=== PATIENT | male | born 1960 | race Caucasian/White ===

== ENCOUNTER 2016-08-10 13:31 | Inpatient (IN) | payer MEDICARE, OTHER ==
[2016-08-10] MEDS ORDERED: ASPIRIN 81 MG CHEW PO STA (14:25)
[2016-08-10] MEDS ORDERED: NITROGLYCERIN OINT 1 INCH/GM PACKET TOPICAL STA (14:25)
[2016-08-10] MEDS ORDERED: NITROGLYCERIN SL TABS 0.4 MG TAB SUBLINGUAL STA ×3 (14:25)
[2016-08-10] MEDS ORDERED: MORPHINE SULFATE 4 MG/ML SYRINGE IV STA (14:25)
[2016-08-10] MEDS ORDERED: SODIUM CHLORIDE 0.9% 1,000 ML IV STA (14:25)
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
[2016-08-10 14:53] LABS: Basophils % (A) 0 %; CH 31.1; CHCM 33.8; Eosinophils # (A) 0.2 k/uL (0-0.7); Eosinophils % (A) 2 %; HCT 47.4 % (39.0-53.0); HDW 2.29; HGB 15.7 gm/dL (13.0-17.5); Luc # (Auto) 0.11; Luc % (Auto) 1; Lymphocytes # (A) 3.3 k/uL (1.0-4.8); Lymphocytes % (A) 30 %; MCH 30.6 pg (25.0-35.0); MCHC 33.2 g/dL (31.0-37.0); MCV 92.2 fL (80.0-100.0); Monocytes # (A) 0.4 k/uL (0-1.0); Monocytes % (A) 4 %; Neutrophils # (A) 6.8 k/uL (1.3-7.7); Neutrophils % (A) 63 %; RBC 5.14 m/uL (4.30-5.90); WBC 10.8 k/uL (3.8-10.6); WBC (Perox) 11.02
[2016-08-10 15:04] LABS: INR 1.1 (<1.1)
[2016-08-10 15:07] LABS: ALT 46 U/L (21-72); AST 30 U/L (17-59); Alkaline Phosphatase 58 U/L (38-126); Anion Gap 11 mmol/L; Blood Urea Nitrogen 16 mg/dL (9-20); Calcium 9.5 mg/dL (8.4-10.2); Carbon Dioxide 25 mmol/L (22-30); Chloride 104 mmol/L (98-107); Glucose 150 mg/dL (74-99); Non-African American GFR(MDRD) >60 (>60 ml/min/1.73 sqM); Potassium 4.5 mmol/L (3.5-5.1); Sodium 140 mmol/L (137-145); Total Bilirubin 1.2 mg/dL (0.2-1.3); Total Protein 7.4 g/dL (6.3-8.2)
[2016-08-10 15:14] LABS: Creatine Kinase 91 U/L (55-170)
--- NOTE | 2016-08-10 15:15 | CT ---
EXAMINATION TYPE: CT brain wo con DATE OF EXAM: 08/10/2016 3:09 PM COMPARISON: 09/01/2012 HISTORY: 56-year-old male facial numbness TECHNIQUE: Examination was done in axial plane without intravenous contrast. Coronal and sagittal reconstructio ns performed. CT DLP: 1090.4 mGycm Automated exposure control for dose reduction was used. FINDINGS: There is no evidence of acute intracranial hemorrhage, acute ischemic changes, mass, mass-effect, or extra-axial fluid collection. There is no effacement of cerebral sulci or basal subarachnoid cister ns. There is no hydrocephalus. There is no midline shift. Yancey-white matter distinction is preserv ed. Incidental partially empty sella. Leftward nasal septal deviation. The globes are intact. Mastoid air cells well pneumatized. IMPRESSION: No acute intracranial abnormality seen.
--- NOTE | 2016-08-10 15:20 | XR ---
EXAMINATION TYPE: XR chest 2V DATE OF EXAM: 08/10/2016 3:12 PM COMPARISON: 09/10/2015 HISTORY: 56-year-old male with chest pain TECHNIQUE: Frontal and lateral views FINDINGS: The cardiomediastinal silhouette, aorta, and pulmonary vasculature are within normal limits. Some str christina perihilar atelectasis is present. Otherwise, lungs and pleural spaces are clear. Left anterior chest wall AICD generator with right ventricular lead. IMPRESSION: No acute cardiopulmonary process.
[2016-08-10 15:29] LABS: Creatine Kinase MB 1.4 ng/mL (0.0-2.4); Troponin I <0.012 ng/mL (0.000-0.034)
[2016-08-10] MEDS ORDERED: MORPHINE SULFATE 2 MG/ML SYRINGE IVP PRN (16:15)
[2016-08-10] MEDS ORDERED: HEPARIN SODIUM,PORCINE 5,000 UNIT/ML 1 ML VIAL IV ONE (16:15)
[2016-08-10] MEDS ORDERED: MORPHINE SULFATE 4 MG/ML SYRINGE IV PRN (16:15)
[2016-08-10] MEDS ORDERED: HEPARIN SODIUM,PORCINE/D5W PMX 25,000 UNIT in DEXTROSE/WATER 1 500ML.BAG IV SCH (16:15)
[2016-08-10] MEDS ORDERED: HEPARIN SODIUM,PORCINE 5,000 UNIT/ML 1 ML VIAL IV PRN (16:15)
[2016-08-10] MEDS ORDERED: ACETAMINOPHEN TAB 500 MG TAB PO PRN (16:21)
[2016-08-10] MEDS: ALPRAZolam 0.5 MG TAB PO PRN (19:46)
[2016-08-10] MEDS: NICOTINE 21MG/24HR PATCH TRANSDERM SCH (19:46)
[2016-08-10] MEDS ORDERED: ATORVASTATIN 40 MG TAB PO SCH (21:00)
[2016-08-10] MEDS: CARVEDILOL 12.5 MG TAB PO SCH (21:46)
[2016-08-10] MEDS: LISINOPRIL 10 MG TAB PO SCH (21:46)
[2016-08-10] MEDS: NITROGLYCERIN OINT 1 INCH/GM PACKET TOPICAL SCH (21:47)
[2016-08-10 22:55] LABS: Creatine Kinase MB 1.5 ng/mL (0.0-2.4); Troponin I 0.012 ng/mL (0.000-0.034)
[2016-08-11 03:38] LABS: Creatine Kinase MB 1.4 ng/mL (0.0-2.4); Troponin I 0.016 ng/mL (0.000-0.034)
[2016-08-11] MEDS: NITROGLYCERIN OINT 1 INCH/GM PACKET TOPICAL SCH ×2 (06:10→11:36)
[2016-08-11] MEDS: CARVEDILOL 12.5 MG TAB PO SCH ×2 (06:13→17:10)
[2016-08-11 06:43] LABS: Mean Platelet Volume 8.9
[2016-08-11 07:20] LABS: Cholesterol 101 mg/dL (<200); HDL Cholesterol 48 mg/dL (40-60); Triglycerides 51 mg/dL (<150)
[2016-08-11] MEDS: NICOTINE 21MG/24HR PATCH TRANSDERM SCH (08:16)
[2016-08-11] MEDS: LISINOPRIL 10 MG TAB PO SCH (08:17)
[2016-08-11] MEDS ORDERED: EZETIMIBE 10 MG TAB PO SCH (09:00)
[2016-08-11] MEDS ORDERED: ASPIRIN 325 MG TAB PO SCH (09:00)
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
[2016-08-11] MEDS ORDERED: ASPIRIN 325 MG TAB PO STA (10:04)
[2016-08-11] MEDS ORDERED: ATORVASTATIN 80 MG TAB PO STA (10:04)
[2016-08-11] MEDS ORDERED: ALPRAZolam 0.5 MG TAB PO PRN (10:04)
[2016-08-11] MEDS ORDERED: ALPRAZolam 0.25 MG TAB PO PRN (10:04)
[2016-08-11] MEDS ORDERED: NITROGLYCERIN SL TABS 0.4 MG TAB SUBLINGUAL PRN (10:04)
[2016-08-11] MEDS ORDERED: SODIUM CHLORIDE 0.9% 1,000 ML in EMPTY BAG 1 BAG IV ONE (10:04)
[2016-08-11] MEDS: ALPRAZolam 0.5 MG TAB PO PRN (10:15)
[2016-08-11 10:43] VITALS: TEMP 98.5
[2016-08-11 10:52] LABS: Glucose,Whole Blood 89 mg/dL (75-99)
--- NOTE | 2016-08-11 10:54 | ECHOF ---
Referral Reason:cp MEASUREMENTS -------- HEIGHT: 170.2 cm WEIGHT: 88.0 kg BP: 151/87 RVIDd: 2.6 cm (< 3.3) IVSd: 1.1 cm (0.6 - 1.1) LVIDd: 7.0 cm (3.9 - 5.3) LVPWd: 1.0 cm (0.6 - 1.1) IVSs: 1.2 cm LVIDs: 6.3 cm LVPWs: 1.3 cm LA Diam: 4.0 cm (2.7 - 3.8) LAESV Index (A-L): 23.66 ml/m Ao Diam: 3.4 cm (2.0 - 3.7) AV Cusp: 2.2 cm (1.5 - 2.6) LA Diam: 3.8 cm (2.7 - 3.8) MV EXCURSION: 14.751 mm (> 18.000) MV EF SLOPE: 80 mm/s (70 - 150) EPSS: 2.5 cm MV E Paramjit: 0.81 m/s MV DecT: 174 ms MV A Paramjit: 0.33 m/s MV E/A Ratio: 2.44 RAP: 5.00 mmHg RVSP: 44.53 mmHg FINDINGS -------- Paced rhythm. Pacerwire seen in RV and RA. This was a technically adequate study. The left ventricle is severely dilated. Left ventricular wall thickness is normal. Overall left ventricular systolic function is severely impaired with, an EF < 20%. The right ventricle is normal in size. Normal LA size by volume 22+/-6 ml/m2. The right atrium is normal in size. Aortic valve is trileaflet and is mildly thickened. Mild mitral annular calcification present. There is trace mitral regurgitation. Mild tricuspid regurgitation present. There is mild pulmonary hypertension. The right ventricular systolic pressure, as measured by Doppler, is 44.53mmHg. Trace/mild (physiologic) pulmonic regurgitation. The aortic root size is normal. Normal inferior vena cava with normal inspiratory collapse consistent with estimated right atrial pressure of 5 mmHg. There is no pericardial effusion. CONCLUSIONS -------- 1. Paced rhythm. 2. Aortic valve is trileaflet and is mildly thickened. 3. Mild mitral annular calcification present. 4. There is trace mitral regurgitation. 5. Mild tricuspid regurgitation present. 6. There is mild pulmonary hypertension. 7. The right ventricular systolic pressure, as measured by Doppler, is 44.53mmHg. 8. Trace/mild (physiologic) pulmonic regurgitation. 9. The aortic root size is normal. 10. There is no pericardial effusion. 11. Pacerwire seen in RV and RA. 12. This was a technically adequate study. 13. The left ventricle is severely dilated. 14. Left ventricular wall thickness is normal. 15. Overall left ventricular systolic function is severely impaired with, an EF < 20%. 16. The right ventricle is normal in size. 17. Normal LA size by volume 22+/-6 ml/m2. 18. The right atrium is normal in size. COFFEE WEIGHER: Taye Morales RDCS
[2016-08-11] MEDS ORDERED: IV FLUID CONTINUATION 1,000 ML IV ONE (12:22)
[2016-08-11] MEDS ORDERED: diphenhydrAMINE 50 MG/ML 1 ML VIAL ONE (12:42)
[2016-08-11] MEDS ORDERED: LIDOCAINE 2% INJ 20 MG/ML (20 ML MDV) ONE (12:42)
[2016-08-11] MEDS ORDERED: fentaNYL (PF) 50 MCG/ML 2 ML AMP ONE (12:43)
[2016-08-11] MEDS ORDERED: HEPARIN SODIUM 1,000 UNIT/ML VIAL ONE (12:43)
[2016-08-11] MEDS ORDERED: SODIUM CHLORIDE 0.9% (PF) 10 ML VIAL ONE (12:44)
[2016-08-11] MEDS ORDERED: VERAPAMIL 2.5 MG/ML 2 ML AMP ONE (12:44)
[2016-08-11] MEDS ORDERED: fentaNYL (PF) 50 MCG/ML 2 ML AMP IV ONE (12:45)
[2016-08-11] MEDS ORDERED: LIDOCAINE 2% INJ 20 MG/ML SQ ONE (12:46)
[2016-08-11] MEDS ORDERED: diphenhydrAMINE 50 MG/ML 1 ML VIAL IVP ONE (12:46)
[2016-08-11] MEDS ORDERED: VERAPAMIL SYRINGE (5 MG/10 ML) INTRAARTER ONE (12:47)
[2016-08-11] MEDS ORDERED: HEPARIN SODIUM 1,000 UNIT/ML VIAL IV ONE (12:54)
[2016-08-11] MEDS ORDERED: IOHEXOL 350 MG/ML 100 ML BOTTLE INJ ONE (12:59)
[2016-08-11] MEDS ORDERED: RX INFO: IV CONTRAST WAS GIVEN 1 EACH MISC MISCELLANE PRN (13:12)
[2016-08-11] MEDS ORDERED: SODIUM CHLORIDE 0.9% 1,000 ML IV SCH (13:15)
[2016-08-11 15:29] VITALS: RESP 18
[2016-08-11 17:26] VITALS: BP 140/86; PULSE 66
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
--- NOTE | 2016-08-11 21:05 | CC ---
DATE OF SERVICE: Mr. Carter is a 56-year-old male with known history of coronary artery disease, severe ischemic cardiomyopathy, history of chronic tobacco use, who presented to the hospital with symptoms of chest discomfort. He had no acute EKG changes nor enzymatic changes. He was evaluated by Dr. Simons. Because of his history, recommendation was made regarding cardiac catheterization. The procedure as well as its risks and complications were discussed with the patient, who was in full understanding and agreement. 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 He was draped and prepped in conventional fashion. Using Xylocaine anesthesia and Seldinger technique, a 6 Lao sheath was introduced in the right radial artery. Selective right and left coronary angiography was performed using 5 Lao 3-1/2 Bend, right Misbah catheter and a 6 Lao 3-1/2 Bend left Misbah catheter. Multiple views of the coronary arteries were obtained, including hemiaxial views. Following that, a 6 Lao tight pigtail catheter was introduced in the left ventricle and a 30-degree SMITH view of the left ventricle was obtained. Following that, catheter and sheaths were removed. Hemostasis was obtained with deployment of a TR band. There were no immediate complications. Patient was returned to his room in stable condition. Of note, the patient received 4500 units of intravenous heparin as well as intra-arterial Verapamil. FINDINGS LEFT MAIN: This is a large-sized vessel bifurcating into left circumflex and left anterior descending artery. Left main coronary artery has a 10% to 20% plaque distally. LEFT ANTERIOR DESCENDING ARTERY: This is a large-sized vessel reaching toward the apex with a wrap around the apex segment giving rise to a diagonal branch proximally of small to moderate caliber. The diagonal branch has 70% plaque. The stented segment in the mid LAD is patent. The rest of the vessel has diffuse intimal disease of 30% to 40% without any critical stenosis. LEFT CIRCUMFLEX: This is a dominant vessel, large in caliber, bifurcating distally into PDA and posterolateral segment and branches giving rise to a large first obtuse marginal branch. The obtuse marginal branch has 40% plaque proximally. The rest of the vessel has diffuse intimal disease of mild degree without any evidence of high-grade stenosis. RIGHT CORONARY ARTERY: This is a non-dominant vessel giving rise to acute marginal branch. The right coronary artery in its mid segment has a 99% stenosis in a diffuse pattern. LEFT VENTRICULOGRAM: Left ventriculogram was performed in 30-degree SMITH view and revealed a dilated left ventricle with severe anteroapical akinesis. The rest of the zamarripa were hypokinetic. The ejection fraction is estimated at 20%. There was no significant mitral regurgitation. HEMODYNAMICS: There was no gradient across the aortic valve. The left ventricular end-diastolic pressure was 34 mmHg. CONCLUSION: 1. Mild to moderate triple-vessel coronary artery disease with severe stenosis involving the non-dominant right coronary artery which is a chronic lesion. 2. Severely impaired left ventricular systolic function. RECOMMENDATIONS: In view of findings and anatomy, I recommend continued medical therapy with the aggressive coronary risk factor modifications that have been initiated. Those findings and recommendations were discussed with the patient and his family, and they are in full understanding and agreement.
--- NOTE | 2016-08-11 21:09 | LTR ---
August 11, 2016 RE: RaulMarc Dear Dr. Mendez, I had the pleasure of performing cardiac catheterization on Mr. Carter at [facility] on August 11, and a full copy of the procedure note will be forwarded to you. In brief, he was found to have mild to moderate obstructive disease involving the LAD and the left circumflex with severe chronic disease in the non-dominant right coronary artery and a severely impaired left ventricular systolic function. By comparison to the images obtained in the past, there is no progression of disease. Based on those findings, I have recommended continued medical therapy with the aggressive coronary risk modifications you have initiated. Thank you again for allowing me to participate in his care. Please feel to call with any questions. Sincerely, JOSE ESCUDERO MD
[2016-08-12] MEDS ORDERED: ATORVASTATIN 40 MG TAB PO SCH (21:00)
== END 2016-08-11 18:35 | disposition home or self-care (01) | DRG 287 ==
LOC: EC 13:31 → 6SEL 16:15
PROVIDERS: ADMIT Hospitalist; ATTEND Hospitalist
PROC: B2111ZZ Fluoroscopy of Multiple Coronary Arteries using Low Osmolar Contrast (ICD-10-PCS; 2016-08-11)
PROC: B2151ZZ Fluoroscopy of Left Heart using Low Osmolar Contrast (ICD-10-PCS; 2016-08-11)
PROC: 4A023N7 Measurement of Cardiac Sampling and Pressure, Left Heart, Percutaneous Approach (ICD-10-PCS; principal; 2016-08-11 12:32)
DX: R07.9 Chest pain, unspecified (principal); J44.1 Chronic obstructive pulmonary disease with (acute) exacerbation; I50.9 Heart failure, unspecified; I25.2 Old myocardial infarction; E78.5 Hyperlipidemia, unspecified; I10 Essential (primary) hypertension; F41.0 Panic disorder [episodic paroxysmal anxiety]; F17.200 Nicotine dependence, unspecified, uncomplicated; I25.5 Ischemic cardiomyopathy; M19.90 Unspecified osteoarthritis, unspecified site; I25.10 Atherosclerotic heart disease of native coronary artery without angina pectoris; E66.9 Obesity, unspecified; Z68.30 Body mass index [BMI] 30.0-30.9, adult; K57.90 Diverticulosis of intestine, part unspecified, without perforation or abscess without bleeding; G89.29 Other chronic pain; M54.9 Dorsalgia, unspecified; F41.9 Anxiety disorder, unspecified; Z95.5 Presence of coronary angioplasty implant and graft; Z95.810 Presence of automatic (implantable) cardiac defibrillator; Z79.82 Long term (current) use of aspirin; Z79.899 Other long term (current) drug therapy; Z88.2 Allergy status to sulfonamides; Z88.5 Allergy status to narcotic agent; Z88.1 Allergy status to other antibiotic agents; Z82.49 Family history of ischemic heart disease and other diseases of the circulatory system
CPT/HCPCS: 36415; 70450; 71020; 80053; 80061; 82550; 82553; 83735; 84484; 85025; 85049; 85610; 85730; 93005; 93306; 93458; 96374; 96375; 99285

== ENCOUNTER → 2016-08-21 | Outpatient (CLI) | payer MEDICARE, OTHER ==
[2016-08-21 11:49] LABS: Anion Gap 11 mmol/L; Blood Urea Nitrogen 15 mg/dL (9-20); Carbon Dioxide 27 mmol/L (22-30); Chloride 102 mmol/L (98-107); Non-African American GFR(MDRD) >60 (>60 ml/min/1.73 sqM); Potassium 4.8 mmol/L (3.5-5.1); Sodium 140 mmol/L (137-145)
== END | disposition home or self-care (01) ==
LOC: LABWHC1 10:15
PROVIDERS: ATTEND Internal Medicine Interventional Cardiology
DX: I10 Essential (primary) hypertension (principal)
CPT/HCPCS: 36415; 80051; 82565; 84520

== ENCOUNTER → 2017-05-02 | Outpatient (CLI) | payer MEDICARE, OTHER ==
[2017-05-02 09:14] LABS: ALT 62 U/L (21-72); AST 35 U/L (17-59); Alkaline Phosphatase 57 U/L (38-126); Anion Gap 9 mmol/L; Blood Urea Nitrogen 17 mg/dL (9-20); Calcium 9.3 mg/dL (8.4-10.2); Carbon Dioxide 27 mmol/L (22-30); Chloride 104 mmol/L (98-107); Cholesterol 109 mg/dL (<200); Glucose 114 mg/dL (74-99); HDL Cholesterol 53 mg/dL (40-60); Non-African American GFR(MDRD) >60 (>60 ml/min/1.73 sqM); Potassium 4.4 mmol/L (3.5-5.1); Sodium 140 mmol/L (137-145); Total Protein 7.3 g/dL (6.3-8.2)
== END | disposition home or self-care (01) ==
LOC: LABWHC1 08:24
PROVIDERS: ATTEND Internal Medicine Interventional Cardiology
DX: E78.2 Mixed hyperlipidemia (principal)
CPT/HCPCS: 36415; 80053; 80061

== ENCOUNTER 2017-11-14 14:41 | Inpatient (IN) | payer MEDICARE, OTHER ==
[2017-11-14] MEDS ORDERED: IPRATROPIUM-ALBUTEROL 3 ML NEB INHALATION STA (15:01)
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
[2017-11-14 15:29] LABS: Basophils % (A) 0 %; Eosinophils % (A) 0 %; HCT 46.9 % (39.0-53.0); HGB 15.8 gm/dL (13.0-17.5); Lymphocytes # (A) 1.5 k/uL (1.0-4.8); Lymphocytes % (A) 29 %; MCH 29.7 pg (25.0-35.0); MCHC 33.7 g/dL (31.0-37.0); MCV 88.1 fL (80.0-100.0); Mean Platelet Volume 9.7; Monocytes # (A) 0.3 k/uL (0-1.0); Monocytes % (A) 6 %; Neutrophils # (A) 3.2 k/uL (1.3-7.7); Neutrophils % (A) 62 %; Platelet Count 156 k/uL (150-450); RBC 5.32 m/uL (4.30-5.90); RDW 13.4 % (11.5-15.5); WBC 5.1 k/uL (3.8-10.6)
[2017-11-14 15:42] LABS: Albumin 4.2 g/dL (3.5-5.0); Magnesium 1.7 mg/dL (1.6-2.3); Potassium 4.2 mmol/L (3.5-5.1); Total Bilirubin 0.7 mg/dL (0.2-1.3); Total Protein 7.3 g/dL (6.3-8.2)
--- NOTE | 2017-11-14 15:46 | XR ---
EXAMINATION TYPE: XR chest 2V DATE OF EXAM: 11/14/2017 COMPARISON: Chest x-ray August 10, 2016 HISTORY: Shortness of breath and weakness. TECHNIQUE: Frontal and lateral views of the chest are obtained. FINDINGS: There is chronic parenchymal change without suspicious focal air space opacity, pleural ef fusion, or pneumothorax seen. The cardiac silhouette size is stable and upper limits of normal with single lead pacemaker/AICD redemonstrated. The osseous structures are intact. IMPRESSION: No acute cardiopulmonary process. No significant change from prior.
[2017-11-14 15:51] LABS: Partial Thromboplastin Time 28.2 sec (22.0-30.0); Prothrombin Time 10.1 sec (9.0-12.0)
[2017-11-14 16:03] LABS: D-Dimer 0.61 mg/L FEU (<0.60)
[2017-11-14] MEDS ORDERED: RX INFO: IV CONTRAST WAS GIVEN 1 EACH MISC MISCELLANE PRN (16:03)
[2017-11-14 16:04] LABS: Creatine Kinase MB 0.9 ng/mL (0.0-2.4)
[2017-11-14 16:08] LABS: Troponin I 0.067 ng/mL (0.000-0.034)
--- NOTE | 2017-11-14 16:43 | CT ---
EXAMINATION TYPE: CT chest angio for PE DATE OF EXAM: 11/14/2017 COMPARISON: Chest x-ray earlier today HISTORY: Weakness and SOB CT DLP: 378.2 mGycm. Automated Exposure Control for Dose Reduction was Utilized. CONTRAST: CTA scan of the thorax is performed with IV Contrast, patient injected with 65 mL of Isovue 370, pulm onary embolism protocol. MIP Images are created on CT scanner and reviewed. FINDINGS: LUNGS: Mild to moderate underlying emphysematous change is felt present. There is respiratory motion artifact seen making evaluation suboptimal particularly for subcentimeter nodularity. No suspicious m ass is clearly present. Some ill-defined groundglass opacity inferior lateral left upper lobe is iden tified near axial image 65. Additional smaller areas of involvement in the lingula are felt present. Tiny bilateral pleural effusions are seen. No pneumothorax is noted bilaterally. MEDIASTINUM: There is satisfactory enhancement of the pulmonary artery and its branches, there is no CT evidence for pulmonary embolism. There are prominent but subcentimeter lymph nodes throughout th e mediastinum is prominent in the AP window. No cardiomegaly or pericardial effusion is seen. There is moderate to severe left ventricular dilatation noted. There is single lead pacemaker/AICD. There is moderate to severe 3 vessel coronary artery calcification which is noted marker for coronary arter y disease. OTHER: Small hiatal hernia is present. There is mild multilevel spurring in the thoracic spine. IMPRESSION: 1. No CT evidence for acute pulmonary embolism. 2. Suboptimal study, mild to moderate underlying emphysematous change is present. There is moderate t o severe left ventricular dilatation noted. Possible acute infiltrate inferior aspect left upper lobe with additional areas of involvement in the left lung. Correlate clinically.
--- NOTE | 2017-11-14 16:52 | ED ---
Medical Decision Making - Lab Data Result diagrams: 11/14/17 15:10 11/14/17 15:10 Lab Results 11/14/17 11/14/17 11/14/17 Range/Units 15:10 15:10 15:10 WBC 5.1 (3.8-10.6) k/uL RBC 5.32 (4.30-5.90) m/uL Hgb 15.8 (13.0-17.5) gm/dL Hct 46.9 (39.0-53.0) % MCV 88.1 (80.0-100.0) fL MCH 29.7 (25.0-35.0) pg MCHC 33.7 (31.0-37.0) g/dL RDW 13.4 (11.5-15.5) % Plt Count 156 (150-450) k/uL Neutrophils % 62 % Lymphocytes % 29 % Monocytes % 6 % Eosinophils % 0 % Basophils % 0 % Neutrophils # 3.2 (1.3-7.7) k/uL Lymphocytes # 1.5 (1.0-4.8) k/uL Monocytes # 0.3 (0-1.0) k/uL Eosinophils # 0.0 (0-0.7) k/uL Basophils # 0.0 (0-0.2) k/uL PT (9.0-12.0) sec INR (<1.2) APTT (22.0-30.0) sec D-Dimer (<0.60) mg/L FEU Sodium 138 (137-145) mmol/L Potassium 4.2 (3.5-5.1) mmol/L Chloride 99 (98-107) mmol/L Carbon Dioxide 25 (22-30) mmol/L Anion Gap 14 mmol/L BUN 16 (9-20) mg/dL Creatinine 1.62 H (0.66-1.25) mg/dL Est GFR (CKD-EPI)AfAm 53 (>60 ml/min/1.73 sqM) Est GFR (CKD-EPI)NonAf 46 (>60 ml/min/1.73 sqM) Glucose 101 H (74-99) mg/dL Calcium 9.0 (8.4-10.2) mg/dL Magnesium 1.7 (1.6-2.3) mg/dL Total Bilirubin 0.7 (0.2-1.3) mg/dL AST 71 H (17-59) U/L ALT 70 (21-72) U/L Alkaline Phosphatase 71 (38-126) U/L Total Creatine Kinase 121 (55-170) U/L CK-MB (CK-2) 0.9 (0.0-2.4) ng/mL CK-MB (CK-2) Rel Index 0.7 Troponin I 0.067 H* (0.000-0.034) ng/mL NT-Pro-B Natriuret Pep pg/mL Total Protein 7.3 (6.3-8.2) g/dL Albumin 4.2 (3.5-5.0) g/dL 11/14/17 11/14/17 Range/Units 15:10 15:10 WBC (3.8-10.6) k/uL RBC (4.30-5.90) m/uL Hgb (13.0-17.5) gm/dL Hct (39.0-53.0) % MCV (80.0-100.0) fL MCH (25.0-35.0) pg MCHC (31.0-37.0) g/dL RDW (11.5-15.5) % Plt Count (150-450) k/uL Neutrophils % % Lymphocytes % % Monocytes % % Eosinophils % % Basophils % % Neutrophils # (1.3-7.7) k/uL Lymphocytes # (1.0-4.8) k/uL Monocytes # (0-1.0) k/uL Eosinophils # (0-0.7) k/uL Basophils # (0-0.2) k/uL PT 10.1 (9.0-12.0) sec INR 1.0 (<1.2) APTT 28.2 (22.0-30.0) sec D-Dimer 0.61 H (<0.60) mg/L FEU Sodium (137-145) mmol/L Potassium (3.5-5.1) mmol/L Chloride (98-107) mmol/L Carbon Dioxide (22-30) mmol/L Anion Gap mmol/L BUN (9-20) mg/dL Creatinine (0.66-1.25) mg/dL Est GFR (CKD-EPI)AfAm (>60 ml/min/1.73 sqM) Est GFR (CKD-EPI)NonAf (>60 ml/min/1.73 sqM) Glucose (74-99) mg/dL Calcium (8.4-10.2) mg/dL Magnesium (1.6-2.3) mg/dL Total Bilirubin (0.2-1.3) mg/dL AST (17-59) U/L ALT (21-72) U/L Alkaline Phosphatase (38-126) U/L Total Creatine Kinase (55-170) U/L CK-MB (CK-2) (0.0-2.4) ng/mL CK-MB (CK-2) Rel Index Troponin I (0.000-0.034) ng/mL NT-Pro-B Natriuret Pep 1270 pg/mL Total Protein (6.3-8.2) g/dL Albumin (3.5-5.0) g/dL Disposition Clinical Impression: Acute exacerbation of chronic obstructive airways disease, Diarrhea Disposition: ADMITTED IP TO THIS HOSP Referrals: Saima Mendez MD [Primary Care Provider] - 1-2 days
[2017-11-14] MEDS: IPRATROPIUM-ALBUTEROL 3 ML NEB INHALATION PRN (18:44)
[2017-11-14] MEDS: LEVOFLOXACIN 750MG-D5W PMX 750 MG in DEXTROSE/WATER 1 150ML.BAG IVPB SCH (21:49)
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
[2017-11-14] MEDS ORDERED: SODIUM CHLORIDE 0.9% 1,000 ML IV SCH (23:15)
[2017-11-15] MEDS: ATORVASTATIN 40 MG TAB PO SCH ×2 (01:05→20:16)
[2017-11-15] MEDS: CARVEDILOL 12.5 MG TAB PO SCH ×3 (01:06→17:02)
[2017-11-15] MEDS ORDERED: HEPARIN SODIUM,PORCINE 5,000 UNIT/ML 1 ML VIAL IV ONE (06:25)
[2017-11-15] MEDS ORDERED: HEPARIN SODIUM,PORCINE 5,000 UNIT/ML 1 ML VIAL IV PRN (06:25)
[2017-11-15] MEDS ORDERED: HEPARIN SOD,PORK IN 0.45% NACL 25,000 UNIT in 0.45% NACL 1 500ML.BAG IV SCH (06:30)
[2017-11-15] MEDS: IPRATROPIUM-ALBUTEROL 3 ML NEB INHALATION PRN (07:22)
[2017-11-15 07:25] LABS: Basophils % (A) 0 %; Eosinophils % (A) 0 %; HCT 42.1 % (39.0-53.0); HGB 14.4 gm/dL (13.0-17.5); Lymphocytes # (A) 1.4 k/uL (1.0-4.8); Lymphocytes % (A) 41 %; MCH 30.3 pg (25.0-35.0); MCHC 34.3 g/dL (31.0-37.0); MCV 88.2 fL (80.0-100.0); Mean Platelet Volume 9.6; Monocytes # (A) 0.2 k/uL (0-1.0); Monocytes % (A) 5 %; Neutrophils # (A) 1.8 k/uL (1.3-7.7); Neutrophils % (A) 51 %; Platelet Count 121 k/uL (150-450); RBC 4.77 m/uL (4.30-5.90); RDW 13.6 % (11.5-15.5); WBC 3.5 k/uL (3.8-10.6)
[2017-11-15 07:44] LABS: ALT 61 U/L (21-72); AST 58 U/L (17-59); Albumin 3.4 g/dL (3.5-5.0); Alkaline Phosphatase 61 U/L (38-126); Anion Gap 11 mmol/L; Blood Urea Nitrogen 17 mg/dL (9-20); Calcium 8.4 mg/dL (8.4-10.2); Carbon Dioxide 25 mmol/L (22-30); Chloride 102 mmol/L (98-107); Glucose 85 mg/dL (74-99); Sodium 138 mmol/L (137-145); Total Bilirubin 0.6 mg/dL (0.2-1.3); Total Protein 6.2 g/dL (6.3-8.2)
[2017-11-15] MEDS: ASPIRIN 81 MG PO SCH (07:59)
[2017-11-15] MEDS: EZETIMIBE 10 MG TAB PO SCH (07:59)
[2017-11-15] MEDS: methylPREDNISolone SOD SUCCI 125 MG/2 ML VIAL IV SCH (10:11)
[2017-11-15] MEDS: IPRATROPIUM-ALBUTEROL 3 ML NEB INHALATION SCH ×2 (11:58→19:25)
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
[2017-11-15] MEDS: LISINOPRIL 10 MG TAB PO SCH ×2 (12:39→20:16)
[2017-11-15] MEDS: BUDESONIDE 1 MG/2 ML NEBU INHALATION SCH (19:25)
[2017-11-15] MEDS: FORMOTEROL FUMARATE 20 MCG/2 ML NEBU INHALATION SCH (19:37)
[2017-11-15] MEDS: LEVOFLOXACIN 750MG-D5W PMX 750 MG in DEXTROSE/WATER 1 150ML.BAG IVPB SCH (20:16)
[2017-11-16] MEDS ORDERED: WATER IV SCH (05:30)
[2017-11-16] MEDS ORDERED: HEPARIN SODIUM,PORCINE/D5W PMX 25,000 UNIT in DEXTROSE/WATER 1 500ML.BAG IV SCH (05:30)
[2017-11-16] MEDS ORDERED: HEPARIN SOD PORK IV SCH (05:30)
[2017-11-16] MEDS ORDERED: DEXTROSE IV SCH (05:30)
[2017-11-16] MEDS ORDERED: NACL IV SCH (05:30)
[2017-11-16] MEDS: CARVEDILOL 12.5 MG TAB PO SCH ×2 (06:20→17:42)
[2017-11-16 07:24] LABS: Basophils % (A) 0 %; Eosinophils % (A) 1 %; HGB 13.7 gm/dL (13.0-17.5); Lymphocytes # (A) 2.4 k/uL (1.0-4.8); Lymphocytes % (A) 46 %; MCHC 32.7 g/dL (31.0-37.0); MCV 88.6 fL (80.0-100.0); Mean Platelet Volume 9.7; Monocytes # (A) 0.2 k/uL (0-1.0); Monocytes % (A) 5 %; Neutrophils # (A) 2.4 k/uL (1.3-7.7); Neutrophils % (A) 46 %; Platelet Count 120 k/uL (150-450); RBC 4.74 m/uL (4.30-5.90); RDW 13.5 % (11.5-15.5); WBC 5.2 k/uL (3.8-10.6)
[2017-11-16 07:48] LABS: Anion Gap 10 mmol/L; Blood Urea Nitrogen 12 mg/dL (9-20); Calcium 8.4 mg/dL (8.4-10.2); Carbon Dioxide 26 mmol/L (22-30); Chloride 104 mmol/L (98-107); Potassium 4.4 mmol/L (3.5-5.1); Sodium 140 mmol/L (137-145)
[2017-11-16 07:50] LABS: Glucose 91 mg/dL (74-99)
[2017-11-16] MEDS: FORMOTEROL FUMARATE 20 MCG/2 ML NEBU INHALATION SCH ×2 (08:12→19:37)
[2017-11-16] MEDS: IPRATROPIUM-ALBUTEROL 3 ML NEB INHALATION SCH ×3 (08:12→19:37)
[2017-11-16] MEDS: BUDESONIDE 1 MG/2 ML NEBU INHALATION SCH ×2 (08:13→19:37)
[2017-11-16] MEDS: ASPIRIN 81 MG PO SCH (08:43)
[2017-11-16] MEDS: LISINOPRIL 10 MG TAB PO SCH ×2 (08:43→21:34)
[2017-11-16] MEDS: EZETIMIBE 10 MG TAB PO SCH (08:43)
--- NOTE | 2017-11-16 10:45 | P.PN ---
Subjective Progress Note Date: 11/16/17 Principal diagnosis: Acute COPD exacerbation Marc is a 57-year-old white male patient of Dr. Mendez, who presented to the emergency department on 11/14/2017 at 1441 with complaints of a month-long respiratory illness, with worsening shortness of breath, cough, chest congestion , wheezing. Denied any fever and chills, complaining of a headache from persistent coughing, chest tightness exacerbated by coughing. He is producing whitish colored sputum. Patient has a [id number] smoking history, 1 pack a day for 40 years, quit a month ago he started having trouble breathing. He was seen by Dr. Mendez outpatient, and was treated with a course of Levaquin, completed it and failed to improve. He was given Medrol Dosepak, however the patient had a severe reaction to oral steroids 2 years ago, he developed severe sweating, lightheadedness, weakness, felt like he was "dying". Hence the patient never started his Medrol Dosepak. He was prescribed Symbicort inhaler, which had does not use consistently due to concerns of possibly developing oral thrush. Patient has a Ventolin inhaler which he uses once or twice daily. Does not wear oxygen at his baseline. He thinks he has seen Dr. Pacheco in the remote past. Has a history of COPD, coronary artery disease with previous stenting, 2 myocardial infarctions, AICD/pacemaker, hypertension, hyperlipidemia , osteoarthritis, chronic back pain, anxiety. EKG showed normal sinus rhythm with no evidence of acute ischemia. Chest x-ray showed no acute cardiopulmonary process, patient's had slightly elevated d-dimer at 0.61, and the CTA chest was completed which showed no evidence for acute pulmonary embolism, but evidence of [id number] underlying emphysematous changes, moderate to severe left ventricular dilation. The film was reviewed by Dr. Pacheco and there was no evidence of pneumonia. Patient was noted to have slightly elevated troponins, which topped at 0.067, CKs and CK-MBs were negative. Patient was started on heparin drip. ProBNP was within normal limits at 1270. Patient's initial creatinine was 1.62, he has received some IV hydration, and overnight his creatinine has improved and currently is 0.94. The rest of his electrolytes are within normal limits. Initial white blood cell count was 5.1, today is 3.5. We were asked to see the patient in consultation in regards to his COPD exacerbation. On 11/16/2017 patient seen in follow-up on selective care unit. He states he is improving, his breathing is a bit better, still has some chest tightness which is exacerbated by his coughing, his cough was productive of white sputum. And seems to be worse at nighttime. Is currently on room air, with O2 sat 95%, afebrile, vital signs are stable. Lung sounds are positive for some scattered rhonchi over right lower lobe, no wheezing noted on today's exam, overall improved from yesterday's exam. Remains on heparin drip. Objective - Vital Signs Vital signs: Vital Signs Temp 97.0 F L 11/16/17 08:00 Pulse 77 11/16/17 08:39 Resp 16 11/16/17 08:00 BP 124/76 11/16/17 08:00 Pulse Ox 95 11/16/17 08:13 Intake & Output 11/15/17 11/16/17 11/16/17 18:59 06:59 18:59 Intake Total 400 560 360 Output Total 325 500 200 Balance 75 60 160 Weight 82.7 kg Intake: Intake, IV Titration 400 560 Amount Heparin Sod,Pork in 0.45% 160 NaCl 25,000 unit In 0.45 % NaCl 1 500ml.bag @ 12 UNITS/KG/HR 20.28 mls/hr IV .Q24H TOO Rx#: [id number] Sodium Chloride 0.9% 1, 400 400 000 ml @ 50 mls/hr IV . Q20H TOO Rx#:[id number] Oral 360 Output: Urine 325 500 200 Other: Voiding Method Urinal # Voids 1 - Exam Constitutional General appearance: average body habitus, no acute distress - EENT Eyes: EOMI, dentition normal ENT: NA/AT Ears: bilateral: normal - Neck Neck: no lymphadenopathy, normal ROM Carotids: bilateral: upstroke normal Thyroid: bilateral: normal size - Respiratory Respiratory: bilateral: rhonchi - Cardiovascular Rhythm: regular Heart sounds: normal: S1, S2 - Gastrointestinal General gastrointestinal: no organomegaly, soft, no tenderness - Integumentary Integumentary: normal turgor - Neurologic Neurologic: CNII-XII intact - Musculoskeletal Musculoskeletal: gait normal, strength equal bilaterally - Psychiatric Psychiatric: A&O x's 3, appropriate affect, intact judgment & insight - Labs CBC & Chem 7: 11/16/17 06:35 11/16/17 06:35 Labs: Abnormal Lab Results - Last 24 Hours (Table) 11/15/17 11/16/17 11/16/17 Range/Units 13:22 06:35 06:35 Plt Count 120 L (150-450) k/uL APTT 71.8 H 85.3 H (22.0-30.0) sec Assessment and Plan Plan: Assessment: #1. Acute COPD exacerbation #2. Mild troponin elevation #3. Mildly elevated d-dimer, nonspecific, and CTA chest was negative for any evidence of pulmonary embolism #4. History of coronary artery disease, with previous stenting #5. History of myocardial infarction #6. Ischemic cardiomyopathy with prior AICD placement #7. Hypertension, hyperlipidemia #8. Nicotine dependence, in remission, quit 1 month ago, history of 40-pack- year smoking history #9. Anxiety #10. Osteoarthritis, chronic back pain #11. History of bowel resection related to diverticulitis Plan: Patient is improving, less dyspneic, less wheezy, less chest tightness. Vital signs are stable, patient still has the persistent cough, and states at times is difficult for him to expectorate the phlegm. We will add Mucinex. Continue with nebulized bronchodilators, continue Pulmicort and Perforomist, continue empiric antibiotics in the form of Levaquin, anticipate further improvement. I performed a history & physical examination of the patient and discussed their management with my nurse practitioner, Marcela Pineda. I reviewed the nurse practitioner's note and agree with the documented findings and plan of care. Lung sounds are positive for scattered rhonchi throughout the lung martinez. The findings and the impression was discussed with the patient. I attest to the documentation by the nurse practitioner. Time with Patient: Less than 30
--- NOTE | 2017-11-16 10:51 | P.PN ---
Subjective Progress Note Date: 11/15/17 Principal diagnosis: COPD Exacerbation Mr. Christian is a 57-year-old male with a past medical history of coronary artery disease, COPD, hyperlipidemia, hypertension, osteoarthritis coming in with a chief complaint of difficulty in breathing that has been going on for the past 1 month. Patient has been having cough on and off that is productive in nature and he was evaluated for it and was put on antibiotics. Patient states that he did not respond to antibiotics and so stopped taking them couple of weeks back. Patient reports that the sputum is thick yellowish in nature and that it is difficult for him to cough as it is very thick. Patient states that he had diarrhea for couple of days but now denies having any abdominal pain or diarrhea. On 11/15/17 - Patient denies having any chest pain our palpitations. He complains of generalized weakness but no focal weakness. He denies having any loss of consciousness. Still having shortness of breath. Patient says that he did have ALLERGIC reaction to Medrol Dosepak with dizziness and near syncope. Does not want to take prednisone at this time. Renal function improved. We will discontinue IV fluids and continue the current management during inhaled steroids. Pulmonary is following. Patient does have slightly elevated troponin level REVIEW OF SYSTEMS: PSYCH: no anxiety or depression NEURO:No c/o weakness of the extremties, No facial droop, No speech abnormalities. : No dysuria or hematuria CARDIAC: denies paroxysmal nocturnal dyspnea MUSCULOSKELETAL : No Aches or pains in the joints or muscles. GI: No abdominal pain, Nausea or vomiting. No constipation or diarrhea. Objective - Vital Signs Vital signs: Vital Signs Temp 97.9 F 11/15/17 22:31 Pulse 73 11/15/17 22:31 Resp 18 11/15/17 22:31 BP 141/85 11/15/17 22:31 Pulse Ox 94 L 11/15/17 22:31 Intake & Output 11/15/17 11/15/17 11/16/17 06:59 18:59 06:59 Intake Total 400 Output Total 325 Balance 75 Weight 84.5 kg 82.7 kg Intake: Intake, IV Titration 400 Amount Sodium Chloride 0.9% 1, 400 000 ml @ 50 mls/hr IV . Q20H TOO Rx#:[id number] Output: Urine 325 Other: Voiding Method Urinal # Voids 0 # Bowel Movements 0 - Exam GEN. APPEARANCE: alert, in no apparent distress HEAD EXAM: atraumatic, normocephalic, normal inspection EYE EXAM: normal appearance, PERRL, EOMI. Absent: scleral icterus, conjunctival injection, periorbital swelling ENT EXAM: normal exam, mucous membranes moist NECK EXAM: normal inspection. Absent: tenderness, meningismus, full ROM, lymphadenopathy RESPIRATORY EXAM: Bilateral wheezing in all lung martinez and diminished breath sounds overall. CARDIOVASCULAR EXAM: regular rate, normal rhythm, normal heart sounds. Absent : systolic murmur, diastolic murmur, rubs, gallop, clicks GI/ABDOMINAL EXAM: soft, normal bowel sounds. Absent: distended, tenderness, guarding, rebound, rigid EXTREMITIES EXAM: normal inspection, full ROM, normal capillary refill. Absent : tenderness, pedal edema, joint swelling, calf tenderness NEUROLOGICAL EXAM: alert, oriented X3, CN II-XII intact, motor sensory deficit PSYCHIATRIC EXAM: normal affect, normal mood SKIN EXAM: warm, dry, intact, normal color. Absent: rash - Labs CBC & Chem 7: 11/16/17 06:35 11/16/17 06:35 Labs: Abnormal Lab Results - Last 24 Hours (Table) 11/14/17 11/15/17 11/15/17 Range/Units 23:38 06:57 06:57 WBC 3.5 L (3.8-10.6) k/uL Plt Count 121 L (150-450) k/uL APTT (22.0-30.0) sec Troponin I 0.046 H* (0.000-0.034) ng/mL Total Protein 6.2 L (6.3-8.2) g/dL Albumin 3.4 L (3.5-5.0) g/dL 11/15/17 11/15/17 Range/Units 06:57 13:22 WBC (3.8-10.6) k/uL Plt Count (150-450) k/uL APTT 71.8 H (22.0-30.0) sec Troponin I 0.052 H* (0.000-0.034) ng/mL Total Protein (6.3-8.2) g/dL Albumin (3.5-5.0) g/dL Assessment and Plan Assessment: Assessment Acute exacerbation of COPD Left upper lobe infiltrate -inferior lateral side. Possible pneumonia Acute kidney injury. Prerenal improved Elevated troponins History of CVA/TIA Ischemic cardiomyopathy with prior AICD implantation Chronic CHF with systolic dysfunction ejection fraction 20%. With elevated BNP level History of Coronary artery disease status post stenting Hypertension Hyperlipidemia Cognitive impairment Osteoarthritis Nicotine dependence PLAN: Discontinue IV fluids. Pt responded to IV fluids which improved renal function. C/w Breathing treatments and Levofloxacin. Echo tomorrow. Cardiology and Pulmonary services following. Overall prognosis is poor. Further recommendations to follow depending on progress with the patient. Time with Patient: Greater than 30
[2017-11-16] MEDS: guaiFENesin 600 MG TABLET.ER PO SCH ×2 (11:13→21:34)
--- NOTE | 2017-11-16 11:47 | ECHOF ---
Referral Reason:sob MEASUREMENTS -------- HEIGHT: 170.2 cm WEIGHT: 84.4 kg BP: 124/70 RVIDd: 2.6 cm (< 3.3) IVSd: 0.9 cm (0.6 - 1.1) LVIDd: 7.2 cm (3.9 - 5.3) LVPWd: 1.0 cm (0.6 - 1.1) IVSs: 1.1 cm LVIDs: 6.8 cm LVPWs: 1.1 cm LAESV Index (A-L): 31.27 ml/m Ao Diam: 2.9 cm (2.0 - 3.7) AV Cusp: 1.9 cm (1.5 - 2.6) LA Diam: 3.3 cm (2.7 - 3.8) EPSS: 2.7 cm MV E Paramjit: 0.51 m/s MV DecT: 437 ms MV A Paramjit: 0.76 m/s MV E/A Ratio: 0.67 RAP: 5.00 mmHg RVSP: 9.51 mmHg %FS: 10.23 % EDV(Teich): 308.26 ml EF(Teich): 21.55 % ESV(Teich): 241.83 ml IVSd: 0.81 cm (0.6 - 1.1) IVSs: 1.01 cm LVIDd: 7.61 cm (3.9 - 5.3) LVIDs: 6.83 cm LVPWd: 0.84 cm (0.6 - 1.1) LVPWs: 1.04 cm MV EF SLOPE: 99.26 mm/s (70 - 150) MV EXCURSION: 1.38 cm (> 18.000) SV(Teich): 66.43 ml FINDINGS -------- Sinus rhythm. This was a technically difficult study with suboptimal views. The left ventricle is severely dilated. Left ventricular wall thickness is normal. There is sever e global hypokinesis of LV . Overall left ventricular systolic function is severely impaired with, an EF < 20%. The right ventricle is normal in size and function. LA is midly dilated 29-33ml/m2. The right atrium was not well visualized. Electronic pacemaker lead seen in the right ventricular c avity. 3ml of Lumason was utilized for enhancement of images. There is mild aortic valve sclerosis. There is no evidence of aortic regurgitation. There is no e vidence of aortic stenosis. The mitral valve leaflets are mildly thickened. There is trace to mild mitral regurgitation. Trace tricuspid regurgitation present. Right ventricular systolic pressure is normal at < 35 mmHg. There is no evidence of pulmonary hypertension. The pulmonic valve was not well visualized. The aortic root size is normal. Normal inferior vena cava with normal inspiratory collapse consistent with estimated right atrial pre ssure of 5 mmHg. There is no pericardial effusion. CONCLUSIONS -------- 1. Sinus rhythm. 2. This was a technically difficult study with suboptimal views. 3. The left ventricle is severely dilated. 4. Left ventricular wall thickness is normal. 5. There is severe global hypokinesis of LV . 6. Overall left ventricular systolic function is severely impaired with, an EF < 20%. 7. LA is midly dilated 29-33ml/m2. 8. The right atrium was not well visualized. 9. Electronic pacemaker lead seen in the right ventricular cavity. 10. 3ml of Lumason was utilized for enhancement of images. 11. There is mild aortic valve sclerosis. 12. The mitral valve leaflets are mildly thickened. 13. There is trace to mild mitral regurgitation. 14. Trace tricuspid regurgitation present. 15. Right ventricular systolic pressure is normal at < 35 mmHg. 16. There is no evidence of pulmonary hypertension. 17. The pulmonic valve was not well visualized. 18. The aortic root size is normal. 19. There is no pericardial effusion. [employer] ENGINEER: Kurtis Perez RDCS
--- NOTE | 2017-11-16 14:37 | P.PN ---
Subjective Progress Note Date: 11/16/17 This is a 57-year-old gentleman who follows regularly with Dr. Barrientos in the office. He has a known history of hypertension, hyperlipidemia, nicotine dependence, COPD, family history of premature coronary artery disease, coronary artery disease himself with prior stent placements. He also has known cardiomyopathy, ischemic with prior AICD implantation. Most recent cardiac catheterization was performed in the Jul 2016 revealed mild to moderate triple- vessel coronary artery disease with severe stenosis involving a nondominant RCA which is a chronic lesion. Severely impaired left ventricular systolic function. Presents to the hospital on this occasion with symptoms of persistent worsening of shortness of breath. He states that the symptoms been going on for over a month, he was treated with inhalers and antibiotics as an outpatient with no improvement in symptoms. According to the patient, he also states that he's been coughing up a significant amount of yellow sputum. Over the past number of days patient has also been having diarrhea every time he eats something. He denies any overt chest discomfort, just states that his chest hurts from coughing so much. EKG performed on arrival here shows a normal sinus rhythm with nonspecific ST-T wave changes. Chest x-ray does not reveal any acute cardiopulmonary process. CT of the chest does not reveal any evidence for acute pulmonary embolism. Suboptimal study, mild to moderate underlying emphysema is present. Possible acute infiltrate of the left upper lobe noted. Blood pressure 124/70 with a heart rate in the 60s, temperature 90.7, 93% on room air. White blood cell count 5.1 yesterday 3.5 this morning, hemoglobin 14, platelet count 121 this morning. D-dimer 0.6. The 138, potassium 4.0, BUN 17, creatinine 0.9, creatinine was 1.6. Magnesium 1.7 troponins 0.067, 0.046, 0.052, BNP 1270. At the time of my examination this morning, patient states he still feels short of breath, however better than when he presented here. 11/16/2017 Patient seen and examined this morning. Feeling significantly better with his breathing. Echo cardiac gram with Doppler study was performed which revealed a severely impaired left ventricular systolic function with an ejection fraction of less than 20%. Blood pressure 110/60 with a heart rate in the 70s, temperature 97.1, he is 96% on room air. Blood cell count 5.2, hemoglobin 13.7 , platelet count 120. Sodium 140, potassium 4.4, BUN 12, creatinine 0.8. Objective - Vital Signs Vital signs: Vital Signs Temp 97.1 F L 11/16/17 11:35 Pulse 76 11/16/17 11:35 Resp 16 11/16/17 11:35 BP 111/57 11/16/17 11:35 Pulse Ox 96 11/16/17 11:35 Intake & Output 11/15/17 11/16/17 11/16/17 18:59 06:59 18:59 Intake Total 400 560 600 Output Total 325 500 200 Balance 75 60 400 Weight 82.7 kg Intake: Intake, IV Titration 400 560 Amount Heparin Sod,Pork in 0.45% 160 NaCl 25,000 unit In 0.45 % NaCl 1 500ml.bag @ 12 UNITS/KG/HR 20.28 mls/hr IV .Q24H TOO Rx#: [id number] Sodium Chloride 0.9% 1, 400 400 000 ml @ 50 mls/hr IV . Q20H TOO Rx#:[id number] Oral 600 Output: Urine 325 500 200 Other: Voiding Method Urinal # Voids 1 - Exam PHYSICAL EXAMINATION: HEENT: Head is atraumatic, normocephalic. Pupils equal, round. Neck is supple. There is no elevated jugular venous pressure. HEART EXAMINATION: Heart S1 and S2 systolic ejection murmur is heard. CHEST EXAMINATION: Lungs reveal scattered coarse rhonchi and wheezing throughout today. ABDOMEN: Soft, nontender. Bowel sounds are heard. No organomegaly noted. EXTREMITIES: 2+ peripheral pulses with no evidence of peripheral edema and no calf tenderness noted. NEUROLOGIC patient is awake, alert and oriented -3. . - Labs CBC & Chem 7: 11/16/17 06:35 11/16/17 06:35 Labs: Abnormal Lab Results - Last 24 Hours (Table) 11/16/17 11/16/17 Range/Units 06:35 06:35 Plt Count 120 L (150-450) k/uL APTT 85.3 H (22.0-30.0) sec Assessment and Plan Plan: Assessment and plan #1 symptoms of progressively worsening shortness of breath with associated cough , productive sputum yellow in color. Over one month's duration. CAT scan of the chest shows possible new left upper lobe infiltrate. Possible pneumonia, COPD exacerbation. Patient on antibiotics. BNP level 1270. #2 abnormal troponins, 0.067, 0.046, 0.052. Patient denies having any chest discomfort. EKG shows a normal sinus rhythm with nonspecific ST changes in the anterolateral leads. Most recent cardiac catheterization was performed in July 2016 which revealed mild to moderate triple-vessel coronary artery disease with severe stenosis involving the nondominant RCA which is a chronic lesion. Diagonal branch at that time was noted to have a 70% plaque and 30-40% diffuse disease in the LAD. #3 known history of coronary artery disease with prior stent placements #4 hypertension #5 hyperlipidemia #6 COPD #7 nicotine dependence #8 ischemic cardiomyopathy with prior AICD implantation #9 diarrhea with evidence of dehydration on admission. Plan Cardiology's perspective, we'll continue the patient on his current medications. We will follow him with you now on an as-needed basis only, an outpatient scheduled appointment will be made post discharge. DNP note has been reviewed, I agree with a documented findings and plan of care. Patient was seen and examined.
[2017-11-16] MEDS ORDERED: LEVOFLOXACIN 750 MG TAB PO SCH (21:00)
[2017-11-16] MEDS: ATORVASTATIN 40 MG TAB PO SCH (21:34)
[2017-11-17] MEDS: IPRATROPIUM-ALBUTEROL 3 ML NEB INHALATION SCH ×2 (07:55→13:18)
[2017-11-17] MEDS: FORMOTEROL FUMARATE 20 MCG/2 ML NEBU INHALATION SCH (07:55)
[2017-11-17] MEDS: BUDESONIDE 1 MG/2 ML NEBU INHALATION SCH (07:56)
[2017-11-17] MEDS: EZETIMIBE 10 MG TAB PO SCH (08:48)
[2017-11-17] MEDS: ASPIRIN 81 MG PO SCH (08:48)
[2017-11-17] MEDS: guaiFENesin 600 MG TABLET.ER PO SCH (08:48)
[2017-11-17] MEDS: LISINOPRIL 10 MG TAB PO SCH (08:48)
[2017-11-17] MEDS: CARVEDILOL 12.5 MG TAB PO SCH (08:48)
[2017-11-17 09:10] VITALS: BP 151/95; RESP 16; TEMP 97.9
--- NOTE | 2017-11-17 11:14 | P.PN ---
Subjective Progress Note Date: 11/17/17 Principal diagnosis: Acute COPD exacerbation Marc is a 57-year-old white male patient of Dr. Mendez, who presented to the emergency department on 11/14/2017 at 1441 with complaints of a month-long respiratory illness, with worsening shortness of breath, cough, chest congestion , wheezing. Denied any fever and chills, complaining of a headache from persistent coughing, chest tightness exacerbated by coughing. He is producing whitish colored sputum. Patient has a [id number] smoking history, 1 pack a day for 40 years, quit a month ago he started having trouble breathing. He was seen by Dr. Mendez outpatient, and was treated with a course of Levaquin, completed it and failed to improve. He was given Medrol Dosepak, however the patient had a severe reaction to oral steroids 2 years ago, he developed severe sweating, lightheadedness, weakness, felt like he was "dying". Hence the patient never started his Medrol Dosepak. He was prescribed Symbicort inhaler, which had does not use consistently due to concerns of possibly developing oral thrush. Patient has a Ventolin inhaler which he uses once or twice daily. Does not wear oxygen at his baseline. He thinks he has seen Dr. Pacheco in the remote past. Has a history of COPD, coronary artery disease with previous stenting, 2 myocardial infarctions, AICD/pacemaker, hypertension, hyperlipidemia , osteoarthritis, chronic back pain, anxiety. EKG showed normal sinus rhythm with no evidence of acute ischemia. Chest x-ray showed no acute cardiopulmonary process, patient's had slightly elevated d-dimer at 0.61, and the CTA chest was completed which showed no evidence for acute pulmonary embolism, but evidence of [id number] underlying emphysematous changes, moderate to severe left ventricular dilation. The film was reviewed by Dr. Pacheco and there was no evidence of pneumonia. Patient was noted to have slightly elevated troponins, which topped at 0.067, CKs and CK-MBs were negative. Patient was started on heparin drip. ProBNP was within normal limits at 1270. Patient's initial creatinine was 1.62, he has received some IV hydration, and overnight his creatinine has improved and currently is 0.94. The rest of his electrolytes are within normal limits. Initial white blood cell count was 5.1, today is 3.5. We were asked to see the patient in consultation in regards to his COPD exacerbation. On 11/16/2017 patient seen in follow-up on selective care unit. He states he is improving, his breathing is a bit better, still has some chest tightness which is exacerbated by his coughing, his cough was productive of white sputum. And seems to be worse at nighttime. Is currently on room air, with O2 sat 95%, afebrile, vital signs are stable. Lung sounds are positive for some scattered rhonchi over right lower lobe, no wheezing noted on today's exam, overall improved from yesterday's exam. Remains on heparin drip. On 11/17/2017 patient is seen in follow-up. Reports breathing easier, lung sounds are less congested, does no wheezing noted on today's exam. Patient has responded well to nebulized bronchodilators, Pulmicort, Perforomist. Patient will need a nebulizer machine for home use, as well as Symbicort. He will need an outpatient appointment in the pulmonary office for her baseline PFT and optimization of his pulmonary status. Vital signs are stable, afebrile, on room air, much improved overall. Objective - Vital Signs Vital signs: Vital Signs Temp 97.9 F 11/17/17 07:52 Pulse 73 11/17/17 08:17 Resp 16 11/17/17 07:52 BP 151/95 11/17/17 07:52 Pulse Ox 97 11/17/17 07:52 Intake & Output 11/16/17 11/17/17 11/17/17 18:59 06:59 18:59 Intake Total 1320 Output Total 200 Balance 1120 Weight 82.4 kg Intake: Oral 1320 Output: Urine 200 Other: Voiding Method Urinal # Voids 1 - Exam Constitutional General appearance: average body habitus, no acute distress - EENT Eyes: EOMI, dentition normal ENT: NA/AT Ears: bilateral: normal - Neck Neck: no lymphadenopathy, normal ROM Carotids: bilateral: upstroke normal Thyroid: bilateral: normal size - Respiratory Respiratory: bilateral: rhonchi, no wheezing today's exam - Cardiovascular Rhythm: regular Heart sounds: normal: S1, S2 - Gastrointestinal General gastrointestinal: no organomegaly, soft, no tenderness - Integumentary Integumentary: normal turgor - Neurologic Neurologic: CNII-XII intact - Musculoskeletal Musculoskeletal: gait normal, strength equal bilaterally - Psychiatric Psychiatric: A&O x's 3, appropriate affect, intact judgment & insight - Labs CBC & Chem 7: 11/16/17 06:35 11/16/17 06:35 Assessment and Plan Plan: Assessment: #1. Acute COPD exacerbation #2. Mild troponin elevation #3. Mildly elevated d-dimer, nonspecific, and CTA chest was negative for any evidence of pulmonary embolism #4. History of coronary artery disease, with previous stenting #5. History of myocardial infarction #6. Ischemic cardiomyopathy with prior AICD placement #7. Hypertension, hyperlipidemia #8. Nicotine dependence, in remission, quit 1 month ago, history of 40-pack- year smoking history #9. Anxiety #10. Osteoarthritis, chronic back pain #11. History of bowel resection related to diverticulitis Plan: Patient continues to improve, responded well to nebulized bronchodilators, Pulmicort and Perforomist and empiric antibiotics. Less coughing, less congestion and wheezing. Stable for discharge home from pulmonary standpoint. We will arrange nebulizer machine for home use, and the patient will be discharged home on Symbicort 160/4.5 puffs twice a day. Patient can initial outpatient course of Levaquin. Follow-up with Dr. Hagan/ Dr. Pacheco in the office in 7-10 days. I performed a history & physical examination of the patient and discussed their management with my nurse practitioner, Marcela Pineda. I reviewed the nurse practitioner's note and agree with the documented findings and plan of care. Lung sounds are positive for scattered rhonchi throughout the lung martinez. The findings and the impression was discussed with the patient. I attest to the documentation by the nurse practitioner. Time with Patient: Less than 30
--- NOTE | 2017-11-17 12:19 | P.PN ---
Subjective Progress Note Date: 11/16/17 Principal diagnosis: Acute COPD Exacerbation Mr. Christian is a 57-year-old male with a past medical history of coronary artery disease, COPD, hyperlipidemia, hypertension, osteoarthritis coming in with a chief complaint of difficulty in breathing that has been going on for the past 1 month. Patient has been having cough on and off that is productive in nature and he was evaluated for it and was put on antibiotics. Patient states that he did not respond to antibiotics and so stopped taking them couple of weeks back. Patient reports that the sputum is thick yellowish in nature and that it is difficult for him to cough as it is very thick. Patient states that he had diarrhea for couple of days but now denies having any abdominal pain or diarrhea. On 11/15/17 - Patient denies having any chest pain our palpitations. He complains of generalized weakness but no focal weakness. He denies having any loss of consciousness. Still having shortness of breath. Patient says that he did have ALLERGIC reaction to Medrol Dosepak with dizziness and near syncope. Does not want to take prednisone at this time. Renal function improved. We will discontinue IV fluids and continue the current management during inhaled steroids. Pulmonary is following. Patient does have slightly elevated troponin level On 11/16/17 - Patient is lying in the bed comfortably. He does not have any active complaints. He states that his difficulty breathing is improved much.No active issues reported overnight. REVIEW OF SYSTEMS: PSYCH: no anxiety or depression NEURO:No c/o weakness of the extremties, No facial droop, No speech abnormalities. : No dysuria or hematuria CARDIAC: denies paroxysmal nocturnal dyspnea MUSCULOSKELETAL : No Aches or pains in the joints or muscles. GI: No abdominal pain, Nausea or vomiting. No constipation or diarrhea. Objective - Vital Signs Vital signs: Vital Signs Temp 98.0 F 11/16/17 20:00 Pulse 66 11/16/17 20:00 Resp 18 11/16/17 20:00 BP 147/88 11/16/17 20:00 Pulse Ox 99 11/16/17 20:00 Intake & Output 11/16/17 11/16/17 11/17/17 06:59 18:59 06:59 Intake Total 560 1320 Output Total 500 200 Balance 60 1120 Weight 82.7 kg Intake: Intake, IV Titration 560 Amount Heparin Sod,Pork in 0.45% 160 NaCl 25,000 unit In 0.45 % NaCl 1 500ml.bag @ 12 UNITS/KG/HR 20.28 mls/hr IV .Q24H TOO Rx#: [id number] Sodium Chloride 0.9% 1, 400 000 ml @ 50 mls/hr IV . Q20H TOO Rx#:[id number] Oral 1320 Output: Urine 500 200 Other: Voiding Method Urinal # Voids 1 1 - Exam GEN. APPEARANCE: alert, in no apparent distress HEAD EXAM: atraumatic, normocephalic, normal inspection EYE EXAM: normal appearance, PERRL, EOMI. Absent: scleral icterus, conjunctival injection, periorbital swelling ENT EXAM: normal exam, mucous membranes moist NECK EXAM: normal inspection. Absent: tenderness, meningismus, full ROM, lymphadenopathy RESPIRATORY EXAM: Bilateral wheezing improved compared to yesterday and minimal expiratory wheeze. CARDIOVASCULAR EXAM: regular rate, normal rhythm, normal heart sounds. Absent : systolic murmur, diastolic murmur, rubs, gallop, clicks GI/ABDOMINAL EXAM: soft, normal bowel sounds. Absent: distended, tenderness, guarding, rebound, rigid EXTREMITIES EXAM: normal inspection, full ROM, normal capillary refill. Absent : tenderness, pedal edema, joint swelling, calf tenderness NEUROLOGICAL EXAM: alert, oriented X3, CN II-XII intact, motor sensory deficit PSYCHIATRIC EXAM: normal affect, normal mood SKIN EXAM: warm, dry, intact, normal color. Absent: rash - Labs CBC & Chem 7: 11/16/17 06:35 11/16/17 06:35 Labs: Abnormal Lab Results - Last 24 Hours (Table) 11/16/17 11/16/17 Range/Units 06:35 06:35 Plt Count 120 L (150-450) k/uL APTT 85.3 H (22.0-30.0) sec Assessment and Plan Assessment: Assessment Acute exacerbation of COPD Left upper lobe infiltrate -inferior lateral side. Possible pneumonia Acute kidney injury. Prerenal - improved Elevated troponins - demand ischemia History of CVA/TIA Ischemic cardiomyopathy with prior AICD implantation Chronic CHF with systolic dysfunction ejection fraction 20%. With elevated BNP level History of Coronary artery disease status post stenting Hypertension Hyperlipidemia Cognitive impairment Osteoarthritis Nicotine dependence PLAN: Discontinued IV fluids. Pt responded to IV fluids which improved renal function. C/w Breathing treatments and Levofloxacin. Echo done today showing EF < 20 %. Overall prognosis is poor. Further recommendations to follow depending on progress with the patient. Time with Patient: Greater than 30
[2017-11-17 13:34] VITALS: PULSE 76
--- NOTE | 2017-11-17 23:04 | P.DS ---
Providers Date of admission: 11/16/17 11:02 Expected date of discharge: 11/17/17 Attending physician: Sruthi Grimaldo Consults: 11/14/17 19:53 Consult Physician Routine Consulting Provider: Elvis Elias Consult Reason/Comments: SOB Do you want consulting provider notified?: Yes 11/15/17 06:24 Consult Physician Routine Consulting Provider: Alexandre Brantley Consult Reason/Comments: elevated trops Do you want consulting provider notified?: Yes Primary care physician: Andrea Massey [facility] Hospital Course: Mr. Christian is a 57-year-old male with a past medical history of coronary artery disease, COPD, hyperlipidemia, hypertension, osteoarthritis coming in with a chief complaint of difficulty in breathing that has been going on for the past 1 month. Patient has been having cough on and off that is productive in nature and he was evaluated for it and was put on antibiotics. Patient states that he did not respond to antibiotics and so stopped taking them couple of weeks back. Patient reports that the sputum is thick yellowish in nature and that it is difficult for him to cough as it is very thick. Patient had diarrhea for couple of days but now denies having any abdominal pain or diarrhea. Has a history of COPD, coronary artery disease with previous stenting, 2 myocardial infarctions, AICD/pacemaker, hypertension, hyperlipidemia, osteoarthritis, chronic back pain, anxiety. EKG showed normal sinus rhythm with no evidence of acute ischemia. Chest x-ray showed no acute cardiopulmonary process, patient's had slightly elevated d-dimer at 0.61, and the CTA chest was completed which showed no evidence for acute pulmonary embolism, but evidence of [id number] underlying emphysematous changes, moderate to severe left ventricular dilation. CXR showed no evidence of pneumonia. Patient was noted to have slightly elevated troponins, which topped at 0.067, CKs and CK-MBs were negative. Patient was started on heparin drip that was later d/c . ProBNP was within normal limits at 1270. Patient's initial creatinine was 1.62, he has received some IV hydration, and overnight his creatinine has improved . The rest of his electrolytes are within normal limits. On 11/15/17 - Patient denies having any chest pain our palpitations. He complains of generalized weakness but no focal weakness. He denies having any loss of consciousness. Still having shortness of breath. Patient says that he did have ALLERGIC reaction to Medrol Dosepak with dizziness and near syncope. Does not want to take prednisone at this time. Renal function improved. We will discontinue IV fluids and continue the current management during inhaled steroids. Pulmonary is following. Patient does have slightly elevated troponin level On 11/16/17 - Patient is lying in the bed comfortably. He does not have any active complaints. He states that his difficulty breathing is improved much.No active issues reported overnight. On 11/17/17 - His breathing is back to his base line. He is cleared by Pulmonary services to be discharged home. Pt's vitals, physical exam and labs at base line . DISCHARGE DIAGNOSIS Acute exacerbation of COPD Left upper lobe infiltrate -inferior lateral side. Possible pneumonia Acute kidney injury. Prerenal - improved Elevated troponins - demand ischemia History of CVA/TIA Ischemic cardiomyopathy with prior AICD implantation Chronic CHF with systolic dysfunction ejection fraction 20%. With elevated BNP level History of Coronary artery disease status post stenting Hypertension Hyperlipidemia Cognitive impairment Osteoarthritis Nicotine dependence Patient was given a nebulizer. Patient will be sent home with Symbicort and DuoNeb's. Continue with antibiotics for another 4 days. Recommended to follow with pulmonary clinic in a week and cardiology and primary care physician in 1- 3 days otherwise patient is stable to be discharged home. More than 30 min spent towards the discharge of the pt. Patient Condition at Discharge: Fair Plan - Discharge Summary Discharge Rx Participant: Yes New Discharge Prescriptions: New Levofloxacin [Levaquin] 750 mg PO HS #4 tab Budesonide-Formot 160-4.5 Mcg [Symbicort 160-4.5 Mcg Inhaler] 2 puff INHALATION BID #1 inhaler Ipratropium-Albuterol Nebulize [Duoneb 0.5 mg-3 mg/3 ml Soln] 3 ml INHALATION QID #120 neb Continue Carvedilol [Coreg] 12.5 mg PO BID Ezetimibe [Zetia] 10 mg PO DAILY Rosuvastatin [Crestor] 20 mg PO HS Quinapril HCl [Accupril] 10 mg PO BID Aspirin EC [Ecotrin Low Dose] 81 mg PO DAILY Acetaminophen Tab [Tylenol] 1,000 mg PO Q6HR PRN PRN Reason: Pain Albuterol Sulfate [Proventil Hfa] 2 puff INHALATION RT-Q6H PRN PRN Reason: Dyspnea Discontinued Fluticasone/Umeclidin/Vilanter [Trelegy Ellipta 100-62.5-25] 2 puff INHALATION RT-BID Discharge Medication List Aspirin EC [Ecotrin Low Dose] 81 mg PO DAILY 09/10/15 [History] Carvedilol [Coreg] 12.5 mg PO BID 09/10/15 [History] Ezetimibe [Zetia] 10 mg PO DAILY 09/10/15 [History] Quinapril HCl [Accupril] 10 mg PO BID 09/10/15 [History] Rosuvastatin [Crestor] 20 mg PO HS 09/10/15 [History] Acetaminophen Tab [Tylenol] 1,000 mg PO Q6HR PRN 08/10/16 [History] Albuterol Sulfate [Proventil Hfa] 2 puff INHALATION RT-Q6H PRN 11/14/17 [History ] Budesonide-Formot 160-4.5 Mcg [Symbicort 160-4.5 Mcg Inhaler] 2 puff INHALATION BID #1 inhaler 11/17/17 [Rx] Ipratropium-Albuterol Nebulize [Duoneb 0.5 mg-3 mg/3 ml Soln] 3 ml INHALATION QID #120 neb 11/17/17 [Rx] Levofloxacin [Levaquin] 750 mg PO HS #4 tab 11/17/17 [Rx] Follow up Appointment(s)/Referral(s): Saima Mendez MD [Primary Care Provider] - 11/28/17 1:50 pm Timothy Pacheco DO [Doctor of Osteopathic Medicine] - 11/30/17 9:30 am Patient Instructions/Handouts: Levofloxacin (By mouth), Ipratropium/Albuterol ( By breathing), Budesonide/Formoterol (By breathing), COPD (Chronic Obstructive Pulmonary Disease) (DC) Discharge Disposition: HOME SELF-CARE
== END 2017-11-17 14:22 | disposition home or self-care (01) | DRG 190 ==
LOC: EC 14:41 → 6SEL 16:38 → OBSVTOIN 11-16 11:02 → 5MS5E 11-16 17:51
PROVIDERS: ADMIT Internal Medicine; ATTEND Internal Medicine
DX: J44.1 Chronic obstructive pulmonary disease with (acute) exacerbation (principal); J18.9 Pneumonia, unspecified organism; N17.9 Acute kidney failure, unspecified; I50.22 Chronic systolic (congestive) heart failure; K57.92 Diverticulitis of intestine, part unspecified, without perforation or abscess without bleeding; I24.8 Other forms of acute ischemic heart disease; I25.10 Atherosclerotic heart disease of native coronary artery without angina pectoris; E78.5 Hyperlipidemia, unspecified; R41.89 Other symptoms and signs involving cognitive functions and awareness; M19.90 Unspecified osteoarthritis, unspecified site; G89.29 Other chronic pain; R79.1 Abnormal coagulation profile; K59.00 Constipation, unspecified; I25.5 Ischemic cardiomyopathy; F41.0 Panic disorder [episodic paroxysmal anxiety]; R19.7 Diarrhea, unspecified; M54.9 Dorsalgia, unspecified; J44.0 Chronic obstructive pulmonary disease with (acute) lower respiratory infection; F17.201 Nicotine dependence, unspecified, in remission; E86.0 Dehydration; I11.0 Hypertensive heart disease with heart failure; Z88.6 Allergy status to analgesic agent; Z88.1 Allergy status to other antibiotic agents; Z88.2 Allergy status to sulfonamides; Z88.8 Allergy status to other drugs, medicaments and biological substances; Z95.5 Presence of coronary angioplasty implant and graft; Z79.899 Other long term (current) drug therapy; Z79.82 Long term (current) use of aspirin; Z82.49 Family history of ischemic heart disease and other diseases of the circulatory system; Z86.73 Personal history of transient ischemic attack (TIA), and cerebral infarction without residual deficits; Z82.61 Family history of arthritis; Z82.3 Family history of stroke; Z95.810 Presence of automatic (implantable) cardiac defibrillator; Z90.49 Acquired absence of other specified parts of digestive tract; I25.2 Old myocardial infarction
CPT/HCPCS: 36415; 71046; 71275; 80048; 80053; 82550; 82553; 83735; 83880; 84484; 85025; 85379; 85610; 85730; 93005; 93306; 94640; 94760; 96365; 96366; 96367; 96376; 99285

== ENCOUNTER 2018-01-23 15:23 | Inpatient (IN) | payer MEDICARE, OTHER ==
[2018-01-23 17:21] LABS: Basophils % (A) 0 %; Eosinophils # (A) 0.1 k/uL (0-0.7); Eosinophils % (A) 1 %; HCT 43.8 % (39.0-53.0); HGB 14.4 gm/dL (13.0-17.5); Lymphocytes # (A) 2.4 k/uL (1.0-4.8); Lymphocytes % (A) 25 %; MCH 31.1 pg (25.0-35.0); MCHC 32.9 g/dL (31.0-37.0); MCV 94.6 fL (80.0-100.0); Mean Platelet Volume 8.7; Monocytes # (A) 0.5 k/uL (0-1.0); Monocytes % (A) 5 %; Neutrophils # (A) 6.5 k/uL (1.3-7.7); Neutrophils % (A) 67 %; Platelet Count 215 k/uL (150-450); RBC 4.63 m/uL (4.30-5.90); RDW 15.3 % (11.5-15.5); WBC 9.6 k/uL (3.8-10.6)
[2018-01-23 17:22] LABS: INR 1.2 (<1.2); Partial Thromboplastin Time 24.9 sec (22.0-30.0); Prothrombin Time 11.4 sec (9.0-12.0)
--- NOTE | 2018-01-23 17:23 | XR ---
EXAMINATION TYPE: XR chest 2V DATE OF EXAM: 01/23/2018 COMPARISON: 11/14/2017 HISTORY: Difficulty breathing TECHNIQUE: Frontal and lateral views of the chest are obtained. FINDINGS: There is blunting of costophrenic angles. There is left axillary pacemaker with the lead tip in the right ventricle. Heart is borderline enlarged. Bony thorax is intact. Lungs are clear of c onsolidation. IMPRESSION: New small bilateral pleural effusions compared to old exam. Heart appears increased comp ared to old exam. Mild heart failure is suspected.
[2018-01-23 17:28] LABS: ALT 54 U/L (21-72); AST 35 U/L (17-59); Albumin 3.9 g/dL (3.5-5.0); Alkaline Phosphatase 58 U/L (38-126); Anion Gap 11 mmol/L; Blood Urea Nitrogen 17 mg/dL (9-20); Calcium 9.1 mg/dL (8.4-10.2); Carbon Dioxide 23 mmol/L (22-30); Chloride 109 mmol/L (98-107); Glucose 95 mg/dL (74-99); Potassium 4.7 mmol/L (3.5-5.1); Sodium 143 mmol/L (137-145); Total Bilirubin 2.5 mg/dL (0.2-1.3); Total Protein 6.8 g/dL (6.3-8.2)
[2018-01-23] MEDS ORDERED: FUROSEMIDE 10 MG/ML 4 ML VIAL IV STA (17:48)
[2018-01-23] MEDS ORDERED: IPRATROPIUM-ALBUTEROL 3 ML NEB INHALATION STA (17:48)
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
[2018-01-23 18:31] LABS: Creatine Kinase MB 1.3 ng/mL (0.0-2.4); Troponin I 0.025 ng/mL (0.000-0.034)
[2018-01-23] MEDS ORDERED: NALOXONE 0.4 MG/ML 1 ML VIAL IV PRN (19:27)
[2018-01-23] MEDS ORDERED: ALBUTEROL NEBULIZED 2.5 MG/3 ML INHALATION PRN (19:27)
[2018-01-23] MEDS: ATORVASTATIN 40 MG TAB PO SCH ×2 (21:13→21:14)
[2018-01-23] MEDS: CARVEDILOL 12.5 MG TAB PO SCH (21:13)
[2018-01-23] MEDS: LISINOPRIL 10 MG TAB PO SCH (21:13)
[2018-01-23] MEDS: ALBUTEROL NEBULIZED 2.5 MG/3 ML INHALATION PRN (21:25)
[2018-01-24 05:54] LABS: Basophils % (A) 0 %; Eosinophils # (A) 0.2 k/uL (0-0.7); Eosinophils % (A) 1 %; HCT 42.3 % (39.0-53.0); HGB 13.7 gm/dL (13.0-17.5); Lymphocytes # (A) 2.6 k/uL (1.0-4.8); Lymphocytes % (A) 23 %; MCH 30.9 pg (25.0-35.0); MCHC 32.3 g/dL (31.0-37.0); MCV 95.5 fL (80.0-100.0); Mean Platelet Volume 9.3; Monocytes # (A) 0.7 k/uL (0-1.0); Monocytes % (A) 6 %; Neutrophils # (A) 7.7 k/uL (1.3-7.7); Neutrophils % (A) 68 %; Platelet Count 183 k/uL (150-450); RBC 4.43 m/uL (4.30-5.90); RDW 15.2 % (11.5-15.5); WBC 11.3 k/uL (3.8-10.6)
[2018-01-24 06:15] LABS: Anion Gap 11 mmol/L; Blood Urea Nitrogen 17 mg/dL (9-20); Calcium 9.3 mg/dL (8.4-10.2); Carbon Dioxide 27 mmol/L (22-30); Chloride 103 mmol/L (98-107); Glucose 97 mg/dL (74-99); Potassium 3.9 mmol/L (3.5-5.1); Sodium 141 mmol/L (137-145)
[2018-01-24] MEDS: CARVEDILOL 12.5 MG TAB PO SCH ×2 (06:57→18:37)
[2018-01-24] MEDS: FUROSEMIDE 10 MG/ML 4 ML VIAL IV SCH ×2 (08:05→20:39)
[2018-01-24] MEDS: EZETIMIBE 10 MG TAB PO SCH (08:05)
[2018-01-24] MEDS: LISINOPRIL 10 MG TAB PO SCH ×2 (08:05→20:39)
[2018-01-24] MEDS: ASPIRIN 81 MG PO SCH (08:05)
[2018-01-24] MEDS: ALBUTEROL NEBULIZED 2.5 MG/3 ML INHALATION PRN ×3 (08:28→16:08)
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
[2018-01-24 14:42] VITALS: BMI 27.4
[2018-01-24] MEDS ORDERED: DOCUSATE 100 MG CAP PO PRN (20:24)
[2018-01-24] MEDS: SENNOSIDES-DOCUSATE SODIUM 1 EACH TAB PO SCH (20:38)
[2018-01-24] MEDS: ATORVASTATIN 40 MG TAB PO SCH ×2 (20:39→20:40)
[2018-01-24] MEDS: SYMBICORT 160-4.5 MCG INHALER INHALATION SCH (20:45)
[2018-01-25] MEDS: CARVEDILOL 12.5 MG TAB PO SCH ×2 (06:35→17:27)
[2018-01-25 06:49] LABS: HCT 43.2 % (39.0-53.0); HGB 14.3 gm/dL (13.0-17.5); MCH 31.6 pg (25.0-35.0); MCHC 33.1 g/dL (31.0-37.0); MCV 95.7 fL (80.0-100.0); Mean Platelet Volume 9.1; Platelet Count 199 k/uL (150-450); RBC 4.51 m/uL (4.30-5.90); WBC 11.9 k/uL (3.8-10.6)
[2018-01-25 07:39] LABS: Anion Gap 12 mmol/L; Blood Urea Nitrogen 21 mg/dL (9-20); Calcium 9.3 mg/dL (8.4-10.2); Carbon Dioxide 28 mmol/L (22-30); Chloride 101 mmol/L (98-107); Glucose 116 mg/dL (74-99); Sodium 141 mmol/L (137-145)
[2018-01-25] MEDS: ASPIRIN 81 MG PO SCH (08:06)
[2018-01-25] MEDS: FUROSEMIDE 10 MG/ML 4 ML VIAL IV SCH ×2 (08:06→20:04)
[2018-01-25] MEDS: LISINOPRIL 10 MG TAB PO SCH ×2 (08:06→20:04)
[2018-01-25] MEDS: SPIRONOLACTONE 25 MG TAB PO SCH (08:06)
[2018-01-25] MEDS: EZETIMIBE 10 MG TAB PO SCH (08:06)
--- NOTE | 2018-01-25 09:22 | P.PN ---
Subjective Progress Note Date: 01/25/18 Principal diagnosis: CHF This is a pleasant 58-year-old gentleman with a past medical history significant for CAD with a known intermediate triple-vessel coronary artery disease based on heart catheterization was performed in January 2017, known ischemic cardiomyopathy with an ejection fraction of less than 35%, status post AICD, as well as hypertension and dyslipidemia was admitted to the hospital with progressive dyspnea and progressive orthopnea and was diagnosed was congestive heart failure exacerbation secondary to systolic dysfunction. The patient was started on Lasix IV at 40 mg twice a day. I'll follow-up with him today, he stated that the shortness of breath is better. He still have some orthopnea. No chest pain or chest discomfort. He has been making significant amount of urine and he lost 4 kg since he was admitted to the hospital. I still can hear crackles in the left lung base. No bilateral lower extremities edema. And no abdominal distention. Objective - Vital Signs Vital signs: Vital Signs Temp 97.7 F 01/25/18 07:49 Pulse 61 01/25/18 07:49 Resp 18 01/25/18 07:49 BP 127/79 01/25/18 07:49 Pulse Ox 95 01/25/18 07:49 Intake & Output 01/24/18 01/25/18 01/25/18 18:59 06:59 18:59 Intake Total 480 240 240 Balance 480 240 240 Weight 84.4 kg 81.1 kg Intake: Oral 480 240 240 Other: Voiding Method Toilet # Voids 1 6 - Constitutional General appearance: Present: no acute distress - Respiratory Respiratory: right: rales, left: CTA - Cardiovascular Rhythm: regular Heart sounds: normal: S1, S2 - Labs CBC & Chem 7: 01/25/18 06:22 01/25/18 06:22 Labs: Abnormal Lab Results - Last 24 Hours (Table) 01/25/18 01/25/18 Range/Units 06:22 06:22 WBC 11.9 H (3.8-10.6) k/uL BUN 21 H (9-20) mg/dL Glucose 116 H (74-99) mg/dL Microbiology - Last 24 Hours (Table) 01/23/18 17:02 Blood Culture - Preliminary Blood No Growth after 24 hours Assessment and Plan Assessment: Assessment #1 intermediate triple-vessel coronary artery disease #2 ischemic cardiomyopathy and status post AICD #3 congestive heart failure exacerbation secondary to systolic dysfunction #4 multiple comorbid conditions including hypertension and dyslipidemia Plan #1 I would continue the IV Lasix for additional 24 hours. The patient still have crackles in the lungs #2 he has been diuresing very well and he lost 4 kg since he was admitted #3 follow-up with the patient. #4 continue monitor the kidney function and electrolytes
[2018-01-25] MEDS: ALBUTEROL NEBULIZED 2.5 MG/3 ML INHALATION PRN ×3 (10:37→19:32)
[2018-01-25] MEDS: SYMBICORT 160-4.5 MCG INHALER INHALATION SCH ×2 (10:37→19:32)
--- NOTE | 2018-01-25 13:48 | P.PN ---
Subjective Progress Note Date: 01/25/18 Principal diagnosis: Acute exacerbation of chronic systolic congestive heart failure. This is a very pleasant 58-year-old gentleman who follows with Dr. Piedra as his primary care physician. He has a history of significant coronary artery disease with previous stent placements, ischemic cardiomyopathy with ejection fraction less than 20%, status post AICD placement, hyperlipidemia, hypertension , osteoarthritis, previous CVA/TIA. He also has a history of chronic obstructive pulmonary disease and follows with Dr. Pacheco in our office for the same. He is maintained on Symbicort and Ventolin. He presented here to the emergency room yesterday with complaints of chest tightness, shortness of breath , pain into his right shoulder also had pain in his back that radiated to his anterior chest wall. Troponins were negative. ProBNP 8560. Chest x-ray revealed evidence of mild fluid volume overload. No leukocytosis. Nonproductive cough. No chills or night sweats. He has been afebrile. Maintaining good O2 saturations in the 90s on room air. He is seen today in the selective care unit and consultation. He is awake and alert in no acute distress. He states his shortness of breath and chest discomfort has mainly resolved. He is diuresing well. He is down 1 kg from yesterday. He has trace peripheral edema. He has received IV Lasix 40 mg IV every 12 hours. The patient is seen again today 01/25/2018 in follow-up on the selective care unit. He is currently resting quite comfortably in bed. He is awake and alert in no acute distress. He is breathing easier today as compared to yesterday. He continues to diurese well. Down another 3 kg. He continues on Lasix 40 mg IV push every 12 hours. Creatinine 0.97. Objective - Vital Signs Vital signs: Vital Signs Temp 97.7 F 01/25/18 07:49 Pulse 74 01/25/18 10:49 Resp 18 01/25/18 07:49 BP 127/79 01/25/18 07:49 Pulse Ox 95 01/25/18 07:49 Intake & Output 01/24/18 01/25/18 01/25/18 18:59 06:59 18:59 Intake Total 480 240 480 Balance 480 240 480 Weight 84.4 kg 81.1 kg Intake: Oral 480 240 480 Other: Voiding Method Toilet # Voids 1 6 0 - Exam - Constitutional General appearance: average body habitus - EENT Eyes: EOMI, PERRLA ENT: hearing grossly normal Ears: bilateral: normal - Neck Neck: normal ROM Carotids: bilateral: upstroke normal Thyroid: bilateral: normal size - Respiratory Respiratory: bilateral: diminished, rales - Cardiovascular Rhythm: regular Abnormal Heart Sounds: systolic murmur - Gastrointestinal General gastrointestinal: normal bowel sounds - Integumentary Integumentary: normal turgor - Neurologic Neurologic: CNII-XII intact - Musculoskeletal Musculoskeletal: gait normal - Psychiatric Psychiatric: A&O x's 3, appropriate affect, intact judgment & insight - Labs CBC & Chem 7: 01/25/18 06:22 01/25/18 06:22 Labs: Abnormal Lab Results - Last 24 Hours (Table) 01/25/18 01/25/18 Range/Units 06:22 06:22 WBC 11.9 H (3.8-10.6) k/uL BUN 21 H (9-20) mg/dL Glucose 116 H (74-99) mg/dL Microbiology - Last 24 Hours (Table) 01/23/18 17:02 Blood Culture - Preliminary Blood No Growth after 24 hours Assessment and Plan Assessment: Impression: #1 Acute exacerbation of chronic systolic congestive heart failure. #2 Severe ischemic cardiomyopathy with ejection fraction less than 20%. Status post AICD placement. #3 Coronary artery disease with previous stent placements. #4 Hypertension. #5 Hyperlipidemia. #6 Chronic obstructive pulmonary disease, currently inactive and stable. #7 Significant chronic tobacco dependence of 40 years however quit in October 2017. #8 History of anxiety. #9 Osteoarthritis with chronic back pain. #10 History of bowel resection secondary to diverticulitis. Plan: The patient was seen and evaluated by Dr. Elias. Patient is improved today as compared to yesterday. No worsening shortness of breath, cough or congestion. Probable discharge in the a.m. I, the cosigning physician, performed a history & physical examination of the patient. Lungs sounds with crackles in the bilateral posterior bases. Diminished. Maintaining good O2 saturations in the 90s on room air. I discussed the assessment and plan of care with my nurse practitioner, Nikky Hagan. I attest to the above note as dictated by her.
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
[2018-01-25] MEDS: SENNOSIDES-DOCUSATE SODIUM 1 EACH TAB PO SCH (20:04)
[2018-01-25] MEDS: ATORVASTATIN 40 MG TAB PO SCH ×2 (20:04→20:08)
[2018-01-26] MEDS: CARVEDILOL 12.5 MG TAB PO SCH (06:30)
[2018-01-26] MEDS: ASPIRIN 81 MG PO SCH (08:01)
[2018-01-26] MEDS: FUROSEMIDE 10 MG/ML 4 ML VIAL IV SCH (08:01)
[2018-01-26] MEDS: EZETIMIBE 10 MG TAB PO SCH (08:01)
[2018-01-26] MEDS: SYMBICORT 160-4.5 MCG INHALER INHALATION SCH (08:28)
[2018-01-26] MEDS: ALBUTEROL NEBULIZED 2.5 MG/3 ML INHALATION PRN ×2 (08:28→11:44)
[2018-01-26 08:29] VITALS: RESP 18; TEMP 97
--- NOTE | 2018-01-26 09:33 | P.PN ---
Subjective Progress Note Date: 01/26/18 Principal diagnosis: CHF This is a pleasant 58-year-old gentleman with a past medical history significant for CAD with a known intermediate triple-vessel coronary artery disease based on heart catheterization was performed in January 2017, known ischemic cardiomyopathy with an ejection fraction of less than 35%, status post AICD, as well as hypertension and dyslipidemia was admitted to the hospital with progressive dyspnea and progressive orthopnea and was diagnosed was congestive heart failure exacerbation secondary to systolic dysfunction. On follow-up with the patient today, he is feeling better in terms of shortness of breath. Denies having any chest pain or chest discomfort. From a cardiac vascular standpoint overview, the patient can be discharged home. Objective - Vital Signs Vital signs: Vital Signs Temp 97.0 F L 01/26/18 08:00 Pulse 68 01/26/18 08:43 Resp 18 01/26/18 08:00 BP 100/66 01/26/18 08:00 Pulse Ox 95 01/26/18 08:29 Intake & Output 01/25/18 01/26/18 01/26/18 18:59 06:59 18:59 Intake Total 720 480 Balance 720 480 Weight 81.2 kg Intake: Oral 720 480 Other: Voiding Method Toilet # Voids 2 2 # Bowel Movements 0 - Constitutional General appearance: Present: no acute distress - Respiratory Respiratory: bilateral: CTA - Cardiovascular Rhythm: regular Heart sounds: normal: S1, S2 - Labs CBC & Chem 7: 01/25/18 06:22 01/25/18 06:22 Labs: Microbiology - Last 24 Hours (Table) 01/23/18 17:02 Blood Culture - Preliminary Blood No Growth after 48 hours Assessment and Plan Assessment: Assessment #1 intermediate triple-vessel coronary artery disease #2 ischemic cardiomyopathy and status post AICD #3 congestive heart failure exacerbation secondary to systolic dysfunction #4 multiple comorbid conditions including hypertension and dyslipidemia Plan #1 DC the IV Lasix and start the patient on Lasix by mouth #2 the patient can be discharged home.
[2018-01-26] MEDS: SPIRONOLACTONE 25 MG TAB PO SCH (10:36)
[2018-01-26] MEDS: LISINOPRIL 10 MG TAB PO SCH (10:36)
[2018-01-26 11:26] VITALS: BP 109/64
[2018-01-26 11:46] VITALS: PULSE 68
--- NOTE | 2018-01-26 12:34 | P.PN ---
Subjective Progress Note Date: 01/26/18 Principal diagnosis: Acute exacerbation of chronic systolic congestive heart failure. This is a very pleasant 58-year-old gentleman who follows with Dr. Piedra as his primary care physician. He has a history of significant coronary artery disease with previous stent placements, ischemic cardiomyopathy with ejection fraction less than 20%, status post AICD placement, hyperlipidemia, hypertension , osteoarthritis, previous CVA/TIA. He also has a history of chronic obstructive pulmonary disease and follows with Dr. Pacheco in our office for the same. He is maintained on Symbicort and Ventolin. He presented here to the emergency room yesterday with complaints of chest tightness, shortness of breath , pain into his right shoulder also had pain in his back that radiated to his anterior chest wall. Troponins were negative. ProBNP 8560. Chest x-ray revealed evidence of mild fluid volume overload. No leukocytosis. Nonproductive cough. No chills or night sweats. He has been afebrile. Maintaining good O2 saturations in the 90s on room air. He is seen today in the selective care unit and consultation. He is awake and alert in no acute distress. He states his shortness of breath and chest discomfort has mainly resolved. He is diuresing well. He is down 1 kg from yesterday. He has trace peripheral edema. He has received IV Lasix 40 mg IV every 12 hours. The patient is seen again today 01/25/2018 in follow-up on the selective care unit. He is currently resting quite comfortably in bed. He is awake and alert in no acute distress. He is breathing easier today as compared to yesterday. He continues to diurese well. Down another 3 kg. He continues on Lasix 40 mg IV push every 12 hours. Creatinine 0.97. The patient is seen again today 01/26/2018 in follow-up on the selective care unit. He is awake and alert in no acute distress. He is breathing quite a bit easier today as compared to yesterday. His lungs are clear. White count 11.9. Creatinine 0.97. Weight is stable at 81.2 kg. He is on oral diuretics now. He is anxious to go home. Objective - Vital Signs Vital signs: Vital Signs Temp 97.0 F L 01/26/18 11:23 Pulse 68 01/26/18 11:55 Resp 18 01/26/18 11:23 BP 109/64 01/26/18 11:23 Pulse Ox 97 01/26/18 11:23 Intake & Output 01/25/18 01/26/18 01/26/18 18:59 06:59 18:59 Intake Total 720 720 Balance 720 720 Weight 81.2 kg Intake: Oral 720 720 Other: Voiding Method Toilet # Voids 2 2 2 # Bowel Movements 0 - Exam - Constitutional General appearance: average body habitus - EENT Eyes: EOMI, PERRLA ENT: hearing grossly normal Ears: bilateral: normal - Neck Neck: normal ROM Carotids: bilateral: upstroke normal Thyroid: bilateral: normal size - Respiratory Respiratory: bilateral: diminished, - Cardiovascular Rhythm: regular Abnormal Heart Sounds: systolic murmur - Gastrointestinal General gastrointestinal: normal bowel sounds - Integumentary Integumentary: normal turgor - Neurologic Neurologic: CNII-XII intact - Musculoskeletal Musculoskeletal: gait normal - Psychiatric Psychiatric: A&O x's 3, appropriate affect, intact judgment & insight - Labs CBC & Chem 7: 01/25/18 06:22 01/25/18 06:22 Labs: Microbiology - Last 24 Hours (Table) 01/23/18 17:02 Blood Culture - Preliminary Blood No Growth after 48 hours Assessment and Plan Assessment: Impression: #1 Acute exacerbation of chronic systolic congestive heart failure. #2 Severe ischemic cardiomyopathy with ejection fraction less than 20%. Status post AICD placement. #3 Coronary artery disease with previous stent placements. #4 Hypertension. #5 Hyperlipidemia. #6 Chronic obstructive pulmonary disease, currently inactive and stable. #7 Significant chronic tobacco dependence of 40 years however quit in October 2017. #8 History of anxiety. #9 Osteoarthritis with chronic back pain. #10 History of bowel resection secondary to diverticulitis. Plan: The patient was seen and evaluated by Dr. Elias. The patient is cleared for discharge from the pulmonary standpoint. He'll continue with his pulmonary medications. He will follow-up in our office in 1-2 weeks' time. He is however encouraged to call sooner with any recurrence of symptoms or other questions or concerns. I, the cosigning physician, performed a history & physical examination of the patient. Lungs sounds clear. Diminished. Maintaining good O2 saturations in the 90s on room air. I discussed the assessment and plan of care with my nurse practitioner, Nikky Hagan. I attest to the above note as dictated by her.
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
[2018-01-27] MEDS ORDERED: FUROSEMIDE 40 MG TAB PO SCH (09:00)
== END 2018-01-26 15:10 | disposition home or self-care (01) | DRG 293 ==
LOC: EC 15:23 → 6SEL 19:27
PROVIDERS: ADMIT Internal Medicine; ATTEND Internal Medicine
DX: I11.0 Hypertensive heart disease with heart failure (principal); I50.23 Acute on chronic systolic (congestive) heart failure; E78.5 Hyperlipidemia, unspecified; I25.10 Atherosclerotic heart disease of native coronary artery without angina pectoris; I25.5 Ischemic cardiomyopathy; J44.9 Chronic obstructive pulmonary disease, unspecified; M19.91 Primary osteoarthritis, unspecified site; G89.29 Other chronic pain; M54.9 Dorsalgia, unspecified; I25.2 Old myocardial infarction; F40.240 Claustrophobia; F41.0 Panic disorder [episodic paroxysmal anxiety]; K59.00 Constipation, unspecified; Z79.82 Long term (current) use of aspirin; Z79.51 Long term (current) use of inhaled steroids; Z79.899 Other long term (current) drug therapy; Z95.810 Presence of automatic (implantable) cardiac defibrillator; Z95.5 Presence of coronary angioplasty implant and graft; Z90.49 Acquired absence of other specified parts of digestive tract; Z87.891 Personal history of nicotine dependence; Z87.81 Personal history of (healed) traumatic fracture; Z86.73 Personal history of transient ischemic attack (TIA), and cerebral infarction without residual deficits; Z88.5 Allergy status to narcotic agent; Z88.2 Allergy status to sulfonamides; Z88.8 Allergy status to other drugs, medicaments and biological substances; Z82.49 Family history of ischemic heart disease and other diseases of the circulatory system; Z82.3 Family history of stroke; Z82.61 Family history of arthritis
CPT/HCPCS: 36415; 71046; 80048; 80053; 82550; 82553; 83735; 83880; 84484; 85025; 85027; 85610; 85730; 87040; 93005; 94640; 94760; 96374; 99285

== ENCOUNTER → 2018-05-18 | Outpatient (CLI) | payer MEDICARE, OTHER ==
[2018-05-18 18:00] LABS: Albumin 4.2 g/dL (3.80-4.90); Albumin/Globulin Ratio 1.91 (1.20-2.10); Anion Gap 6.8 mmol/L (4.00-12.00); Calcium 9.1 mg/dL (8.7-10.3); Carbon Dioxide 26.2 mmol/L (21.6-31.8); Globulin 2.2 g/dL (2.1-3.7); LDL Cholesterol,Calculated 42.4 mg/dL (0.0-131.0); Potassium 4.5 mmol/L (3.5-5.5); Total Bilirubin 1.1 mg/dL (0.2-1.2); Total Protein 6.4 g/dL (6.2-8.2); VLDL Calculation 13.6 mg/dL (5.00-40.00)
== END ==
LOC: LABWHC1 09:28
PROVIDERS: ATTEND Internal Medicine Interventional Cardiology
DX: E78.2 Mixed hyperlipidemia (principal)
CPT/HCPCS: 36415; 80053; 80061

== ENCOUNTER → 2018-08-25 | Outpatient (CLI) | payer MEDICARE, OTHER ==
--- NOTE | 2018-08-25 16:32 | CT ---
EXAMINATION TYPE: CT abdomen wo con DATE OF EXAM: 08/25/2018 COMPARISON: None HISTORY: abdominal pain CT DLP: 296.2 mGycm Automated exposure control for dose reduction was used. TECHNIQUE: Helical acquisition of images was performed from the lung bases through the top of iliac crest to include entire abdomen. CONTRAST: Performed with Oral Contrast and without IV contrast. FINDINGS: Lack of intravenous contrast could compromise sensitivity of the exam. Intracardiac lead is present. There may be a small hiatal hernia. There is colonic interposition anterior to the liver. LUNG BASES: No significant abnormality is appreciated. Emphysematous changes are noted incidentally. LIVER/GB: No significant abnormality is appreciated. PANCREAS: No significant abnormality is seen. SPLEEN: No significant abnormality is seen. ADRENALS: No significant abnormality is seen. KIDNEYS: No significant abnormality is seen. BOWEL: Diverticular changes associated with the colon. No evident appendicitis. No evident bowel obs truction. LYMPH NODES: No significant abnormality is appreciated. OSSEOUS STRUCTURES: Degenerative disc changes are present in the visualized spine, facet arthropathy noted at the lower lumbar spine. FREE AIR: No Free Air visible ASCITES: None visible. RETROPERITONEAL ADENOPATHY: No Retroperitoneal Adenopathy visible. Aorta shows atheromatous change but no aneurysm IMPRESSION: NONCONTRAST EXAM. DIVERTICULOSIS. ADDITIONAL FINDINGS ABOVE.
== END | disposition home or self-care (01) ==
LOC: RADCTMAIN 15:17
PROVIDERS: ATTEND Internal Medicine
DX: K57.90 Diverticulosis of intestine, part unspecified, without perforation or abscess without bleeding (principal); Z88.2 Allergy status to sulfonamides; Z88.5 Allergy status to narcotic agent
CPT/HCPCS: 74150

== ENCOUNTER 2018-10-25 10:36 | Day surgery (SDC) | payer MEDICARE, OTHER ==
[2018-10-23 10:06] VITALS: BMI 27.8
[~2018-10-25 10:36] MED LIST: LACTATED RINGERS 1,000 ML IV SCH
[2018-10-25 10:50] VITALS: RESP 16; TEMP 97.1
[2018-10-25] MEDS ORDERED: PROPOFOL 10 MG/ML 20 ML VIAL IV ONE (11:46)
--- NOTE | 2018-10-25 12:12 | P.PCN ---
Date of Procedure: 10/25/18 Procedure(s) Performed: PREOPERATIVE DIAGNOSIS: Change in bowel habits, rectal bleeding POSTOPERATIVE DIAGNOSIS: Rectal polyp, diverticulosis, small hemorrhoids PROCEDURE: Colonoscopy with snare polypectomy ANESTHESIA: MAC SURGEON: Jerson Harden M.D. SPECIMENS: Of polyp ENDOSCOPIC PROCEDURE: The patient was placed on the endoscopy table in the left decubitus position. The Olympus colonoscope was inserted into the anus and passed under direct visualization to the base of the cecum. The appendiceal o rifice was visualized. From that point the scope was slowly withdrawn inspecting all surfaces carefully. There were no neoplastic inflammatory or polypoid lesions throughout the cecum, ascending, transverse, and descending colon. The patient's previous colorectal anastomosis was widely patent. At the distal rectum there was noted to be a small pedunculated polyp. This was removed using the snare with cautery technique. There was mild residual left- sided diverticulosis. Small hemorrhoids at the anus were noted. Digital rectal examination was normal. The patient was taken to the recovery room in stable condition per anesthesia guidelines. RECOMMENDATIONS: Await biopsy results. Anticipate follow-up colonoscopy 5 years.
[2018-10-25 12:37] VITALS: BP 144/85; PULSE 62
== END 2018-10-25 13:13 | disposition home or self-care (01) ==
LOC: ORWHC2ENDO 10:36
PROVIDERS: ATTEND Surgery
DX: D12.8 Benign neoplasm of rectum (principal); K57.90 Diverticulosis of intestine, part unspecified, without perforation or abscess without bleeding; K64.9 Unspecified hemorrhoids
CPT/HCPCS: 88305; 45385; J2704

== ENCOUNTER → 2019-04-09 | Outpatient (CLI) | payer MEDICARE, OTHER ==
[2019-04-09 10:02] LABS: HCT 47.6 % (39.0-53.0); HGB 15.9 gm/dL (13.0-17.5); MCH 31.4 pg (25.0-35.0); MCHC 33.4 g/dL (31.0-37.0); MCV 93.9 fL (80.0-100.0); Mean Platelet Volume 9.2; Platelet Count 224 k/uL (150-450); RBC 5.07 m/uL (4.30-5.90); RDW 13.6 % (11.5-15.5); WBC 8.6 k/uL (3.8-10.6)
[2019-04-09 10:18] LABS: African American GFR (CKD) >90 (>60 ml/min/1.73 sqM); Anion Gap 9 mmol/L; Blood Urea Nitrogen 18 mg/dL (9-20); Carbon Dioxide 30 mmol/L (22-30); Chloride 99 mmol/L (98-107); Glucose 107 mg/dL (74-99); Potassium 4.3 mmol/L (3.5-5.1); Sodium 138 mmol/L (137-145)
== END | disposition home or self-care (01) ==
LOC: LABPAT 08:34
PROVIDERS: ATTEND Internal Medicine Clinical Cardiac Electrophysiology
DX: Z01.812 Encounter for preprocedural laboratory examination (principal); I25.5 Ischemic cardiomyopathy; I25.10 Atherosclerotic heart disease of native coronary artery without angina pectoris
CPT/HCPCS: 36415; 80051; 82565; 82947; 84520; 85027

== ENCOUNTER 2019-04-17 09:45 | Day surgery (SDC) | payer MEDICARE ==
[~2019-04-17 09:45] MED LIST changes: -LACTATED RINGERS 1,000 ML IV SCH; +ceFAZolin 1,000 MG in SODIUM CHLORIDE 0.9% IRRIGATIO 250 ML IRRIGATION ONE
[2019-04-17] MEDS ORDERED: fentaNYL (PF) 50 MCG/ML 2 ML AMP ONE (11:06)
[2019-04-17] MEDS ORDERED: PROPOFOL 10 MG/ML 20 ML VIAL IV ONE (11:06)
[2019-04-17] MEDS ORDERED: MIDAZOLAM 2 MG/2 ML VIAL ONE (11:06)
[2019-04-17] MEDS ORDERED: LIDOCAINE 1% INJ 10MG/ML (20 ML MDV) SQ ONE ×2 (11:46→11:49)
[2019-04-17] MEDS ORDERED: IV FLUID CONTINUATION 1,000 ML IV ONE (11:47)
[2019-04-17] MEDS ORDERED: ACETAMINOPHEN IV (For NPO) 1,000 MG in EMPTY BAG 1 BAG IVPB ONE (12:18)
[2019-04-17] MEDS ORDERED: ACETAMINOPHEN TAB 325 MG TAB PO PRN (12:18)
--- NOTE | 2019-04-17 12:23 | P.PRLE ---
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 He has known ischemic cardio myopathy with a left ventricular ejection fraction of 25% and is on appropriate medical treatment He will continue to follow with you and Dr. Barrientos as before Thank you for entrusting me with the care of the patient Warm regards Sincerely Joni Simons
--- NOTE | 2019-04-17 13:05 | PCN ---
PROCEDURE NOTE Mr. Christian is a 59-year-old male patient with known ischemic cardiomyopathy, left ventricular ejection fraction chronically at 25%, on medical treatment with a single- chamber ICD, class 2 heart failure, stable. The ICD generator is at [facility] with normal battery depletion. He is brought in for an ICD generator change and testing. Patient was brought to the EP lab in a fasting state. Written informed consent was obtained prior to the procedure. The left shoulder area was prepped and draped as per protocol; 1% lidocaine was used for local anesthesia. A 4 cm incision was made directly over the generator and carried down to the level of the generator. The generator was explanted, a partial capsulectomy was performed. The leads were tested. A new generator was implanted. The wound was closed in 3 layers and dressed per protocol. Cine fluoroscopy of the leads was performed. This is a single coil lead implanted in the RV apex. No fractures or breaks noted. The chronic generator was explanted was a [employer] model #CD 1211-36C jouled device, serial #[id number] that was originally implanted in 2010. The new generator implanted was a [employer] model CD 1411-36 C, serial #[id number], max was 36, [id number]. The RV lead. The chronic RV lead was a [employer] model #7120, 65 cm length and serial #[id number]. The pacing threshold was 1 V at 0.5 milliseconds, pacing impedance 380 ohms. The sensing 12 mV. Following this, defibrillation level testing was performed, DC fibrial shock was used to induce ventricular fibrillation, this was adequately and appropriately sensing, no drop off. DC fibrial shock was used to induce ventricular fibrillation. This was adequately and appropriately detected at least sensitivity and successfully internally defibrillated with a 10-joule shock (RV to SVC , catheter total configuration). The shock impedance was 51 ohms. Charge time was 1.9 seconds. No post shock noise. The device then programmed according to the MADIT-RIT programming with appropriate antitachycardia pacing, cardioversion defibrillation, and back-up VVI pacing at 40 beats per minute. IMPRESSION: Successful ICD generator change for normal battery depletion. MMODL / IJN: [id number] /
[2019-04-17 14:33] VITALS: BMI 27.2
[2019-04-17] MEDS: SODIUM CHLORIDE 0.9% 1,000 ML IV SCH ×4 (14:33→23:18)
[2019-04-17] MEDS: CARVEDILOL 12.5 MG TAB PO SCH (17:16)
[2019-04-17] MEDS ORDERED: SENNOSIDES-DOCUSATE SODIUM 1 EACH TAB PO SCH (21:00)
[2019-04-17] MEDS ORDERED: ATORVASTATIN 40 MG TAB PO SCH (21:00)
--- NOTE | 2019-04-18 08:04 | P.DS ---
Providers Attending physician: Joni Simons Primary care physician: Andrea Massey [facility] Course: Patient is doing well. He is sitting comfortably in bed. No chest discomfort dizziness lightheadedness palpitations. He does have soreness in the generator change site. It is mildly tender but there is no hematoma minimal bruising Afebrile 97.8F pulse rate in the 50s murmur respirations blood pressure 142/81 mmHg Breath sounds are clear no rhonchi no crackles Heart sounds S1 and S2 are normal no murmurs or gallops Abdomen is soft No lower extremity edema No JVD Impression Status post ICD generator change for cardio myopathy/class II CHF On JOB LITHOGRAPHER recommended at medical treatment DFT at or below 10 J Suggest DC home after completion of IV antibiotics and continue current medications and follow-up in the device clinic within a week Plan - Discharge Summary Discharge Rx Participant: Yes New Discharge Prescriptions: No Action Ezetimibe [Zetia] 10 mg PO DAILY Rosuvastatin [Crestor] 20 mg PO HS Quinapril HCl [Accupril] 10 mg PO BID Aspirin EC [Ecotrin Low Dose] 81 mg PO DAILY Albuterol Sulfate [Proventil Hfa] 2 puff INHALATION RT-Q6H PRN PRN Reason: Dyspnea Ipratropium-Albuterol Nebulize [Duoneb 0.5 mg-3 mg/3 ml Soln] 3 ml INHALATION RT-QID PRN PRN Reason: sob Carvedilol [Coreg*] 25 mg PO BID-W/MEALS #120 tab Sennosides-Docusate Sodium [Senokot-S] 2 each PO HS tab Hydrochlorothiazide 25 mg PO DAILY Discharge Medication List Aspirin EC [Ecotrin Low Dose] 81 mg PO DAILY 09/10/15 [History] Ezetimibe [Zetia] 10 mg PO DAILY 09/10/15 [History] Quinapril HCl [Accupril] 10 mg PO BID 09/10/15 [History] Rosuvastatin [Crestor] 20 mg PO HS 09/10/15 [History] Albuterol Sulfate [Proventil Hfa] 2 puff INHALATION RT-Q6H PRN 11/14/17 [History] Ipratropium-Albuterol Nebulize [Duoneb 0.5 mg-3 mg/3 ml Soln] 3 ml INHALATION RT-QID PRN 01/23/18 [History] Carvedilol [Coreg*] 25 mg PO BID-W/MEALS #120 tab 01/26/18 [Rx] Sennosides-Docusate Sodium [Senokot-S] 2 each PO HS tab 01/26/18 [Rx] Hydrochlorothiazide 25 mg PO DAILY 10/23/18 [History] Follow up Appointment(s)/Referral(s): Kasie Barrientos MD [STAFF PHYSICIAN] - 1 Week (Follow-up with the device clinic in one week Follow up with Dr. Barrientos/greg as previously scheduled) Activity/Diet/Wound Care/Special Instructions: PATIENT EDUCATION MATERIAL Instructions following a heart rhythm device generator implant. 1. Keep dressing DRY for ONE week. You may cover the area with Saran or Cling Wrap, prior to a shower. 2. The dressing will be removed after one week in the Device Clinic @ [facility]. Absorbable sutures were used to close the wound. 3. Avoid raising the arm above the shoulder level. [1 week restriction] 4. Avoid arm movements, like backscratching, rubbing the head, or pulling on a cord. (1 weeks restriction) 5. Gentle range of motion movements of the shoulder, closest to the incision should be performed to avoid a frozen shoulder. (Pendulum exercises of the shoulder) 6. The opposite arm may be used freely. 7. Avoid driving for 7 days. 8. Avoid activities such as golfing, swimming, weed whacking, lifting more than 10 pounds weight, bowling, gymnastics and weight training/lifting. (2 weeks restriction) 9. Activities such as wood chopping with an axe, pull-ups in the gymnasium, power lifting, arc-welding, being close to home induction cooktops will always be a problem. In case of any problems, please call [facility], [place], @ [phone], Attention: Device Clinic Continue all medications, no medication changes
[2019-04-18] MEDS: CARVEDILOL 12.5 MG TAB PO SCH (08:47)
[2019-04-18] MEDS ORDERED: ASPIRIN 81 MG PO SCH (09:00)
[2019-04-18] MEDS ORDERED: EZETIMIBE 10 MG TAB PO SCH (09:00)
[2019-04-18] MEDS ORDERED: LISINOPRIL 20 MG TAB PO SCH (09:00)
[2019-04-18] MEDS ORDERED: HYDROCHLOROTHIAZIDE 25 MG TAB PO SCH (09:00)
[2019-04-18 12:11] VITALS: BP 133/79; PULSE 46; RESP 18; TEMP 97.8
== END 2019-04-18 13:55 ==
LOC: CATHEP 09:45 → 1SOBS 12:38 → CATHEP 04-18 13:55
PROVIDERS: ATTEND Internal Medicine Clinical Cardiac Electrophysiology
DX: I25.5 Ischemic cardiomyopathy (principal); Z45.02 Encounter for adjustment and management of automatic implantable cardiac defibrillator; I25.10 Atherosclerotic heart disease of native coronary artery without angina pectoris; I11.0 Hypertensive heart disease with heart failure; I50.9 Heart failure, unspecified; E78.2 Mixed hyperlipidemia; F17.210 Nicotine dependence, cigarettes, uncomplicated; Z95.5 Presence of coronary angioplasty implant and graft; Z82.49 Family history of ischemic heart disease and other diseases of the circulatory system; Z97.2 Presence of dental prosthetic device (complete) (partial); Z79.82 Long term (current) use of aspirin; Z79.51 Long term (current) use of inhaled steroids; Z79.899 Other long term (current) drug therapy; Z88.5 Allergy status to narcotic agent; Z88.2 Allergy status to sulfonamides; Z88.8 Allergy status to other drugs, medicaments and biological substances
CPT/HCPCS: 93641; 33262; C1722; J2250; J0690 ×2; J2001; J3010; J2704

== ENCOUNTER → 2020-01-31 | Outpatient (CLI) | payer MEDICARE, OTHER ==
[2020-01-31 10:05] LABS: HCT 46.6 % (39.0-53.0); MCH 30.9 pg (25.0-35.0); MCHC 32.2 g/dL (31.0-37.0); Mean Platelet Volume 10.8; Platelet Count 154 k/uL (150-450); RBC 4.86 m/uL (4.30-5.90); RDW 14.3 % (11.5-15.5); WBC 9.6 k/uL (3.8-10.6)
[2020-01-31 10:58] LABS: Potassium 4.7 mmol/L (3.5-5.1)
== END | disposition home or self-care (01) ==
LOC: LABPAT 08:27
PROVIDERS: ATTEND Internal Medicine Interventional Cardiology
DX: Z01.818 Encounter for other preprocedural examination (principal); I25.5 Ischemic cardiomyopathy
CPT/HCPCS: 36415; 80051; 82565; 84520; 85027

== ENCOUNTER → 2020-02-04 | Day surgery (SDC) | payer MEDICARE, OTHER ==
[~2020-02-04] MED LIST changes: +ALBUTEROL NEBULIZED 2.5 MG/3 ML INHALATION PRN; +ALPRAZolam 0.25 MG TAB PO PRN; +ALPRAZolam 0.5 MG TAB PO PRN; +ASPIRIN 325 MG TAB PO STA; +ASPIRIN 81 MG PO SCH; +ATORVASTATIN 40 MG TAB PO SCH; +ATORVASTATIN 80 MG TAB PO STA; +EZETIMIBE 10 MG TAB PO SCH; +HEPARIN SODIUM 1,000 UN/ML (10ML VL) IV ONE; +IOPAMIDOL-370 100ML BTL INJ ONE; +IPRATROPIUM-ALBUTEROL 3 ML NEB INHALATION PRN; +LIDOCAINE 1% INJ 10MG/ML (20 ML MDV) SQ ONE; +MIDAZOLAM 2 MG/2 ML VIAL IVP ONE; +NITROGLYCERIN SL TABS 0.4 MG TAB SUBLINGUAL PRN; +RX INFO: IV CONTRAST WAS GIVEN 1 EACH MISC MISCELLANE PRN; +SODIUM CHLORIDE 0.9% 1,000 ML IV SCH; +SODIUM CHLORIDE 0.9% 1,000 ML in EMPTY BAG 1 BAG IV ONE; +VERAPAMIL SYRINGE (5 MG/10 ML) INTRAARTER ONE; +carvediloL 12.5 MG TAB PO SCH; -ceFAZolin 1,000 MG in SODIUM CHLORIDE 0.9% IRRIGATIO 250 ML IRRIGATION ONE; +fentaNYL (PF) 50 MCG/ML 2 ML AMP IV ONE; +hydroCHLOROthiazide 25 MG TAB PO SCH; +lisinopriL 10 MG TAB PO SCH
[2020-02-04 06:39] VITALS: RESP 18; TEMP 98.1
--- NOTE | 2020-02-04 08:44 | CC ---
CARDIAC CATHETERIZATION REPORT Mr. Christian is a 60-year-old male with a known history of coronary artery disease status post percutaneous revascularization, history of severe ischemic cardiomyopathy, status post ICD implant who presented recently with an episode of rest chest discomfort that lasted for about 20 minutes. He has chronic dyspnea on exertion. Because of his symptoms and his known history, recommendation was made regarding cardiac catheterization. The procedures, risks, and complication were discussed with the patient who is in full understanding and agreement. 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 After receiving fentanyl and Benadryl and achieving moderate conscious sedated state, using xylocaine anesthesia/technique a 6-Ugandan sheath was introduced in the right radial artery. Selective right and left coronary angiography performed using 5-Ugandan 3.5 half bend right and left Misbah catheters. Multiple views of the coronary arteries including hemiaxial views obtained. The right Misbah was used to cross the aortic valve and left ventricular end-diastolic pressure was calculated. Following that, catheter and sheath were removed. Hemostasis was obtained with deployment of TR band. There was no immediate complication. Patient was returned to his room in stable condition. Of note, the patient received 4500 units of intravenous heparin as well as intra-arterial verapamil. FINDINGS: Left main: This is a large-sized vessel bifurcating left circumflex, left anterior descending artery. Left main coronary artery has a 20% plaque distally. Left anterior descending artery: this is a large-sized vessel reaching to the apex with a wraparound THE apex segment. The stented segment in the proximal mid LAD is patent. There is intimal disease up to 20 to 30% without any evidence of high-grade stenosis. Left circumflex: This is a large dominant vessel bifurcating distally in the PDA and posterolateral segment branches. The left circumflex gives rise to a proximal 1st obtuse marginal branch. The takeoff of the obtuse marginal branch has a 50% stenosis. The distal left circumflex has diffuse intimal disease. There is a small branch that has a slow flow, but it is small in caliber. Right coronary artery: This is a nondominant vessel, totally occluded in the proximal segment with no antegrade flow. HEMODYNAMICS: There was no gradient across the aortic valve. The left ventricle end-diastolic pressure was 28 mmHg. CONCLUSION: 1. Chronic occluded nondominant small right coronary artery. This vessel had a 99% stenosis into 2017. 2. Mild to moderate disease in the left anterior descending and left circumflex. 3. Elevated left ventricular end-diastolic pressure. RECOMMENDATION: At this time, I would recommend to maximize his medical therapy. I see no evidence of significant changes except the total occlusion of the small nondominant right coronary artery. Those findings and recommendation were discussed with the patient and his family who are in full understanding and agreement. DURATION OF PROCEDURE: 14 minutes. LETICIA / ANN: [id number] /
--- NOTE | 2020-02-04 08:53 | LTR ---
02/04/2020 RE: Marc Christian Dear Dr. Mendez. I had the pleasure to perform cardiac catheterization on Mr. Christian at [facility] on February 03 and a full copy of the procedure note will be forwarded to you. In brief, he was found to have a chronically occluded small nondominant right coronary artery with no evidence of progression in the left coronary system and based on those findings I recommend continue medical therapy with aggressive risk modification that has been initiated. I am hopeful that he will be able to stop smoking. I will keep you updated on his progress. Thank you again for allowing me to participate in this patient's care. Please feel free to call for any questions. Sincerely yours, Kasie Barrientos M.D. LETICIA / MAYE: [id number] /
[2020-02-04 12:44] VITALS: BP 121/74; PULSE 64
== END | disposition home or self-care (01) ==
LOC: CATHCVL 06:08
PROVIDERS: ATTEND Internal Medicine Interventional Cardiology
DX: I25.110 Atherosclerotic heart disease of native coronary artery with unstable angina pectoris (principal); I25.82 Chronic total occlusion of coronary artery; I25.5 Ischemic cardiomyopathy; I25.2 Old myocardial infarction; I10 Essential (primary) hypertension; J44.9 Chronic obstructive pulmonary disease, unspecified; E78.2 Mixed hyperlipidemia; F17.210 Nicotine dependence, cigarettes, uncomplicated; Z79.82 Long term (current) use of aspirin; Z79.51 Long term (current) use of inhaled steroids; Z79.899 Other long term (current) drug therapy; Z88.5 Allergy status to narcotic agent; Z88.2 Allergy status to sulfonamides; Z95.810 Presence of automatic (implantable) cardiac defibrillator; Z82.49 Family history of ischemic heart disease and other diseases of the circulatory system
CPT/HCPCS: 93458; C1894 ×2; C1769 ×2; J2250; J2001; J3010; J1644; Q9967

== ENCOUNTER → 2020-06-10 | Outpatient (CLI) | payer MEDICARE, OTHER ==
[2020-06-10 18:50] LABS: Chol/HDL Ratio 2.7; LDL Cholesterol,Calculated 69.2 mg/dL (0.0-131.0); VLDL Calculation 10.8 mg/dL (5.00-40.00)
== END | disposition home or self-care (01) ==
LOC: LABWHC1 12:32
PROVIDERS: ATTEND Internal Medicine Interventional Cardiology
DX: E78.2 Mixed hyperlipidemia (principal)
CPT/HCPCS: 36415; 80061; 84450; 84460

== ENCOUNTER → 2020-06-23 | Outpatient (CLI) | payer MEDICARE, OTHER ==
--- NOTE | 2020-06-23 15:31 | XR ---
EXAMINATION TYPE: XR soft tissue neck DATE OF EXAM: 06/23/2020 COMPARISON: None HISTORY: 60-year-old male possible foreign body, pain, stuck feeling in mid throat. TECHNIQUE: 2 views FINDINGS: The nasopharyngeal and oropharyngeal airway is patent. Epiglottis is normal as are the prevertebral s oft tissues. Scattered calcifications of the hyoid bone and thyroid cartilage. No definite retained r adiopaque foreign body is seen. Atherosclerotic calcifications of the bilateral carotid bifurcations also noted. Metallic suture near the left angle of the mandible. Patient partially edentulous. IMPRESSION: No definite retained radiopaque foreign body within the soft tissues of the neck. The airway remains patent. Atherosclerotic calcifications at the carotid bifurcations.
--- NOTE | 2020-06-23 15:32 | XR ---
EXAMINATION TYPE: XR chest 2V DATE OF EXAM: 06/23/2020 COMPARISON: 01/23/2018 HISTORY: 60-year-old male with shortness of breath and pain TECHNIQUE: Frontal and lateral views FINDINGS: Left anterior chest wall generator with right ventricular lead. Heart upper limits of normal in size. Aorta and pulmonary vasculature within normal limits. Similar bilateral hilar prominence. Mild inter stitial prominence and hyperinflation. No nicole consolidation or pleural effusion. IMPRESSION: 1. Borderline cardiomegaly. 2. Bilateral hilar prominence is unchanged and could reflect underlying pulmonary arterial hypertensi on. 3. COPD. No definite acute process otherwise seen.
== END | disposition home or self-care (01) ==
LOC: RADXRMAIN 14:04
PROVIDERS: ATTEND Internal Medicine
DX: J44.9 Chronic obstructive pulmonary disease, unspecified (principal); R59.0 Localized enlarged lymph nodes; R06.00 Dyspnea, unspecified; R07.0 Pain in throat
CPT/HCPCS: 70360; 71046

== ENCOUNTER 2020-08-12 12:56 | Emergency (ER) | payer MEDICARE, OTHER ==
[2020-08-12 13:08] VITALS: TEMP 97.5
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
[2020-08-12 14:00] LABS: Basophils # (A) 0.1 k/uL (0-0.2); Basophils % (A) 1 %; Eosinophils # (A) 0.2 k/uL (0-0.7); Eosinophils % (A) 1 %; HCT 45.1 % (39.0-53.0); HGB 15.3 gm/dL (13.0-17.5); Lymphocytes # (A) 2.4 k/uL (1.0-4.8); Lymphocytes % (A) 18 %; MCH 32.2 pg (25.0-35.0); MCHC 33.9 g/dL (31.0-37.0); MCV 95.1 fL (80.0-100.0); Mean Platelet Volume 10.1; Monocytes # (A) 0.6 k/uL (0-1.0); Monocytes % (A) 4 %; Neutrophils # (A) 10.4 k/uL (1.3-7.7); Neutrophils % (A) 75 %; Platelet Count 180 k/uL (150-450); RBC 4.74 m/uL (4.30-5.90); RDW 13.7 % (11.5-15.5); VBG PH 7.45 (7.31-7.41); WBC 13.8 k/uL (3.8-10.6)
[2020-08-12] MEDS ORDERED: IPRATROPIUM-ALBUTEROL 3 ML NEB INHALATION STA (14:05)
[2020-08-12 14:07] LABS: Lactic Acid, Venous 1.5 mmol/L (0.7-2.0)
[2020-08-12 14:09] LABS: ALT 25 U/L (4-49); AST 28 U/L (17-59); Acetaminophen <10.0 ug/mL; African American GFR (CKD) >90 (>60 ml/min/1.73 sqM); Albumin 3.9 g/dL (3.5-5.0); Alkaline Phosphatase 40 U/L (38-126); Anion Gap 8 mmol/L; Blood Urea Nitrogen 13 mg/dL (9-20); Calcium 9.3 mg/dL (8.4-10.2); Carbon Dioxide 25 mmol/L (22-30); Chloride 104 mmol/L (98-107); Glucose 150 mg/dL (74-99); Non-African American GFR(CKD) >90 (>60 ml/min/1.73 sqM); Salicylate <1.0 mg/dL; Sodium 137 mmol/L (137-145); Total Bilirubin 1.6 mg/dL (0.2-1.3); Total Protein 6.9 g/dL (6.3-8.2)
[2020-08-12 14:14] LABS: D-Dimer 0.4 mg/L FEU (<0.60); Partial Thromboplastin Time 25.6 sec (22.0-30.0); Prothrombin Time 11.1 sec (9.0-12.0)
--- NOTE | 2020-08-12 14:31 | CT ---
EXAMINATION TYPE: CT brain wo con DATE OF EXAM: 08/12/2020 COMPARISON: 08/10/2016 HISTORY: 60-year-old male weakness, Confused TECHNIQUE: Examination was done in axial plane without intravenous contrast. Coronal and sagittal r econstructions performed. CT DLP: 1047.4 mGycm Automated exposure control for dose reduction was used. FINDINGS: There is a large intraparenchymal hematoma measuring 5.6 cm AP by 4.2 cm wide by 4.3 cm craniocaudal centered within the left temporoparietal junction. Moderate surrounding vasogenic edema. There is associated mass effect with 5 mm of rightward midline shift. No herniation or effacement of basal subarachnoid cisterns. No extra-axial fluid collection. Yancey-white matter distinction is preserved. Mild mucosal thickening ethmoid air cells. Leftward nasal septal deviation. Mastoid air cells are pne umatized. Orbits and globes are intact. IMPRESSION: Large 5.6 cm intraparenchymal hematoma centered in the left temporoparietal junction with surrounding vasogenic edema and 5 mm of rightward midline shift. Findings given to BROOKE Hoskins in the ER at 2:27pm.
--- NOTE | 2020-08-12 14:36 | XR ---
EXAMINATION TYPE: XR chest 2V DATE OF EXAM: 08/12/2020 COMPARISON: 06/23/2020 HISTORY: 60-year-old male weakness, chest pain TECHNIQUE: AP and lateral views FINDINGS: Left anterior chest wall ICD generator with right ventricular lead. Heart mild to moderately enlarged . Mild interstitial prominence is noted without consolidation or pleural effusion. Large right main p ulmonary artery on the lateral view. IMPRESSION: Cardiomegaly and interstitial prominence. Correlate for CHF with mild pulmonary vascular congestion. Underlying pulmonary arterial hypertension is suggested.
--- NOTE | 2020-08-12 14:38 | XR ---
EXAMINATION TYPE: XR KUB DATE OF EXAM: 08/12/2020 Comparison: None Clinical History: 60-year-old male constipation Findings: Mild to moderate stool burden. Nonobstructive bowel gas pattern. Supine imaging limited for assessmen t of free air. Right ventricular AICD lead. No suspicious calcifications seen. Impression: Mild/moderate stool burden. Nonobstructive bowel gas pattern.
[2020-08-12] MEDS ORDERED: niCARdipine 20 MG in SODIUM CHLORIDE 0.9% 192 ML IV SCH (14:45)
[2020-08-12 15:00] VITALS: RESP 16
[2020-08-12 15:01] VITALS: PULSE 80
[2020-08-12 15:07] VITALS: BP 144/82
== END 2020-08-12 15:08 | disposition other institution (70) ==
LOC: EC 12:56
DX: S06.360A Traumatic hemorrhage of cerebrum, unspecified, without loss of consciousness, initial encounter (principal); I11.0 Hypertensive heart disease with heart failure; I50.9 Heart failure, unspecified; I25.119 Atherosclerotic heart disease of native coronary artery with unspecified angina pectoris; J44.9 Chronic obstructive pulmonary disease, unspecified; E78.5 Hyperlipidemia, unspecified; I25.2 Old myocardial infarction; F41.0 Panic disorder [episodic paroxysmal anxiety]; F17.200 Nicotine dependence, unspecified, uncomplicated; Z79.02 Long term (current) use of antithrombotics/antiplatelets; Z79.899 Other long term (current) drug therapy; Z88.1 Allergy status to other antibiotic agents; Z88.2 Allergy status to sulfonamides; Z88.5 Allergy status to narcotic agent; Z88.8 Allergy status to other drugs, medicaments and biological substances; Z91.030 Bee allergy status; Z95.0 Presence of cardiac pacemaker; Z95.5 Presence of coronary angioplasty implant and graft
CPT/HCPCS: 36415; 70450; 71046; 74018; 80053; 80143; 82140; 82803; 83520; 83605; 83880; 84443; 84484; 85025; 85379; 85610; 85730; 93005; 94640; 96374; 99285

== ENCOUNTER 2020-10-12 11:52 | Emergency (ER) | payer MEDICARE, OTHER ==
[2020-10-12 12:03] VITALS: RESP 18; TEMP 97.6
[2020-10-12] MEDS ORDERED: IPRATROPIUM-ALBUTEROL 3 ML NEB INHALATION STA (12:25)
[2020-10-12 13:11] LABS: ALT 52 U/L (4-49); AST 45 U/L (17-59); African American GFR (CKD) >90 (>60 ml/min/1.73 sqM); Albumin 3.4 g/dL (3.5-5.0); Alkaline Phosphatase 82 U/L (38-126); Anion Gap 4 mmol/L; Blood Urea Nitrogen 6 mg/dL (9-20); Carbon Dioxide 28 mmol/L (22-30); Chloride 107 mmol/L (98-107); Glucose 99 mg/dL (74-99); Non-African American GFR(CKD) >90 (>60 ml/min/1.73 sqM); Potassium 4.6 mmol/L (3.5-5.1); Sodium 139 mmol/L (137-145); Total Protein 6.4 g/dL (6.3-8.2)
[2020-10-12 13:17] LABS: Prothrombin Time 10.8 sec (9.0-12.0)
--- NOTE | 2020-10-12 13:18 | XR ---
EXAMINATION TYPE: XR chest 2V DATE OF EXAM: 10/12/2020 COMPARISON: 08/12/2020 HISTORY: Weakness TECHNIQUE: Frontal and lateral views of the chest are obtained. FINDINGS: The heart size is mildly prominent but the pulmonary vasculature is not cephalized. There is no inter stitial or airspace opacity. There is no pneumothorax. There is a small left pleural effusion. A single lead cardiac pacemaker unchanged in position. The osseous structures are intact. IMPRESSION: Small left pleural effusion and mild cardiomegaly without definite pulmonary vascular congestion or i nterstitial edema.
[2020-10-12 13:32] LABS: Basophils # (A) 0.1 k/uL (0-0.2); Basophils % (A) 0 %; Eosinophils % (A) 0 %; HGB 14.3 gm/dL (13.0-17.5); Lymphocytes # (A) 3.2 k/uL (1.0-4.8); Lymphocytes % (A) 28 %; MCH 29.7 pg (25.0-35.0); MCHC 31.9 g/dL (31.0-37.0); MCV 93.2 fL (80.0-100.0); Mean Platelet Volume 8.8; Monocytes # (A) 0.7 k/uL (0-1.0); Monocytes % (A) 6 %; Neutrophils # (A) 7.2 k/uL (1.3-7.7); Neutrophils % (A) 63 %; Platelet Count 220 k/uL (150-450); RBC 4.82 m/uL (4.30-5.90); RDW 14.8 % (11.5-15.5); WBC 11.4 k/uL (3.8-10.6)
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
[2020-10-12] MEDS ORDERED: dexAMETHasone 4 MG TAB PO STA (14:33)
[2020-10-12 14:57] VITALS: BP 133/96; PULSE 75
== END 2020-10-12 15:04 | disposition home or self-care (01) ==
LOC: EC 11:52
DX: J44.9 Chronic obstructive pulmonary disease, unspecified (principal); F41.0 Panic disorder [episodic paroxysmal anxiety]; I25.10 Atherosclerotic heart disease of native coronary artery without angina pectoris; E78.5 Hyperlipidemia, unspecified; I10 Essential (primary) hypertension; F17.200 Nicotine dependence, unspecified, uncomplicated; M19.90 Unspecified osteoarthritis, unspecified site; Z90.09 Acquired absence of other part of head and neck; Z95.5 Presence of coronary angioplasty implant and graft
CPT/HCPCS: 36415; 94640; 93005; 83880; 80053; 83605; 84484; 85025; 85610; 85730; 87635; 71046; 99285; J8540

== ENCOUNTER → 2020-10-20 | Outpatient (CLI) | payer MEDICARE, OTHER ==
[2020-10-20 16:24] LABS: Chol/HDL Ratio 2.54; LDL Cholesterol,Calculated 57.4 mg/dL (0.0-131.0); VLDL Calculation 30.6 mg/dL (5.00-40.00)
== END | disposition home or self-care (01) ==
LOC: LABWHC1 07:39
PROVIDERS: ATTEND Psychiatry & Neurology Pain Medicine
DX: E78.5 Hyperlipidemia, unspecified (principal)
CPT/HCPCS: 36415; 80061

== ENCOUNTER → 2020-10-21 | Outpatient (CLI) | payer MEDICARE, OTHER ==
--- NOTE | 2020-10-21 16:07 | CT ---
EXAMINATION TYPE: CT brain wo/w con DATE OF EXAM: 10/21/2020 COMPARISON: 08/12/2020 HISTORY: Follow up for TIA. CT DLP: 2297mGycm CONTRAST: CT scan of the head is performed without and with IV Contrast, patient injected with 100ml mL of Isov ue 300. Unenhanced followed by contrast enhanced CT of the brain is submitted for evaluation. The ventricles are midline. There is no evidence for intracranial hemorrhage or extra-axial collection. Remote ins ult posterior left parietal region. Resolution of previously noted hemorrhage. No new hemorrhage seen . No mass effects are identified. Visualized bony calvarium is intact. Contrast is administered an d no enhancing lesions are detected. No pathologic enhancement is identified. If symptoms persist c onsider MRI. IMPRESSION: Remote insult posterior left parietal region. Resolution of previously noted hemorrhage. No new hemor rhage seen.
== END | disposition home or self-care (01) ==
LOC: RADCTMAIN 15:14
PROVIDERS: ATTEND Psychiatry & Neurology Neurology
DX: R93.0 Abnormal findings on diagnostic imaging of skull and head, not elsewhere classified (principal); G45.9 Transient cerebral ischemic attack, unspecified
CPT/HCPCS: 70470; Q9967

== ENCOUNTER 2020-11-25 10:28 | Emergency (ER) | payer MEDICARE, OTHER ==
[2020-11-25 10:35] VITALS: TEMP 98.8
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
[2020-11-25 11:18] LABS: Basophils % (A) 0 %; Eosinophils # (A) 0.1 k/uL (0-0.7); Eosinophils % (A) 1 %; HCT 42.7 % (39.0-53.0); HGB 13.5 gm/dL (13.0-17.5); Lymphocytes # (A) 2.8 k/uL (1.0-4.8); Lymphocytes % (A) 26 %; MCH 30.2 pg (25.0-35.0); MCHC 31.6 g/dL (31.0-37.0); MCV 95.6 fL (80.0-100.0); Mean Platelet Volume 10.1; Monocytes # (A) 0.6 k/uL (0-1.0); Monocytes % (A) 6 %; Neutrophils # (A) 7.2 k/uL (1.3-7.7); Neutrophils % (A) 67 %; Platelet Count 187 k/uL (150-450); RBC 4.47 m/uL (4.30-5.90); RDW 15.3 % (11.5-15.5); WBC 10.8 k/uL (3.8-10.6)
[2020-11-25 11:22] LABS: Partial Thromboplastin Time 25.7 sec (22.0-30.0); Prothrombin Time 10.7 sec (9.0-12.0)
[2020-11-25 11:29] LABS: ALT 23 U/L (4-49); AST 31 U/L (17-59); African American GFR (CKD) >90 (>60 ml/min/1.73 sqM); Albumin 3.4 g/dL (3.5-5.0); Alkaline Phosphatase 56 U/L (38-126); Anion Gap 5 mmol/L; Blood Urea Nitrogen 9 mg/dL (9-20); Calcium 8.5 mg/dL (8.4-10.2); Carbon Dioxide 24 mmol/L (22-30); Chloride 110 mmol/L (98-107); Glucose 114 mg/dL (74-99); Non-African American GFR(CKD) >90 (>60 ml/min/1.73 sqM); Potassium 4.3 mmol/L (3.5-5.1); Sodium 139 mmol/L (137-145); Total Bilirubin 0.9 mg/dL (0.2-1.3); Total Protein 6.1 g/dL (6.3-8.2)
--- NOTE | 2020-11-25 11:38 | CT ---
EXAMINATION TYPE: CT brain wo con DATE OF EXAM: 11/25/2020 COMPARISON: 10/21/2020 INDICATION: GOOD and shaking DLP: 1106.4 mGycm, Automated exposure control for dose reduction was used. CONTRAST: None CT of the brain is performed utilizing 3 mm thick sections through the posterior fossa and 3 mm thick sections through the remaining calvarium. Study is performed within 24 hours of arrival to the hosp [facility]. No abnormal hyperdensity is present to suggest an acute intracranial hemorrhage. No mass lesion is evident. No acute infarcts are evident. There is a large old infarct in the left watershed region. Ventricles and sulci are appropriate for the patient age. Paranasal sinuses and mastoid air cells within the [id number] are clear. IMPRESSIONS: 1. 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 2. No acute intracranial process
--- NOTE | 2020-11-25 11:50 | XR ---
EXAMINATION TYPE: XR chest 2V DATE OF EXAM: 11/25/2020 COMPARISON: 10/12/2020 INDICATION: Altered mental status, strange sensation in right leg to right arm TECHNIQUE: Frontal and lateral views of the chest are obtained. FINDINGS: The heart size is normal. The pulmonary vasculature is normal. The lungs are clear. Pacemaker overlies left chest. Previous left costophrenic angle infiltrate has resolved. IMPRESSION: 1. No acute pulmonary process.
[2020-11-25 12:04] LABS: Appearance,Urine Clear (Clear); Bilirubin,Urine Negative (Negative); Blood,Urine Negative (Negative); Color,Urine Light Yellow; Glucose,Urine (UA) Negative (Negative); Ketones,Urine Negative (Negative); Leukocyte Esterase,Urine Negative (Negative); Nitrite,Urine Negative (Negative); PH, Urine 6.5 (5.0-8.0); Protein,Urine Negative (Negative); Specific Gravity,Urine 1.003 (1.001-1.035); Urobilinogen,Urine <2.0 mg/dL (<2.0)
[2020-11-25 12:43] VITALS: RESP 18
--- NOTE | 2020-11-25 13:17 | CT ---
EXAMINATION TYPE: CT angio head DATE OF EXAM: 11/25/2020 HISTORY: GOOD, neuro deficit COMPARISON: CT brain 11/26/2019 CT DLP: 1102.0 mGycm. Automated Exposure Control for Dose Reduction was Utilized. TECHNIQUE: CTA scan of the neck is performed with IV Contrast, patient injected with 100 mL of Isovu e 370, axial images are obtained, coronal and sagittal reformatted images are reviewed. Three-D recon structed images are created on an independent workstation and reviewed. Source images are reviewed. FINDINGS: Cervical of [place]: Vertebral basilar system appears normal. Posterior cerebral vasculature is unrema rkable. Internal carotid arteries bifurcate normally into A1 and M1 segments. A2 segments are normal. The anterior communicating artery is patent. Left Posterior communicating artery is patent. Right po sterior communicating artery is absent. Other: There appears to be normal vascular flow adjacent to the prior watershed infarct. No abrupt cu t off is evident. IMPRESSION: 1. Normal [place]
[2020-11-25 13:25] LABS: Magnesium 1.7 mg/dL (1.6-2.3)
[2020-11-25 13:32] VITALS: BP 125/86; PULSE 72
== END 2020-11-25 14:12 | disposition home or self-care (01) ==
LOC: EC 10:28
DX: R51.9 Headache, unspecified (principal); R20.2 Paresthesia of skin; I25.2 Old myocardial infarction; J44.9 Chronic obstructive pulmonary disease, unspecified; Z86.73 Personal history of transient ischemic attack (TIA), and cerebral infarction without residual deficits; I25.10 Atherosclerotic heart disease of native coronary artery without angina pectoris; E78.5 Hyperlipidemia, unspecified; F17.200 Nicotine dependence, unspecified, uncomplicated; I11.0 Hypertensive heart disease with heart failure; I50.9 Heart failure, unspecified; M19.90 Unspecified osteoarthritis, unspecified site; Z90.49 Acquired absence of other specified parts of digestive tract; Z95.5 Presence of coronary angioplasty implant and graft; Z95.0 Presence of cardiac pacemaker
CPT/HCPCS: 99284 ×2; 36415; 93005; 80053; 83735; 84484; 85025; 85610; 85730; 81003; 87636; 71046; 70496; 70450; Q9967

== ENCOUNTER 2021-03-08 07:13 | Inpatient (IN) | payer MEDICARE, OTHER ==
[2021-03-08] MEDS ORDERED: IPRATROPIUM-ALBUTEROL 3 ML NEB INHALATION STA (07:34)
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
[2021-03-08 08:41] LABS: Basophils % (A) 0 %; Eosinophils # (A) 0.1 k/uL (0-0.7); Eosinophils % (A) 1 %; HCT 43.6 % (39.0-53.0); HGB 14.3 gm/dL (13.0-17.5); Lymphocytes # (A) 1.9 k/uL (1.0-4.8); Lymphocytes % (A) 21 %; MCH 30.9 pg (25.0-35.0); MCHC 32.7 g/dL (31.0-37.0); MCV 94.6 fL (80.0-100.0); Mean Platelet Volume 11.1; Monocytes # (A) 0.5 k/uL (0-1.0); Monocytes % (A) 5 %; Neutrophils # (A) 6.6 k/uL (1.3-7.7); Neutrophils % (A) 71 %; Platelet Count 170 k/uL (150-450); RBC 4.61 m/uL (4.30-5.90); RDW 14.8 % (11.5-15.5); WBC 9.3 k/uL (3.8-10.6)
[2021-03-08 10:25] LABS: ALT 10 U/L (4-49); AST 19 U/L (17-59); African American GFR (CKD) >90 (>60 ml/min/1.73 sqM); Albumin 2.2 g/dL (3.5-5.0); Alkaline Phosphatase 27 U/L (38-126); Anion Gap 6 mmol/L; Blood Urea Nitrogen 12 mg/dL (9-20); Carbon Dioxide 12 mmol/L (22-30); Chloride 121 mmol/L (98-107); Glucose 84 mg/dL (74-99); Magnesium 1.3 mg/dL (1.6-2.3); Non-African American GFR(CKD) >90 (>60 ml/min/1.73 sqM); Potassium 3.2 mmol/L (3.5-5.1); Sodium 139 mmol/L (137-145); Total Bilirubin 1.4 mg/dL (0.2-1.3); Total Protein 4.6 g/dL (6.3-8.2)
--- NOTE | 2021-03-08 10:27 | XR ---
EXAMINATION TYPE: XR chest 2V DATE OF EXAM: 03/08/2021 COMPARISON: 11/25/2020 HISTORY: Shortness of breath TECHNIQUE: Frontal and lateral views of the chest are obtained. FINDINGS: There is a single lead cardiac pacemaker. There is mild diffuse interstitial opacity consistent with mild pulmonary vascular congestion and int erstitial edema. Heart size is mildly enlarged. There is no lung consolidation or mass. There are probable tiny bilateral pleural effusions. There is no pneumothorax. The osseous structures are intact. IMPRESSION: Findings most consistent with mild CHF. Clinical correlation short-term follow-up to resolution is re commended. IMPRESSION: No acute cardiopulmonary process.
[2021-03-08 10:37] LABS: Calcium 6.2 mg/dL (8.4-10.2)
[2021-03-08 10:53] LABS: INR 1.1 (<1.2); Partial Thromboplastin Time 26.9 sec (22.0-30.0); Prothrombin Time 11.6 sec (9.0-12.0)
[2021-03-08] MEDS ORDERED: CALCIUM CHLORIDE 100 MG/ML 10 ML SYRINGE IVP STA (11:51)
[2021-03-08] MEDS ORDERED: MAGNESIUM SULFATE-D5W PMX 1 GM in DEXTROSE/WATER 1 100ML.BAG IVPB ONE (11:53)
[2021-03-08] MEDS ORDERED: IPRATROPIUM-ALBUTEROL 3 ML NEB INHALATION PRN (18:44)
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
[2021-03-08] MEDS ORDERED: FUROSEMIDE 10 MG/ML 2 ML VIAL IV SCH (21:00)
[2021-03-09] MEDS: carvediloL 12.5 MG TAB PO SCH ×2 (00:01→09:44)
[2021-03-09 05:18] VITALS: RESP 20
[2021-03-09 06:23] VITALS: BP 140/100; TEMP 97.7
[2021-03-09] MEDS ORDERED: SYMBICORT 80-4.5 MCG INHALER INHALATION SCH (08:00)
[2021-03-09 08:03] VITALS: PULSE 67
[2021-03-09] MEDS ORDERED: FUROSEMIDE 10 MG/ML 4 ML VIAL IV STA (08:47)
[2021-03-09] MEDS ORDERED: ISOSORBIDE MONONITRATE ER 30 MG TAB.ER.24H PO SCH (09:00)
[2021-03-09] MEDS ORDERED: lisinopriL 5 MG TAB PO SCH (09:00)
[2021-03-09] MEDS ORDERED: ATORVASTATIN 40 MG TAB PO SCH (09:00)
[2021-03-09] MEDS ORDERED: POTASSIUM CHLORIDE ER 20 MEQ TAB.ER PO SCH (09:00)
[2021-03-09] MEDS ORDERED: EZETIMIBE 10 MG TAB PO SCH (09:00)
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
== END 2021-03-09 10:18 | disposition home or self-care (01) | DRG 293 ==
LOC: EC 07:13 → 4SSUR 12:02
PROVIDERS: ADMIT Internal Medicine; ATTEND Internal Medicine
DX: I11.0 Hypertensive heart disease with heart failure (principal); I44.0 Atrioventricular block, first degree; I27.20 Pulmonary hypertension, unspecified; I50.23 Acute on chronic systolic (congestive) heart failure; J44.9 Chronic obstructive pulmonary disease, unspecified; Z20.822 Contact with and (suspected) exposure to COVID-19; I25.5 Ischemic cardiomyopathy; E16.2 Hypoglycemia, unspecified; E78.5 Hyperlipidemia, unspecified; E83.42 Hypomagnesemia; E83.51 Hypocalcemia; E87.6 Hypokalemia; E88.09 Other disorders of plasma-protein metabolism, not elsewhere classified; F17.210 Nicotine dependence, cigarettes, uncomplicated; V89.2XXS Person injured in unspecified motor-vehicle accident, traffic, sequela; F41.0 Panic disorder [episodic paroxysmal anxiety]; I08.1 Rheumatic disorders of both mitral and tricuspid valves; I25.10 Atherosclerotic heart disease of native coronary artery without angina pectoris; K59.00 Constipation, unspecified; T14.90XS Injury, unspecified, sequela; I25.2 Old myocardial infarction; I25.82 Chronic total occlusion of coronary artery; F40.240 Claustrophobia; Z79.899 Other long term (current) drug therapy; Z80.8 Family history of malignant neoplasm of other organs or systems; Z82.49 Family history of ischemic heart disease and other diseases of the circulatory system; Z82.3 Family history of stroke; Z86.73 Personal history of transient ischemic attack (TIA), and cerebral infarction without residual deficits; Z95.810 Presence of automatic (implantable) cardiac defibrillator; Z90.49 Acquired absence of other specified parts of digestive tract; R41.3 Other amnesia; Z88.5 Allergy status to narcotic agent; Z88.2 Allergy status to sulfonamides; Z88.8 Allergy status to other drugs, medicaments and biological substances; Z91.030 Bee allergy status; Z98.890 Other specified postprocedural states
CPT/HCPCS: 36415; 71046; 80053; 83605; 83735; 83880; 84484; 85025; 85610; 85730; 87635; 93005; 94640; 99285

== ENCOUNTER → 2021-04-01 | Outpatient (CLI) | payer MEDICARE, OTHER ==
[2021-04-01 23:38] LABS: African American GFR (CKD) 74.7 (60.0-200.0); Albumin 4.4 g/dL (3.80-4.90); Albumin/Globulin Ratio 1.76 (1.60-3.17); Anion Gap 9.1 mmol/L (4.00-12.00); BUN/Creat Ratio 11.67 Ratio (12.00-20.00); Calcium 9.4 mg/dL (8.7-10.3); Carbon Dioxide 25.9 mmol/L (21.6-31.8); Chol/HDL Ratio 2.42; Globulin 2.5 g/dL (1.6-3.3); LDL Cholesterol,Calculated 48.8 mg/dL (0.0-131.0); Non-African American GFR(CKD) 64.4 (60.0-200.0); Potassium 4.5 mmol/L (3.5-5.5); Total Bilirubin 1.2 mg/dL (0.3-1.2); Total Protein 6.9 g/dL (6.2-8.2); VLDL Calculation 15.2 mg/dL (5.00-40.00)
== END | disposition home or self-care (01) ==
LOC: LABWHC1 09:11
PROVIDERS: ATTEND Internal Medicine Interventional Cardiology
DX: E78.2 Mixed hyperlipidemia (principal)
CPT/HCPCS: 36415; 80053; 80061; 83880

== ENCOUNTER 2021-08-20 09:07 | Inpatient (IN) | payer MEDICARE, OTHER ==
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
[2021-08-20] MEDS ORDERED: ONDANSETRON 4 MG/2 ML VIAL IVP STA ×2 (09:22→12:10)
[2021-08-20 09:26] LABS: Glucose,Whole Blood 154 mg/dL (75-99)
[2021-08-20 09:33] LABS: Basophils # (A) 0.1 k/uL (0-0.2); Basophils % (A) 0 %; Eosinophils # (A) 0.3 k/uL (0-0.7); Eosinophils % (A) 2 %; HCT 48.7 % (39.0-53.0); HGB 15.2 gm/dL (13.0-17.5); Hypochromasia Slight; Lymphocytes # (A) 3.4 k/uL (1.0-4.8); Lymphocytes % (A) 21 %; MCH 31.4 pg (25.0-35.0); MCHC 31.1 g/dL (31.0-37.0); MCV 100.9 fL (80.0-100.0); Mean Platelet Volume 10.7; Monocytes # (A) 0.8 k/uL (0-1.0); Monocytes % (A) 5 %; Neutrophils # (A) 11.1 k/uL (1.3-7.7); Neutrophils % (A) 70 %; Platelet Count 204 k/uL (150-450); RBC 4.83 m/uL (4.30-5.90); RDW 13.6 % (11.5-15.5); WBC 15.8 k/uL (3.8-10.6)
[2021-08-20 09:45] LABS: ALT 33 U/L (4-49); AST 41 U/L (17-59); African American GFR (CKD) 82 (>60 ml/min/1.73 sqM); Albumin 4.4 g/dL (3.5-5.0); Alcohol <10 mg/dL; Alkaline Phosphatase 56 U/L (38-126); Anion Gap 17 mmol/L; Blood Urea Nitrogen 12 mg/dL (9-20); Calcium 9.4 mg/dL (8.4-10.2); Carbon Dioxide 15 mmol/L (22-30); Chloride 107 mmol/L (98-107); Glucose 167 mg/dL (74-99); Non-African American GFR(CKD) 71 (>60 ml/min/1.73 sqM); Potassium 4.6 mmol/L (3.5-5.1); Sodium 139 mmol/L (137-145); Total Bilirubin 1.1 mg/dL (0.2-1.3); Total Protein 7.7 g/dL (6.3-8.2)
[2021-08-20] MEDS ORDERED: HYDROmorphone 0.5 MG/0.5 ML SYRINGE IVP STA (09:48)
--- NOTE | 2021-08-20 09:52 | CT ---
EXAMINATION TYPE: CT brain cspine wo con, CT facial bones wo con DATE OF EXAM: 08/20/2021 COMPARISON: CT brain November 25, 2020 HISTORY: slip and fall, altered mental status, facial pain and headache. CT DLP: 1342.5 mGycm. Automated Exposure Control for Dose Reduction was Utilized. TECHNIQUE: CT scan of the head and cervical spine are performed without contrast. FINDINGS: There is no acute intracranial hemorrhage or midline shift identified. Mild ventricular a nd sulcal prominence . Old infarct left parietal temporal region redemonstrated. There is old infarct left frontal lobe anterior watershed axial image 29 which is however new from november06/06/2021 CT. Mild to moderate low-attenuation in the deep and periventricular white matter. The calvarium is intac t. The mandible is intact. Temporomandibular joints are maintained bilaterally. Nasal septal deviation i s present. No acute displaced nasal bone fracture. Orbital floors and zamarripa are intact. Globes are in tact bilaterally. Intraconal fat is preserved. Zygomatic arches are intact. Pterygoid plates are inta ct. The maxilla is intact. Visualized paranasal sinuses are clear. Moderate arterial calcification of the distal internal carotid arteries is present. Cervical spine is visualized in its entirety from C1 through upper thoracic levels and demonstrates s traightened alignment without evidence of acute fracture or dislocation. Prevertebral soft tissue ap pears within normal limits. The C1-C2 articulation is within normal limits on the coronal images. V ertebral body heights are maintained. Moderate disc space narrowing and spurring C6-C7 level. Mild di sc space narrowing with moderate spurring C5-C6 level. Slight grade 1 retrolisthesis C7 on T1. Review of axial images shows multilevel uncovertebral facet degenerative changes causing multilevel bilater al neural foraminal narrowing. Effacement of anterior thecal sac due to posterior bony projections an d spur disc complexes near the C6 and C7 vertebra. Thyroid gland appears within normal limits. Lung a pices show emphysematous change without pneumothorax. Partial visualization of pacemaker wire is pres ent. IMPRESSION: 1. There is no acute fracture or dislocation evident in the cervical spine. 2. No acute intracranial hemorrhage or midline shift is seen. There is new left frontal lobe infarct since most recent CT but is presumed chronic in age. 3. No acute displaced facial bone fracture.
[2021-08-20 10:00] LABS: Partial Thromboplastin Time 25.7 sec (22.0-30.0); Prothrombin Time 11.2 sec (9.0-12.0)
--- NOTE | 2021-08-20 10:29 | XR ---
EXAMINATION TYPE: XR pelvis AP view DATE OF EXAM: 08/20/2021 CLINICAL HISTORY: Fall injury with pain. TECHNIQUE: A single AP view of the pelvis is obtained. COMPARISON: None. FINDINGS: Lucency from overlying bowel gas makes evaluation slightly suboptimal. There is no acute f racture/dislocation evident in the pelvis. Moderate axial joint space loss both hips. Pubic symphysi s is intact. The sacroiliac joints appear to show symmetric moderate narrowing. Overlying vascular ca lcification extends into bilateral groin region. IMPRESSION: There is no acute displaced pelvic fracture.
--- NOTE | 2021-08-20 10:31 | XR ---
EXAMINATION TYPE: XR chest 1V portable DATE OF EXAM: 08/20/2021 COMPARISON: Chest x-ray March 08, 2021 HISTORY: Fall injury with pain TECHNIQUE: Single frontal view of the chest is obtained. FINDINGS: There is no suspicious focal air space opacity, pleural effusion, or pneumothorax seen. Pe rsistent cardiomegaly with single lead pacemaker/defibrillator. The osseous structures are intact. IMPRESSION: Cardiomegaly without acute pulmonary process.
[2021-08-20] MEDS ORDERED: levETIRAcetam IV 1,500 MG in SALINE 1 100ML.BAG IVPB STA (10:38)
[2021-08-20] MEDS ORDERED: NALOXONE 0.4 MG/ML 1 ML VIAL IV PRN (11:12)
[2021-08-20] MEDS ORDERED: HYDROmorphone 0.5 MG/0.5 ML SYRINGE IVP PRN (11:12)
[2021-08-20] MEDS: ACETAMINOPHEN TAB 325 MG TAB PO PRN ×2 (11:39→18:35)
[2021-08-20] MEDS ORDERED: IPRATROPIUM-ALBUTEROL 3 ML NEB INHALATION PRN (11:42)
[2021-08-20] MEDS ORDERED: ALBUTEROL HFA INHALER INHALATION PRN (11:42)
[2021-08-20] MEDS ORDERED: HYDROmorphone 1 MG/ML 1 ML SYRINGE IVP PRN (12:04)
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
[2021-08-20] MEDS: HYDROcodone/APAP 7.5-325MG 1 EACH TAB PO PRN ×2 (12:47→12:52)
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
--- NOTE | 2021-08-20 15:21 | CT ---
EXAMINATION TYPE: CT angio head neck DATE OF EXAM: 08/20/2021 HISTORY: stroke. Altered mental status. COMPARISON: CTA head November 25, 2020. Carotid ultrasound 2010 CT DLP: 365.2 mGycm. Automated Exposure Control for Dose Reduction was Utilized. TECHNIQUE: CTA scan of the head and neck are performed with IV Contrast, patient injected with 65 mL of Isovue 370, axial images are obtained, coronal and sagittal reformatted images are reviewed. 3D r econstructed images are created on an independent workstation and reviewed. FINDINGS: Carotid/Vascular Structures: Mild to moderate peripheral plaque in the aortic arch extends into the 3 great vessels. There is most prominent plaque in the left subclavian artery where there is significa nt focal stenosis axial image 20. Normal origin right common carotid artery from right brachiocephali c artery. Mild to moderate peripheral plaque in the mid to distal common carotid arteries bilaterally . Moderate to severe calcified plaque bilateral carotid bulb level extends into proximal internal and external carotid arteries. No significant stenosis is present. Slightly more prominent calcified sue que in the proximal left internal carotid artery without significant stenosis. Patent external caroti d arteries bilaterally without significant stenosis. Dominant right vertebral artery is redemonstrated. Vertebral arteries are patent to basilar junction. There is a patent left posterior communicating artery. There is hypoplastic left P1 segment filling. There is filling of the left P2 segment due to patent posterior communicating artery. Hypoplastic ri ght posterior communicating artery. Patent small caliber anterior communicating artery. No significan t focal stenosis or aneurysm in the anterior or posterior circulations. Other: Old infarct left parietal lobe posterior watershed region redemonstrated. Nasal septal deviati on again seen. Prominent borderline enlarged right neck lymph node axial image 73. Moderate Emphysema tous change in the visualized upper lungs. Partial visualization of left-sided pacemaker. IMPRESSION: 1. No stenosis or aneurysm at the level of the [place]. 2. Fairly severe calcified plaque bilateral carotid bulb level but no hemodynamically significant gerri nosis seen bilaterally. Note is made however of significant stenosis greater than 50% in the left sub clavian artery. Correlate clinically for subclavian steal syndrome. NASCET criteria was used in interpretation of this exam?
--- NOTE | 2021-08-20 15:28 | EEG ---
ELECTROENCEPHALOGRAM REPORT DATE OF SERVICE: 08/20/2021. CLINICAL HISTORY: This is a 61-year-old gentleman with a history of left MCA stroke who presented to the emergency department after having an episode of loss of consciousness and reported shaking of extremities. The video EEG is obtained to evaluate for seizure epileptiform activity. RELEVANT MEDICATION: Keppra. EEG TYPE: A routine 21-channel EEG is performed with video using the 10/20 electrode placement system. DESCRIPTION: Wakefulness and drowsiness are obtained. During wakefulness, the posterior- dominant rhythm consists of low to moderate voltage that is poorly modulated, poorly sustained of 11.5 to 12.5 hertz activity. There was no physiological stage 2 sleep architecture. There is a moderate amount of focal slowing over the left temporoparietal central region. Interictal and ictal is none. ACTIVATION PROCEDURE: Photic stimulation did not evoke a posterior driving response. There was no abnormality during the photic stimulation. Hyperventilation was not performed. CLINICAL INTERPRETATION: This is an abnormal routine EEG. The focal slowing over the left temporoparietal central region is consistent with the patient's history of stroke. Otherwise, the background is normal and there is no epileptiform discharge or seizure on the EEG. Clinical correlation is recommended. MMODL / IJN: [id number] / MTDD
[2021-08-20] MEDS: carvediloL 12.5 MG TAB PO SCH (18:48)
[2021-08-20 19:45] LABS: LDL Cholesterol,Calculated 45.6 mg/dL (0.0-131.0)
[2021-08-20] MEDS: SENNOSIDES-DOCUSATE SODIUM 1 EACH TAB PO SCH (19:46)
[2021-08-20] MEDS: levETIRAcetam 500 MG TAB PO SCH (19:46)
[2021-08-21] MEDS: ACETAMINOPHEN TAB 325 MG TAB PO PRN (04:00)
[2021-08-21 04:10] VITALS: RESP 18
[2021-08-21 05:14] LABS: Appearance,Urine Clear (Clear); Bilirubin,Urine Negative (Negative); Blood,Urine Negative (Negative); Color,Urine Yellow; Glucose,Urine (UA) Negative (Negative); Ketones,Urine Negative (Negative); Leukocyte Esterase,Urine Negative (Negative); Nitrite,Urine Negative (Negative); Protein,Urine Trace (Negative)
[2021-08-21 05:25] LABS: Amphetamine Screen,Urine Not Detected (NotDetected); Barbiturate Screen,Urine Not Detected (NotDetected); Benzodiazepines Screen,Urine Not Detected (NotDetected); Cocaine Screen,Urine Not Detected (NotDetected); Methadone Screen, Urine Not Detected (NotDetected); Opiate Screen,Urine Detected (NotDetected); Oxycodone Screen, Urine Not Detected (NotDetected); Phencyclidine Screen,Urine Not Detected (NotDetected); Tricyclic Antidepressant,Urine Not Detected (NotDetected); Urn Cannabinoid Scrn Not Detected (NotDetected)
[2021-08-21] MEDS: carvediloL 12.5 MG TAB PO SCH (06:18)
[2021-08-21] MEDS ORDERED: FUROSEMIDE 40 MG TAB PO SCH (09:00)
[2021-08-21] MEDS ORDERED: ISOSORBIDE MONONITRATE ER 30 MG TAB.ER.24H PO SCH (09:00)
[2021-08-21] MEDS ORDERED: ASPIRIN 81 MG PO SCH (09:00)
[2021-08-21] MEDS ORDERED: lisinopriL 5 MG TAB PO SCH (09:00)
[2021-08-21] MEDS ORDERED: ATORVASTATIN 40 MG TAB PO SCH (09:00)
[2021-08-21] MEDS ORDERED: EZETIMIBE 10 MG TAB PO SCH (09:00)
[2021-08-21] MEDS: levETIRAcetam 500 MG TAB PO SCH (09:13)
[2021-08-21] MEDS: SENNOSIDES-DOCUSATE SODIUM 1 EACH TAB PO SCH (09:14)
[2021-08-21 09:18] LABS: HCT 44.5 % (39.0-53.0); HGB 14.4 gm/dL (13.0-17.5); MCH 31.9 pg (25.0-35.0); MCHC 32.4 g/dL (31.0-37.0); MCV 98.5 fL (80.0-100.0); Mean Platelet Volume 10.6; Platelet Count 178 k/uL (150-450); RBC 4.52 m/uL (4.30-5.90); RDW 14.3 % (11.5-15.5); WBC 11.3 k/uL (3.8-10.6)
[2021-08-21 09:27] LABS: African American GFR (CKD) >90 (>60 ml/min/1.73 sqM); Anion Gap 3 mmol/L; Blood Urea Nitrogen 13 mg/dL (9-20); Calcium 9.1 mg/dL (8.4-10.2); Carbon Dioxide 30 mmol/L (22-30); Chloride 107 mmol/L (98-107); Glucose 93 mg/dL (74-99); Non-African American GFR(CKD) 81 (>60 ml/min/1.73 sqM); Potassium 4.2 mmol/L (3.5-5.1); Sodium 140 mmol/L (137-145)
--- NOTE | 2021-08-21 10:00 | ECHOF ---
Referral Reason:stroke MEASUREMENTS -------- HEIGHT: 170.2 cm WEIGHT: 77.6 kg BP: RVIDd: 3.9 cm (< 3.3) IVSd: 0.8 cm (0.6 - 1.1) LVIDd: 8.2 cm (3.9 - 5.3) LVPWd: 1.5 cm (0.6 - 1.1) IVSs: 1.3 cm LVIDs: 7.3 cm LVPWs: 1.0 cm LAESV Index (A-L): 46.30 ml/m Ao Diam: 2.8 cm (2.0 - 3.7) AV Cusp: 1.9 cm (1.5 - 2.6) MV EXCURSION: 21.171 mm (> 18.000) MV EF SLOPE: 90 mm/s (70 - 150) MV E Paramjit: 0.52 m/s MV DecT: 216 ms MV A Paramjit: 0.71 m/s MV E/A Ratio: 0.73 RAP: 5.00 mmHg RVSP: 21.57 mmHg FINDINGS -------- Paced rhythm. This was a techncally difficult study with suboptimal views, , Definity utilized for enhancement of i mages. The left ventricle is severely dilated. There is severe global hypokinesis of LV . Overall left v entricular systolic function is severely impaired with, an EF < 20%. The right ventricle is normal in size. LA is severely dilated >40 ml/m2 The right atrial size is normal. There is mild aortic valve sclerosis. There is no evidence of aortic regurgitation. Mild mitral regurgitation is present. Mild tricuspid regurgitation present. Right ventricular systolic pressure is normal at < 35 mmHg. There is no pulmonic regurgitation present. Echo free space indicative of a pericardial fat pad. CONCLUSIONS -------- 1. This was a techncally difficult study with suboptimal views, , Definity utilized for enhancement o f images. 2. The left ventricle is severely dilated. 3. There is severe global hypokinesis of LV . 4. Overall left ventricular systolic function is severely impaired with, an EF < 20%. 5. The right ventricle is normal in size. 6. LA is severely dilated >40 ml/m2 7. The right atrial size is normal. 8. There is mild aortic valve sclerosis. 9. Mild mitral regurgitation is present. 10. Mild tricuspid regurgitation present. 11. Echo free space indicative of a pericardial fat pad. BUSINESS SYSTEM CONSULTANT: Arabella Vaughn RDCS
--- NOTE | 2021-08-21 10:11 | US ---
EXAMINATION TYPE: US carotid duplex BILAT DATE OF EXAM: 08/21/2021 COMPARISON: NONE CLINICAL HISTORY: 61-year-old male carotid plaques. Confusion, altered mental status TECHNIQUE: Carotid duplex ultrasound examination. Indirect Doppler criteria was utilized. EXAM MEASUREMENTS: RIGHT: Peak Systolic Velocity (PSV) cm/sec ----- Right CCA: 103.1 ----- Right ICA: 90.0 ----- Right ECA: 130.7 ICA/CCA ratio: 0.9 RIGHT: End Diastole cm/sec ----- Right CCA: 17.3 ----- Right ICA: 12.9 ----- Right ECA: 14.4 LEFT: Peak Systolic Velocity (PSV) cm/sec ----- Left CCA: 74.6 ----- Left ICA: 77.9 ----- Left ECA: 178.7 ICA/CCA ratio: 1.0 LEFT: End Diastole cm/sec ----- Left CCA: 18.6 ----- Left ICA: 10.9 ----- Left ECA: 25.3 VERTEBRALS (direction of flow): Right Vertebral: Antegrade Left Vertebral: unable to visualize Rhythm: Normal Chuck Wagon Driver notes: Moderate plaque bilateral bifurcations, greater on the left. Mildly elevated veloc ities left ECA IMPRESSION: No hemodynamically significant internal carotid artery stenosis on either side. Mild to moderate athe rosclerotic changes of the bifurcation. Criteria for Assigning % of Stenosis / Diameter reduction (Estimation based on the indirect measurements of the internal carotid artery velocities (ICA PSV). 1. Normal (no stenosis)=ICA PSV < 125 cm/s: ratio < 2.0: ICA EDV<40 cm/s. 2. Less than 50% stenosis=ICA PSV < 125 cm/s: ratio < 2.0: ICA EDV<40 cm/s. 3. 50 to 69% stenosis=ICA PSV of 125 to 230 cm/s: ration 2.0 ? 4.0: ICA EDV 40-100 cm/s. 4. Greater than 70% stenosis to near occlusion= ICA PSV > 230 cm/s: ratio > 4.0: ICA EDV > 100 cm/s. 5. Near occlusion= ICA PSV velocities may be low or undetectable: variable ratio and ICA EDV. 6. Total occlusion=unable to detect flow.
[2021-08-21 10:45] VITALS: BP 111/68; PULSE 59; TEMP 98
--- NOTE | 2021-08-21 11:27 | P.PN ---
Subjective Progress Note Date: 08/21/21 The patient is seen at bedside and no further LOC or seizure-like episode. Patient stated he is doing well and is ready to go home. Objective - Vital Signs Vital signs: Vital Signs Temp 98.0 F 08/21/21 08:00 Pulse 59 L 08/21/21 08:00 Resp 18 08/21/21 08:00 BP 111/68 08/21/21 08:00 Pulse Ox 96 08/21/21 08:00 Intake & Output 08/20/21 08/21/21 08/21/21 18:59 06:59 18:59 Intake Total 240 Output Total 275 Balance -275 240 Weight 78 kg Intake: Oral 240 Output: Urine 275 - Exam GENERAL: The patient is lying in bed and is in mild to moderate acute distress. HENT: Has bruise over the left side of face/frontal region from fall on his driveway--healing. NEUROLOGICAL: Higher mental function: The patient is awake, alert, oriented to self, place and time. Patient correctly name pen but for watch he stated fish. Patient is following simple commands. Has paraphrasic errors and seems expressive aphasia. No neglect. Cranial nerves: The pupils are round, equal and reactive to light. Visual martinez are full to confrontation throughout. Extraocular movement is intact no nystagmus is noted. Facial sensation is normal to touch throughout. The facial strength is normal throughout. Tongue is midline and moved [id number] without any difficulty. No dysarthria is noted. Motor: The strength is moving all extremities above gravity without drift. Normal tone and bulk. Cerebellum: Normal finger to nose bilaterally. Sensation: Sensation is normal to touch throughout. Reflexes (right/left): 2+ throughout. WORK-UP: Routine EEG on 08/20/2021 is abnormal. The focal slowing over the left [id number] region is consistent with the patient history of stroke. Otherwise the background is normal and there is no epileptiform discharges or seizure on the EEG. CT angiography of the head and neck is reported as no stenosis or aneurysm at the level [place]. Fairly severe calcified plaque bilateral carotid level but no hemodynamically significant stenosis seen bilaterally. Note is made however of significant stenosis greater than 50% of the left subclavian artery. Correlate clinically for subclavian steal syndrome. Carotid duplex is reported as no hemodynamically significant internal carotid artery stenosis on either side. Mild to moderate atherosclerotic changes of the bifurcation. 2-D echo was reported as technically difficult study with suboptimal views. Left ventricle severely dilated. Severe global hypokinesis of left ventricle. Ejection fraction less than 20%. Left atrium is severely dilated. Lipid panel is triglyceride 129, cholesterol 119, LDLs 45, HDL 47. Lactic acid is 2.2 on presentation and the repeat is 1.4. Calcium is 9.4 AST and ALT is normal. PT, INR and PTT is within normal limits. Urine drug screen <10. CT head: Is reported as no acute intracranial hemorrhage or midline shift is seen. There is new left frontal lobe infarct since most recent CT but is presumend chronic in age. I personally reviewed CT head and felt patient has encephalomalacia over left MCA territory predominately temporal region and there is encephalomalacia over left posterior frontal. No acute or subacute ischemia or intraparenchymal hemorrhage noted. CT cervical spine is reported as There is no acute fracture or dislocateion evident in the cervical spine. CT face is reported as no acute displaced facial bone fracture. - Labs CBC & Chem 7: 08/21/21 08:12 08/21/21 08:12 Labs: Abnormal Lab Results - Last 24 Hours (Table) 08/20/21 08/21/21 08/21/21 Range/Units 12:09 03:59 08:12 WBC 11.3 H (3.8-10.6) k/uL Plasma Lactic Acid Luis Alfredo 2.2 H* (0.7-2.0) mmol/L Ur Specific [place] 1.050 H (1.001-1.035) Urine Protein Trace H (Negative) Urine Opiates Screen Detected H (NotDetected) Assessment and Plan Assessment: Episode of fall with loss of consciousness and reported shaking by his neighbor: Is likely new onset seizure (especially with history of left MCA stroke). Patient had reactive leukocytosis, glucose which seems convincing for stroke. Most recent CT show new encephalomalacia over left frontal that is not seen on last CT on 11/25/2020 Left MCA intraparenchymal stroke (seems predominately temporal region) on 08/12/2020 CT and bleed resolve. Patient has residual aphasia and seem expr essive Cognitive impairement Chronic back pain History of coronary artery disease s/p stent, History of [place] Heart failure s/p pacemaker Tobacco use Plan: * Continue Keppra 500mg 1 tab bid (notified about side-effect of medication and if patient has any behavioral/mood change then recommend switching to Vimpat 50mg 1 tab bid. * Recommended to continue with the patient on medication of aspirin 81 out not use a dual antiplatelet because the patient history of the history of intraparenchymal bleed and there is a risk of a bleed with dual antiplatelets. * Currently on Lipitor 40 mg daily at bedtime daily which is sufficient for secondary stroke prophylaxis. * Every 4 hours neuro checks * On seizure precautions and seizure pads * 2-D echo was reported as technically difficult study with suboptimal views. Left ventricle severely dilated. Severe global hypokinesis of left ventricle. Ejection fraction less than 20%. Left atrium is severely dilated. Recommend cardiology consultation. * Vascular surgery team is consulted for the carotid plaques and reported significant stenosis greater than 50% of the left subclavian artery on CTA. * Recommend the systolic blood pressure goal to be 110-140 and will defer management to the primary team. * We'll defer the rest of the medical management to the primary team * Because of high suspicion of seizures. But, per [facility] patient to avoid driving for 6 month until seizure free, to avoid heights, swimming unassisted and the avoid using heavy machinery and this was notified to the patient and his . * Upon discharge recommend the patient follow up with a neurologist within 1-2 weeks. The plan is discussed with the patient and his nurse. There is no further neurological work-up. Jameel Pacheco M.D. Neuro-Hospitalist Time with Patient: Less than 30
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
[2021-08-21 17:39] LABS: Urine Alcohol Negative (Negative); Urine Barbiturate Negative (Negative); Urine Cocaine Negative (Negative); Urine Methadone Negative (Negative); Urine Opiates Positive (Negative); Urine Phencyclidine Negative (Negative)
== END 2021-08-21 12:20 | disposition home or self-care (01) | DRG 101 ==
LOC: EC 09:07 → 3SCARD 11:12
PROVIDERS: ADMIT Internal Medicine; ATTEND Internal Medicine
DX: R56.9 Unspecified convulsions (principal); E87.2 Acidosis; R47.01 Aphasia; K57.92 Diverticulitis of intestine, part unspecified, without perforation or abscess without bleeding; W19.XXXA Unspecified fall, initial encounter; D72.828 Other elevated white blood cell count; E11.9 Type 2 diabetes mellitus without complications; E78.5 Hyperlipidemia, unspecified; F17.200 Nicotine dependence, unspecified, uncomplicated; F40.240 Claustrophobia; F41.0 Panic disorder [episodic paroxysmal anxiety]; G89.29 Other chronic pain; G93.89 Other specified disorders of brain; I11.0 Hypertensive heart disease with heart failure; I25.10 Atherosclerotic heart disease of native coronary artery without angina pectoris; I25.2 Old myocardial infarction; I25.5 Ischemic cardiomyopathy; I50.9 Heart failure, unspecified; I65.29 Occlusion and stenosis of unspecified carotid artery; I69.398 Other sequelae of cerebral infarction; J44.9 Chronic obstructive pulmonary disease, unspecified; K21.9 Gastro-esophageal reflux disease without esophagitis; S00.12XA Contusion of left eyelid and periocular area, initial encounter; S00.83XA Contusion of other part of head, initial encounter; Z79.82 Long term (current) use of aspirin; Z95.5 Presence of coronary angioplasty implant and graft; Z95.810 Presence of automatic (implantable) cardiac defibrillator; Z95.0 Presence of cardiac pacemaker; Z82.49 Family history of ischemic heart disease and other diseases of the circulatory system; Z82.3 Family history of stroke; Z80.8 Family history of malignant neoplasm of other organs or systems; Z79.899 Other long term (current) drug therapy; J40 Bronchitis, not specified as acute or chronic; M19.90 Unspecified osteoarthritis, unspecified site; Z20.822 Contact with and (suspected) exposure to COVID-19
CPT/HCPCS: 36415; 70450; 70486; 70496; 70498; 71045; 72125; 72170; 80048; 80053; 80061; 80306; 80320; 81003; 83036; 83605; 84484; 85025; 85027; 85610; 85730; 86850; 86900; 86901; 87635; 93005; 93306; 93880; 95819; 96374; 96375; 99291

== ENCOUNTER → 2021-11-16 | Outpatient (CLI) | payer MEDICARE, OTHER ==
[2021-11-16 15:22] LABS: ALT 33 U/L (10-49); AST 31 U/L (14-35); African American GFR (CKD) 93.1 (60.0-200.0); Albumin 4.3 g/dL (3.8-4.9); Albumin/Globulin Ratio 1.64 (1.60-3.17); Alkaline Phosphatase 61 U/L (41-126); Blood Urea Nitrogen 13.3 mg/dL (9.0-27.0); Calcium 9.1 mg/dL (8.7-10.3); Carbon Dioxide 25.7 mmol/L (20.0-27.5); Chloride 106 mmol/L (96-109); Chol/HDL Ratio 2.41 Ratio; Globulin 2.6 g/dL (1.6-3.3); Glucose 103 mg/dL (70-110); LDL Cholesterol,Calculated 43.8 mg/dL (0.0-131.0); Non-African American GFR(CKD) 80.3 (60.0-200.0); Potassium 4.6 mmol/L (3.5-5.5); Sodium 141 mmol/L (135-145); VLDL Calculation 16.96 mg/dL (5.00-40.00)
== END | disposition home or self-care (01) ==
LOC: LABWHC1 08:14
PROVIDERS: ATTEND Internal Medicine Interventional Cardiology
DX: E78.2 Mixed hyperlipidemia (principal); G40.89 Other seizures
CPT/HCPCS: 36415; 80053; 80061

== ENCOUNTER → 2022-02-22 | Outpatient (CLI) | payer MEDICARE, OTHER ==
[2022-02-22 11:43] LABS: African American GFR (CKD) 85.2 (60.0-200.0); Albumin 4.2 g/dL (3.8-4.9); Albumin/Globulin Ratio 1.68 (1.60-3.17); Anion Gap 7.9 mmol/L (10.00-18.00); BUN/Creat Ratio 11.4 Ratio (12.00-20.00); Blood Urea Nitrogen 12.2 mg/dL (9.0-27.0); Calcium 8.9 mg/dL (8.7-10.3); Globulin 2.5 g/dL (1.6-3.3); HDL Cholesterol 46.6 mg/dL (40.00-60.00); Non-African American GFR(CKD) 73.5 (60.0-200.0); Potassium 4.6 mmol/L (3.5-5.5); Total Bilirubin 0.8 mg/dL (0.30-1.20); Total Protein 6.7 g/dL (6.2-8.2); Triglycerides 46.9 mg/dL (0.00-149.00)
[2022-02-22 11:56] LABS: Chol/HDL Ratio 2.09 Ratio; LDL Cholesterol,Direct Reflex 42.7 mg/dL (0.00-129.00)
== END | disposition home or self-care (01) ==
LOC: LABWHC1 08:10
PROVIDERS: ATTEND Internal Medicine Interventional Cardiology
DX: E78.2 Mixed hyperlipidemia (principal); G40.89 Other seizures
CPT/HCPCS: 36415; 80053; 80061; 80177; 83721

== ENCOUNTER → 2022-06-24 | Outpatient (CLI) | payer MEDICARE, OTHER ==
[2022-06-24 15:45] LABS: ALT 23 U/L (10-49); AST 19 U/L (14-35); African American GFR (CKD) 74.1 (60.0-200.0); Albumin 4.4 g/dL (3.8-4.9); Alkaline Phosphatase 54 U/L (41-126); BUN/Creat Ratio 10.83 Ratio (12.00-20.00); Calcium 9.3 mg/dL (8.7-10.3); Carbon Dioxide 25.9 mmol/L (20.0-27.5); Chloride 104 mmol/L (96-109); Chol/HDL Ratio 2.36 Ratio; Globulin 2.2 g/dL (1.6-3.3); Glucose 108 mg/dL (70-110); Potassium 4.8 mmol/L (3.5-5.5); Sodium 141 mmol/L (135-145); Total Protein 6.6 g/dL (6.2-8.2)
== END | disposition home or self-care (01) ==
LOC: LABWHC1 08:04
PROVIDERS: ATTEND Internal Medicine Interventional Cardiology
DX: E78.2 Mixed hyperlipidemia (principal); R56.9 Unspecified convulsions
CPT/HCPCS: 36415; 80053; 80061; 80177

== ENCOUNTER → 2022-10-04 | Outpatient (CLI) | payer MEDICARE, OTHER ==
[2022-10-04 14:53] LABS: ALT 24 U/L (10-49); AST 20 U/L (14-35); African American GFR (CKD) 77.2 (60.0-200.0); Albumin 4.3 g/dL (3.8-4.9); Albumin/Globulin Ratio 1.64 (1.60-3.17); Alkaline Phosphatase 59 U/L (41-126); BUN/Creat Ratio 12.59 Ratio (12.00-20.00); Blood Urea Nitrogen 14.6 mg/dL (9.0-27.0); Calcium 9.4 mg/dL (8.7-10.3); Carbon Dioxide 29.2 mmol/L (20.0-27.5); Chloride 103 mmol/L (96-109); Chol/HDL Ratio 2.43 Ratio; Globulin 2.6 g/dL (1.6-3.3); Glucose 118 mg/dL (70-110); LDL Cholesterol,Calculated 45.4 mg/dL (0.0-131.0); Non-African American GFR(CKD) 66.7 (60.0-200.0); Potassium 4.6 mmol/L (3.5-5.5); Sodium 141 mmol/L (135-145)
== END | disposition home or self-care (01) ==
LOC: LABWHC1 07:41
PROVIDERS: ATTEND Internal Medicine Interventional Cardiology
DX: I10 Essential (primary) hypertension (principal); E78.2 Mixed hyperlipidemia
CPT/HCPCS: 36415; 80053; 80061

== ENCOUNTER → 2022-12-17 | Outpatient (CLI) | payer MEDICARE, OTHER ==
[2022-12-17 11:35] LABS: African American GFR (CKD) 61.5 (60.0-200.0); Anion Gap 9.5 mmol/L (10.00-18.00); BUN/Creat Ratio 9.21 Ratio (12.00-20.00); Blood Urea Nitrogen 12.9 mg/dL (9.0-27.0); Calcium 9.5 mg/dL (8.7-10.3); Carbon Dioxide 30.5 mmol/L (20.0-27.5); Non-African American GFR(CKD) 53.1 (60.0-200.0); Potassium 4.1 mmol/L (3.5-5.5)
== END | disposition home or self-care (01) ==
LOC: LABWHC1 07:01
PROVIDERS: ATTEND Nurse Practitioner Adult Health
DX: R60.0 Localized edema (principal)
CPT/HCPCS: 36415; 80048; 83880

== ENCOUNTER 2023-01-20 08:11 | Emergency (ER) | payer MEDICARE, OTHER ==
[2023-01-20 08:18] VITALS: BP 100/65; PULSE 72; RESP 20; TEMP 98
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
== END 2023-01-20 08:46 | disposition home or self-care (01) ==
LOC: EC 08:11
DX: M70.22 Olecranon bursitis, left elbow (principal); I25.10 Atherosclerotic heart disease of native coronary artery without angina pectoris; I11.0 Hypertensive heart disease with heart failure; I50.9 Heart failure, unspecified; I25.2 Old myocardial infarction; E78.5 Hyperlipidemia, unspecified; M19.90 Unspecified osteoarthritis, unspecified site; J44.9 Chronic obstructive pulmonary disease, unspecified; F41.9 Anxiety disorder, unspecified; F17.200 Nicotine dependence, unspecified, uncomplicated; Z88.2 Allergy status to sulfonamides; Z88.5 Allergy status to narcotic agent; Z88.1 Allergy status to other antibiotic agents; Z91.030 Bee allergy status; Z88.8 Allergy status to other drugs, medicaments and biological substances; Z79.82 Long term (current) use of aspirin; Z79.899 Other long term (current) drug therapy
CPT/HCPCS: 99283

== ENCOUNTER 2023-02-14 23:54 | Emergency (ER) | payer MEDICARE, OTHER ==
[2023-02-14] MEDS ORDERED: Alteplase PER PHARMACY Stroke 1 EACH MISC MISCELLANE PRN (23:55)
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
[2023-02-14] MEDS ORDERED: ALTEPLASE 59 MG in EMPTY BAG 1 BAG IV STA (23:58)
[2023-02-14] MEDS ORDERED: ALTEPLASE BOLUS FOR STROKE 7 MG in EMPTY SYRINGE 1 SYR IV STA (23:58)
--- NOTE | 2023-02-15 00:18 | CT ---
EXAM: CT Head Without Intravenous Contrast CLINICAL HISTORY: ITS.REASON CT Reason: Neuro deficit, acute, stroke suspected TECHNIQUE: Axial computed tomography images of the head/brain without intravenous contrast. CTDI is 25 mGy and DLP is 689.6 mGy-cm. This CT exam was performed using one or more of the following dose reduction techniques: automated exposure control, adjustment of the mA and/or kV according to patient size, and/or use of iterative reconstruction technique. COMPARISON: Head CT 08/20/21. FINDINGS: Brain: Chronic left frontal and temporal regions, stable. No mass effect or acute infarct. No acute hemorrhage. Diffuse atrophy, stable. Ventricles: No hydrocephalus or midline shift. Bones/joints: No skull fracture. Soft tissues: No scalp hematoma. Sinuses: Clear. Mastoid air cells: No mastoid effusion. IMPRESSION: 1. Chronic left frontal and temporal lobe infarcts. 2. No acute infarct, bleed, or acute intracranial abnormality.
--- NOTE | 2023-02-15 00:32 | CT ---
ADDENDUM - Added by Pilar Cannon M.D. on 02/15/2023 12:38 AM (-07:00) d/w : left paralysis. EXAM: CT Angiography Head With Intravenous Contrast CLINICAL HISTORY: ITS. REASON CT Reason: Neuro deficit, acute, stroke suspected TECHNIQUE: Axial computed tomographic angiography images of the head with intravenous contrast. CTDI is 25 mGy and DLP is 689.6 mGy-cm. This CT exam was performed using one or more of the following dose reduction techniques: automated exposure control, adjustment of the mA and/or kV according to patient size, and/or use of iterative reconstruction technique. MIP reconstructed images were created and reviewed. 100 ML Isovue-370 given IV. Suboptimal contrast bolus, venous contamination and mild motion artifact limit evaluation. COMPARISON: Noncontrast head CT done earlier. FINDINGS: Right internal carotid artery: Patent. Right anterior cerebral artery: Patent. Right middle cerebral artery: M1 occlusion with excellent collateral vessels. Right posterior cerebral artery: Patent. Right vertebral artery: Patent. Left internal carotid artery: Patent. Left anterior cerebral artery: Patent. Left middle cerebral artery: Patent. Left posterior cerebral artery: Patent. origin. Left vertebral artery: Patent. Basilar artery: Patent. Other: Atherosclerosis bilateral cavernous ICA with moderate, 60-70% stenosis. IMPRESSION: 1. Right M1 occlusion. 2. Moderate, 60-70% bilateral cavernous ICA stenosis. 3. No aneurysm or other large vessel occlusion. EXAM: CT Angiography Neck With Intravenous Contrast CLINICAL HISTORY: ITS. REASON CT Reason: Neuro deficit, acute, stroke suspected TECHNIQUE: Routine carotid CT angiography protocol was performed with intravenous contrast. NASCET criteria using the distal ICAs for comparison were used for evaluation of stenoses. CTDI is 25 mGy and DLP is 689.6 mGy-cm. This CT exam was performed using one or more of the following dose reduction techniques: automated exposure control, adjustment of the mA and/or kV according to patient size, and/or use of iterative reconstruction technique. MIP reconstructed images were created and reviewed. 100 ML Isovue-370 given IV. Suboptimal bolus and motion artifact moderately limit evaluation. COMPARISON: None. FINDINGS: Right common carotid artery: Patent. Right internal carotid artery: Patent. Right vertebral artery: Patent. Left common carotid artery: Patent. Left internal carotid artery: Patent. Left vertebral artery: Patent. Other: Moderate atherosclerosis aorta, great vessels, with probable severe stenosis left subclavian origin, though artifact limits evaluation. Atherosclerosis bilateral carotid bifurcation, with less than 50% stenosis bilaterally. Emphysema and vascular prominence. IMPRESSION: 1. Severe left subclavian artery stenosis, poorly evaluated due to suboptimal bolus and motion artifact. 2. Carotid atherosclerosis without significant stenosis. 3. No dissection, occlusion, or other significant stenosis. CAROTID STENOSIS REFERENCE USING NASCET CRITERIA: % ICA stenosis = (1 - narrowest ICA diameter/diameter of distal cervical ICA) x 100. Mild - <50% stenosis. Moderate - 50-69% stenosis. Severe - 70-94% stenosis. Near occlusion - 95-99% stenosis. Occluded - 100% stenosis. <MYCVCSECTION> Communications: 02/15/23 00:37 Call Doctor Regarding Above results, called Dr. Martinez on 02/15 00:37 (-04:00)
--- NOTE | 2023-02-15 00:43 | XR ---
EXAM: XR Chest, 1 View CLINICAL HISTORY: ITS.REASON XR Reason: altered mental status, stroke. TECHNIQUE: Frontal view of the chest. COMPARISON: None. FINDINGS: Lungs: Diffuse, mild haziness right lung, nonspecific, possible neurogenic edema. Mild pneumonia not excluded. Left lung clear. No consolidation. Pleural space: No pneumothorax. Heart: Pacemaker and moderate cardiomegaly. Mediastinum: Unremarkable. Bones/Soft Tissues: No acute abnormality. IMPRESSION: 1. Mild haziness in the right lung, nonspecific, possible edema and/or pneumonia.
[2023-02-15 00:57] LABS: Basophils # (A) 0.1 k/uL (0-0.2); Basophils % (A) 0 %; Eosinophils # (A) 0.3 k/uL (0-0.7); Eosinophils % (A) 1 %; HCT 48.7 % (39.0-53.0); HGB 16.1 gm/dL (13.0-17.5); Lymphocytes # (A) 3.1 k/uL (1.0-4.8); Lymphocytes % (A) 17 %; MCH 31.5 pg (25.0-35.0); MCHC 33.1 g/dL (31.0-37.0); MCV 95.2 fL (80.0-100.0); Mean Platelet Volume 9.5; Monocytes % (A) 6 %; Neutrophils # (A) 13.2 k/uL (1.3-7.7); Neutrophils % (A) 74 %; Platelet Count 149 k/uL (150-450); RBC 5.12 m/uL (4.30-5.90); RDW 15.8 % (11.5-15.5); WBC 17.9 k/uL (3.8-10.6)
[2023-02-15] MEDS ORDERED: SODIUM CHLORIDE 0.9% 50 ML MINI-BAG IV ONE (00:59)
[2023-02-15 01:04] LABS: ALT 82 U/L (4-49); AST 61 U/L (17-59); African American GFR (CKD) 76 (>60 ml/min/1.73 sqM); Albumin 2.8 g/dL (3.5-5.0); Alkaline Phosphatase 63 U/L (38-126); Anion Gap 6 mmol/L; Blood Urea Nitrogen 28 mg/dL (9-20); Calcium 7.9 mg/dL (8.4-10.2); Carbon Dioxide 30 mmol/L (22-30); Chloride 95 mmol/L (98-107); Creatine Kinase 86 U/L (55-170); Glucose 109 mg/dL (74-99); Non-African American GFR(CKD) 65 (>60 ml/min/1.73 sqM); Potassium 4.5 mmol/L (3.5-5.1); Sodium 131 mmol/L (137-145); Total Bilirubin 1.7 mg/dL (0.2-1.3); Total Protein 5.6 g/dL (6.3-8.2)
[2023-02-15 01:25] LABS: INR 1.2 (<1.2); Partial Thromboplastin Time 26.2 sec (22.0-30.0); Prothrombin Time 12.1 sec (9.0-12.0)
[2023-02-15 02:24] VITALS: RESP 22
[2023-02-15 02:31] VITALS: BP 116/91; PULSE 83
== END 2023-02-15 01:35 | disposition other institution (70) ==
LOC: EC 23:54
DX: I63.40 Cerebral infarction due to embolism of unspecified cerebral artery (principal); R29.720 NIHSS score 20; I25.10 Atherosclerotic heart disease of native coronary artery without angina pectoris; I11.0 Hypertensive heart disease with heart failure; I50.9 Heart failure, unspecified; I25.2 Old myocardial infarction; E78.5 Hyperlipidemia, unspecified; J44.9 Chronic obstructive pulmonary disease, unspecified; M19.90 Unspecified osteoarthritis, unspecified site; F41.9 Anxiety disorder, unspecified; F17.200 Nicotine dependence, unspecified, uncomplicated; Z91.030 Bee allergy status; Z88.5 Allergy status to narcotic agent; Z88.2 Allergy status to sulfonamides; Z88.1 Allergy status to other antibiotic agents; Z79.82 Long term (current) use of aspirin; Z79.899 Other long term (current) drug therapy; W06.XXXA Fall from bed, initial encounter
CPT/HCPCS: 36415; 93005; 80053; 82550; 84484; 85025; 85610; 85730; 71045; 70496; 70450; 70498; 99291; 37195; J2997; Q9967

== ENCOUNTER → 2023-03-09 | Outpatient (CLI) | payer MEDICARE, OTHER ==
--- NOTE | 2023-03-09 09:16 | XR ---
EXAMINATION TYPE: XR chest 2V DATE OF EXAM: 03/09/2023 COMPARISON: 02/15/2023 HISTORY: Shortness of breath TECHNIQUE: Frontal and lateral views of the chest are obtained. FINDINGS: Scattered senescent parenchymal changes noted. Hyperinflation compatible with COPD. No evidence for infiltrate. No evidence for atelectasis. Continued pulmonary venous congestion with cardiomegaly although much improved from prior study. No s izable effusion seen. IACD device noted to be in place. Mediastinal structures are stable and grossly unremarkable. No evidence for hilar prominence. Degenerative changes dorsal spine. IMPRESSION: 1. Continued pulmonary venous congestion with cardiomegaly although much improved from prior study. N o sizable effusion seen.
[2023-03-09 10:10] LABS: African American GFR (CKD) 68 (>60 ml/min/1.73 sqM); Anion Gap 4 mmol/L; Blood Urea Nitrogen 17 mg/dL (9-20); Calcium 8.8 mg/dL (8.4-10.2); Carbon Dioxide 32 mmol/L (22-30); Chloride 103 mmol/L (98-107); Glucose 107 mg/dL (74-99); Non-African American GFR(CKD) 59 (>60 ml/min/1.73 sqM); Potassium 5.6 mmol/L (3.5-5.1); Sodium 139 mmol/L (137-145)
[2023-03-09 10:11] LABS: NT-Pro-B-Type Natriuretic Pept 11300 pg/mL
== END | disposition home or self-care (01) ==
LOC: LABWHC1 08:17
PROVIDERS: ATTEND Psychiatry & Neurology Neurology
DX: I25.5 Ischemic cardiomyopathy (principal); R56.9 Unspecified convulsions; R06.02 Shortness of breath
CPT/HCPCS: 36415; 71046; 80048; 80177; 83880

== ENCOUNTER → 2023-03-24 | Outpatient (CLI) | payer MEDICARE, OTHER ==
[2023-03-24 10:35] LABS: NT-Pro-B-Type Natriuretic Pept 8390 pg/mL
[2023-03-25 02:17] LABS: BUN/Creat Ratio 12.58 Ratio (12.00-20.00); Blood Urea Nitrogen 15.1 mg/dL (9.0-27.0); Calcium 9.7 mg/dL (8.7-10.3); Carbon Dioxide 26.6 mmol/L (21.6-31.8); Chloride 100 mmol/L (96-109); Glucose 98 mg/dL (70-110); Potassium 4.9 mmol/L (3.5-5.5); Sodium 141 mmol/L (135-145)
== END | disposition home or self-care (01) ==
LOC: LABWHC1 08:07
PROVIDERS: ATTEND Internal Medicine Interventional Cardiology
DX: I25.5 Ischemic cardiomyopathy (principal)
CPT/HCPCS: 36415; 80048; 83880

== ENCOUNTER 2023-04-15 06:32 | Inpatient (IN) | payer MEDICARE, OTHER ==
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
[2023-04-15 07:46] LABS: Basophils % (A) 0 %; Eosinophils # (A) 0.1 k/uL (0-0.7); Eosinophils % (A) 1 %; HCT 50.2 % (39.0-53.0); Lymphocytes # (A) 2.3 k/uL (1.0-4.8); Lymphocytes % (A) 22 %; MCH 31.4 pg (25.0-35.0); MCHC 31.9 g/dL (31.0-37.0); MCV 98.6 fL (80.0-100.0); Macrocytosis Slight; Mean Platelet Volume 10.9; Monocytes # (A) 0.7 k/uL (0-1.0); Monocytes % (A) 7 %; Neutrophils # (A) 7.2 k/uL (1.3-7.7); Neutrophils % (A) 69 %; Platelet Count 179 k/uL (150-450); RBC 5.09 m/uL (4.30-5.90); RDW 15.8 % (11.5-15.5); WBC 10.5 k/uL (3.8-10.6)
[2023-04-15 07:54] LABS: ALT 42 U/L (4-49); AST 38 U/L (17-59); African American GFR (CKD) >90 (>60 ml/min/1.73 sqM); Albumin 4.1 g/dL (3.5-5.0); Alkaline Phosphatase 76 U/L (38-126); Anion Gap 8 mmol/L; Blood Urea Nitrogen 16 mg/dL (9-20); Calcium 9.5 mg/dL (8.4-10.2); Carbon Dioxide 25 mmol/L (22-30); Chloride 107 mmol/L (98-107); Glucose 113 mg/dL (74-99); Non-African American GFR(CKD) 80 (>60 ml/min/1.73 sqM); Sodium 140 mmol/L (137-145); Total Bilirubin 2.7 mg/dL (0.2-1.3); Total Protein 7.3 g/dL (6.3-8.2)
[2023-04-15 07:59] LABS: INR 1.2 (<1.2); Prothrombin Time 12.1 sec (9.0-12.0)
--- NOTE | 2023-04-15 08:01 | XR ---
EXAMINATION TYPE: XR chest 2V DATE OF EXAM: 04/15/2023 COMPARISON: 03/09/2023 HISTORY: Shortness of breath TECHNIQUE: Frontal and lateral views of the chest are obtained. FINDINGS: Scattered senescent parenchymal changes noted. Hyperinflation compatible with COPD. No evidence for infiltrate. No evidence for atelectasis. Heart size is stable. Mediastinal structures are stable and grossly unremarkable. No evidence for hilar prominence. Degenerative changes dorsal spine. IMPRESSION: 1. No evidence for acute pulmonary disease.
[2023-04-15 08:03] LABS: NT-Pro-B-Type Natriuretic Pept 12800 pg/mL
[2023-04-15] MEDS ORDERED: IPRATROPIUM-ALBUTEROL 3 ML NEB INHALATION STA (08:31)
[2023-04-15] MEDS ORDERED: ACETAMINOPHEN TAB 325 MG TAB PO PRN (08:52)
[2023-04-15] MEDS ORDERED: NALOXONE 0.4 MG/ML 1 ML VIAL IV PRN (08:52)
[2023-04-15] MEDS ORDERED: ONDANSETRON 4 MG/2 ML VIAL IVP PRN (08:52)
[2023-04-15] MEDS ORDERED: IPRATROPIUM-ALBUTEROL 3 ML NEB INHALATION PRN (09:14)
[2023-04-15] MEDS ORDERED: ALBUTEROL NEBULIZED 2.5 MG/3 ML INHALATION PRN (09:23)
[2023-04-15] MEDS ORDERED: traZODone HCL 50 MG TAB PO PRN (09:23)
[2023-04-15] MEDS ORDERED: SENNOSIDES-DOCUSATE SODIUM 1 EACH TAB PO PRN (09:23)
[2023-04-15] MEDS ORDERED: carvediloL 6.25 MG TAB PO SCH (09:30)
[2023-04-15] MEDS ORDERED: FUROSEMIDE 20 MG TAB PO SCH (09:30)
[2023-04-15] MEDS: DAPAGLIFLOZIN PROPANEDIOL 10 MG TABLET PO SCH (10:19)
[2023-04-15] MEDS: APIXABAN 5 MG TAB PO SCH ×2 (10:19→21:42)
[2023-04-15] MEDS: EZETIMIBE 10 MG TAB PO SCH (10:20)
[2023-04-15] MEDS: DIGOXIN 125 MCG TAB PO SCH (10:20)
[2023-04-15] MEDS: levETIRAcetam 500 MG TAB PO SCH ×2 (10:21→21:42)
[2023-04-15] MEDS: FUROSEMIDE 10 MG/ML 2 ML VIAL IV SCH ×2 (10:30→21:42)
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
[2023-04-15] MEDS: IPRATROPIUM-ALBUTEROL 3 ML NEB INHALATION PRN (16:12)
[2023-04-15] MEDS: SYMBICORT 160-4.5 MCG INHALER INHALATION SCH (20:09)
[2023-04-15] MEDS: ATORVASTATIN 40 MG TAB PO SCH (21:42)
[2023-04-15] MEDS: carvediloL 6.25 MG TAB PO SCH (21:42)
[2023-04-16] MEDS: SYMBICORT 160-4.5 MCG INHALER INHALATION SCH ×2 (08:22→21:22)
[2023-04-16 08:58] LABS: African American GFR (CKD) >90 (>60 ml/min/1.73 sqM); Anion Gap 9 mmol/L; Blood Urea Nitrogen 16 mg/dL (9-20); Calcium 9.4 mg/dL (8.4-10.2); Carbon Dioxide 29 mmol/L (22-30); Chloride 102 mmol/L (98-107); Glucose 99 mg/dL (74-99); Non-African American GFR(CKD) 84 (>60 ml/min/1.73 sqM); Potassium 4.6 mmol/L (3.5-5.1); Sodium 140 mmol/L (137-145)
[2023-04-16] MEDS: carvediloL 6.25 MG TAB PO SCH ×2 (09:11→21:04)
[2023-04-16] MEDS: DAPAGLIFLOZIN PROPANEDIOL 10 MG TABLET PO SCH (09:12)
[2023-04-16] MEDS: APIXABAN 5 MG TAB PO SCH ×2 (09:12→21:04)
[2023-04-16] MEDS: DIGOXIN 125 MCG TAB PO SCH (09:12)
[2023-04-16] MEDS: EZETIMIBE 10 MG TAB PO SCH (09:13)
[2023-04-16] MEDS: levETIRAcetam 500 MG TAB PO SCH ×2 (09:13→21:04)
[2023-04-16] MEDS: FUROSEMIDE 10 MG/ML 2 ML VIAL IV SCH ×2 (09:14→21:03)
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
[2023-04-16] MEDS: IPRATROPIUM-ALBUTEROL 3 ML NEB INHALATION PRN ×2 (11:40→16:53)
[2023-04-16 12:25] LABS: Basophils % (A) 0 %; Eosinophils # (A) 0.2 k/uL (0-0.7); Eosinophils % (A) 2 %; HCT 48.6 % (39.0-53.0); HGB 15.6 gm/dL (13.0-17.5); Lymphocytes # (A) 2.7 k/uL (1.0-4.8); Lymphocytes % (A) 26 %; MCH 31.8 pg (25.0-35.0); MCV 99.3 fL (80.0-100.0); Macrocytosis Slight; Mean Platelet Volume 10.9; Monocytes # (A) 0.7 k/uL (0-1.0); Monocytes % (A) 6 %; Neutrophils # (A) 6.7 k/uL (1.3-7.7); Neutrophils % (A) 64 %; Platelet Count 174 k/uL (150-450); RDW 15.6 % (11.5-15.5); WBC 10.5 k/uL (3.8-10.6)
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
--- NOTE | 2023-04-16 14:12 | P.PN ---
Subjective Progress Note Date: 04/16/23 Principal diagnosis: Shortness of breath. Pulmonary consult dated 04/15/2023. 63-year-old male who was seen in the emergency department, room 15. The patient apparently presented to the emergency room, on April 15, at 6:30 in the morning, complaining of shortness of breath. It apparently been going on for about 3 weeks prior to admission, but it was much worse over the last 1 or 2 days. He apparently was having a difficult time lying flat, and had to sleep in his recliner. He has albuterol inhaler and albuterol updrafts at home, as well as Symbicort. The patient apparently does not see a lung doctor on a regular basis. The patient was not on any oxygen therapy were we saw him, nor was he on any IV fluids. The patient apparently was seen by me back in 2017, for COPD, and is scheduled to see me again sometime in April, to reestablish himself because of his COPD. The patient does have a history of chronic tobacco use. In addition, the patient has a history of atrial fibrillation, coronary disease, hyperlipidemia, stroke, hypertension, memory impairment, and myocardial infarction. Labs today include a white count of 10.5, with a normal hemoglobin, hematocrit, and platelet count. Coagulation studies were also normal including a d-dimer. Electrolytes were normal including a sodium 140, potassium 5, chlorides 107, CO2 25, BUN 16, creatinine 0.99. Glucose was 113. Total bilirubin was 2.7. Troponins are 0.071, 0.062 and 0.058. N-terminal proBNP was quite elevated at 12,800. He was checked for influenza A, influenza B, RSV, and coronavirus, and all testing was negative. Chest x-ray was reported to be normal by the radiologist, but the patient clearly has some cephalization, and some mild interstitial changes, consistent with the elevated BNP. Progress note dated 04/16/2023. 63-year-old male was seen in the emergency room yesterday, and was admitted with a diagnosis of shortness of breath, likely secondary to CHF, and to a lesser extent, COPD exacerbation. Please see my consultation above. Early, the patient is again seen in the emergency department, room #24. The patient's on room air. He's not receiving any IV fluids. He's feeling much better. White count 10.5, hemoglobin 15.6, hematocrit 48.6, with a normal platelet count. Sodium 140, potassium 4.6, chlorides 102, CO2 29, BUN 16, and creatinine 0.96. His BNP was 12,800. Objective - Vital Signs Vital signs: Vital Signs Temp 97.8 F 04/16/23 07:00 Pulse 78 04/16/23 11:50 Resp 16 04/16/23 07:00 BP 105/70 04/16/23 07:00 Pulse Ox 98 04/16/23 07:00 FiO2 Intake & Output 04/15/23 04/16/23 04/16/23 18:59 06:59 18:59 Intake Total 240 250 Balance 240 250 Weight 68.039 kg Intake: Oral 240 250 Other: # Voids 1 3 - Exam No acute distress, oriented 3. Currently on room air. Room air saturation is 98 %. HEENT examination is grossly unremarkable. Neck supple. Full range of motion. No adenopathy thyromegaly or neck vein distention. Cardiovascular examination reveals regular rhythm rate. S1-S2 normal. No S3 or S4. No discernible murmur noted. Heart rate is 78 bpm. Lungs reveal clear breath sounds. Breath sounds are equal bilaterally. No adventitious lung sounds including wheezes rhonchi or crackles. Abdomen soft bowel sounds are heard. No masses or tenderness. Extremities are intact. No cyanosis clubbing or edema. Skin is without rash or lesion. Neurologic examination is brief but nonfocal. - Labs CBC & Chem 7: 04/16/23 07:06 04/16/23 07:06 Labs: Abnormal Lab Results - Last 24 Hours (Table) 04/16/23 Range/Units 07:06 RDW 15.6 H (11.5-15.5) % Assessment and Plan Assessment: Shortness of breath, now much improved, likely multifactorial, primarily secondary to fluid overload/CHF, and possibly mild COPD exacerbation. History of CVA with expressive aphasia. History of COPD secondary to tobacco use. History of hyperlipidemia. History of atrial fibrillation. History of CAD, with prior stent placement. History of hypertension. Prior history of myocardial infarction. History of seizure disorder. Status post AICD placement. Prior history of tobacco use. History of chronic anxiety. Plan: Plan dated 04/15/2023. The patient was seen in the emergency department, room 15. He appeared very comfortable, and was not on any supplemental oxygen. The patient's chest x-ray, in my opinion showed interstitial edema. The N-terminal proBNP was quite elevated. I saw the patient in the office back in 2017, and at that time, he had very mild COPD. I believe the patient shortness breath is primarily cardiac, rather than pulmonary, although, there is likely a component of both. The patient was placed on Symbicort and albuterol sulfate/ipratropium bromide breathing treatments which is appropriate. No additional recommendations are made. Plan dated 04/16/2023. The patient is seen in the emergency department, room 24. He still on room air. No IV fluids. He's feeling much better. The patient was evaluated yesterday, and thought to have shortness of breath, primarily secondary to interstitial edema, and fluid overload. There may also be a small component of COPD exacerbation. The patient is scheduled to see me in the office, May 16, at which time, we will repeat his pulmonary function test. Previously, he had only mild COPD. Additional recommendations and suggestions are forthcoming. Time with Patient: Less than 30
--- NOTE | 2023-04-16 20:41 | P.PN ---
Subjective Progress Note Date: 04/16/23 63-year-old male who presents to the emergency department for shortness of breath. Patient states that this has been an ongoing problem over the last 3 weeks, however over the last 1-2 days it has gotten particularly severe. Symptoms are much worse when lying flat and he is having to sleep in his [facility] er. He is using albuterol and Symbicort inhalers as well as albuterol nebulizer treatments, but states that this almost makes it worse, in that this causes him to develop chest pain. Also states that he feels like he cannot take a deep breath. He has a mild nonproductive cough and congestion. Denies any sick contacts. He did have a SWATI on 04/08/[address] Barrientos for biphasic cardioversion for treatment of atrial fibrillation. This did restore sinus rhythm. Labs today include a white count of 10.5, with a normal hemoglobin, hematocrit, and platelet count. Coagulation studies were also normal including a d-dimer. Electrolytes were normal including a sodium 140, potassium 5, chlorides 107, CO2 25, BUN 16, creatinine 0.99. Glucose was 113. Total bilirubin was 2.7. Troponins are 0.071, 0.062 and 0.058. N-terminal proBNP was quite elevated at 12,800. He was checked for influenza A, influenza B, RSV, and coronavirus, and all testing was negative. Chest x-ray was reported to be normal by the radiologist, but the patient clearly has some cephalization, and some mild interstitial changes, consistent with the elevated BNP. Objective - Vital Signs Vital signs: Vital Signs Temp 97.8 F 04/16/23 07:00 Pulse 65 04/16/23 07:00 Resp 16 04/16/23 07:00 BP 105/70 04/16/23 07:00 Pulse Ox 98 04/16/23 07:00 FiO2 Intake & Output 04/15/23 04/16/23 04/16/23 18:59 06:59 18:59 Intake Total 240 250 Balance 240 250 Weight 68.039 kg Intake: Oral 240 250 Other: # Voids 1 3 - Exam PHYSICAL EXAMINATION: GENERAL: The patient is alert and oriented x3, not in any acute distress. Well developed, well nourished. HEENT: Pupils are round and equally reacting to light. EOMI. No scleral icterus. No conjunctival pallor. Normocephalic, atraumatic. No pharyngeal erythema. No thyromegaly. CARDIOVASCULAR: S1 and S2 present. No murmurs, rubs, or gallops. PULMONARY: Chest is clear to auscultation, no wheezing or crackles. ABDOMEN: Soft, nontender, nondistended, normoactive bowel sounds. No palpable organomegaly. MUSCULOSKELETAL: No joint swelling or deformity. EXTREMITIES: No cyanosis, clubbing, or pedal edema. NEUROLOGICAL: Gross neurological examination did not reveal any focal deficits. SKIN: No rashes. - Labs CBC & Chem 7: 04/16/23 07:06 04/16/23 07:06 Labs: Abnormal Lab Results - Last 24 Hours (Table) 04/15/23 Range/Units 11:34 Troponin I 0.058 H* (0.000-0.034) ng/mL Assessment and Plan Assessment: 1. Acute exacerbation CHF - BNP is elevated at 12,800; chest x-ray is consistent with fluid overload - Patient has been placed on Lasix 20 g IV every 12 hours; we will monitor strict DWAINE's, daily weights, low salt and fluid restricted diet - Recommend 2-D echo; cardiology is consulted 2. Acute exacerbation COPD; patient isn't placed on Symbicort inhaler 1604.5 twice a day, DuoNeb nebulizer treatments 4 times a day and when necessary; O2 2 L 15 nasal cannula keeping O2 saturation greater than 92% -Consult pulmonary for further recommendations 3. Elevated troponin; possibly demand ischemia related to CHF and COPD exacerbation; we will plan to trend troponin and consult cardiology for further recommendations 4. Atrial fibrillation; patient is rate controlled on digoxin 125 MCG daily and Coreg 6.25 mg twice a day; remains on systemic anticoagulation 5. Hypertension; Coreg 6.25 mg twice a day 6. Hyperlipidemia; Zetia 10 mg daily; Crestor 20 mg by mouth daily at bedtime 7. Seizure disorder; Keppra 500 mg every 12 hours 8. History of CVA/TIA; reports memory impairment; currently on anticoagulation and statin therapy DVT prophylaxis; SCDs/Eliquis CODE STATUS; full code
[2023-04-16] MEDS: ATORVASTATIN 40 MG TAB PO SCH (21:04)
[2023-04-17] MEDS: IPRATROPIUM-ALBUTEROL 3 ML NEB INHALATION PRN ×4 (03:59→15:07)
[2023-04-17] MEDS: SYMBICORT 160-4.5 MCG INHALER INHALATION SCH ×2 (07:57→08:12)
[2023-04-17] MEDS: levETIRAcetam 500 MG TAB PO SCH (08:18)
[2023-04-17] MEDS: DIGOXIN 125 MCG TAB PO SCH (08:18)
[2023-04-17] MEDS: EZETIMIBE 10 MG TAB PO SCH (08:18)
[2023-04-17] MEDS: DAPAGLIFLOZIN PROPANEDIOL 10 MG TABLET PO SCH (08:18)
[2023-04-17] MEDS: carvediloL 6.25 MG TAB PO SCH (08:18)
[2023-04-17] MEDS: APIXABAN 5 MG TAB PO SCH (08:18)
[2023-04-17] MEDS: FUROSEMIDE 10 MG/ML 2 ML VIAL IV SCH (08:18)
[2023-04-17 08:28] LABS: Basophils % (A) 0 %; Eosinophils # (A) 0.2 k/uL (0-0.7); Eosinophils % (A) 2 %; HCT 48.4 % (39.0-53.0); HGB 15.7 gm/dL (13.0-17.5); Lymphocytes # (A) 2.7 k/uL (1.0-4.8); Lymphocytes % (A) 25 %; MCH 31.9 pg (25.0-35.0); MCHC 32.5 g/dL (31.0-37.0); MCV 98.2 fL (80.0-100.0); Macrocytosis Slight; Monocytes # (A) 0.6 k/uL (0-1.0); Monocytes % (A) 6 %; Neutrophils # (A) 7.1 k/uL (1.3-7.7); Neutrophils % (A) 66 %; Platelet Count 183 k/uL (150-450); RBC 4.93 m/uL (4.30-5.90); RDW 15.8 % (11.5-15.5); WBC 10.8 k/uL (3.8-10.6)
[2023-04-17 09:00] LABS: African American GFR (CKD) >90 (>60 ml/min/1.73 sqM); Anion Gap 9 mmol/L; Blood Urea Nitrogen 18 mg/dL (9-20); Calcium 9.3 mg/dL (8.4-10.2); Carbon Dioxide 31 mmol/L (22-30); Chloride 100 mmol/L (98-107); Glucose 102 mg/dL (74-99); Non-African American GFR(CKD) 86 (>60 ml/min/1.73 sqM); Potassium 4.1 mmol/L (3.5-5.1); Sodium 140 mmol/L (137-145)
[2023-04-17 11:11] VITALS: TEMP 97.6
[2023-04-17 12:51] VITALS: BP 100/64; RESP 18
--- NOTE | 2023-04-17 13:07 | P.PN ---
Subjective Progress Note Date: 04/17/23 Principal diagnosis: Shortness of breath. Pulmonary consult dated 04/15/2023. 63-year-old male who was seen in the emergency department, room 15. The patient apparently presented to the emergency room, on April 15, at 6:30 in the morning, complaining of shortness of breath. It apparently been going on for about 3 weeks prior to admission, but it was much worse over the last 1 or 2 days. He apparently was having a difficult time lying flat, and had to sleep in his recliner. He has albuterol inhaler and albuterol updrafts at home, as well as Symbicort. The patient apparently does not see a lung doctor on a regular basis. The patient was not on any oxygen therapy were we saw him, nor was he on any IV fluids. The patient apparently was seen by me back in 2017, for COPD, and is scheduled to see me again sometime in April, to reestablish himself because of his COPD. The patient does have a history of chronic tobacco use. In addition, the patient has a history of atrial fibrillation, coronary disease, hyperlipidemia, stroke, hypertension, memory impairment, and myocardial infarction. Labs today include a white count of 10.5, with a normal hemoglobin, hematocrit, and platelet count. Coagulation studies were also normal including a d-dimer. Electrolytes were normal including a sodium 140, potassium 5, chlorides 107, CO2 25, BUN 16, creatinine 0.99. Glucose was 113. Total bilirubin was 2.7. Troponins are 0.071, 0.062 and 0.058. N-terminal proBNP was quite elevated at 12,800. He was checked for influenza A, influenza B, RSV, and coronavirus, and all testing was negative. Chest x-ray was reported to be normal by the radiologist, but the patient clearly has some cephalization, and some mild interstitial changes, consistent with the elevated BNP. Progress note dated 04/16/2023. 63-year-old male was seen in the emergency room yesterday, and was admitted with a diagnosis of shortness of breath, likely secondary to CHF, and to a lesser extent, COPD exacerbation. Please see my consultation above. Early, the patient is again seen in the emergency department, room #24. The patient's on room air. He's not receiving any IV fluids. He's feeling much better. White count 10.5, hemoglobin 15.6, hematocrit 48.6, with a normal platelet count. Sodium 140, potassium 4.6, chlorides 102, CO2 29, BUN 16, and creatinine 0.96. His BNP was 12,800. Progress note dated 04/17/2023. 63-year-old male seen today in room 352. He is currently on room air. He's not receiving any IV fluids. He was admitted to the hospital with complaints of shortness of breath, most likely related to underlying fluid overload/CHF, with a small component of COPD exacerbation. The patient is going to see me in follow-up, May 16, at which time, we will restage his chronic lung disease. White count 10.8, hemoglobin 15.7, hematocrit 48.4, within normal platelet count. Sodium 140, potassium 4.1, chlorides 100, CO2 31, BUN 18, creatinine 0.94. Objective - Vital Signs Vital signs: Vital Signs Temp 97.6 F 04/17/23 08:00 Pulse 76 04/17/23 12:00 Resp 18 04/17/23 12:00 BP 100/64 04/17/23 12:00 Pulse Ox 95 04/17/23 12:00 FiO2 Intake & Output 04/16/23 04/17/23 04/17/23 18:59 06:59 18:59 Intake Total 180 180 Output Total 800 Balance 180 -800 180 Weight 68.3 kg Intake: Oral 180 180 Output: Urine 800 Other: # Voids 1 1 - Exam No acute distress, oriented 3. Currently on room air. Room air saturation is 96 %. HEENT examination is grossly unremarkable. Neck supple. Full range of motion. No adenopathy thyromegaly or neck vein distention. Cardiovascular examination reveals regular rhythm rate. S1-S2 normal. No S3 or S4. No discernible murmur noted. Heart rate is 76 bpm. Lungs reveal clear breath sounds. Breath sounds are equal bilaterally. No adventitious lung sounds including wheezes rhonchi or crackles. Abdomen soft bowel sounds are heard. No masses or tenderness. Extremities are intact. No cyanosis clubbing or edema. Skin is without rash or lesion. Neurologic examination is brief but nonfocal. - Labs CBC & Chem 7: 04/17/23 07:45 04/17/23 07:45 Labs: Abnormal Lab Results - Last 24 Hours (Table) 04/17/23 04/17/23 Range/Units 07:45 07:45 WBC 10.8 H (3.8-10.6) k/uL RDW 15.8 H (11.5-15.5) % Carbon Dioxide 31 H (22-30) mmol/L Glucose 102 H (74-99) mg/dL Assessment and Plan Assessment: Shortness of breath, now much improved, likely multifactorial, primarily secondary to fluid overload/CHF, and possibly mild COPD exacerbation. History of CVA with expressive aphasia. History of COPD secondary to tobacco use. History of hyperlipidemia. History of atrial fibrillation. History of CAD, with prior stent placement. History of hypertension. Prior history of myocardial infarction. History of seizure disorder. Status post AICD placement. Prior history of tobacco use. History of chronic anxiety. Plan: Plan dated 04/15/2023. The patient was seen in the emergency department, room 15. He appeared very comfortable, and was not on any supplemental oxygen. The patient's chest x-ray, in my opinion showed interstitial edema. The N-terminal proBNP was quite elevated. I saw the patient in the office back in 2018, and at that time, he had very mild COPD. I believe the patient shortness breath is primarily cardiac , rather than pulmonary, although, there is likely a component of both. The patient was placed on Symbicort and albuterol sulfate/ipratropium bromide breathing treatments which is appropriate. No additional recommendations are made. Plan dated 04/16/2023. The patient is seen in the emergency department, room 24. He still on room air. No IV fluids. He's feeling much better. The patient was evaluated yesterday, and thought to have shortness of breath, primarily secondary to interstitial ed samreen, and fluid overload. There may also be a small component of COPD exacerbation. The patient is scheduled to see me in the office, May 16, at which time, we will repeat his pulmonary function test. Previously, he had only mild COPD. Additional recommendations and suggestions are forthcoming. Plan dated 04/17/2023. The patient is seen today in room 352. He is resting comfortably in bed. The patient is not requiring any supplemental oxygen, or IV fluids. The patient has an appointment to see me on October 30 in the office, at which time, the patient will have updated complete pulmonary function testing, as well as a 6 minute walk distance. Labs, x-rays, and medications are reviewed. Prognosis is guarded. We will continue to follow the patient, and make recommendations. Time with Patient: Less than 30
[2023-04-17 15:14] VITALS: PULSE 72
--- NOTE | 2023-04-17 16:03 | P.PN ---
Subjective Progress Note Date: 04/17/23 The patient is a 63-year-old male who presented to the emergency room for worsening shortness of breath. He follows in the office with Dr. Barrientos. He was noted to have elevated BNP and was started on IV diuretics. The patient states his been feeling much better since diuresis. He states his breathing has improved and he's been able to ambulate. GENERAL: Well-appearing, well-nourished and in no acute distress. NECK: Supple without JVD or thyromegaly. LUNGS: Breath sounds clear to auscultation bilaterally. Respiration equal and unlabored. No wheezes, rales or rhonchi. HEART: Regular rate and rhythm without murmurs, rubs or gallops. S1 and S2 heard. EXTREMITIES: Normal range of motion, no edema. No clubbing or cyanosis. Peripheral pulses intact and strong. TELEMETRY: Sinus rhythm overnight LABS: WBC 10.8, hemoglobin 15.7, hematocrit 40.4, platelet 183, sodium 140, potassium 4.1, BUN 18, creatinine 0.94 IMPRESSION: Acute on chronic congestive heart failure Nonischemic cardiomyopathy with EF 50-20% Paroxysmal atrial fibrillation, recent cardioversion Valvular heart disease, severe mitral and tricuspid regurgitation IVCD PLAN: Transition to oral diuretics If patient is able to ambulate around unit without chest pain or increased shortness of breath, patient may be discharged from the cardiac standpoint Outpatient follow-up with primary insurance loss assessor later this week Dr. Barrientos I am dictating on behalf of Dr Joni Simons's history/physical and assessment/plan. Objective - Vital Signs Vital signs: Vital Signs Temp 97.6 F 04/17/23 08:00 Pulse 72 04/17/23 15:25 Resp 18 04/17/23 13:55 BP 100/64 04/17/23 12:00 Pulse Ox 95 04/17/23 12:00 FiO2 Intake & Output 04/16/23 04/17/23 04/17/23 18:59 06:59 18:59 Intake Total 180 360 Output Total 800 Balance 180 -800 360 Weight 68.3 kg Intake: Oral 180 360 Output: Urine 800 Other: # Voids 1 2 - Labs CBC & Chem 7: 04/17/23 07:45 04/17/23 07:45 Labs: Abnormal Lab Results - Last 24 Hours (Table) 04/17/23 04/17/23 Range/Units 07:45 07:45 WBC 10.8 H (3.8-10.6) k/uL RDW 15.8 H (11.5-15.5) % Carbon Dioxide 31 H (22-30) mmol/L Glucose 102 H (74-99) mg/dL
[2023-04-18] MEDS ORDERED: FUROSEMIDE 40 MG TAB PO SCH (09:00)
--- NOTE | 2023-04-19 12:09 | CDI ---
Documentation Clarification Form Date: 04/19/23 From: Leonor Hernandez Admit Date: 04/15/2023 08:29:00 AM Patient Name: Marc Christian Visit Number: [id number] Discharge Date: 04/17/2023 05:53:00 PM ATTENTION: The Clinical Documentation Specialists (CDI) and [facility] Coding Staff appreciate your assistance in clarifying documentation. Please respond to the clarification below the line at the bottom and electronically sign. The CDI & [facility] Coding staff will review the response and follow-up if needed. Please note: Queries are made part of the Legal Health Record. If you have any questions, please contact the author of this message via ITS. Dr. Vilma Choi, Your patient has troponin level(s) of: 04/15 0.071, 0.062, 0.058. Please clarify if there is an additional diagnosis and/or clinical significance related to this value. Patient history/risk factors: HTN w acute on chronic systolic CHF. Nonischemic cardiomyopathy. Paroxysmal atrial fibrillation, recent cardioversion. Severe mitral and tricuspid regurgitation. Clinical indicators: Elevated Troponins, see above. Treatment: Continue IV Lasix Is there an additional diagnosis and/or clinical significance related to the above lab resultinformation: [ ] NSTEMI type 1 [ ] STEMI type 1 [ ] Type 2 VA due to (specify cause ____) [ ] Non-ischemic with acute myocardial injury [ ### ] No additional diagnosis/Not clinically significant [ ] Other, please specify [ ] Unable to determine Reference: [employer] Fourth [place] Definition of Myocardial Infraction Elevated Cardiac Troponin >99th percentile with Troponin rise and/or fall With Acute ischemia Acute Myocardial Infarction Atherosclerosis thrombosis Type I VA Oxygen supply and demand imbalance Type II VA (Please indicate etiology) Without acute ischemia Acute Myocardial Injury MTDD
== END 2023-04-17 17:53 | disposition home or self-care (01) | DRG 291 ==
LOC: EC 06:32 → 3SCARD 08:29
PROVIDERS: ADMIT Internal Medicine; ATTEND Internal Medicine
DX: I11.0 Hypertensive heart disease with heart failure (principal); I50.23 Acute on chronic systolic (congestive) heart failure; J44.1 Chronic obstructive pulmonary disease with (acute) exacerbation; I42.8 Other cardiomyopathies; G40.909 Epilepsy, unspecified, not intractable, without status epilepticus; I48.0 Paroxysmal atrial fibrillation; E78.5 Hyperlipidemia, unspecified; Z20.822 Contact with and (suspected) exposure to COVID-19; Z28.310 Unvaccinated for COVID-19; I69.320 Aphasia following cerebral infarction; I25.10 Atherosclerotic heart disease of native coronary artery without angina pectoris; I08.1 Rheumatic disorders of both mitral and tricuspid valves; K59.00 Constipation, unspecified; F41.0 Panic disorder [episodic paroxysmal anxiety]; G89.29 Other chronic pain; M54.9 Dorsalgia, unspecified; I25.2 Old myocardial infarction; M19.90 Unspecified osteoarthritis, unspecified site; Z79.01 Long term (current) use of anticoagulants; Z79.51 Long term (current) use of inhaled steroids; Z79.84 Long term (current) use of oral hypoglycemic drugs; Z79.899 Other long term (current) drug therapy; Z95.810 Presence of automatic (implantable) cardiac defibrillator; Z95.5 Presence of coronary angioplasty implant and graft; Z87.891 Personal history of nicotine dependence; Z88.5 Allergy status to narcotic agent; Z88.2 Allergy status to sulfonamides; Z88.8 Allergy status to other drugs, medicaments and biological substances; Z91.030 Bee allergy status; Z82.49 Family history of ischemic heart disease and other diseases of the circulatory system
CPT/HCPCS: 36415; 71046; 80048; 80053; 83605; 83880; 84484; 85025; 85379; 85610; 85730; 87636; 93005; 94640; 96374; 96376; 99285

== ENCOUNTER → 2023-05-27 | Outpatient (CLI) | payer MEDICARE ==
--- NOTE | 2023-05-27 12:00 | CT ---
EXAMINATION TYPE: CT chest w con DATE OF EXAM: 05/27/2023 COMPARISON: None HISTORY: 63-year-old male R07.9, Chest pain TECHNIQUE: Contiguous axial scanning of the chest after the administration of 100 mL of Isovue 300. Coronal/sagittal reconstructions performed. CT DLP: 259.9mGycm. Automatic exposure control utilized for a dose reduction. FINDINGS: Left anterior chest wall ICD generator with right ventricular lead. Heart upper limits of normal in size but with left ventricular dilatation. Scattered three-vessel cor onary calcifications are present. Aorta normal caliber with mild to moderate atherosclerotic arch calcifications and conventional arch vessel branching anatomy. Large caliber to the main right and left pulmonary arteries measuring up to 2.9 cm suggesting underly ing pulmonary artery hypertension. Scattered nonenlarged and some borderline to mildly enlarged mediastinal lymph nodes. These measure up to 1.1 cm AP window. 1.2 cm lower right paratracheal. 1.3 cm right hilum. Moderate to advanced centrilobular emphysema throughout. No consolidation or pleural effusion. No julissa picious pulmonary nodules are seen. Visualized upper abdomen shows refluxing contrast into the hepatic veins. Bones: Superior endplate deformity of T5 appears chronic, present on the 03/09/2023 radiograph. Some D ROYAL in the midthoracic spine. IMPRESSION: 1. COPD with moderate to advanced emphysema. Pulmonary arterial hypertension. 2. Left ventricular enlargement with left chest wall AICD generator and right ventricular lead. Promi nent contrast refluxing into the hepatic veins suggests elevated cardiac process. 3. A few enlarged mediastinal and right hilar lymph nodes measuring up to 1.3 cm may be reactive/post inflammatory. Follow-up CT chest in 3 months to ensure stability/resolution.
== END | disposition home or self-care (01) ==
LOC: RADCTMAIN 09:40
PROVIDERS: ATTEND Internal Medicine Critical Care Medicine
DX: J43.2 Centrilobular emphysema (principal); I27.21 Secondary pulmonary arterial hypertension; I51.7 Cardiomegaly; R07.9 Chest pain, unspecified; R59.0 Localized enlarged lymph nodes; Z95.810 Presence of automatic (implantable) cardiac defibrillator
CPT/HCPCS: 71260; Q9967

== ENCOUNTER 2023-06-28 09:26 | Emergency (ER) | payer MEDICARE ==
[2023-06-28 09:51] VITALS: TEMP 97.4
[2023-06-28] MEDS ORDERED: ONDANSETRON 4 MG/2 ML VIAL IVP STA (10:06)
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
[2023-06-28 10:34] LABS: Basophils % (A) 0 %; Eosinophils # (A) 0.1 k/uL (0-0.7); Eosinophils % (A) 1 %; HCT 48.8 % (39.0-53.0); Lymphocytes % (A) 21 %; MCH 31.8 pg (25.0-35.0); MCHC 32.9 g/dL (31.0-37.0); MCV 96.8 fL (80.0-100.0); Mean Platelet Volume 10.1; Monocytes # (A) 0.5 k/uL (0-1.0); Monocytes % (A) 5 %; Neutrophils # (A) 6.7 k/uL (1.3-7.7); Neutrophils % (A) 71 %; Platelet Count 205 k/uL (150-450); RBC 5.04 m/uL (4.30-5.90); RDW 14.7 % (11.5-15.5); WBC 9.3 k/uL (3.8-10.6)
--- NOTE | 2023-06-28 10:39 | XR ---
EXAMINATION TYPE: XR chest 2V DATE OF EXAM: 06/28/2023 COMPARISON: 04/15/2023 HISTORY: 63-year-old male with dizziness TECHNIQUE: PA and lateral views FINDINGS: Left anterior chest wall ICD generator with right ventricular lead. Heart normal size. Coronary stent noted. Mild atherosclerotic arch calcifications. Hyperinflation. No consolidation or pleural effusio n. IMPRESSION: COPD. No definite acute process.
[2023-06-28 10:47] LABS: ALT 74 U/L (4-49); AST 57 U/L (17-59); African American GFR (CKD) >90 (>60 ml/min/1.73 sqM); Albumin 4.4 g/dL (3.5-5.0); Alkaline Phosphatase 78 U/L (38-126); Anion Gap 9 mmol/L; Blood Urea Nitrogen 23 mg/dL (9-20); Calcium 9.5 mg/dL (8.4-10.2); Carbon Dioxide 30 mmol/L (22-30); Chloride 100 mmol/L (98-107); Glucose 164 mg/dL (74-99); Magnesium 2.2 mg/dL (1.6-2.3); Non-African American GFR(CKD) 86 (>60 ml/min/1.73 sqM); Potassium 4.9 mmol/L (3.5-5.1); Sodium 139 mmol/L (137-145); Total Bilirubin 1.6 mg/dL (0.2-1.3); Total Protein 7.6 g/dL (6.3-8.2)
[2023-06-28 10:51] LABS: Prothrombin Time 11.2 sec (10.0-12.5)
[2023-06-28 11:56] VITALS: BP 93/60; PULSE 53; RESP 18
== END 2023-06-28 11:43 | disposition home or self-care (01) ==
LOC: EC 09:26
DX: R42 Dizziness and giddiness (principal); I44.1 Atrioventricular block, second degree; I25.2 Old myocardial infarction; I48.91 Unspecified atrial fibrillation; I25.10 Atherosclerotic heart disease of native coronary artery without angina pectoris; I11.0 Hypertensive heart disease with heart failure; I50.9 Heart failure, unspecified; J44.9 Chronic obstructive pulmonary disease, unspecified; E78.5 Hyperlipidemia, unspecified; Z86.59 Personal history of other mental and behavioral disorders; Z87.891 Personal history of nicotine dependence; Z86.73 Personal history of transient ischemic attack (TIA), and cerebral infarction without residual deficits; Z79.51 Long term (current) use of inhaled steroids; Z79.01 Long term (current) use of anticoagulants; Z79.899 Other long term (current) drug therapy; Z91.030 Bee allergy status; Z88.2 Allergy status to sulfonamides; Z88.5 Allergy status to narcotic agent; Z88.1 Allergy status to other antibiotic agents; Z88.8 Allergy status to other drugs, medicaments and biological substances; Z20.822 Contact with and (suspected) exposure to COVID-19
CPT/HCPCS: 36415; 93005; 80053; 83605; 83735; 84484; 85025; 85610; 85730; 87636; 71046; 99284; 96374; J2405

== ENCOUNTER 2023-07-06 17:47 | Inpatient (IN) | payer MEDICARE ==
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
[2023-07-06] MEDS ORDERED: SODIUM CHLORIDE 0.9% 1,000 ML IV STA (18:35)
[2023-07-06 20:15] LABS: Basophils % (A) 0 %; Eosinophils # (A) 0.2 k/uL (0-0.7); Eosinophils % (A) 2 %; HCT 48.3 % (39.0-53.0); Lymphocytes # (A) 2.7 k/uL (1.0-4.8); Lymphocytes % (A) 29 %; MCH 31.7 pg (25.0-35.0); MCHC 33.1 g/dL (31.0-37.0); MCV 95.7 fL (80.0-100.0); Mean Platelet Volume 10.3; Monocytes # (A) 0.6 k/uL (0-1.0); Monocytes % (A) 7 %; Neutrophils # (A) 5.6 k/uL (1.3-7.7); Neutrophils % (A) 60 %; Platelet Count 187 k/uL (150-450); RBC 5.05 m/uL (4.30-5.90); RDW 14.7 % (11.5-15.5); WBC 9.4 k/uL (3.8-10.6)
[2023-07-06 20:37] LABS: INR 1.1 (<1.2); Partial Thromboplastin Time 28.3 sec (22.0-30.0); Prothrombin Time 12.1 sec (10.0-12.5)
[2023-07-06] MEDS ORDERED: HYDROmorphone 1 MG/ML 1 ML SYRINGE IVP PRN (20:44)
[2023-07-06] MEDS ORDERED: ONDANSETRON 4 MG/2 ML VIAL IVP PRN (20:44)
[2023-07-06] MEDS ORDERED: NALOXONE 0.4 MG/ML 1 ML VIAL IV PRN (20:44)
--- NOTE | 2023-07-06 20:58 | XR ---
EXAMINATION TYPE: XR chest 1V DATE OF EXAM: 07/06/2023 HISTORY: Shortness of breath. COMPARISON: 06/28/2023 TECHNIQUE: Single view of the chest is submitted. FINDINGS: Demonstrated are scattered senescent parenchymal change. There is no evidence for focal infiltrate. The heart is stable. Hilar and mediastinal structures are within normal limits. Degenerative changes are seen of the dorsal spine. IMPRESSION: 1. Chronic changes without evidence for acute pulmonary disease.
[2023-07-06 21:00] LABS: ALT 64 U/L (4-49); AST 51 U/L (17-59); African American GFR (CKD) 83 (>60 ml/min/1.73 sqM); Albumin 4.4 g/dL (3.5-5.0); Alkaline Phosphatase 70 U/L (38-126); Anion Gap 13 mmol/L; Blood Urea Nitrogen 23 mg/dL (9-20); Calcium 9.7 mg/dL (8.4-10.2); Carbon Dioxide 28 mmol/L (22-30); Chloride 98 mmol/L (98-107); Glucose 146 mg/dL (74-99); Non-African American GFR(CKD) 72 (>60 ml/min/1.73 sqM); Phosphorus 4.8 mg/dL (2.5-4.5); Potassium 4.2 mmol/L (3.5-5.1); Sodium 139 mmol/L (137-145); Total Bilirubin 1.3 mg/dL (0.2-1.3); Total Protein 7.5 g/dL (6.3-8.2)
--- NOTE | 2023-07-06 21:08 | CT ---
EXAMINATION TYPE: CT brain juan franz con DATE OF EXAM: 07/06/2023 COMPARISON: 02/14/2023 HISTORY: syncope and fall CT DLP: 1321.[address] of the brain was performed. The ventricles, basal cisterns and sulci overlying the cerebral convexities demonstrate mild enlargem ent. Remote insult left frontal lobe and left posterior MCA territory. No acute areas of decreased a ttenuation seen. There is no evidence for intracranial hemorrhage or sulcal effacement. There is decreased attenuatio n about the periventricular white matter and deep white matter of both cerebral hemispheres, compatib le with chronic small vessel ischemia. No mass effects are seen. If symptoms persist consider MRI. Osseous calvarium is intact. IMPRESSION: 1. Age related atrophic and chronic small vessel ischemic change without acute intracranial process seen at this time. CT Cervical Spine: Unenhanced CT of the cervical spine was performed with bone and soft tissue window settings submitted . Coronal and sagittal reconstruction is obtained. There is normal alignment and prevertebral soft tissues. No evidence for acute cervical fracture . Scattered degenerative disc disease and spondylosis. Biapical scarring. IMPRESSION: 1. No evidence for acute fracture or subluxation of the cervical spine. Remote insult left frontal lobe and left posterior MCA territory. No acute areas of decreased attenuation seen.
[2023-07-06 21:09] LABS: NT-Pro-B-Type Natriuretic Pept 5380 pg/mL
[2023-07-06] MEDS: SODIUM CHLORIDE 0.9% 1,000 ML IV SCH (21:46)
[2023-07-06] MEDS ORDERED: ALBUTEROL HFA INHALER INHALATION PRN (22:46)
[2023-07-06] MEDS: APIXABAN 5 MG TAB PO SCH (22:59)
[2023-07-06] MEDS: levETIRAcetam 500 MG TAB PO SCH ×2 (22:59→23:00)
[2023-07-06] MEDS: carvediloL 6.25 MG TAB PO SCH (23:00)
[2023-07-07 04:17] LABS: Basophils # (A) 0.1 k/uL (0-0.2); Basophils % (A) 1 %; Eosinophils # (A) 0.2 k/uL (0-0.7); Eosinophils % (A) 2 %; HCT 44.7 % (39.0-53.0); HGB 14.5 gm/dL (13.0-17.5); Lymphocytes % (A) 32 %; MCH 31.3 pg (25.0-35.0); MCHC 32.6 g/dL (31.0-37.0); MCV 96.2 fL (80.0-100.0); Mean Platelet Volume 10.1; Monocytes # (A) 0.8 k/uL (0-1.0); Monocytes % (A) 9 %; Neutrophils # (A) 5.2 k/uL (1.3-7.7); Neutrophils % (A) 54 %; Platelet Count 179 k/uL (150-450); RBC 4.64 m/uL (4.30-5.90); RDW 14.7 % (11.5-15.5); WBC 9.6 k/uL (3.8-10.6)
[2023-07-07 04:33] LABS: ALT 55 U/L (4-49); AST 50 U/L (17-59); African American GFR (CKD) >90 (>60 ml/min/1.73 sqM); Albumin 3.6 g/dL (3.5-5.0); Alkaline Phosphatase 61 U/L (38-126); Anion Gap 9 mmol/L; Blood Urea Nitrogen 19 mg/dL (9-20); Calcium 8.9 mg/dL (8.4-10.2); Carbon Dioxide 27 mmol/L (22-30); Chloride 105 mmol/L (98-107); Glucose 96 mg/dL (74-99); Lipase 63 U/L (23-300); Magnesium 2.2 mg/dL (1.6-2.3); Non-African American GFR(CKD) >90 (>60 ml/min/1.73 sqM); Phosphorus 3.7 mg/dL (2.5-4.5); Potassium 4.1 mmol/L (3.5-5.1); Sodium 141 mmol/L (137-145); Total Bilirubin 1.4 mg/dL (0.2-1.3); Total Protein 6.4 g/dL (6.3-8.2)
[2023-07-07] MEDS: APIXABAN 5 MG TAB PO SCH ×2 (07:48→21:02)
[2023-07-07] MEDS: EZETIMIBE 10 MG TAB PO SCH (07:48)
[2023-07-07] MEDS: FUROSEMIDE 40 MG TAB PO SCH (07:48)
[2023-07-07] MEDS: DIGOXIN 125 MCG TAB PO SCH (07:48)
[2023-07-07] MEDS: carvediloL 6.25 MG TAB PO SCH ×2 (07:48→17:20)
[2023-07-07] MEDS: levETIRAcetam 500 MG TAB PO SCH (08:29)
[2023-07-07] MEDS: SYMBICORT 160-4.5 MCG INHALER INHALATION SCH ×2 (09:53→20:08)
--- NOTE | 2023-07-07 12:14 | CA ---
Transthoracic Echo Report Name: Marc Christian Age: 63 Gender: M : 1960 Exam Date: 07/07/2023 08:19 Exam Location: [place] [facility] Ht (in): 68 Wt (lb): 150 Ordering Physician: Henry Martinez DO Attending/Referring Phys: [id number] Patient Portal Concierge Wendy Yee [facility] Procedure CPT: Indications: Syncope Cardiac Hx: Technical Quality: Fair Contrast 1: Definity Total Dose (mL): 5 Contrast 2: Total Dose (mL): MEASUREMENTS (Male / Female) Normal Values 2D ECHO LV Diastolic Diameter PLAX 7.3 cm 4.2 - 5.9 / 3.9 - 5.3 cm LV Systolic Diameter PLAX 6.8 cm IVS Diastolic Thickness 0.8 cm 0.6 - 1.0 / 0.6 - 0.9 cm LVPW Diastolic Thickness 0.9 cm 0.6 - 1.0 / 0.6 - 0.9 cm LV Relative Wall Thickness 0.2 LVOT Diameter 2.0 cm LV Diastolic Volume MOD BP 361.9 cm??? 67 - 155 / 56 - 104 cm??? LV Systolic Volume MOD BP 305.5 cm??? 22 - 58 / 19 - 49 cm??? LV Ejection Fraction MOD BP 15.6 % >= 55 % LV Cardiac Index MOD BP 2183.4 cm???/min???m??? LV Diastolic Volume MOD 4C 371.4 cm??? LV Systolic Volume MOD 4C 299.5 cm??? LV Ejection Fraction MOD 4C 19.4 % LV Cardiac Index MOD 4C 2783.5 cm???/min???m??? LV Diastolic Length 4C 11.6 cm LV Systolic Length 4C 11.0 cm LV Diastolic Volume MOD 2C 355.2 cm??? LV Systolic Volume MOD 2C 304.2 cm??? LV Ejection Fraction MOD 2C 14.3 % LV Cardiac Index MOD 2C 1970.3 cm???/min???m??? LV Diastolic Length 2C 11.5 cm LV Systolic Length 2C 11.3 cm M-MODE Aortic Root Diameter MM 2.2 cm LA Systolic Diameter MM 4.4 cm LA Ao Ratio MM 2.0 AV Cusp Separation MM 1.7 cm DOPPLER AV Peak Velocity 119.5 cm/s AV Peak Gradient 5.7 mmHg AV Mean Velocity 85.8 cm/s AV Mean Gradient 3.3 mmHg AV Velocity Time Integral 22.6 cm AI Peak Velocity 317.0 cm/s AI Peak Gradient 40.2 mmHg AI Pressure Half Time 560.2 ms LVOT Peak Velocity 116.7 cm/s LVOT Peak Gradient 5.4 mmHg LVOT Velocity Time Integral 16.7 cm LVOT Stroke Volume 51.2 cm??? LVOT Stroke Volume Index 28.3 ml/m??? LVOT Cardiac Index 1982.8 cm???/min???m??? AV Area Cont Eq vti 2.3 cm??? AV Area Cont Eq pk 3.0 cm??? MV Peak Velocity 101.3 cm/s MV Peak Gradient 4.1 mmHg MV Mean Velocity 70.2 cm/s MV Mean Gradient 2.1 mmHg MV Velocity Time Integral 28.5 cm MR Peak Velocity 446.1 cm/s MR Peak Gradient 79.6 mmHg Mitral E Point Velocity 87.6 cm/s Mitral A Point Velocity 52.8 cm/s Mitral E to A Ratio 1.7 MV Deceleration Time 139.3 ms LV E' Lateral Velocity 5.9 cm/s Mitral E to LV E' Lateral Ratio 14.9 LV E' Septal Velocity 3.5 cm/s Mitral E to LV E' Septal Ratio 25.2 TR Peak Velocity 172.4 cm/s TR Peak Gradient 11.9 mmHg Right Atrial Pressure 8.0 mmHg Pulmonary Artery Systolic Pressu 19.9 mmHg Right Ventricular Systolic Press 19.9 mmHg FINDINGS Left Ventricle Left ventricular wall thickness normal. Anterior apical and anteroseptal akinesis, the rest of the zamarripa are hypokinetic. Left ventricular ejection fraction is estimated at <20%. Severely increased left ventricular diastolic diameter. Severely increased left ventricular diastolic volume. Severely increased left ventricular systolic volume. Severely decreased left ventricular ejection fraction. Right Ventricle Right ventricle at upper limits of normal. Catheter/pacemaker wire in the right ventricular cavity. Right Atrium Normal right atrial size. Catheter/pacemaker wire in the right atrial cavity. Left Atrium Severe left atrial dilatation. Mitral Valve Mitral valve thickened. [id number] mitral regurgitation. Aortic Valve Trileaflet aortic valve. Aortic valve sclerosis. Mild aortic regurgitation. Tricuspid Valve Structurally normal tricuspid valve. Mild tricuspid regurgitation. Pulmonic Valve Pulmonic valve not well visualized. Pericardium No pericardial effusion. Aorta Normal size aortic root. CONCLUSIONS 1. Severely impaired left ventricle systolic function with segmental wall motion abnormality and dilated left ventricle 2. Moderate severe eccentric mitral regurgitation with moderate aortic and tricuspid regurgitation Previewed by: Dr. Kasie Barrientos MD (Electronically Signed) Final Date: 07 July 2023 12:13
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
[2023-07-07] MEDS: SODIUM CHLORIDE 0.9% 1,000 ML IV SCH ×2 (13:22→23:26)
[2023-07-07] MEDS: ATORVASTATIN 40 MG TAB PO SCH (21:04)
--- NOTE | 2023-07-07 22:50 | CONS ---
CONSULTATION HISTORY OF PRESENT ILLNESS: Marc Christian is a 63-year-old gentleman with ischemic cardiomyopathy, previous multivessel stenting, whose ejection fraction is less than 25% and has an ICD. He underwent in March of this month a transesophageal echo and cardioversion for atrial fibrillation by Dr. Barrientos, after which he felt a lot better. However, he has very symptomatic atrial fibrillation when he has one and he came into the hospital with an episode of what seems to be a near syncope. Apparently, he was in a dining room and he was moving around and when he suddenly felt lightheaded, he felt he was going to pass out and then he fell down, hurt his head, but no significant injury and upon arrival in the emergency room, he is in atrial fibrillation with a moderate ventricular rate. He was resting comfortably at the time of my evaluation, and while I was seeing him, he went back into sinus rhythm and so far he is maintaining sinus rhythm for the last few minutes on the monitor. He has multiple comorbid conditions. He also has an ICD as well. He did not feel any shock or anything like that. PAST MEDICAL HISTORY: 1. Previous MO and ischemic cardiomyopathy with PCI. 2. Paroxysmal symptomatic atrial fibrillation. 3. History of CVA. 4. Hypertension. 5. Hyperlipidemia. MEDICATIONS: Medications at home include, 1. Carvedilol. 2. Jardiance. 3. Keppra. 4. Altace. 5. Digoxin. 6. Apixaban 5 mg b.i.d. 7. Zetia. 8. Crestor 20 mg daily. Rhythm strip review suggests basically atrial fibrillation with a moderate ventricular rate, IVCD, and nonspecific ST-T changes. PHYSICAL EXAMINATION: VITAL SIGNS: Blood pressure is 110/70, pulse rate is 70, appears to be regular. HEENT: Unremarkable. Fundus was not examined by me. NECK: Supple. There is JVD of 1 cm. No carotid bruit. HEART: Reveals S1, S2 heard normally. Short systolic murmur, left sternal border. LUNGS: Revealed bilateral decent air entry. ABDOMEN: Soft, nontender. LOWER EXTREMITIES: Reveal diminished pulses. CENTRAL NERVOUS SYSTEM: Normal. IMPRESSION: 1. Near syncopal spell, rule out any arrhythmia. We will interrogate the device. 2. History of ischemic cardiomyopathy. 3. History of paroxysmal atrial fibrillation. He is back in sinus rhythm. He is actually going in and out. He underwent electrical cardioversion after transesophageal echo in March of this year. 4. He also has a history of diabetes mellitus. RECOMMENDATIONS: I am recommending that we will continue telemetry, resume his home medications, IV fluids cautiously and interrogate his device and based on findings, make further recommendations. He may require atrial fibrillation pulmonary vein isolation in view of his symptomatic status with atrial fibrillation. Discussed my thoughts in detail with the patient and . Thank you very much for the consult. LETICIA / ANN: [id number] /
[2023-07-08] MEDS: SYMBICORT 160-4.5 MCG INHALER INHALATION SCH ×2 (07:39→19:47)
[2023-07-08] MEDS: APIXABAN 5 MG TAB PO SCH ×2 (08:06→20:03)
[2023-07-08] MEDS: carvediloL 6.25 MG TAB PO SCH ×2 (08:06→08:10)
[2023-07-08] MEDS: EZETIMIBE 10 MG TAB PO SCH (08:10)
[2023-07-08] MEDS: levETIRAcetam 500 MG TAB PO SCH ×2 (08:10→20:03)
[2023-07-08] MEDS: FUROSEMIDE 40 MG TAB PO SCH (08:10)
[2023-07-08] MEDS: DIGOXIN 125 MCG TAB PO SCH (08:10)
[2023-07-08] MEDS ORDERED: DEXTROSE 5% IN WATER 100 ML with AMIODARONE 150 MG IV ONE (10:23)
[2023-07-08] MEDS ORDERED: AMIODARONE 360 MG in DEXTROSE 5% IN WATER 200 ML IV ONE ×2 (10:23)
[2023-07-08 10:30] LABS: HCT 48.1 % (39.0-53.0); HGB 15.6 gm/dL (13.0-17.5); MCH 31.6 pg (25.0-35.0); MCHC 32.5 g/dL (31.0-37.0); MCV 97.2 fL (80.0-100.0); Mean Platelet Volume 9.9; Platelet Count 185 k/uL (150-450); RBC 4.95 m/uL (4.30-5.90); RDW 14.7 % (11.5-15.5); WBC 11.6 k/uL (3.8-10.6)
[2023-07-08 10:43] LABS: ALT 52 U/L (4-49); AST 41 U/L (17-59); African American GFR (CKD) >90 (>60 ml/min/1.73 sqM); Albumin 4.4 g/dL (3.5-5.0); Alkaline Phosphatase 72 U/L (38-126); Anion Gap 8 mmol/L; Blood Urea Nitrogen 17 mg/dL (9-20); Calcium 9.6 mg/dL (8.4-10.2); Carbon Dioxide 31 mmol/L (22-30); Chloride 102 mmol/L (98-107); Glucose 117 mg/dL (74-99); Non-African American GFR(CKD) >90 (>60 ml/min/1.73 sqM); Sodium 141 mmol/L (137-145); Total Bilirubin 1.9 mg/dL (0.2-1.3); Total Protein 7.4 g/dL (6.3-8.2)
[2023-07-08] MEDS: SODIUM CHLORIDE 0.9% 1,000 ML IV SCH (11:49)
[2023-07-08] MEDS: ACETAMINOPHEN TAB 325 MG TAB PO PRN ×2 (12:34→20:03)
--- NOTE | 2023-07-08 12:57 | P.PN ---
Subjective Progress Note Date: 07/08/23 patient is 63-year-old gentleman with past medical history significant for chronic systolic CHF, nonischemic cardiomyopathy, paroxysmal atrial fibrillation who presented to the ER for evaluation for chest pain and syncopal event. Patient stated that he was all right last evening and while at the dinner table he was enjoying dinner with his when he suddenly passed out, fell towards the left side of his table hitting his shoulder and head against the edge of wall. Patient had loss of consciousness for a brief moment, there was no complain fecal or urinary incontinence during that episode. Patient did not notice any jerking movements of any extremity. On regaining co nsciousness ,patient felt as if the left side of his chest had a lot of pressure, and chest pressure was persistent, nonradiating not associated with any shortness of breath. There was no aggravating or relieving factors associated with chest pressure. called EMS and when they evaluated the p atient, was found to be in A. fib with RVR. Patient was brought to the ER immediately Initial lab work done in the ER showed WBC 9.4, hemoglobin 16, platelet count 187, sodium 139 potassium 4.0, BUN/creatinine 23, creatinine 1.08, glucose 146, magnesium 4.8, troponin 0.053, proBNP 5380 EKG done in the ER showed heart rate of 91, irregular rhythm , ST segment depression seen in leads V4 V5 V6 seen, T-wave inversions seen in leads 2, 3, aVF, V6, Chest x-ray done in the ER showed chronic changes without evidence for acute pulmonary disease CT brain done showed showed age-related atrophic and chronic small vessel ischemic changes without acute intracranial process CT cervical spine done showed no acute cervical spine fracture or subluxation seen Patient admitted to internal medicine service 07/08. Patient seen and examined. Patient had AICD interrogated which showed patient had a run of V. tach resulting in AICD discharge. Currently started on amiodarone by cardiology. Otherwise denies any symptoms. REVIEW OF SYSTEMS: CONSTITUTIONAL: No fever, no malaise,. CARDIOVASCULAR: No chest pain, no palpitations, no syncope. PULMONARY: No shortness of breath, no cough, GASTROINTESTINAL: No diarrhea, no nausea, no vomiting, no abdominal pain. NEUROLOGICAL: No headaches, no weakness, PHYSICAL EXAMINATION: GENERAL: The patient is alert and oriented x3, not in any acute distress. Well developed, well nourished. HEENT: Pupils are round and equally reacting to light. EOMI. No scleral icterus. No conjunctival pallor. Normocephalic, atraumatic. No pharyngeal erythema. No thyromegaly. CARDIOVASCULAR: S1 and S2 present. No murmurs, rubs, or gallops. PULMONARY: Chest is clear to auscultation, no wheezing or crackles. ABDOMEN: Soft, nontender, nondistended, normoactive bowel sounds. No palpable organomegaly. MUSCULOSKELETAL: No joint swelling or deformity. EXTREMITIES: No cyanosis, clubbing, or pedal edema. NEUROLOGICAL: Gross neurological examination did not reveal any focal deficits. SKIN: No rashes. Assessment and plan Syncope Non-ST elevation [place] V. tach Acute on chronic congestive heart failure, systolic Ischemic cardiomyopathy with EF 15-20% Paroxysmal atrial fibrillation, recent cardioversion on 04/08/2023 Valvular heart disease, severe mitral and tricuspid regurgitation Intraventricular conduction delay History of CVA with expressive aphasia. History of COPD secondary to tobacco use. History of hyperlipidemia. History of CAD, with prior stent placement. History of hypertension. History of seizure disorder. Monitor vital signs Monitor CBC Monitor CMP Continue telemetry monitoring Continue albuterol and Symbicort Continue Coreg and digoxin Continue Keppra Continue amiodarone drip 2-D echo done showed severely impaired left ventricular systolic function with segmental wall motion abnormality and dilated left ventricle, EF less than 20% Regards to hyperlipidemia , continues Zetia and Lipitor Cardiology following, recommend interrogation of his device and possibility of patient requiring pulmonary vein isolation in view of his symptomatic status with atrial fibrillation. ICD interrogated which showed patient had a run of V. tach resulting in AICD discharge Labs and medication were reviewed.. Continue same treatment. Continue with symptomatic treatment. Resume home medication. Monitor labs and vitals. DVT and GI prophylaxis. Further recommendations as per clinical course of the patient Dictation was produced using [employer] dictation software. please excuse any grammatical, word or spelling errors. Objective - Vital Signs Vital signs: Vital Signs Temp 97.1 F L 07/08/23 06:46 Pulse 70 07/08/23 06:46 Resp 18 07/08/23 06:46 BP 113/82 07/08/23 06:46 Pulse Ox 91 L 07/08/23 07:39 FiO2 - Labs CBC & Chem 7: 07/08/23 10:20 07/08/23 10:20 Labs: Abnormal Lab Results - Last 24 Hours (Table) 07/07/23 Range/Units 03:49 Hemoglobin A1c 6.4 H (<=6.0) %
[2023-07-08] MEDS: AMIODARONE 450 MG in DEXTROSE 5% IN WATER 250 ML IV SCH ×2 (16:49)
[2023-07-08] MEDS: ATORVASTATIN 40 MG TAB PO SCH (20:03)
[2023-07-09] MEDS: SODIUM CHLORIDE 0.9% 1,000 ML IV SCH (02:42)
[2023-07-09] MEDS: ACETAMINOPHEN TAB 325 MG TAB PO PRN ×3 (02:49→21:38)
[2023-07-09] MEDS: AMIODARONE 450 MG in DEXTROSE 5% IN WATER 250 ML IV SCH ×2 (05:35)
[2023-07-09] MEDS: carvediloL 6.25 MG TAB PO SCH ×2 (05:36→16:46)
--- NOTE | 2023-07-09 06:47 | PN ---
PROGRESS NOTE SUBJECTIVE: Mr. Christian is in sinus rhythm this morning, he is comfortable resting. I reviewed the device interrogation report noted that at 5:11 p.m. on July 06, he had a sustained ventricular tachycardia of about 222 beats per minute. First addressed with antitachycardia therapy unsuccessful, then had a 30-joule shock. This coincides with a syncope. I am going to start him on amiodarone bolus and drip. Electrolytes including magnesium are good. Discussed in detail with the patient. OBJECTIVE: VITALS: Stable. NECK: JVD 1 cm. HEART: S1, S2 heard normally, short systolic murmur. LUNGS: Reveal diminished air entry. ABDOMEN: Unchanged. EXTREMITIES: Lower extremity exam unchanged. This patient has ischemic cardiomyopathy, ejection fraction of less than 25%. I will start him on amiodarone, continue other medications. Prognosis remains guarded. MMMELVAL / ANN: [id number] /
[2023-07-09] MEDS: levETIRAcetam 500 MG TAB PO SCH ×2 (08:49→21:38)
[2023-07-09] MEDS: APIXABAN 5 MG TAB PO SCH ×2 (08:49→21:38)
[2023-07-09] MEDS: EZETIMIBE 10 MG TAB PO SCH (08:49)
[2023-07-09] MEDS: FUROSEMIDE 40 MG TAB PO SCH (08:49)
[2023-07-09] MEDS: ALBUTEROL NEBULIZED 2.5 MG/3 ML INHALATION PRN ×2 (08:53→21:31)
[2023-07-09] MEDS: SYMBICORT 160-4.5 MCG INHALER INHALATION SCH ×2 (08:53→21:31)
[2023-07-09 10:31] LABS: HCT 46.2 % (39.0-53.0); HGB 15.1 gm/dL (13.0-17.5); Hypochromasia Slight; MCH 32.6 pg (25.0-35.0); MCHC 32.6 g/dL (31.0-37.0); MCV 99.9 fL (80.0-100.0); Macrocytosis Slight; Mean Platelet Volume 10.4; Platelet Count 190 k/uL (150-450); RBC 4.63 m/uL (4.30-5.90); RDW 14.6 % (11.5-15.5); WBC 10.3 k/uL (3.8-10.6)
[2023-07-09 12:48] LABS: ALT 48 U/L (4-49); AST 43 U/L (17-59); African American GFR (CKD) >90 (>60 ml/min/1.73 sqM); Albumin 4.1 g/dL (3.5-5.0); Alkaline Phosphatase 74 U/L (38-126); Anion Gap 11 mmol/L; Blood Urea Nitrogen 15 mg/dL (9-20); Carbon Dioxide 28 mmol/L (22-30); Chloride 99 mmol/L (98-107); Glucose 222 mg/dL (74-99); Non-African American GFR(CKD) >90 (>60 ml/min/1.73 sqM); Potassium 3.8 mmol/L (3.5-5.1); Sodium 138 mmol/L (137-145); Total Bilirubin 1.7 mg/dL (0.2-1.3)
--- NOTE | 2023-07-09 13:49 | P.PN ---
Subjective Progress Note Date: 07/09/23 patient is 63-year-old gentleman with past medical history significant for chronic systolic CHF, nonischemic cardiomyopathy, paroxysmal atrial fibrillation who presented to the ER for evaluation for chest pain and syncopal event. Patient stated that he was all right last evening and while at the dinner table he was enjoying dinner with his when he suddenly passed out, fell towards the left side of his table hitting his shoulder and head against the edge of wall. Patient had loss of consciousness for a brief moment, there was no complain fecal or urinary incontinence during that episode. Patient did not notice any jerking movements of any extremity. On regaining co nsciousness ,patient felt as if the left side of his chest had a lot of pressure, and chest pressure was persistent, nonradiating not associated with any shortness of breath. There was no aggravating or relieving factors associated with chest pressure. called EMS and when they evaluated the p atient, was found to be in A. fib with RVR. Patient was brought to the ER immediately Initial lab work done in the ER showed WBC 9.4, hemoglobin 16, platelet count 187, sodium 139 potassium 4.0, BUN/creatinine 23, creatinine 1.08, glucose 146, magnesium 4.8, troponin 0.053, proBNP 5380 EKG done in the ER showed heart rate of 91, irregular rhythm , ST segment depression seen in leads V4 V5 V6 seen, T-wave inversions seen in leads 2, 3, aVF, V6, Chest x-ray done in the ER showed chronic changes without evidence for acute pulmonary disease CT brain done showed showed age-related atrophic and chronic small vessel ischemic changes without acute intracranial process CT cervical spine done showed no acute cervical spine fracture or subluxation seen Patient admitted to internal medicine service 07/08. Patient seen and examined. Patient had AICD interrogated which showed patient had a run of V. tach resulting in AICD discharge. Currently started on amiodarone by cardiology. Otherwise denies any symptoms. 07/09. Patient seen and examined. Sitting upright in the bed. Denies any palpitations. Currently on amiodarone drip. REVIEW OF SYSTEMS: CONSTITUTIONAL: No fever, no malaise,. CARDIOVASCULAR: No chest pain, no palpitations, no syncope. PULMONARY: No shortness of breath, no cough, GASTROINTESTINAL: No diarrhea, no nausea, no vomiting, no abdominal pain. NEUROLOGICAL: No headaches, no weakness, PHYSICAL EXAMINATION: GENERAL: The patient is alert and oriented x3, not in any acute distress. Well developed, well nourished. HEENT: Pupils are round and equally reacting to light. EOMI. No scleral icterus. No conjunctival pallor. Normocephalic, atraumatic. No pharyngeal erythema. No thyromegaly. CARDIOVASCULAR: S1 and S2 present. No murmurs, rubs, or gallops. PULMONARY: Chest is clear to auscultation, no wheezing or crackles. ABDOMEN: Soft, nontender, nondistended, normoactive bowel sounds. No palpable organomegaly. MUSCULOSKELETAL: No joint swelling or deformity. EXTREMITIES: No cyanosis, clubbing, or pedal edema. NEUROLOGICAL: Gross neurological examination did not reveal any focal deficits. SKIN: No rashes. Assessment and plan Syncope Non-ST elevation [place] V. tach Acute on chronic congestive heart failure, systolic Ischemic cardiomyopathy with EF 15-20% Paroxysmal atrial fibrillation, recent cardioversion on 04/08/2023 Valvular heart disease, severe mitral and tricuspid regurgitation Intraventricular conduction delay History of CVA with expressive aphasia. History of COPD secondary to tobacco use. History of hyperlipidemia. History of CAD, with prior stent placement. History of hypertension. History of seizure disorder. Monitor vital signs Monitor CBC Monitor CMP Continue telemetry monitoring Continue albuterol and Symbicort Continue Coreg and digoxin Continue Keppra Continue amiodarone drip and Eliquis 2-D echo done showed severely impaired left ventricular systolic function with segmental wall motion abnormality and dilated left ventricle, EF less than 20% Regards to hyperlipidemia , continues Zetia and Lipitor Cardiology following, recommend interrogation of his device and possibility of patient requiring pulmonary vein isolation in view of his symptomatic status with atrial fibrillation. ICD interrogated which showed patient had a run of V. tach resulting in AICD discharge Labs and medication were reviewed.. Continue same treatment. Continue with symptomatic treatment. Resume home medication. Monitor labs and vitals. DVT and GI prophylaxis. Further recommendations as per clinical course of the patient Dictation was produced using [employer] dictation software. please excuse any grammatical, word or spelling errors. Objective - Vital Signs Vital signs: Vital Signs Temp 97.4 F L 07/09/23 04:00 Pulse 68 07/09/23 09:11 Resp 16 12/23/23 08:53 BP 92/52 07/09/23 08:53 Pulse Ox 98 07/09/23 08:53 FiO2 Intake & Output 07/08/23 07/09/23 07/09/23 18:59 06:59 18:59 Intake Total 225 452.782 240 Balance 225 452.782 240 Weight 68.039 kg Intake: Intake, IV Titration 212.782 Amount Amiodarone 450 mg In 212.782 Dextrose 5% in Water 250 ml @ 0.5 MG/MIN 16.667 mls/hr IV .Q15H [facility] Rx#: [id number] Oral 225 240 240 Other: # Voids 3 - Labs CBC & Chem 7: 07/09/23 09:26 07/09/23 09:26 Labs: Abnormal Lab Results - Last 24 Hours (Table) 07/08/23 Range/Units 10:20 Carbon Dioxide 31 H (22-30) mmol/L Glucose 117 H (74-99) mg/dL Total Bilirubin 1.9 H (0.2-1.3) mg/dL ALT 52 H (4-49) U/L
--- NOTE | 2023-07-09 14:59 | P.PN ---
Subjective Progress Note Date: 07/09/23 This is Bon Lamas NP, I'm dictating on behalf of Dr. Simons's H&P and A&P. Patient was interviewed and examined. Patient is a pleasant 63-year-old male who presented to the hospital with syncope, A. fib with RVR, and chest pain. Patient reports that he is feeling okay today. He does report some mild mid chest discomfort, but otherwise denies overt pain, shortness of breath, or heart palpitations. Patient is currently in normal sinus rhythm. Patient has been on amiodarone drip, due to a sustained ventricular tachycardia he had caused his syncopal episode. Patient was shocked during that episode and returned to normal sinus rhythm. Patient is currently undergoing amiodarone loading. Family is concerned about their ability to get oral medications due to the upcoming holiday. GENERAL: Well-appearing, well-nourished and in no acute distress. NECK: Supple without JVD or thyromegaly. LUNGS: Breath sounds clear to auscultation bilaterally. Respiration equal and unlabored. No wheezes, rales or rhonchi. HEART: Regular rate and rhythm without murmurs, rubs or gallops. S1 and S2 hear d. EXTREMITIES: Normal range of motion, no edema. No clubbing or cyanosis. Peripheral pulses intact and strong. VITALS: Temp 97.4, pulse 68, respirations 16, blood pressure 92/52, O2 saturation 98% on room air TELEMETRY: Normal sinus rhythm LABS: White count 10.3, hemoglobin 15.1, platelets 190, sodium 138, potassium 3.8, BUN 15, creatinine 0.86 IMPRESSION: 1. Syncopal episode secondary to sustained ventricular tachycardia 2. History of ischemic cardiomyopathy 3. History of paroxysmal atrial fibrillation, currently in sinus rhythm 4. Diabetes mellitus type 2 PLAN: Discontinue digoxin. Continue IV amiodarone drip until completed. Once completed start patient on amiodarone 200 mg 3 times a day for 2 weeks, then twice a day for 1 month, then daily after. Patient may be discharged tomorrow once drip is complete. Prescription written and given to family so they can find a pharmacy that can fill the amiodarone today before the holiday. Further recommendations based on patient's clinical course. Objective - Vital Signs Vital signs: Vital Signs Temp 97.4 F L 07/09/23 04:00 Pulse 68 07/09/23 09:11 Resp 16 07/09/23 08:53 BP 92/52 07/09/23 08:53 Pulse Ox 98 07/09/23 08:53 FiO2 Intake & Output 07/08/23 07/09/23 07/09/23 18:59 06:59 18:59 Intake Total 225 452.782 240 Balance 225 452.782 240 Weight 68.039 kg Intake: Intake, IV Titration 212.782 Amount Amiodarone 450 mg In 212.782 Dextrose 5% in Water 250 ml @ 0.5 MG/MIN 16.667 mls/hr IV .Q15H [facility] [place] Rx#: [id number] Oral 225 240 240 Other: # Voids 3 # Bowel Movements 0 - Labs CBC & Chem 7: 07/09/23 09:26 07/09/23 09:26 Labs: Abnormal Lab Results - Last 24 Hours (Table) 07/09/23 Range/Units 09:26 Glucose 222 H (74-99) mg/dL Total Bilirubin 1.7 H (0.2-1.3) mg/dL
[2023-07-09] MEDS: ATORVASTATIN 40 MG TAB PO SCH (21:38)
[2023-07-10] MEDS: carvediloL 6.25 MG TAB PO SCH (05:52)
[2023-07-10] MEDS: FUROSEMIDE 40 MG TAB PO SCH (08:19)
[2023-07-10] MEDS: levETIRAcetam 500 MG TAB PO SCH (08:19)
[2023-07-10] MEDS: APIXABAN 5 MG TAB PO SCH (08:19)
[2023-07-10] MEDS: EZETIMIBE 10 MG TAB PO SCH (08:19)
[2023-07-10 08:20] LABS: HCT 44.1 % (39.0-53.0); HGB 14.2 gm/dL (13.0-17.5); Hypochromasia Slight; MCHC 32.1 g/dL (31.0-37.0); MCV 99.6 fL (80.0-100.0); Macrocytosis Slight; Mean Platelet Volume 10.2; Platelet Count 169 k/uL (150-450); RBC 4.43 m/uL (4.30-5.90); RDW 14.7 % (11.5-15.5); WBC 11.8 k/uL (3.8-10.6)
[2023-07-10] MEDS: ACETAMINOPHEN TAB 325 MG TAB PO PRN (08:22)
[2023-07-10] MEDS: SYMBICORT 160-4.5 MCG INHALER INHALATION SCH (08:52)
[2023-07-10] MEDS ORDERED: AMIODARONE 200 MG TAB PO SCH (09:00)
[2023-07-10 10:15] VITALS: BP 110/55; PULSE 60; RESP 14; TEMP 98
[2023-07-10 10:51] LABS: ALT 40 U/L (4-49); AST 33 U/L (17-59); African American GFR (CKD) >90 (>60 ml/min/1.73 sqM); Albumin 3.7 g/dL (3.5-5.0); Alkaline Phosphatase 69 U/L (38-126); Anion Gap 9 mmol/L; Blood Urea Nitrogen 14 mg/dL (9-20); Calcium 8.9 mg/dL (8.4-10.2); Carbon Dioxide 26 mmol/L (22-30); Chloride 103 mmol/L (98-107); Glucose 91 mg/dL (74-99); Non-African American GFR(CKD) >90 (>60 ml/min/1.73 sqM); Potassium 3.9 mmol/L (3.5-5.1); Sodium 138 mmol/L (137-145); Total Protein 6.6 g/dL (6.3-8.2)
--- NOTE | 2023-07-10 12:22 | P.DS ---
Providers Date of admission: 07/06/23 20:44 Expected date of discharge: 07/10/23 Attending physician: King Leal Consults: 07/06/23 20:44 Consult Physician Routine Consulting Provider: Kasie Barrientos Consult Reason/Comments: syncope Do you want consulting provider notified?: Yes Primary care physician: Kasie Barrientos Hospital Course: Discharge diagnoses; Syncope Non-ST elevation CA V. tach Acute on chronic congestive heart failure, systolic Ischemic cardiomyopathy with EF 15-20% Paroxysmal atrial fibrillation, recent cardioversion on 04/08/2023 Valvular heart disease, severe mitral and tricuspid regurgitation Intraventricular conduction delay History of CVA with expressive aphasia. History of COPD secondary to tobacco use. History of hyperlipidemia. History of CAD, with prior stent placement. History of hypertension. History of seizure disorder. Hospital course; patient is 63-year-old gentleman with past medical history significant for chronic systolic CHF, nonischemic cardiomyopathy, paroxysmal atrial fibrillation who presented to the ER for evaluation for chest pain and syncopal event. Patient stated that he was all right last evening and while at the dinner table he was enjoying dinner with his when he suddenly passed out, fell towards the left side of his table hitting his shoulder and head against the edge of wall. Patient had loss of consciousness for a brief moment, there was no complain fecal or urinary incontinence during that episode. Patient did not notice any jerking movements of any extremity. On regaining consciousness ,patient felt as if the left side of his chest had a lot of pressure, and chest pressure was persistent, nonradiating not associated with any shortness of breath. There was no aggravating or relieving factors associated with chest pressure. called EMS and when they evaluated the patient, was found to be in A. fib with RVR. Patient was brought to the ER immediately Initial lab work done in the ER showed WBC 9.4, hemoglobin 16, platelet count 187, sodium 139 potassium 4.0, BUN/creatinine 23, creatinine 1.08, glucose 146, magnesium 4.8, troponin 0.053, proBNP 5380 EKG done in the ER showed heart rate of 91, irregular rhythm , ST segment depression seen in leads V4 V5 V6 seen, T-wave inversions seen in leads 2, 3, aVF, V6, Chest x-ray done in the ER showed chronic changes without evidence for acute pulmonary disease CT brain done showed showed age-related atrophic and chronic small vessel ischemic changes without acute intracranial process CT cervical spine done showed no acute cervical spine fracture or subluxation seen Patient admitted to internal medicine service 07/08. Patient seen and examined. Patient had AICD interrogated which showed patient had a run of V. tach resulting in AICD discharge. Currently started on amiodarone by cardiology. Otherwise denies any symptoms. 07/09. Patient seen and examined. Sitting upright in the bed. Denies any palpitations. Currently on amiodarone drip. 07/10. Patient seen and examined. Patient completed amiodarone drip, switched to oral amiodarone 200 mg 3 times daily. Prescription given by cardiology for amiodarone. Cardiology cleared the patient for discharge PHYSICAL EXAMINATION: GENERAL: The patient is alert and oriented x3, not in any acute distress. Well developed, well nourished. HEENT: Pupils are round and equally reacting to light. EOMI. No scleral icterus. No conjunctival pallor. Normocephalic, atraumatic. No pharyngeal erythema. No thyromegaly. CARDIOVASCULAR: S1 and S2 present. No murmurs, rubs, or gallops. PULMONARY: Chest is clear to auscultation, no wheezing or crackles. ABDOMEN: Soft, nontender, nondistended, normoactive bowel sounds. No palpable organomegaly. MUSCULOSKELETAL: No joint swelling or deformity. EXTREMITIES: No cyanosis, clubbing, or pedal edema. NEUROLOGICAL: Gross neurological examination did not reveal any focal deficits. SKIN: No rashes. Dictation was produced using [employer] dictation software. please excuse any grammatical, word or spelling errors. Patient Condition at Discharge: Good Plan - Discharge Summary Discharge Rx Participant: No New Discharge Prescriptions: New Amiodarone [Cordarone] 200 mg PO TID tab Continue Ezetimibe [Zetia] 10 mg PO DAILY Rosuvastatin [Crestor] 20 mg PO HS Albuterol Sulfate [Ventolin HFA] 2 puff INHALATION RT-QID PRN PRN Reason: Shortness Of Breath Albuterol Nebulized [Ventolin Nebulized] 2.5 mg INHALATION RT-Q4H PRN PRN Reason: Shortness Of Breath Budesonide-Formot 160-4.5 Mcg [Symbicort 160-4.5 Mcg Inhaler] 2 puff INHALATION RT-BID Furosemide [Lasix] 40 mg PO DAILY #90 tab Apixaban [Eliquis] 5 mg PO BID carvediloL [Coreg] 6.25 mg PO BID levETIRAcetam [Keppra] 500 mg PO BID Empagliflozin [Jardiance] 10 mg PO DAILY Discontinued Digoxin [Lanoxin] 125 mcg PO DAILY ramipriL [Altace] 2.5 mg PO HS Discharge Medication List Ezetimibe [Zetia] 10 mg PO DAILY 09/10/15 [History] Rosuvastatin [Crestor] 20 mg PO HS 09/10/15 [History] Albuterol Sulfate [Ventolin HFA] 2 puff INHALATION RT-QID PRN 08/20/21 [History] Albuterol Nebulized [Ventolin Nebulized] 2.5 mg INHALATION RT-Q4H PRN 04/07/23 [History] Apixaban [Eliquis] 5 mg PO BID 04/07/23 [History] Budesonide-Formot 160-4.5 Mcg [Symbicort 160-4.5 Mcg Inhaler] 2 puff INHALATION RT-BID 04/15/23 [History] carvediloL [Coreg] 6.25 mg PO BID 04/15/23 [History] Furosemide [Lasix] 40 mg PO DAILY #90 tab 04/17/23 [Rx] Empagliflozin [Jardiance] 10 mg PO DAILY 06/28/23 [History] levETIRAcetam [Keppra] 500 mg PO BID 06/28/23 [History] Amiodarone [Cordarone] 200 mg PO TID tab 07/10/23 [Rx] Follow up Appointment(s)/Referral(s): Kasie Barrientos MD [Primary Care Provider] - 1-2 days Discharge Disposition: HOME SELF-CARE
--- NOTE | 2023-07-10 13:55 | P.PN ---
Subjective Progress Note Date: 07/10/23 The patient is a 63-year-old male who came into the hospital with syncope due to ventricular fibrillation. He underwent ICD shock. He has been started on oral amiodarone after IV infusion. The patient was interviewed and examined resting comfortably in bed. He states he feels well and denies any chest pain or shortness of breath. There are instructions have been provided by Dr. Simons in regards to amiodarone. GENERAL: Well-appearing, well-nourished and in no acute distress. NECK: Supple without JVD or thyromegaly. LUNGS: Breath sounds clear to auscultation bilaterally. Respiration equal and u nlabored. No wheezes, rales or rhonchi. HEART: Regular rate and rhythm without murmurs, rubs or gallops. S1 and S2 heard. EXTREMITIES: Normal range of motion, no edema. No clubbing or cyanosis. Rosita pheral pulses intact and strong. TELEMETRY: Sinus rhythm overnight IMPRESSION: Syncopal episode secondary to sustained ventricular tachycardia Ischemic cardiomyopathy Paroxysmal atrial fibrillation Diabetes mellitus PLAN: Continue oral amiodarone Patient is cleared to be discharged from the cardiac standpoint Follow-up with Dr. Barrientos in 1-2 weeks I am dictating on behalf of Dr Joni Simons's history/physical and assessment/plan. Objective - Vital Signs Vital signs: Vital Signs Temp 98.0 F 07/10/23 09:00 Pulse 60 07/10/23 09:00 Resp 14 07/10/23 09:00 BP 110/55 07/10/23 09:00 Pulse Ox 99 07/10/23 09:00 FiO2 Intake & Output 07/09/23 07/10/23 07/10/23 18:59 06:59 18:59 Intake Total 462 240 Balance 462 240 Intake: Oral 462 240 Other: # Bowel Movements 0 - Labs CBC & Chem 7: 07/10/23 07:09 07/10/23 07:10 Labs: Abnormal Lab Results - Last 24 Hours (Table) 07/10/23 07/10/23 Range/Units 07:09 07:10 WBC 11.8 H (3.8-10.6) k/uL Total Bilirubin 2.0 H (0.2-1.3) mg/dL
--- NOTE | 2023-07-13 22:06 | CDI ---
Documentation Clarification Form Date: 07/13/2023 09:51:07 PM From: Citlalli Lacy Phone: Admit Date: 07/06/2023 08:44:00 PM Patient Name: Marc Christian Visit Number: [id number] Discharge Date: 07/10/2023 10:55:00 AM ATTENTION: The Clinical Documentation Specialists (CDI) and [facility] Coding Staff appreciate your assistance in clarifying documentation. Please respond to the clarification below the line at the bottom and electronically sign. The CDI & [facility] Coding staff will review the response and follow-up if needed. Please note: Queries are made part of the Legal Health Record. If you have any questions, please contact the author of this message via ITS. Dr. Bossman Shook Conflicting documentation has been found in the medical record. As attending physician, please provide clarification. Nonischemic cardiomyopathy per H&P Note Ischemic cardiomyopathy with EF 15-20% per Consult 07/07 and DC Summary History/Risk Factors: 63yo M, vasovagal syncope, NSTEMI, VT, ACSHF, CM, PAF, MR, TR, intraventricular conductiondelay, Hx CVA with expressive aphasia, COPD,former smoker, HLD, CAD with stent, HTN Clinical Indicators: At the dinner table he suddenly passed out, felltowards hitting his shoulder and head against the edge of wall. LOCfor a brief moment, there was nocomplain fecal orurinary incontinence. On regaining consciousness, patient felt as if the left side of his chest had a lot of pressure, andchest pressurewaspersistent, nonradiatingnot associated with anyshortness of breath. Therewas noaggravating or relieving factors associated withchest pressure. Treatment: Patient seen and examined. Patient completed amiodarone drip, switched to oral amiodarone 200 mg 3 times daily. Rx given for amiodarone. Cardiology cleared the patient for discharge Please clarify which diagnosis is most appropriate: [ ] Nonischemic cardiomyopathy [ x] Ischemic cardiomyopathy [ ] Other (please specify) [ ] Unable to determine (Template Last Revised: September 2020) MTDD
--- NOTE | 2023-07-20 16:45 | XR ---
EXAMINATION TYPE: XR shoulder complete LT DATE OF EXAM: 07/06/2023 7:55 PM CLINICAL INDICATION:Male, 63 years old with history of fall; [facility] COMPARISON: None TECHNIQUE: XR shoulder complete LT; shoulder was examined in AP, internally rotated and scapular Y p rojections. FINDINGS: No evidence of acute osseous pathology, joint dislocation, or soft tissue swelling. The remaining po rtions of the visualized chest are unremarkable. Mild degeneration changes of the left acromion, dis maury clavicle with osteophyte formation. There is osteophyte formation of the glenoid and humeral head . There is joint space narrowing of glenohumeral joint cardiac conduction leads are present. IMPRESSION: No acute osseous pathology. Mild shoulder osteoarthrosis.
== END 2023-07-10 10:55 | disposition home or self-care (01) | DRG 280 ==
LOC: EC 17:47 → 3SCARD 20:44
PROVIDERS: ADMIT Hospitalist; ATTEND Hospitalist
DX: I49.01 Ventricular fibrillation (principal); I21.4 Non-ST elevation (NSTEMI) myocardial infarction; I50.23 Acute on chronic systolic (congestive) heart failure; J44.1 Chronic obstructive pulmonary disease with (acute) exacerbation; I11.0 Hypertensive heart disease with heart failure; G40.909 Epilepsy, unspecified, not intractable, without status epilepticus; E11.9 Type 2 diabetes mellitus without complications; I48.0 Paroxysmal atrial fibrillation; I08.1 Rheumatic disorders of both mitral and tricuspid valves; I69.320 Aphasia following cerebral infarction; I25.5 Ischemic cardiomyopathy; E78.5 Hyperlipidemia, unspecified; I25.10 Atherosclerotic heart disease of native coronary artery without angina pectoris; G89.29 Other chronic pain; M54.9 Dorsalgia, unspecified; I45.9 Conduction disorder, unspecified; W22.8XXA Striking against or struck by other objects, initial encounter; Y92.001 Dining room of unspecified non-institutional (private) residence as the place of occurrence of the external cause; Z95.810 Presence of automatic (implantable) cardiac defibrillator; Z79.01 Long term (current) use of anticoagulants; I25.2 Old myocardial infarction; Z87.891 Personal history of nicotine dependence; Z28.310 Unvaccinated for COVID-19; Z95.5 Presence of coronary angioplasty implant and graft; Z82.49 Family history of ischemic heart disease and other diseases of the circulatory system; Z79.899 Other long term (current) drug therapy; Z79.51 Long term (current) use of inhaled steroids; Z79.84 Long term (current) use of oral hypoglycemic drugs; Z91.030 Bee allergy status; Z88.2 Allergy status to sulfonamides; Z88.8 Allergy status to other drugs, medicaments and biological substances; Z88.1 Allergy status to other antibiotic agents; Z88.5 Allergy status to narcotic agent
CPT/HCPCS: 36415; 70450; 71045; 72125; 80053; 83036; 83690; 83735; 83880; 84100; 84443; 84484; 85025; 85027; 85610; 85730; 93005; 93306; 94640; 94760; 96361; 96365; 96367; 96375; 99291

== ENCOUNTER → 2023-07-06 | Outpatient (CLI) | payer MEDICARE ==
[2023-07-06 10:00] LABS: NT-Pro-B-Type Natriuretic Pept 2400 pg/mL
[2023-07-06 15:05] LABS: ALT 64 U/L (10-49); AST 50 U/L (14-35); Albumin 4.3 g/dL (3.8-4.9); Albumin/Globulin Ratio 1.59 Ratio (1.60-3.17); Alkaline Phosphatase 70 U/L (41-126); BUN/Creat Ratio 18.27 Ratio (12.00-20.00); Blood Urea Nitrogen 20.1 mg/dL (9.0-27.0); Carbon Dioxide 27.4 mmol/L (21.6-31.8); Chloride 102 mmol/L (96-109); Chol/HDL Ratio 2.29 Ratio; Globulin 2.7 g/dL (1.6-3.3); Glucose 96 mg/dL (70-110); LDL Cholesterol,Calculated 45.8 mg/dL (0.0-131.0); Potassium 4.8 mmol/L (3.5-5.5); Sodium 142 mmol/L (135-145); Total Bilirubin 1.2 mg/dL (0.3-1.2); VLDL Calculation 18.88 mg/dL (5.00-40.00)
== END | disposition home or self-care (01) ==
LOC: LABWHC1 07:33
PROVIDERS: ATTEND Internal Medicine Interventional Cardiology
DX: I25.5 Ischemic cardiomyopathy (principal); E78.2 Mixed hyperlipidemia
CPT/HCPCS: 36415; 80053; 80061; 83880

== ENCOUNTER → 2023-09-09 | Outpatient (CLI) | payer MEDICARE ==
--- NOTE | 2023-09-09 13:41 | CT ---
EXAMINATION TYPE: CT chest w con DATE OF EXAM: 09/09/2023 COMPARISON: 05/27/2023 HISTORY: ABNORMAL FINDING OF LUNG FIELD CT DLP: 642 mGycm Automated exposure control for dose reduction was used. TECHNIQUE: CT scan of the chest is performed with IV Contrast, patient injected with 100ml mL of Isovue 300. MT P Images are created on CT scanner and reviewed. 3D reconstructed images are created on an [employer] workstation and reviewed. FINDINGS: There are moderate stable emphysematous changes. There is no suspicious lung mass or nodule. There is no abnormal airspace/consolidative density. There are mild interstitial densities in the rig ht lung base which are stable. Great vessels chest are normal. There is moderate cardiomegaly. There is a stable short axis 10 millimeter lymph node in the aortopulmonic window. There is no hilar or axillary adenopathy. Limited scanning the upper abdomen reveals no gross abnormality. The osseous structures are intact. As noted previously, there is an AICD device. IMPRESSION: 1. Stable moderate emphysematous changes. 2. No suspicious lung mass or nodule. 3. No acute cardiopulmonary disease. 4. Stable moderate cardiomegaly and AICD device. 5. Stable borderline lymph node in the aortopulmonic window.
== END | disposition home or self-care (01) ==
LOC: RADCTMAIN 11:40
PROVIDERS: ATTEND Internal Medicine Critical Care Medicine
DX: J43.9 Emphysema, unspecified (principal); I51.7 Cardiomegaly; R91.8 Other nonspecific abnormal finding of lung field; Z95.810 Presence of automatic (implantable) cardiac defibrillator
CPT/HCPCS: 71260; Q9967

== ENCOUNTER 2023-10-17 22:26 | Inpatient (IN) | payer MEDICARE, OTHER ==
[2023-10-17] MEDS: SODIUM CHLORIDE 0.9% 1,000 ML IV STA ×2 (22:54→23:43)
[2023-10-17] MEDS: SODIUM CHLORIDE 0.9% 500 ML 500 ML IV STA ×2 (22:54→23:44)
[2023-10-17] MEDS: HYDROmorphone 1 MG/ML 1 ML SYRINGE IVP STA (22:54)
[2023-10-17] MEDS: ONDANSETRON 4 MG/2 ML VIAL IVP STA (22:55)
[2023-10-17 23:10] LABS: Basophils % (A) 0 %; Eosinophils # (A) 0.1 k/uL (0-0.7); Eosinophils % (A) 1 %; HCT 49.3 % (39.0-53.0); HGB 15.7 gm/dL (13.0-17.5); Lymphocytes # (A) 0.9 k/uL (1.0-4.8); Lymphocytes % (A) 4 %; MCH 31.5 pg (25.0-35.0); MCHC 31.9 g/dL (31.0-37.0); MCV 98.8 fL (80.0-100.0); Mean Platelet Volume 9.6; Monocytes # (A) 0.5 k/uL (0-1.0); Monocytes % (A) 2 %; Neutrophils # (A) 19.2 k/uL (1.3-7.7); Neutrophils % (A) 92 %; Platelet Count 262 k/uL (150-450); RBC 4.99 m/uL (4.30-5.90); RDW 15.1 % (11.5-15.5); WBC 20.9 k/uL (3.8-10.6)
[2023-10-17 23:22] LABS: ALT 97 U/L (4-49); AST 82 U/L (17-59); African American GFR (CKD) 48 (>60 ml/min/1.73 sqM); Albumin 4.1 g/dL (3.5-5.0); Alkaline Phosphatase 82 U/L (38-126); Anion Gap 11 mmol/L; Blood Urea Nitrogen 24 mg/dL (9-20); Carbon Dioxide 22 mmol/L (22-30); Chloride 103 mmol/L (98-107); Glucose 155 mg/dL (74-99); Lipase 44 U/L (23-300); Magnesium 1.9 mg/dL (1.6-2.3); Non-African American GFR(CKD) 41 (>60 ml/min/1.73 sqM); Potassium 4.4 mmol/L (3.5-5.1); Sodium 136 mmol/L (137-145); Total Bilirubin 1.9 mg/dL (0.2-1.3); Total Protein 7.3 g/dL (6.3-8.2)
[2023-10-17 23:29] LABS: INR 1.3 (<1.2); Prothrombin Time 13.5 sec (10.0-12.5)
[2023-10-17 23:30] LABS: NT-Pro-B-Type Natriuretic Pept 5780 pg/mL
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
[2023-10-17] MEDS: HYDROCORTISONE SUCCINATE 100 MG/2 ML VIAL IV STA (23:45)
[2023-10-17] MEDS: IPRATROPIUM-ALBUTEROL 3 ML NEB INHALATION STA (23:46)
--- NOTE | 2023-10-17 23:54 | XR ---
EXAM: XR Chest, 1 View CLINICAL HISTORY: ITS.REASON XR Reason: chest pain TECHNIQUE: Frontal view of the chest. COMPARISON: No relevant prior studies available. FINDINGS: Lungs: Unremarkable. No consolidation. Pleural space: Unremarkable. No pneumothorax. Heart: Cardiomegaly. Mediastinum: Unremarkable. Normal mediastinal contour. Bones/joints: Unremarkable. No acute fracture. Tubes, lines and devices: AICD/pacemaker. IMPRESSION: No acute findings in the chest.
[2023-10-18] MEDS: SODIUM CHLORIDE 0.9% 1,000 ML IV SCH ×3 (00:02→19:52)
[2023-10-18] MEDS ORDERED: NITROGLYCERIN SL TABS 0.4 MG TAB SUBLINGUAL PRN (00:27)
[2023-10-18] MEDS: HEPARIN SOD,PORK IN 0.45% NACL 25,000 UNIT in 0.45% NACL 1 250ML.BAG IV SCH ×2 (00:33→08:17)
[2023-10-18] MEDS: HEPARIN SODIUM 1,000 UN/ML (10ML VL) IV ONE (00:34)
[2023-10-18] MEDS: AZITHROMYCIN 500 MG in SODIUM CHLORIDE 0.9% 250 ML IVPB STA (00:36)
[2023-10-18] MEDS: SODIUM CHLORIDE 0.9% 500 ML 500 ML IV STA (00:51)
[2023-10-18] MEDS: SODIUM CHLORIDE 0.9% 500 ML 500 ML IV ONE (00:51)
[2023-10-18] MEDS: NOREPINEPHRINE 4 MG in SODIUM CHLORIDE 0.9% 250 ML IV ONE (01:44)
[2023-10-18] MEDS: ASPIRIN 81 MG PO STA (02:20)
[2023-10-18 02:34] LABS: Glucose,Whole Blood 88 mg/dL (70-110)
[2023-10-18] MEDS ORDERED: LIDOCAINE 1% INJ 10MG/ML (20 ML MDV) ONE (04:20)
[2023-10-18] MEDS ORDERED: HEPARIN SODIUM 1,000 UN/ML (10ML VL) ONE (04:20)
[2023-10-18] MEDS ORDERED: VERAPAMIL 2.5 MG/ML 2 ML AMP ONE (04:20)
[2023-10-18] MEDS ORDERED: fentaNYL (PF) 50 MCG/ML 2 ML AMP ONE (04:36)
[2023-10-18 04:42] LABS: African American GFR (CKD) 57 (>60 ml/min/1.73 sqM); Anion Gap 9 mmol/L; Blood Urea Nitrogen 22 mg/dL (9-20); Calcium 7.5 mg/dL (8.4-10.2); Carbon Dioxide 18 mmol/L (22-30); Chloride 112 mmol/L (98-107); Glucose 96 mg/dL (74-99); Non-African American GFR(CKD) 49 (>60 ml/min/1.73 sqM); Potassium 3.7 mmol/L (3.5-5.1); Sodium 139 mmol/L (137-145)
[2023-10-18] MEDS: HEPARIN SODIUM 1,000 UN/ML (10ML VL) IVP ONE (04:50)
[2023-10-18] MEDS: MIDAZOLAM 2 MG/2 ML VIAL IVP ONE (05:04)
[2023-10-18] MEDS: fentaNYL (PF) 50 MCG/1 ML VIAL IVP ONE (05:04)
[2023-10-18] MEDS ORDERED: MORPHINE SULFATE 4 MG/ML SYRINGE ONE (05:05)
[2023-10-18] MEDS: MORPHINE SULFATE 4 MG/ML SYRINGE IVP ONE (05:08)
[2023-10-18] MEDS: IOPAMIDOL-370 100ML BTL INTRATHECA ONE (05:35)
[2023-10-18] MEDS: SODIUM CHLORIDE 0.9% 1,000 ML IV ONE (05:36)
[2023-10-18] MEDS ORDERED: RX INFO: IV CONTRAST WAS GIVEN 1 EACH MISC MISCELLANE PRN (05:38)
--- NOTE | 2023-10-18 05:45 | P.PCN ---
Date of Procedure: 10/18/23 Operative Findings: Placement of Impella CP in the left ventricle Performing physician Alexandre Brantley MD Procedure performed 1. Successful placement of Impella CP in the left ventricle 2. Selective right common femoral artery angiogram Indication Cardiogenic shock in this 63-year-old gentleman with known history of coronary artery disease with prior stenting of the left circumflex and left anterior descending artery and known severe cardiomyopathy status post AICD who presented to the hospital with chest discomfort and shortness of breath and ruled in for acute coronary event. He underwent a heart catheterization earlier today by Dr. Quinteros and he was found to have severe disease involving the ostial of the first obtuse marginal branch of the left circumflex which if any has slightly worsened compared to before. His left ventricular end-diastolic pressure was exceeding 30 mmHg and the LV was severely dilated and the pressure was low and the patient was requiring vasopressors with norepinephrine. In the light of that the decision was made toward placement of Impella in the LV with bringing the patient in the next 24 to 48 hours for PCI of the left circumflex. The PCI was not performed because the patient was in acute renal failure Approach Right common femoral artery Complications None Level of sedation Moderate with sedation length of 33 minutes Procedure description Please refer to diagnostic heart catheterization was performed earlier by Dr. Quinteros. The right common femoral artery was cannulated using micropuncture technique and the micropuncture wire passed easily then I placed a 6 [place] 11 cm sheath at the right common femoral artery after the micropuncture sheath was placed initially then the micropuncture sheath was exchanged over the 035 wire into a 6 [place] sheath. Subsequently I placed 2 Percloses devices at 10:00 and 2:00. Subsequently I did place an 8 [place] sheath over 035 wire in the right common femoral artery. After that I did exchange my regular 035 wire into a stiff 035 wire and predilated using 10 [place] dilator before I placed a 14 [place] sheath over 035 wire which was a stiff wire under fluoroscopy guidance. The sheath was advanced all the way and was 11 cm sheath. Subsequently I did across aortic valve using a 035 regular wire with a pigtail catheter. Then I did exchange the 035 wire into 018 wire and the pigtail was pulled out then the Impella was advanced over the wire to the LV. Subsequently the Impella was turned on. After that I did reposition the Impella because there was some ectopy. Finally we get a good position. Please note that the injection through the 14 [place] sheath showed no flow in the right common femoral artery and because of that the sheath was pulled out with manual pressure above the right groin and then the sheath was peeled out and I advanced the other sheath came and attached to the Impella to the right common femoral artery. The patient tolerated the procedure very well. Postprocedure management Continue heparin IV Continue PT and PTT monitoring Continue monitoring for any hematoma in the right groin Come down with a norepinephrine Monitor the kidney function and electrolytes Consider PCI of the left circumflex/OM Follow-up with the patient
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
[2023-10-18 06:57] LABS: ABG Base Excess -3.9 mmol/L; ABG HCO3 22 mmol/L (21-25); ABG PCO2 38 mmHg (35-45); ABG PH 7.36 (7.35-7.45); ABG PO2 86 mmHg (83-108); ABG TCO2 23 mmol/L (19-24); Allen Test Performed? Yes
[2023-10-18] MEDS: SODIUM BICARB (1 MEQ/ML) 12.5 ML in DEXTROSE 5% IN WATER 500 ML IV SCH (06:58)
[2023-10-18 08:20] LABS: HCT 47.5 % (39.0-53.0); HGB 14.8 gm/dL (13.0-17.5); Hypochromasia Moderate; MCH 31.8 pg (25.0-35.0); MCV 102.4 fL (80.0-100.0); Macrocytosis Slight; Mean Platelet Volume 9.9; Platelet Count 244 k/uL (150-450); RBC 4.64 m/uL (4.30-5.90); RDW 15.1 % (11.5-15.5); WBC 33.6 k/uL (3.8-10.6)
[2023-10-18 08:33] LABS: African American GFR (CKD) 60 (>60 ml/min/1.73 sqM); Anion Gap 11 mmol/L; Blood Urea Nitrogen 22 mg/dL (9-20); Carbon Dioxide 16 mmol/L (22-30); Chloride 111 mmol/L (98-107); Glucose 126 mg/dL (74-99); Magnesium 1.6 mg/dL (1.6-2.3); Non-African American GFR(CKD) 52 (>60 ml/min/1.73 sqM); Sodium 138 mmol/L (137-145)
[2023-10-18 08:36] LABS: INR 1.4 (<1.2); Partial Thromboplastin Time 46.5 sec (22.0-30.0); Prothrombin Time 14.1 sec (10.0-12.5)
[2023-10-18 08:37] LABS: Potassium 4.4 mmol/L (3.5-5.1)
[2023-10-18 08:56] LABS: Band Neutrophils % 9 %; Lymphocytes # (M) 1.01 k/uL (1.0-4.8); Monocytes # (M) 2.02 k/uL (0-1.0); Neutrophils % (M) 83 %; Nucleated Red Blood Cells 0 /100 WBC (0-0); Total Cells Counted 200
[2023-10-18] MEDS ORDERED: Magnesium Replacement Protocol 1 EACH MISC MISCELLANE PRN (09:11)
[2023-10-18] MEDS: levETIRAcetam 500 MG TAB PO SCH (09:34)
[2023-10-18] MEDS: MAGNESIUM SULFATE-D5W PMX 1 GM in DEXTROSE/WATER 1 100ML.BAG IVPB SCH (09:34)
--- NOTE | 2023-10-18 09:55 | CA ---
Transthoracic Echo Report Name: Marc Christian Age: 63 Gender: M : 1960 Exam Date: 10/18/2023 07:04 Exam Location: [facility] Ht (in): 68 Wt (lb): 180 Ordering Physician: Alexandre Brantley MD ([id number]) Attending/Referring Phys: [employer] [employer] General Supervisor Cierra Pizarro, JENNIFFER Procedure CPT: Indications: Placement of Left Ventricular Assist Device Cardiac Hx: stents, pacemaker, limied study Technical Quality: Good Contrast 1: Total Dose (mL): Contrast 2: Total Dose (mL): MEASUREMENTS (Male / Female) Normal Values 2D ECHO LV Diastolic Diameter PLAX 7.6 cm 4.2 - 5.9 / 3.9 - 5.3 cm LV Systolic Diameter PLAX 7.4 cm IVS Diastolic Thickness 0.9 cm 0.6 - 1.0 / 0.6 - 0.9 cm LVPW Diastolic Thickness 0.9 cm 0.6 - 1.0 / 0.6 - 0.9 cm LV Relative Wall Thickness 0.2 RV Internal Dim ED PLAX 3.8 cm LA Systolic Diameter LX 3.8 cm 3.0 - 4.0 / 2.7 - 3.8 cm M-MODE LV Diastolic Diameter MM 8.2 cm 4.2 - 5.9 / 3.9 - 5.3 cm LV Systolic Diameter MM 7.4 cm LV Cardiac Index MM Teich 2528.6 cm???/min???m??? IVS Diastolic Thickness MM 0.4 cm 0.6 - 1.0 / 0.6 - 0.9 cm LVPW Diastolic Thickness MM 0.7 cm 0.6 - 1.0 / 0.6 - 0.9 cm LV Relative Wall Thickness MM 0.1 0.24 - 0.42 / 0.22 - 0.42 LV Mass Index MM 115.3 g/m??? 49 - 115 / 43 - 95 g/m??? FINDINGS Left Ventricle Left ventricular ejection fraction is estimated at 15 %. Severe left ventricular dilatation. Severely reduced global left ventricular systolic function. Assist device in LVOT outflow tract Right Ventricle Mild right ventricular dilatation. Right Atrium Right atrium not well visualized. Left Atrium Normal left atrial size. Mitral Valve Mitral valve thickened. Aortic Valve Aortic valve not well visualized. Tricuspid Valve Tricuspid valve not well visualized. Pulmonic Valve Structurally normal pulmonic valve. Pericardium No pericardial effusion. Aorta Normal size aortic root and proximal ascending aorta. CONCLUSIONS Left ventricular ejection fraction 15% Impella LVAD in place and was repositioned to 4.7 cm from the aortic valve Mild tricuspid regurgitation No pericardial effusion Previewed by: Dr. Miguel Marvin DO (Electronically Signed) Final Date: 18 October 2023 09:54
[2023-10-18 10:14] LABS: Glucose,Whole Blood 141 mg/dL (70-110)
--- NOTE | 2023-10-18 10:39 | CONS ---
CONSULTATION HISTORY OF PRESENT ILLNESS: Marc is a 63-year-old gentleman with history of coronary artery disease, status post multivessel angioplasty; who presented to hospital complaining of shortness of breath and episodes of chest discomfort for the last 2 days. His EKG and initial presentation revealed a paced rhythm with extensive ST-T wave changes, intraventricular conduction delay and diffuse ST-segment elevation. The patient was also hypoxic and hypotensive on his initial presentation. The chest discomfort improved after his oxygenation had improved. His first set of troponin had come back at 1.2 and the second set was 2.5 and this patient had continued chest discomfort in the ICU. I advised him to undergo cardiac catheterization. The patient understands risks, benefits, and alternatives. PAST MEDICAL HISTORY: Significant for COPD, paroxysmal atrial fibrillation, cardiomyopathy, status post AICD, and status post multiple prior angioplasties. MEDICATIONS: As charted. ALLERGIES: As charted. FAMILY HISTORY: Negative for premature coronary artery disease. SOCIAL HISTORY: Negative for current smoking, chews, or drug abuse. PHYSICAL EXAMINATION: VITAL SIGNS: The patient's heart rate is around 70 beats per minute. He is hypotensive and currently on Levophed. CHEST: Reveals occasional rhonchi bilaterally. HEART: Reveals first and second heart sounds. No gallop. No murmur. ABDOMEN: Soft. EXTREMITIES: Did not reveal any edema. Peripheral pulses are diminished. LABORATORY DATA: His BNP is elevated at 5730. BUN is 24, creatinine is 1.7, which is an acute renal insufficiency, as his baseline renal functions are normal. White cell count is elevated at 20 with a hemoglobin of 15.7. ASSESSMENT: 1. Acute coronary syndrome with recent myocardial infarction. 2. Ischemic cardiomyopathy. 3. Status post ICD. 4. Elevated white cell count of unclear clinical significance. The patient has hemoptysis at times. PLAN: He will undergo cardiac catheterization and will decide on further course of action. MMODL / IJN: [id number] /
--- NOTE | 2023-10-18 10:47 | CC ---
CARDIAC CATHETERIZATION REPORT PROCEDURE PERFORMED: Cardiac catheterization. INDICATION: 1. Acute [id number] elevation SC. 2. Cardiomyopathy with congestive heart failure with hypotension. 3. Cardiogenic shock. PROCEDURE NOTE: After obtaining informed consent, left heart catheterization and coronary angiogram were performed via the right radial artery using standard Misbah catheters. The patient tolerated the procedure well without any obvious immediate complications. He received heparin and verapamil per protocol. The right radial artery access was obtained using Seldinger technique. A 6-Nepalese sheath was placed. Catheters and wires were floated into the ascending aorta under fluoroscopic guidance. The patient has renal insufficiency with a creatinine of 1.7 and understands the risk of contrast-induced nephropathy. He is hypotensive and is currently on Levophed for pressure support. FINDINGS: 1. Hemodynamics: Left ventricular end-diastolic pressure is 30 mm. There is no significant gradient across the aortic valve. 2. Left ventriculogram: Left ventriculogram is not performed. 3. Angiographic data: a.Right coronary artery: Right coronary artery is chronically occluded on a previous catheterization and had not been engaged on this to minimize the use of dye. b.Left main coronary artery appears calcified, shows an atherosclerotic plaque without significant obstructive disease and this was noted on a previous catheterization also. It divides into left anterior descending coronary artery and circumflex coronary artery. LAD was previously stented in the proximal and midportion and the stent appears patent and the mid to distal LAD has mild-to- moderate nonobstructive disease. The diagonal branches are patent. Circumflex coronary artery is a large dominant vessel that is calcified and large. At the origin of the large OM branch, there is a 95% focal stenosis. This lesion was noted on a previous scan, but has definitely worsened compared to where it was. CONCLUSIONS: Patent stent within the proximal and mid LAD and 95% stenosis involving the ostial portion of an OM branch, chronically occluded right coronary artery. PLAN: Angiographic data was reviewed by Dr. Brantley, the on-call event marketing assistant, and the plan at this stage is to place an Impella device given the cardiogenic shock and the elevated left ventricular end-diastolic pressures. The concern is that angioplasty of the circumflex coronary artery with elevated creatinine might cause further worsening of the renal functions and renal failure. The Impella device by decompressing might decrease the left ventricular end-diastolic pressures and decrease subendocardial ischemia and the patient's clinical situation might improve with the result. With this thinking, the plan at this stage is to do Impella and defer intervention of the circumflex coronary artery. Once the renal functions improve, we may bring him back and attempt angioplasty of the OM. The patient is critically ill with cardiomyopathy with severe LV systolic dysfunction, multivessel coronary artery disease, and hypotension and renal insufficiency suggestive of cardiogenic shock. I reviewed these issues at length with him. He understands and is in agreement with the plans. MMMELVAL / IJN: [id number] /
--- NOTE | 2023-10-18 11:31 | P.PN ---
Subjective Progress Note Date: 10/18/23 Patient is a 63-year-old male with a history of systolic cardiomyopathy with known ejection fraction less than 20% status post AICD, moderate COPD, A-fib anticoagulated with Eliquis, and history of coronary artery disease status post multiple PCI, and multiple other comorbid conditions who presented to the hospital with complaints of generalized weakness. In the emergency department he underwent extensive evaluation initially his vital signs were within normal limits other than an O2 sat of 89% on room air. However 5 minutes after arrival his pulse went to 112, blood pressure 84/64, and O2 sat of 79% on a nonrebreather. Initial laboratory analysis in the emergency department included CBC, coags, CMP, BNP, and troponin which were remarkable for white blood cell count 20.9, sodium 136, BUN 24, creatinine 1.72 (baseline 0.9), total bilirubin 1.9, AST 82, ALT 97, and troponin 1.570. BNP was elevated at 5780. Repeat troponin went up to 2.09. Started on norepinephrine secondary to hypotension after 1 L fluid bolus. He was taken to [facility] and underwent diagnostic cardiac catheterization which showed severe disease to the left circumflex however he was also found to have possible cardiogenic shock and therefore Dr. Ng came in and placed an Impella device. There was some concern with his elevated white blood cell count that there is a possible underlying pneumonia an d he was subsequently started on oral phylactic Rocephin and Zithromax. Per the [facility] he was transferred to the intensive care unit. His Impella was slightly displaced and this was repositioned on the morning of 10/18/2023 and he then developed hematuria. Patient seen and examined at bedside present. He is feeling diaphoretic and clammy. He feels somewhat uncomfortable with denies any overt chest pain, shortness of breath, nausea, vomiting, lightheadedness, dizziness. We have a very nicole discussion about what it appears is going on with his condition and the severity of his illness. Vital signs reviewed General: Nontoxic, mild distress, appears at stated age diaphoretic Cardiovascular: S1S2 reg, no murmur Lungs: Coarse breath sounds bilateral, no rhonchi, no rales, no accessory muscle use Abdominal: Soft, nontender to palpation, no guarding Ext: No gross muscle atrophy, no edema b/l lower extremities, no contractures Neuro: CN II-XI grossly intact, no focal neuro deficits Psych: Alert, oriented, appropriate affect Assessment/Plan: Non-ST segment elevated myocardial infarction Cardiogenic shock Decompensated systolic congestive heart failure with ejection fraction less than 20% status post AICD Paroxysmal atrial fibrillation Acute kidney injury likely secondary to hypoperfusion Transaminitis, likely secondary to hypoperfusion -Await further cardiac recommendations. Currently on heparin drip with Impella in place -Coreg, ramipril, Lasix on hold -Jardiance on hold secondary to acute kidney injury -Continue with amiodarone 200 mg twice daily -Eliquis on hold with use of heparin drip -Echocardiogram demonstrates ejection fraction at 15% with severe left ventricular dilatation and reduced global left ventricular systolic function, Impella in place Acute hypoxic respiratory failure, multifactorial Possible pneumonia with elevated procalcitonin -Zithromax 500 mg IV daily dose #1 of 3, ceftriaxone 2 g IV daily dose #1 of 3 -critical care note reviewed. -Repeat chest x-ray in a.m. Chronic: Moderate COPD without exacerbation Hypertension Dyslipidemia Memory impairment Seizure disorder History of CVA Imaging: As per HPI and Echocardiogram demonstrates ejection fraction at 15% with severe left ventricular dilatation and reduced global left ventricular systolic function, Impella in place Data Review: As per HPI and tension 529, LDH 579, procalcitonin 15.2 DVT prophylaxis: Heparin gtt Anticipated discharge date: Pending Clinical Course Anticipated discharge place: Pending Clinical Course This dictation was prepared using [employer] voice recognition software. Though every attempt is made to correct errors during dictation some may still exist. Objective - Vital Signs Vital signs: Vital Signs Temp 97.6 F 10/18/23 08:15 Pulse 68 10/18/23 11:00 Resp 16 10/18/23 11:00 BP 98/68 10/18/23 11:00 Pulse Ox 96 10/18/23 11:00 FiO2 Intake & Output 10/17/23 10/18/23 10/18/23 18:59 06:59 18:59 Intake Total 619.789 672.687 Output Total 225 555 Balance 394.789 117.687 Weight 81.647 kg Intake: IV 585 375 Sodium Chloride 0.9% 1, 260 000 ml @ 130 mls/hr IV . [id number] [facility] Rx#:[id number] Sodium Chloride 0.9% 1, 75 375 000 ml @ 75 mls/hr IV . [id number] [facility] Rx#:[id number] Intake, IV Titration 34.789 297.687 Amount Magnesium Sulfate-D5w Pmx 100 1 gm In Dextrose/Water 1 100ml.bag @ 100 mls/hr IVPB Q1H [facility] Rx#: [id number] Norepinephrine 4 mg In 34.789 197.687 Sodium Chloride 0.9% 250 ml @ 0.03 MCG/KG/MIN 9. 332 mls/hr IV .Q24H [facility] Rx#:[id number] Output: Urine 225 555 Other: Voiding Method Urinal Indwelling Catheter - Labs CBC & Chem 7: 10/18/23 08:09 10/18/23 08:09 Labs: Abnormal Lab Results - Last 24 Hours (Table) 10/17/23 10/17/23 10/17/23 Range/Units 22:58 22:58 22:58 WBC 20.9 H (3.8-10.6) k/uL MCV (80.0-100.0) fL Neutrophils # 19.2 H (1.3-7.7) k/uL Neutrophils # (Manual) (1.3-7.7) k/uL Lymphocytes # 0.9 L (1.0-4.8) k/uL Monocytes # (Manual) (0-1.0) k/uL PT 13.5 H (10.0-12.5) sec INR 1.3 H (<1.2) APTT (22.0-30.0) sec Fibrinogen (200-500) mg/dL Sodium 136 L (137-145) mmol/L Chloride (98-107) mmol/L Carbon Dioxide (22-30) mmol/L BUN 24 H (9-20) mg/dL Creatinine 1.72 H (0.66-1.25) mg/dL Glucose 155 H (74-99) mg/dL POC Glucose (mg/dL) (70-110) mg/dL Calcium (8.4-10.2) mg/dL Total Bilirubin 1.9 H (0.2-1.3) mg/dL AST 82 H (17-59) U/L ALT 97 H (4-49) U/L Lactate Dehydrogenase (120-246) U/L Troponin I (0.000-0.034) ng/mL Procalcitonin (0.02-0.09) ng/mL 10/17/23 10/18/23 10/18/23 Range/Units 22:58 01:20 03:30 WBC (3.8-10.6) k/uL MCV (80.0-100.0) fL Neutrophils # (1.3-7.7) k/uL Neutrophils # (Manual) (1.3-7.7) k/uL Lymphocytes # (1.0-4.8) k/uL Monocytes # (Manual) (0-1.0) k/uL PT (10.0-12.5) sec INR (<1.2) APTT (22.0-30.0) sec Fibrinogen (200-500) mg/dL Sodium (137-145) mmol/L Chloride (98-107) mmol/L Carbon Dioxide (22-30) mmol/L BUN (9-20) mg/dL Creatinine (0.66-1.25) mg/dL Glucose (74-99) mg/dL POC Glucose (mg/dL) (70-110) mg/dL Calcium (8.4-10.2) mg/dL Total Bilirubin (0.2-1.3) mg/dL AST (17-59) U/L ALT (4-49) U/L Lactate Dehydrogenase (120-246) U/L Troponin I 1.570 H* 2.090 H* 1.740 H* (0.000-0.034) ng/mL Procalcitonin (0.02-0.09) ng/mL 10/18/23 10/18/23 10/18/23 Range/Units 03:30 03:30 08:09 WBC (3.8-10.6) k/uL MCV (80.0-100.0) fL Neutrophils # (1.3-7.7) k/uL Neutrophils # (Manual) (1.3-7.7) k/uL Lymphocytes # (1.0-4.8) k/uL Monocytes # (Manual) (0-1.0) k/uL PT 14.1 H (10.0-12.5) sec INR 1.4 H (<1.2) APTT 46.5 H (22.0-30.0) sec Fibrinogen 529 H (200-500) mg/dL Sodium (137-145) mmol/L Chloride 112 H (98-107) mmol/L Carbon Dioxide 18 L (22-30) mmol/L BUN 22 H (9-20) mg/dL Creatinine 1.49 H (0.66-1.25) mg/dL Glucose (74-99) mg/dL POC Glucose (mg/dL) (70-110) mg/dL Calcium 7.5 L (8.4-10.2) mg/dL Total Bilirubin (0.2-1.3) mg/dL AST (17-59) U/L ALT (4-49) U/L Lactate Dehydrogenase (120-246) U/L Troponin I (0.000-0.034) ng/mL Procalcitonin 15.20 H (0.02-0.09) ng/mL 10/18/23 10/18/23 10/18/23 Range/Units 08:09 08:09 08:09 WBC 33.6 H (3.8-10.6) k/uL MCV 102.4 H (80.0-100.0) fL Neutrophils # (1.3-7.7) k/uL Neutrophils # (Manual) 30.90 H (1.3-7.7) k/uL Lymphocytes # (1.0-4.8) k/uL Monocytes # (Manual) 2.02 H (0-1.0) k/uL PT (10.0-12.5) sec INR (<1.2) APTT (22.0-30.0) sec Fibrinogen (200-500) mg/dL Sodium (137-145) mmol/L Chloride 111 H (98-107) mmol/L Carbon Dioxide 16 L (22-30) mmol/L BUN 22 H (9-20) mg/dL Creatinine 1.43 H (0.66-1.25) mg/dL Glucose 126 H (74-99) mg/dL POC Glucose (mg/dL) (70-110) mg/dL Calcium 8.0 L (8.4-10.2) mg/dL Total Bilirubin (0.2-1.3) mg/dL AST (17-59) U/L ALT (4-49) U/L Lactate Dehydrogenase 579 H (120-246) U/L Troponin I (0.000-0.034) ng/mL Procalcitonin (0.02-0.09) ng/mL 10/18/23 Range/Units 10:12 WBC (3.8-10.6) k/uL MCV (80.0-100.0) fL Neutrophils # (1.3-7.7) k/uL Neutrophils # (Manual) (1.3-7.7) k/uL Lymphocytes # (1.0-4.8) k/uL Monocytes # (Manual) (0-1.0) k/uL PT (10.0-12.5) sec INR (<1.2) APTT (22.0-30.0) sec Fibrinogen (200-500) mg/dL Sodium (137-145) mmol/L Chloride (98-107) mmol/L Carbon Dioxide (22-30) mmol/L BUN (9-20) mg/dL Creatinine (0.66-1.25) mg/dL Glucose (74-99) mg/dL POC Glucose (mg/dL) 141 H (70-110) mg/dL Calcium (8.4-10.2) mg/dL Total Bilirubin (0.2-1.3) mg/dL AST (17-59) U/L ALT (4-49) U/L Lactate Dehydrogenase (120-246) U/L Troponin I (0.000-0.034) ng/mL Procalcitonin (0.02-0.09) ng/mL
[2023-10-18 12:29] LABS: HCT 40.7 % (39.0-53.0); HGB 13.1 gm/dL (13.0-17.5); Hypochromasia Slight; MCH 32.3 pg (25.0-35.0); MCHC 32.2 g/dL (31.0-37.0); MCV 100.5 fL (80.0-100.0); Macrocytosis Slight; Platelet Count 201 k/uL (150-450); RBC 4.05 m/uL (4.30-5.90); WBC 33.3 k/uL (3.8-10.6)
[2023-10-18] MEDS: MORPHINE SULFATE 4 MG/ML SYRINGE IV PRN (12:53)
[2023-10-18] MEDS ORDERED: bisacodyL 5 MG TABLET.DR PO PRN (13:13)
[2023-10-18 14:29] LABS: Partial Thromboplastin Time 32.4 sec (22.0-30.0)
[2023-10-18] MEDS: ACETAMINOPHEN TAB 325 MG TAB PO PRN (15:38)
[2023-10-18] MEDS ORDERED: HYDROcodone/APAP 5-325MG 1 EACH TAB PO PRN (18:53)
[2023-10-18] MEDS: AMIODARONE 200 MG TAB PO SCH (19:59)
[2023-10-18] MEDS: SYMBICORT 160-4.5 MCG INHALER INHALATION SCH (20:19)
[2023-10-18] MEDS: IPRATROPIUM-ALBUTEROL 3 ML NEB INHALATION PRN (20:19)
[2023-10-18 20:29] LABS: Basophils # (A) 0.1 k/uL (0-0.2); Basophils % (A) 0 %; Eosinophils # (A) 0.1 k/uL (0-0.7); Eosinophils % (A) 0 %; HCT 40.3 % (39.0-53.0); HGB 12.9 gm/dL (13.0-17.5); Hypochromasia Slight; Lymphocytes # (A) 1.7 k/uL (1.0-4.8); Lymphocytes % (A) 6 %; MCH 31.9 pg (25.0-35.0); MCV 99.7 fL (80.0-100.0); Macrocytosis Slight; Mean Platelet Volume 9.3; Monocytes # (A) 1.3 k/uL (0-1.0); Monocytes % (A) 4 %; Neutrophils # (A) 25.8 k/uL (1.3-7.7); Neutrophils % (A) 88 %; Platelet Count 196 k/uL (150-450); RBC 4.04 m/uL (4.30-5.90); RDW 15.2 % (11.5-15.5); WBC 29.1 k/uL (3.8-10.6)
[2023-10-18] MEDS: CYCLOBENZAPRINE 5 MG TAB PO PRN (20:35)
[2023-10-18] MEDS: MELATONIN 5 MG TABLET PO PRN (23:30)
[2023-10-18] MEDS: BENZONATATE 100 MG CAP PO PRN (23:30)
[2023-10-19] MEDS: AZITHROMYCIN 500 MG in SODIUM CHLORIDE 0.9% 250 ML IVPB SCH (00:54)
[2023-10-19] MEDS: NOREPINEPHRINE 4 MG in SODIUM CHLORIDE 0.9% 250 ML IV SCH (01:45)
[2023-10-19 04:11] LABS: Basophils # (A) 0.1 k/uL (0-0.2); Basophils % (A) 0 %; Eosinophils # (A) 0.1 k/uL (0-0.7); Eosinophils % (A) 0 %; HCT 42.4 % (39.0-53.0); HGB 12.9 gm/dL (13.0-17.5); Hypochromasia Slight; Lymphocytes # (A) 1.7 k/uL (1.0-4.8); Lymphocytes % (A) 6 %; MCH 30.7 pg (25.0-35.0); MCHC 30.5 g/dL (31.0-37.0); MCV 100.5 fL (80.0-100.0); Macrocytosis Slight; Mean Platelet Volume 9.7; Monocytes % (A) 4 %; Neutrophils # (A) 23.6 k/uL (1.3-7.7); Neutrophils % (A) 89 %; Platelet Count 192 k/uL (150-450); RBC 4.22 m/uL (4.30-5.90); RDW 15.1 % (11.5-15.5); WBC 26.6 k/uL (3.8-10.6)
[2023-10-19 04:19] LABS: INR 1.1 (<1.2); Prothrombin Time 12.1 sec (10.0-12.5)
[2023-10-19 04:30] LABS: African American GFR (CKD) 66 (>60 ml/min/1.73 sqM); Anion Gap 4 mmol/L; Blood Urea Nitrogen 29 mg/dL (9-20); Carbon Dioxide 23 mmol/L (22-30); Chloride 110 mmol/L (98-107); Glucose 97 mg/dL (74-99); Magnesium 2.4 mg/dL (1.6-2.3); Non-African American GFR(CKD) 57 (>60 ml/min/1.73 sqM); Potassium 4.1 mmol/L (3.5-5.1); Sodium 137 mmol/L (137-145)
[2023-10-19 04:39] LABS: LDH 1305 U/L (120-246)
--- NOTE | 2023-10-19 08:22 | XR ---
EXAMINATION TYPE: XR chest 1V portable DATE OF EXAM: 10/19/2023 HISTORY: Shortness of breath. COMPARISON: 10/17/2023 TECHNIQUE: Single view of the chest is submitted. FINDINGS: Demonstrated are scattered senescent parenchymal change. There is no evidence for focal infiltrate. Continued cardiomegaly with pulmonary venous congestion probable interstitial edema.LVAD placement. Hilar and mediastinal structures are within normal limits. Degenerative changes are seen of the dorsal spine. IMPRESSION: 1. Continued cardiomegaly with pulmonary venous congestion probable interstitial edema.LVAD placemen t.
[2023-10-19] MEDS: EZETIMIBE 10 MG TAB PO SCH (08:29)
[2023-10-19] MEDS: ASPIRIN 325 MG TAB PO SCH (08:29)
[2023-10-19 08:40] LABS: Chol/HDL Ratio 2.14 Ratio; LDL Cholesterol,Calculated 27.4 mg/dL (0.0-131.0); VLDL Calculation 15.24 mg/dL (5.00-40.00)
[2023-10-19] MEDS ORDERED: ALPRAZolam 0.5 MG TAB PO PRN (09:54)
[2023-10-19] MEDS ORDERED: MORPHINE SULFATE 4 MG/ML SYRINGE IV PRN (09:55)
[2023-10-19] MEDS ORDERED: tiZANidine 4 MG TAB PO PRN (09:57)
[2023-10-19] MEDS: MORPHINE SULFATE 2 MG/ML SYRINGE IVP PRN (10:08)
[2023-10-19] MEDS ORDERED: NITROGLYCERIN SL TABS 0.4 MG TAB SUBLINGUAL PRN (10:19)
[2023-10-19] MEDS: polyethylene glycoL 3350 17 GM POWD.PACK PO SCH (10:36)
--- NOTE | 2023-10-19 10:49 | P.PN ---
Subjective Progress Note Date: 10/19/23 Patient is a 63-year-old white male with past medical history significant for moderate COPD, multivessel coronary artery disease with previous PCI/stent, severe ischemic cardiomyopathy with an ejection fraction of less than 20%, valvular heart disease, V. tach, AICD, atrial fibrillation, hyperlipidemia, h ypertension, CVA/TIA, and former tobacco smoker. Patient presented to the emergency room late last night complaining of a combination of left-sided chest pain, shortness of breath, and increased generalized weakness for most of the day. He is currently in trauma bay 2. He is lying in bed, on 5 L/min nasal cannula, he is anxious. He is in no acute distress, however, still complaining of some left-sided nonradiating chest pain. It is not reproducible. He was started on the IV heparin protocol per cardiology. Troponins continue to trend up, 1.57 and 2.1 respectively. EKG on arrival demonstrates what appears to be a first-degree AV block along with interventricular conduction delay, and Q waves in the lateral leads. Blood pressure was hypotensive on arrival, and he was aggressively fluid resuscitated with a total of 3 L of normal saline bolus. He was also started on a norepinephrine infusion, which is currently at a rate of 0.1 mcg/kg/min or approximately 8 mcg/min. Chest x-ray done on arrival was read as normal, however, there appears to be cardiomegaly with interstitial edema. No focal infiltrates or evidence of pneumonia. NT proBNP elevated at 5780. Patient denies any fever. He has been coughing, but is mostly nonproductive. CBC on arrival unremarkable other than some leukocytosis. WBC count 20. BMP on arrival: Sodium 136, potassium 4.4, chloride 103, serum bicarb 22, BUN 24, creatinine up to 1.72, glucose 155. LFTs mildly elevated. Patient's condition is currently critical. The [facility] is on their way and, patient will undergo heart catheterization. Afterwards, he will be best monitored in the intensive care unit. The patient is seen today October 19, 2023 in follow-up in the intensive care unit. He is currently awake and alert. He is maintaining O2 saturations in the low 90s on 2 L/min per nasal cannula. Mean arterial pressure of 67. He is afebrile. He is resting fairly comfortably in bed. He is having some complaints of back pain. The Impella device remains in place currently at P-5 with a cardiac output of 2.3. Echocardiogram revealed an ejection fraction of 15%. He remains on a heparin drip. He is on norepinephrine at 0.02 mcg/kg/min. Normal saline at KVO. Cardiac catheterization revealed a patent stent within the proximal and mid LAD and a 95% stenosis involving the ostial portion of the OM branch, chronically occluded right coronary artery. X-ray continues with cardiomegaly and pulmonary venous congestion. LVAD in place. Sputum cultures pending. His procalcitonin was 15.2. He is continued on ceftriaxone and azithromycin. White count 26.6. Hemoglobin 12.9. Platelets 192. Sodium 137. Potassium 4.1. Bicarb 23. BUN 29. Creatinine 1.31. Lactic acid 1.2. Objective - Vital Signs Vital signs: Vital Signs Temp 97.9 F 10/19/23 08:00 Pulse 67 10/19/23 10:15 Resp 20 10/19/23 10:15 BP 88/56 10/19/23 10:15 Pulse Ox 94 L 10/19/23 10:15 FiO2 Intake & Output 10/18/23 10/19/23 10/19/23 18:59 06:59 18:59 Intake Total 351.920 2838.324 171.316 Output Total 1180 940 240 Balance -197.553 120.324 -68.684 Weight 80.1 kg Intake: IV 550 500 60 0.9 @KVO 100 200 60 Azithromycin 500 mg In 250 Sodium Chloride 0.9% 250 ml @ 250 mls/hr IVPB DAILY@0100 [facility] Rx#: [id number] Sodium Chloride 0.9% 1, 450 000 ml @ 75 mls/hr IV . [id number] STA Rx#:[id number] cefTRIAXone 2 gm In 50 Sodium Chloride 0.9% 50 ml @ 100 mls/hr IVPB ONCE [facility]A Rx#:[id number] Intake, IV Titration 432.447 20.324 111.316 Amount Heparin Sod,Pork in 0.45% 97.327 111.316 NaCl 25,000 unit In 0.45 % NaCl 1 250ml.bag @ 12 UNITS/KG/HR 9.798 mls/hr IV .Q24H [facility] Rx#: [id number] Magnesium Sulfate-D5w Pmx 100 1 gm In Dextrose/Water 1 100ml.bag @ 100 mls/hr IVPB Q1H [facility] Rx#: [id number] Norepinephrine 4 mg In 235.120 Sodium Chloride 0.9% 250 ml @ 0.03 MCG/KG/MIN 9. 332 mls/hr IV .Q24H ONE Rx#:[id number] Norepinephrine 4 mg In 20.324 Sodium Chloride 0.9% 250 ml @ 0.03 MCG/KG/MIN 9. 332 mls/hr IV .Q24H [facility] Rx#:[id number] Oral 540 Output: Urine 1180 940 240 Other: Voiding Method Indwelling Catheter Indwelling Catheter Indwelling Catheter - Exam GENERAL EXAM: Alert, pleasant 63-year-old male, on 2 L nasal cannula, fairly comfortable in no apparent distress. HEAD: Normocephalic. EYES: Normal reaction of pupils, equal size. NOSE: Clear with pink turbinates. THROAT: No erythema or exudates. NECK: No masses, no JVD. CHEST: No chest wall deformity. AICD in place. LUNGS: Equal air entry with crackles in the bilateral bases. CVS: S1 and S2 normal with no audible murmur, regular rhythm. ABDOMEN: No hepatosplenomegaly, normal bowel sounds, no guarding or rigidity. SPINE: No scoliosis or deformity SKIN: No rashes CENTRAL NERVOUS SYSTEM: No focal deficits, tone is normal in all 4 extremities. EXTREMITIES: Right femoral Impella in place, there is no peripheral edema. No clubbing, no cyanosis. Peripheral pulses are intact. - Labs CBC & Chem 7: 10/19/23 03:43 10/19/23 03:43 Labs: Abnormal Lab Results - Last 24 Hours (Table) 10/18/23 10/18/23 10/18/23 Range/Units 11:55 11:55 12:00 WBC 33.3 H (3.8-10.6) k/uL RBC 4.05 L (4.30-5.90) m/uL Hgb (13.0-17.5) gm/dL MCV 100.5 H (80.0-100.0) fL MCHC (31.0-37.0) g/dL Neutrophils # (1.3-7.7) k/uL Monocytes # (0-1.0) k/uL APTT 32.4 H (22.0-30.0) sec Fibrinogen 570 H (200-500) mg/dL Chloride (98-107) mmol/L BUN (9-20) mg/dL Creatinine (0.66-1.25) mg/dL Calcium (8.4-10.2) mg/dL Magnesium (1.6-2.3) mg/dL Lactate Dehydrogenase 996 H (120-246) U/L HDL Cholesterol (40.00-60.00) mg/dL 10/18/23 10/18/23 10/18/23 Range/Units 14:50 15:52 17:21 WBC (3.8-10.6) k/uL RBC (4.30-5.90) m/uL Hgb (13.0-17.5) gm/dL MCV (80.0-100.0) fL MCHC (31.0-37.0) g/dL Neutrophils # (1.3-7.7) k/uL Monocytes # (0-1.0) k/uL APTT 82.5 H (22.0-30.0) sec Fibrinogen 616 H (200-500) mg/dL Chloride (98-107) mmol/L BUN (9-20) mg/dL Creatinine (0.66-1.25) mg/dL Calcium (8.4-10.2) mg/dL Magnesium (1.6-2.3) mg/dL Lactate Dehydrogenase 1189 H (120-246) U/L HDL Cholesterol (40.00-60.00) mg/dL 10/18/23 10/18/23 10/18/23 Range/Units 20:18 20:18 20:18 WBC 29.1 H (3.8-10.6) k/uL RBC 4.04 L (4.30-5.90) m/uL Hgb 12.9 L (13.0-17.5) gm/dL MCV (80.0-100.0) fL MCHC (31.0-37.0) g/dL Neutrophils # 25.8 H (1.3-7.7) k/uL Monocytes # 1.3 H (0-1.0) k/uL APTT (22.0-30.0) sec Fibrinogen 623 H (200-500) mg/dL Chloride (98-107) mmol/L BUN (9-20) mg/dL Creatinine (0.66-1.25) mg/dL Calcium (8.4-10.2) mg/dL Magnesium (1.6-2.3) mg/dL Lactate Dehydrogenase 1536 H (120-246) U/L HDL Cholesterol (40.00-60.00) mg/dL 10/19/23 10/19/23 10/19/23 Range/Units 00:15 00:15 00:15 WBC (3.8-10.6) k/uL RBC (4.30-5.90) m/uL Hgb (13.0-17.5) gm/dL MCV (80.0-100.0) fL MCHC (31.0-37.0) g/dL Neutrophils # (1.3-7.7) k/uL Monocytes # (0-1.0) k/uL APTT 53.1 H (22.0-30.0) sec Fibrinogen 663 H (200-500) mg/dL Chloride (98-107) mmol/L BUN (9-20) mg/dL Creatinine (0.66-1.25) mg/dL Calcium (8.4-10.2) mg/dL Magnesium (1.6-2.3) mg/dL Lactate Dehydrogenase 1468 H (120-246) U/L HDL Cholesterol (40.00-60.00) mg/dL 10/19/23 10/19/23 10/19/23 Range/Units 03:43 03:43 03:43 WBC 26.6 H (3.8-10.6) k/uL RBC 4.22 L (4.30-5.90) m/uL Hgb 12.9 L (13.0-17.5) gm/dL MCV 100.5 H (80.0-100.0) fL MCHC 30.5 L (31.0-37.0) g/dL Neutrophils # 23.6 H (1.3-7.7) k/uL Monocytes # (0-1.0) k/uL APTT (22.0-30.0) sec Fibrinogen 768 H (200-500) mg/dL Chloride 110 H (98-107) mmol/L BUN 29 H (9-20) mg/dL Creatinine 1.31 H (0.66-1.25) mg/dL Calcium 8.0 L (8.4-10.2) mg/dL Magnesium 2.4 H (1.6-2.3) mg/dL Lactate Dehydrogenase 1305 H (120-246) U/L HDL Cholesterol 37.40 L (40.00-60.00) mg/dL 10/19/23 10/19/23 10/19/23 Range/Units 07:40 07:40 07:40 WBC (3.8-10.6) k/uL RBC (4.30-5.90) m/uL Hgb (13.0-17.5) gm/dL MCV (80.0-100.0) fL MCHC (31.0-37.0) g/dL Neutrophils # (1.3-7.7) k/uL Monocytes # (0-1.0) k/uL APTT 47.5 H (22.0-30.0) sec Fibrinogen 744 H (200-500) mg/dL Chloride (98-107) mmol/L BUN (9-20) mg/dL Creatinine (0.66-1.25) mg/dL Calcium (8.4-10.2) mg/dL Magnesium (1.6-2.3) mg/dL Lactate Dehydrogenase 1211 H (120-246) U/L HDL Cholesterol (40.00-60.00) mg/dL Microbiology - Last 24 Hours (Table) 10/18/23 21:40 Gram Stain - Preliminary Sputum Assessment and Plan Assessment: Acute non-ST elevation AR, found to have severe ostial stenosis of the OM1, Impella device placed 10/18/2023. Plan is to return to the [facility] for stenting once stable Acute hypotension and shock refractory to fluid resuscitation, currently requiring norepinephrine, likely cardiogenic in nature Acute leukocytosis, procalcitonin 15.2. Currently on ceftriaxone and az ithromycin Acute on chronic systolic heart failure, ejection fraction 15% Acute on chronic hypoxemic respiratory failure, secondary to above, currently on 2 L nasal cannula Acute kidney injury, secondary to hypotension and ATN Mild transaminitis, secondary to hypotension and shock History of severe ischemic cardiomyopathy, with a baseline ejection fraction estimated at less than 15%, with history of V. tach and AICD implantation History of valvular heart disease, with moderate to severe mitral regurgitation along with moderate aortic and tricuspid regurgitation. Moderate chronic obstructive pulmonary disease, does not appear in exacerbation History of multivessel coronary artery disease with previous PCI/stenting of the proximal and mid LAD History of paroxysmal atrial fibrillation History of hyperlipidemia History of hypertension History of CVA/TIA Former tobacco dependence, quitting in January, Plan: The patient was seen and evaluated Chest x-ray, labs and medications reviewed Titrate the norepinephrine as tolerated Procalcitonin 15.2. Continue ceftriaxone and azithromycin Sputum culture pending Continue Impella per cardiology Plan is to return to the [facility] for stenting to the OM1 when stable Condition remains critical We will continue to follow and make further recommendations based on his clinical status I have personally seen and examined the patient, performed the documentation and the assessment and plan as written. Number of minutes spent on the visit: 15.
[2023-10-19] MEDS: AMIODARONE 100 MG TAB PO SCH (11:21)
[2023-10-19] MEDS: ATORVASTATIN 80 MG TAB PO STA (11:21)
[2023-10-19 11:27] LABS: Glucose,Whole Blood 118 mg/dL (70-110)
--- NOTE | 2023-10-19 11:46 | P.PN ---
Subjective Progress Note Date: 10/19/23 Patient is a 63-year-old male with a history of systolic cardiomyopathy with known ejection fraction less than 20% status post AICD, moderate COPD, A-fib anticoagulated with Eliquis, and history of coronary artery disease status post multiple PCI, and multiple other comorbid conditions who presented to the hospital with complaints of generalized weakness. In the emergency department he underwent extensive evaluation initially his vital signs were within normal limits other than an O2 sat of 89% on room air. However 5 minutes after arrival his pulse went to 112, blood pressure 84/64, and O2 sat of 79% on a nonrebreather. Initial laboratory analysis in the emergency department included CBC, coags, CMP, BNP, and troponin which were remarkable for white blood cell count 20.9, sodium 136, BUN 24, creatinine 1.72 (baseline 0.9), total bilirubin 1.9, AST 82, ALT 97, and troponin 1.570. BNP was elevated at 5780. Repeat troponin went up to 2.09. Started on norepinephrine secondary to hypotension after 1 L fluid bolus. He was taken to the [facility] and underwent diagnostic cardiac catheterization which showed severe disease to the left circumflex however he was also found to have possible cardiogenic shock and therefore Dr. Ng came in and placed an Impella device. There was some concern with his elevated white blood cell count that there is a possible underlying pneumonia an d he was subsequently started on oral phylactic Rocephin and Zithromax. Per the [facility] he was transferred to the intensive care unit. His Impella was slightly displaced and this was repositioned on the morning of 10/18/2023 and he then developed hematuria. Patient seen and examined at bedside. He Is very upset about having to lay flat. He reports that his back pain is severe and that the pain medicines are not working. I again reiterated that it is important for him to try to lay flat as he can and agreed to order him Xanax and increased pain medicines to help. Complains mostly of low back pain. He had 1 episode of chest pain yesterday but this has resolved. He denies any shortness of breath. He does feel anxious. -Per nursing no other acute events overnight. Patient does not want to take amiodarone had been weaning this at home. Vital signs reviewed General: Nontoxic, mild distress, appears at stated age diaphoretic Cardiovascular: S1S2 reg, no murmur Lungs: Coarse breath sounds bilateral, no rhonchi, no rales, no accessory muscle use Abdominal: Soft, nontender to palpation, no guarding Ext: No gross muscle atrophy, no edema b/l lower extremities, no contractures Neuro: CN II-XI grossly intact, no focal neuro deficits Psych: Alert, oriented, appropriate affect Assessment/Plan: Non-ST segment elevated myocardial infarction Cardiogenic shock Decompensated systolic congestive heart failure with ejection fraction less than 20% status post AICD Paroxysmal atrial fibrillation Acute kidney injury likely secondary to hypoperfusion, improving Transaminitis, likely secondary to hypoperfusion - Cardio consult reviewed -Coreg, ramipril, Lasix on hold due to need for norepi -Jardiance on hold secondary to acute kidney injury -Continue with amiodarone 200 mg twice daily -Eliquis on hold with use of heparin drip -Repeat CMP in AM -Echocardiogram demonstrates ejection fraction at 15% with severe left ventricular dilatation and reduced global left ventricular systolic function, Impella in place Acute hypoxic respiratory failure, multifactorial Possible pneumonia with elevated procalcitonin -Zithromax 500 mg IV daily dose #2 of 3, ceftriaxone 2 g IV daily dose #2 of 5 -Pulmonary critical care note reviewed: Titrate norepinephrine, continue Impella per cardiology. -Repeat chest x-ray in a.m. Chronic low back pain -Continue with [place] 5/325 every 6 hours as needed for pain. Discontinue Flexeril start tizanidine 2 mg 3 times daily for muscle spasm. Change morphine to 2 mg IV every 4 hours for moderate pain and 4 mg IV every 4 hours for severe pain Chronic: Moderate COPD without exacerbation Hypertension Dyslipidemia Memory impairment Seizure disorder History of CVA Imaging: Chest x-ray as reviewed by myself shows increased pulmonary vasculature markings with enlarged heart. Hospital course imaging Echocardiogram demonstrates ejection fraction at 15% with severe left ventricular dilatation and reduced global left ventricular systolic function, Impella in place Data Review: Labs reviewed from today include CBC and basic metabolic profile which are remarkable for white blood cell count 26.6, hemoglobin 12.9, chloride 110, BUN 29, creatinine 1.31. DVT prophylaxis: Heparin gtt Anticipated discharge date: Pending Clinical Course Anticipated discharge place: Pending Clinical Course This dictation was prepared using [employer]ambo voice recognition software. Though every attempt is made to correct errors during dictation some may still exist. Objective - Vital Signs Vital signs: Vital Signs Temp 97.9 F 10/19/23 08:00 Pulse 68 10/19/23 11:15 Resp 24 10/19/23 11:15 BP 104/62 10/19/23 11:15 Pulse Ox 91 L 10/19/23 11:15 FiO2 Intake & Output 10/18/23 10/19/23 10/19/23 18:59 06:59 18:59 Intake Total 770.007 8738.324 191.316 Output Total 1180 940 290 Balance -197.553 120.324 -98.684 Weight 80.1 kg Intake: IV 550 500 80 0.9 @KVO 100 200 80 Azithromycin 500 mg In 250 Sodium Chloride 0.9% 250 ml @ 250 mls/hr IVPB DAILY@0100 [facility] Rx#: [id number] Sodium Chloride 0.9% 1, 450 000 ml @ 75 mls/hr IV . [id number] STA Rx#:[id number] cefTRIAXone 2 gm In 50 Sodium Chloride 0.9% 50 ml @ 100 mls/hr IVPB ONCE STA Rx#:[id number] Intake, IV Titration 432.447 20.324 111.316 Amount Heparin Sod,Pork in 0.45% 97.327 111.316 NaCl 25,000 unit In 0.45 % NaCl 1 250ml.bag @ 12 UNITS/KG/HR 9.798 mls/hr IV .Q24H TOO Rx#: [id number] Magnesium Sulfate-D5w Pmx 100 1 gm In Dextrose/Water 1 100ml.bag @ 100 mls/hr IVPB Q1H TOO Rx#: [id number] Norepinephrine 4 mg In 235.120 Sodium Chloride 0.9% 250 ml @ 0.03 MCG/KG/MIN 9. 332 mls/hr IV .Q24H ONE Rx#:[id number] Norepinephrine 4 mg In 20.324 Sodium Chloride 0.9% 250 ml @ 0.03 MCG/KG/MIN 9. 332 mls/hr IV .Q24H [facility] Rx#:[id number] Oral 540 Output: Urine 1180 940 290 Other: Voiding Method Indwelling Catheter Indwelling Catheter Indwelling Catheter - Labs CBC & Chem 7: 10/19/23 03:43 10/19/23 03:43 Labs: Abnormal Lab Results - Last 24 Hours (Table) 10/18/23 10/18/23 10/18/23 Range/Units 11:55 11:55 12:00 WBC 33.3 H (3.8-10.6) k/uL RBC 4.05 L (4.30-5.90) m/uL Hgb (13.0-17.5) gm/dL MCV 100.5 H (80.0-100.0) fL MCHC (31.0-37.0) g/dL Neutrophils # (1.3-7.7) k/uL Monocytes # (0-1.0) k/uL APTT 32.4 H (22.0-30.0) sec Fibrinogen 570 H (200-500) mg/dL Chloride (98-107) mmol/L BUN (9-20) mg/dL Creatinine (0.66-1.25) mg/dL POC Glucose (mg/dL) (70-110) mg/dL Calcium (8.4-10.2) mg/dL Magnesium (1.6-2.3) mg/dL Lactate Dehydrogenase 996 H (120-246) U/L HDL Cholesterol (40.00-60.00) mg/dL 10/18/23 10/18/23 10/18/23 Range/Units 14:50 15:52 17:21 WBC (3.8-10.6) k/uL RBC (4.30-5.90) m/uL Hgb (13.0-17.5) gm/dL MCV (80.0-100.0) fL MCHC (31.0-37.0) g/dL Neutrophils # (1.3-7.7) k/uL Monocytes # (0-1.0) k/uL APTT 82.5 H (22.0-30.0) sec Fibrinogen 616 H (200-500) mg/dL Chloride (98-107) mmol/L BUN (9-20) mg/dL Creatinine (0.66-1.25) mg/dL POC Glucose (mg/dL) (70-110) mg/dL Calcium (8.4-10.2) mg/dL Magnesium (1.6-2.3) mg/dL Lactate Dehydrogenase 1189 H (120-246) U/L HDL Cholesterol (40.00-60.00) mg/dL 10/18/23 10/18/23 10/18/23 Range/Units 20:18 20:18 20:18 WBC 29.1 H (3.8-10.6) k/uL RBC 4.04 L (4.30-5.90) m/uL Hgb 12.9 L (13.0-17.5) gm/dL MCV (80.0-100.0) fL MCHC (31.0-37.0) g/dL Neutrophils # 25.8 H (1.3-7.7) k/uL Monocytes # 1.3 H (0-1.0) k/uL APTT (22.0-30.0) sec Fibrinogen 623 H (200-500) mg/dL Chloride (98-107) mmol/L BUN (9-20) mg/dL Creatinine (0.66-1.25) mg/dL POC Glucose (mg/dL) (70-110) mg/dL Calcium (8.4-10.2) mg/dL Magnesium (1.6-2.3) mg/dL Lactate Dehydrogenase 1536 H (120-246) U/L HDL Cholesterol (40.00-60.00) mg/dL 10/19/23 10/19/23 10/19/23 Range/Units 00:15 00:15 00:15 WBC (3.8-10.6) k/uL RBC (4.30-5.90) m/uL Hgb (13.0-17.5) gm/dL MCV (80.0-100.0) fL MCHC (31.0-37.0) g/dL Neutrophils # (1.3-7.7) k/uL Monocytes # (0-1.0) k/uL APTT 53.1 H (22.0-30.0) sec Fibrinogen 663 H (200-500) mg/dL Chloride (98-107) mmol/L BUN (9-20) mg/dL Creatinine (0.66-1.25) mg/dL POC Glucose (mg/dL) (70-110) mg/dL Calcium (8.4-10.2) mg/dL Magnesium (1.6-2.3) mg/dL Lactate Dehydrogenase 1468 H (120-246) U/L HDL Cholesterol (40.00-60.00) mg/dL 10/19/23 10/19/23 10/19/23 Range/Units 03:43 03:43 03:43 WBC 26.6 H (3.8-10.6) k/uL RBC 4.22 L (4.30-5.90) m/uL Hgb 12.9 L (13.0-17.5) gm/dL MCV 100.5 H (80.0-100.0) fL MCHC 30.5 L (31.0-37.0) g/dL Neutrophils # 23.6 H (1.3-7.7) k/uL Monocytes # (0-1.0) k/uL APTT (22.0-30.0) sec Fibrinogen 768 H (200-500) mg/dL Chloride 110 H (98-107) mmol/L BUN 29 H (9-20) mg/dL Creatinine 1.31 H (0.66-1.25) mg/dL POC Glucose (mg/dL) (70-110) mg/dL Calcium 8.0 L (8.4-10.2) mg/dL Magnesium 2.4 H (1.6-2.3) mg/dL Lactate Dehydrogenase 1305 H (120-246) U/L HDL Cholesterol 37.40 L (40.00-60.00) mg/dL 10/19/23 10/19/23 10/19/23 Range/Units 07:40 07:40 07:40 WBC (3.8-10.6) k/uL RBC (4.30-5.90) m/uL Hgb (13.0-17.5) gm/dL MCV (80.0-100.0) fL MCHC (31.0-37.0) g/dL Neutrophils # (1.3-7.7) k/uL Monocytes # (0-1.0) k/uL APTT 47.5 H (22.0-30.0) sec Fibrinogen 744 H (200-500) mg/dL Chloride (98-107) mmol/L BUN (9-20) mg/dL Creatinine (0.66-1.25) mg/dL POC Glucose (mg/dL) (70-110) mg/dL Calcium (8.4-10.2) mg/dL Magnesium (1.6-2.3) mg/dL Lactate Dehydrogenase 1211 H (120-246) U/L HDL Cholesterol (40.00-60.00) mg/dL 10/19/23 Range/Units 11:26 WBC (3.8-10.6) k/uL RBC (4.30-5.90) m/uL Hgb (13.0-17.5) gm/dL MCV (80.0-100.0) fL MCHC (31.0-37.0) g/dL Neutrophils # (1.3-7.7) k/uL Monocytes # (0-1.0) k/uL APTT (22.0-30.0) sec Fibrinogen (200-500) mg/dL Chloride (98-107) mmol/L BUN (9-20) mg/dL Creatinine (0.66-1.25) mg/dL POC Glucose (mg/dL) 118 H (70-110) mg/dL Calcium (8.4-10.2) mg/dL Magnesium (1.6-2.3) mg/dL Lactate Dehydrogenase (120-246) U/L HDL Cholesterol (40.00-60.00) mg/dL Microbiology - Last 24 Hours (Table) 10/18/23 21:40 Gram Stain - Preliminary Sputum
--- NOTE | 2023-10-19 12:51 | CONS ---
CONSULTATION HISTORY: This is a 63-year-old gentleman, who is admitted to hospital with acute coronary syndrome and cardiogenic shock. He underwent cardiac catheterization that revealed 95% stenosis involving the ostial portion of an OM branch, but he had good CONCEPC[place]-3 flow. We opted to hold off on intervention because of renal insufficiency and the complexity of the lesion. He had an Impella device placed and had been in ICU. He is doing fairly well other than having some chest discomfort yesterday. Remains on Levophed and denies any chest pain this morning. His predominant problem is lower back pain. The plan at this stage is for Dr. Brantley to perform angioplasty of the circ and after that remove the Impella device. He is currently on Levophed, heparin, aspirin. He was on Eliquis at home and he is currently on IV heparin. He was on amiodarone 200 b.i.d., but he states that he was only taking 100 b.i.d. and that is how he is going to take here and will continue the Zetia and resume the statin that he was on. PHYSICAL EXAMINATION: HEART: First and second heart sounds are heard. Irregular systolic murmur at the apex. ABDOMEN: Soft. EXTREMITIES: Did not reveal any edema. Peripheral pulses are felt. ASSESSMENT: 1. Cardiogenic shock. 2. Acute myocardial infarction. PLAN: The patient is awaiting the intervention of the circ, OM today. Impella device will be removed at that time. We will resume the statin that he was on at home. MMODL / IJN: [id number] /
[2023-10-19] MEDS ORDERED: fentaNYL (PF) 50 MCG/ML 2 ML AMP ONE (14:38)
[2023-10-19] MEDS: SODIUM CHLORIDE 0.9% 1,000 ML IV ONE (14:43)
[2023-10-19] MEDS: MIDAZOLAM 2 MG/2 ML VIAL IVP ONE (14:43)
[2023-10-19] MEDS: fentaNYL (PF) 50 MCG/ML 2 ML AMP IVP ONE (14:43)
[2023-10-19] MEDS ORDERED: LIDOCAINE 1% INJ 10MG/ML (20 ML MDV) ONE (14:45)
[2023-10-19] MEDS: LIDOCAINE 1% INJ 10MG/ML (20 ML MDV) SQ ONE (14:47)
[2023-10-19] MEDS ORDERED: HEPARIN SODIUM 1,000 UN/ML (10ML VL) ONE (15:06)
[2023-10-19] MEDS: HEPARIN SODIUM 1,000 UN/ML (10ML VL) IV ONE (15:09)
[2023-10-19] MEDS ORDERED: FLUMAZENIL 0.1 MG/ML 5 ML VIAL IVP ONE (15:17)
[2023-10-19] MEDS ORDERED: NALOXONE 0.4 MG/ML 1 ML VIAL ONE (15:18)
[2023-10-19] MEDS: PHENYLEPHRINE-0.9% NACL SYG 1,000 MCG/10 ML SYRINGE IVP ONE (15:23)
[2023-10-19] MEDS ORDERED: FUROSEMIDE 10 MG/ML 4 ML VIAL ONE (15:23)
[2023-10-19] MEDS: NALOXONE 0.4 MG/ML 1 ML VIAL IVP ONE (15:25)
[2023-10-19] MEDS: FLUMAZENIL 0.1 MG/ML 5 ML VIAL IVP ONE (15:25)
[2023-10-19] MEDS: EPINEPHrine 10 ML SYRINGE (0.1 MG/ML) MISCELLANE ONE (15:28)
[2023-10-19] MEDS: SODIUM BICARB SYR (1 MEQ/ML) 10 ML SYRINGE MISCELLANE ONE ×2 (15:28→15:34)
[2023-10-19] MEDS: FUROSEMIDE 10 MG/ML 4 ML VIAL IV ONE (15:30)
[2023-10-19] MEDS ORDERED: TICAGRELOR 90 MG TAB ONE (15:45)
[2023-10-19] MEDS: TICAGRELOR 90 MG TAB PO ONE (15:49)
[2023-10-19] MEDS: IOPAMIDOL-370 100ML BTL INJ ONE ×2 (15:55)
[2023-10-19] MEDS ORDERED: MAG HYDROX/AL HYDROX/SIMETH 30 ML CUP PO PRN (15:56)
[2023-10-19] MEDS ORDERED: ATROPINE SULFATE 0.1 MG/ML 10ML SYRINGE IV PRN (15:56)
[2023-10-19] MEDS ORDERED: RX INFO: IV CONTRAST WAS GIVEN 1 EACH MISC MISCELLANE PRN (15:56)
[2023-10-19 16:50] LABS: Glucose,Whole Blood 124 mg/dL (70-110)
[2023-10-19 17:45] LABS: Partial Thromboplastin Time 96.7 sec (22.0-30.0)
[2023-10-19] MEDS: SODIUM CHLORIDE 0.9% 1,000 ML in EMPTY BAG 1 BAG IV SCH (17:57)
[2023-10-19] MEDS: TICAGRELOR 90 MG TAB PO SCH (20:07)
[2023-10-19] MEDS: ALPRAZolam 0.5 MG TAB PO PRN (20:07)
[2023-10-19] MEDS ORDERED: ATORVASTATIN 20 MG TAB PO SCH (21:00)
--- NOTE | 2023-10-19 21:18 | P.PCN ---
Date of Procedure: 10/19/23 Operative Findings: Percutaneous coronary intervention Performing physician Alexandre rojas MD Procedure performed Successful stenting of the left main coronary artery using 4.5 x 18 mm Xience BALTAZAR Adjunctive use of IVUS and lithotripsy balloon Selective left common femoral artery angiogram Indication This is a 63-year-old gentleman with coronary artery disease who was admitted to the hospital recently with acute coronary syndrome complicated by cardiogenic shock. He underwent a heart catheterization and was found to have intermediate disease involving the left main coronary artery and severe disease involving the ostial of the large obtuse marginal branch of the left circumflex. Because he was in cardiogenic shock an Impella CP was the placed. He was brought today to undergo PCI and subsequently removing the mechanical support. Approach Left common femoral artery Complication None Level of sedation Moderate with sedation length of 56 minutes Procedure description After obtaining an informed consent the patient was brought to the cardiac collaborative teacher. The left common femoral artery was cannulated is a micro puncture technique and the micropuncture wire passed easily then I placed a 7 Welsh 11 cm sheath at the left common femoral artery with subsequent the sheath was secured and was flushed. Anticoagulation was initiated using heparin with continuous ACT monitoring. Subsequently I did engage the left main using an EBU 3.75 guiding catheter. Subsequently I did wire the left circumflex coronary artery using run-through wire. Attempting wiring the first obtuse marginal branch of the left circumflex the patient blood pressure dropped significantly. His main the pressure was about 45 mmHg. At that point blood pressure support using vasopressors was initiated. It was noted that the left main was concerning by the tip of the catheter and seems to be severely stenotic. Immediately I did wire the left main to the left anterior descending artery using an a 014 wire and the left a well and left circumflex. Subsequently I did endovascular ultrasound of the left main coronary artery which showed heavily calcified left main with a diameter around 4.5 mm. Because the patient continues to be in cardiogenic block requiring vasopressors I decided to ahead and do PCI of the left main coronary artery. I did a balloon angioplasty using lithotripsy balloon which was 3.5 mm balloon which was the largest bone available on [employer]. Subsequently I deployed 4.5 x 18 mm stent with a stent was positioned under fluoroscopy guidance and deployed under 14 mansi for 10 seconds and then the stent was postdilated using 4.5 mm noncompliant balloon was final angiogram showing excellent angiographic results. Please note that the patient blood pressure has improved significantly and immediately after stenting the left main coronary artery. Because the maximal amount of contrast and because of the patient's situation overall we decided to treat the left circumflex/OM medically. By the end of the procedure the patient pressure has improved and we were able to come down with a norepinephrine. Please note that the patient was also given bicarbonate. Fluid was given as well. Lasix was given because he was somewhat hypoxic. The patient was about to be intubated but he was not intubated by the end. After that I did selective left common femoral artery angiogram and decided to leave the 7 Welsh sheath in the groin at this point. We decided also to keep the mechanical support in place. Postprocedure management Dual antiplatelet therapy using aspirin and Brilinta for at least 12 month Aggressive cholesterol control Monitor for any hematomas in the groins Plan to remove the mechanical support in the next 24 hours Monitor the PTT and monitor the hemoglobin and kidney function Follow-up with the patient
[2023-10-20] MEDS: HEPARIN SODIUM 1,000 UN/ML (10ML VL) IV PRN (00:08)
[2023-10-20] MEDS: MORPHINE SULFATE 2 MG/ML SYRINGE IVP PRN (02:08)
[2023-10-20 04:46] LABS: ALT 83 U/L (4-49); AST 103 U/L (17-59); African American GFR (CKD) 75 (>60 ml/min/1.73 sqM); Albumin 2.6 g/dL (3.5-5.0); Alkaline Phosphatase 80 U/L (38-126); Anion Gap 7 mmol/L; Basophils # (A) 0.1 k/uL (0-0.2); Basophils % (A) 0 %; Blood Urea Nitrogen 25 mg/dL (9-20); Calcium 8.2 mg/dL (8.4-10.2); Carbon Dioxide 26 mmol/L (22-30); Chloride 110 mmol/L (98-107); Eosinophils # (A) 0.1 k/uL (0-0.7); Eosinophils % (A) 0 %; Glucose 85 mg/dL (74-99); HCT 35.2 % (39.0-53.0); HGB 11.3 gm/dL (13.0-17.5); Lymphocytes # (A) 1.7 k/uL (1.0-4.8); Lymphocytes % (A) 8 %; MCH 31.6 pg (25.0-35.0); MCHC 32.1 g/dL (31.0-37.0); MCV 98.4 fL (80.0-100.0); Macrocytosis Slight; Mean Platelet Volume 10.8; Monocytes # (A) 1.1 k/uL (0-1.0); Monocytes % (A) 6 %; Neutrophils # (A) 16.6 k/uL (1.3-7.7); Neutrophils % (A) 84 %; Non-African American GFR(CKD) 65 (>60 ml/min/1.73 sqM); Platelet Count 158 k/uL (150-450); Potassium 3.8 mmol/L (3.5-5.1); RBC 3.58 m/uL (4.30-5.90); RDW 15.5 % (11.5-15.5); Sodium 143 mmol/L (137-145); Total Bilirubin 1.8 mg/dL (0.2-1.3); Total Protein 5.3 g/dL (6.3-8.2); WBC 19.7 k/uL (3.8-10.6)
[2023-10-20] MEDS ORDERED: Potassium Replacement Protocol 1 EACH MISC MISCELLANE PRN (05:04)
[2023-10-20] MEDS: POTASSIUM CHLORIDE ER 20 MEQ TAB.ER PO SCH (05:17)
[2023-10-20] MEDS ORDERED: HEPARIN SODIUM,PORCINE (1 ML) 2,500 UNIT in SODIUM CHLORIDE 0.9% 250 ML IRRIGATION PRN (07:00)
[2023-10-20] MEDS ORDERED: HEPARIN SODIUM,PORCINE 10,000 UNIT in SODIUM CHLORIDE 0.9% 1,000 ML IRRIGATION PRN (07:00)
--- NOTE | 2023-10-20 08:13 | XR ---
EXAMINATION TYPE: XR chest 1V portable DATE OF EXAM: 10/20/2023 COMPARISON: 10/19/2023 INDICATION: Impella, aortic balloon pump TECHNIQUE: Single frontal view of the chest is obtained. FINDINGS: The heart size is prominent. Pacemaker overlies left chest. Aortic balloon pump lying has its tip ap proximately the level of the hilum within the ascending aortic region, stable in position. The pulmonary vasculature is prominent. Mild increased lung markings are present, slightly improved over the interval IMPRESSION: 1. Improving congestive heart failure. Continued follow-up is recommended 2. Tip of the aortic pump is approximately the level of the hilum.
[2023-10-20] MEDS: ASPIRIN 81 MG PO SCH (08:31)
--- NOTE | 2023-10-20 10:22 | P.PN ---
Subjective Progress Note Date: 10/20/23 Patient is a 63-year-old white male with past medical history significant for moderate COPD, multivessel coronary artery disease with previous PCI/stent, severe ischemic cardiomyopathy with an ejection fraction of less than 20%, valvular heart disease, V. tach, AICD, atrial fibrillation, hyperlipidemia, h ypertension, CVA/TIA, and former tobacco smoker. Patient presented to the emergency room late last night complaining of a combination of left-sided chest pain, shortness of breath, and increased generalized weakness for most of the day. He is currently in trauma bay 2. He is lying in bed, on 5 L/min nasal cannula, he is anxious. He is in no acute distress, however, still complaining of some left-sided nonradiating chest pain. It is not reproducible. He was started on the IV heparin protocol per cardiology. Troponins continue to trend up, 1.57 and 2.1 respectively. EKG on arrival demonstrates what appears to be a first-degree AV block along with interventricular conduction delay, and Q waves in the lateral leads. Blood pressure was hypotensive on arrival, and he was aggressively fluid resuscitated with a total of 3 L of normal saline bolus. He was also started on a norepinephrine infusion, which is currently at a rate of 0.1 mcg/kg/min or approximately 8 mcg/min. Chest x-ray done on arrival was read as normal, however, there appears to be cardiomegaly with interstitial edema. No focal infiltrates or evidence of pneumonia. NT proBNP elevated at 5780. Patient denies any fever. He has been coughing, but is mostly nonproductive. CBC on arrival unremarkable other than some leukocytosis. WBC count 20. BMP on arrival: Sodium 136, potassium 4.4, chloride 103, serum bicarb 22, BUN 24, creatinine up to 1.72, glucose 155. LFTs mildly elevated. Patient's condition is currently critical. The [facility] is on their way and, patient will undergo heart catheterization. Afterwards, he will be best monitored in the intensive care unit. The patient is seen today October 19, 2023 in follow-up in the intensive care unit. He is currently awake and alert. He is maintaining O2 saturations in the low 90s on 2 L/min per nasal cannula. Mean arterial pressure of 67. He is afebrile. He is resting fairly comfortably in bed. He is having some complaints of back pain. The Impella device remains in place currently at P-5 with a cardiac output of 2.3. Echocardiogram revealed an ejection fraction of 15%. He remains on a heparin drip. He is on norepinephrine at 0.02 mcg/kg/min. Normal saline at KVO. Cardiac catheterization revealed a patent stent within the proximal and mid LAD and a 95% stenosis involving the ostial portion of the OM branch, chronically occluded right coronary artery. X-ray continues with cardiomegaly and pulmonary venous congestion. LVAD in place. Sputum cultures pending. His procalcitonin was 15.2. He is continued on ceftriaxone and azithromycin. White count 26.6. Hemoglobin 12.9. Platelets 192. Sodium 137. Potassium 4.1. Bicarb 23. BUN 29. Creatinine 1.31. Lactic acid 1.2. The patient is seen today October 20, 2023 in follow-up in the intensive care unit. He is currently resting fairly comfortably in bed. Awake and alert in no acute distress. He is maintaining O2 saturations in the 90s on 3 L nasal cannula, currently afebrile. He has normal staying at 20 MLS per hour. Continued on a heparin drip. He did go to the [facility] yesterday and had stenting to the left main however unable to stent the OM1. Impella remains in place set at P5. Cardiac output 2.6. Chest x-ray is showing improvement in the congestive heart failure. White count 19.7. Hemoglobin 11.3. Sodium 143. Potassium 3.8. Bicarb 26. BUN 25. Creatinine 1.18. AST 103. ALT 83. LDH 1071. Albumin 2.6. He remains on ceftriaxone and azithromycin. Continued on bronchodilators. Objective - Vital Signs Vital signs: Vital Signs Temp 97.7 F 10/20/23 07:30 Pulse 82 10/20/23 09:12 Resp 24 10/20/23 09:00 BP 94/70 10/20/23 09:00 Pulse Ox 95 10/20/23 09:00 FiO2 Intake & Output 10/19/23 10/20/23 10/20/23 18:59 06:59 18:59 Intake Total 850.299 967.301 239 Output Total 1490 1700 300 Balance -639.701 -732.699 -61 Weight 78.8 kg Intake: IV 590 678 69 0.9 @KVO 140 120 60 Azithromycin 500 mg In 250 Sodium Chloride 0.9% 250 ml @ 250 mls/hr IVPB DAILY@0100 [facility] Rx#: [id number] Pressure Bag 33 9 Sodium Chloride 0.9% 1, 225 000 ml In Empty Bag 1 bag @ 75 mls/hr IV .[id number] TOO Rx#:[id number] cefTRIAXone 2 gm In 50 Sodium Chloride 0.9% 50 ml @ 100 mls/hr IVPB ONCE [facility] Rx#:[id number] Intake, IV Titration 260.299 114.301 Amount Heparin Sod,Pork in 0.45% 195.279 39.301 NaCl 25,000 unit In 0.45 % NaCl 1 250ml.bag @ 12 UNITS/KG/HR 9.798 mls/hr IV .Q24H TOO Rx#: [id number] Norepinephrine 4 mg In 65.02 Sodium Chloride 0.9% 250 ml @ 0.03 MCG/KG/MIN 9. 332 mls/hr IV .Q24H TOO Rx#:[id number] Sodium Chloride 0.9% 1, 75 000 ml In Empty Bag 1 bag @ 75 mls/hr IV .[id number] TOO Rx#:[id number] Oral 175 170 Output: Urine 1490 1700 300 Other: Voiding Method Indwelling Catheter Indwelling Catheter Indwelling Catheter ABP, PAP, CO, CI - Last Documented Arterial Blood Pressure 114/69 - Exam GENERAL EXAM: Alert, 63-year-old male, on 3 L nasal cannula, fairly comfortable in no apparent distress. HEAD: Normocephalic. EYES: Normal reaction of pupils, equal size. NOSE: Clear with pink turbinates. THROAT: No erythema or exudates. NECK: No masses, no JVD. CHEST: No chest wall deformity. AICD in place. LUNGS: Equal air entry with crackles in the bilateral bases. CVS: S1 and S2 normal with no audible murmur, regular rhythm. ABDOMEN: No hepatosplenomegaly, normal bowel sounds, no guarding or rigidity. SPINE: No scoliosis or deformity SKIN: No rashes CENTRAL NERVOUS SYSTEM: No focal deficits, tone is normal in all 4 extremities. EXTREMITIES: Right femoral Impella in place, there is no peripheral edema. No clubbing, no cyanosis. Peripheral pulses are intact. - Labs CBC & Chem 7: 10/20/23 03:26 10/20/23 03:26 Labs: Abnormal Lab Results - Last 24 Hours (Table) 10/19/23 10/19/23 10/19/23 Range/Units 11:26 16:48 16:50 WBC (3.8-10.6) k/uL RBC (4.30-5.90) m/uL Hgb (13.0-17.5) gm/dL Hct (39.0-53.0) % Neutrophils # (1.3-7.7) k/uL Monocytes # (0-1.0) k/uL APTT 96.7 H (22.0-30.0) sec Fibrinogen 743 H (200-500) mg/dL Chloride (98-107) mmol/L BUN (9-20) mg/dL POC Glucose (mg/dL) 118 H 124 H (70-110) mg/dL Calcium (8.4-10.2) mg/dL Magnesium (1.6-2.3) mg/dL Total Bilirubin (0.2-1.3) mg/dL AST (17-59) U/L ALT (4-49) U/L Lactate Dehydrogenase (120-246) U/L Total Protein (6.3-8.2) g/dL Albumin (3.5-5.0) g/dL 10/19/23 10/19/23 10/19/23 Range/Units 16:50 21:52 21:52 WBC (3.8-10.6) k/uL RBC (4.30-5.90) m/uL Hgb (13.0-17.5) gm/dL Hct (39.0-53.0) % Neutrophils # (1.3-7.7) k/uL Monocytes # (0-1.0) k/uL APTT (22.0-30.0) sec Fibrinogen 656 H (200-500) mg/dL Chloride (98-107) mmol/L BUN (9-20) mg/dL POC Glucose (mg/dL) (70-110) mg/dL Calcium (8.4-10.2) mg/dL Magnesium (1.6-2.3) mg/dL Total Bilirubin (0.2-1.3) mg/dL AST (17-59) U/L ALT (4-49) U/L Lactate Dehydrogenase 1363 H 1261 H (120-246) U/L Total Protein (6.3-8.2) g/dL Albumin (3.5-5.0) g/dL 10/19/23 10/20/23 10/20/23 Range/Units 23:32 01:54 01:54 WBC (3.8-10.6) k/uL RBC (4.30-5.90) m/uL Hgb (13.0-17.5) gm/dL Hct (39.0-53.0) % Neutrophils # (1.3-7.7) k/uL Monocytes # (0-1.0) k/uL APTT 43.0 H (22.0-30.0) sec Fibrinogen 725 H (200-500) mg/dL Chloride (98-107) mmol/L BUN (9-20) mg/dL POC Glucose (mg/dL) (70-110) mg/dL Calcium (8.4-10.2) mg/dL Magnesium (1.6-2.3) mg/dL Total Bilirubin (0.2-1.3) mg/dL AST (17-59) U/L ALT (4-49) U/L Lactate Dehydrogenase 1058 H (120-246) U/L Total Protein (6.3-8.2) g/dL Albumin (3.5-5.0) g/dL 10/20/23 10/20/23 10/20/23 Range/Units 03:26 03:26 03:26 WBC 19.7 H (3.8-10.6) k/uL RBC 3.58 L (4.30-5.90) m/uL Hgb 11.3 L (13.0-17.5) gm/dL Hct 35.2 L (39.0-53.0) % Neutrophils # 16.6 H (1.3-7.7) k/uL Monocytes # 1.1 H (0-1.0) k/uL APTT (22.0-30.0) sec Fibrinogen (200-500) mg/dL Chloride 110 H (98-107) mmol/L BUN 25 H (9-20) mg/dL POC Glucose (mg/dL) (70-110) mg/dL Calcium 8.2 L (8.4-10.2) mg/dL Magnesium 2.4 H (1.6-2.3) mg/dL Total Bilirubin 1.8 H (0.2-1.3) mg/dL AST 103 H (17-59) U/L ALT 83 H (4-49) U/L Lactate Dehydrogenase (120-246) U/L Total Protein 5.3 L (6.3-8.2) g/dL Albumin 2.6 L (3.5-5.0) g/dL 10/20/23 10/20/23 10/20/23 Range/Units 05:31 05:31 05:31 WBC (3.8-10.6) k/uL RBC (4.30-5.90) m/uL Hgb (13.0-17.5) gm/dL Hct (39.0-53.0) % Neutrophils # (1.3-7.7) k/uL Monocytes # (0-1.0) k/uL APTT 45.7 H (22.0-30.0) sec Fibrinogen 696 H (200-500) mg/dL Chloride (98-107) mmol/L BUN (9-20) mg/dL POC Glucose (mg/dL) (70-110) mg/dL Calcium (8.4-10.2) mg/dL Magnesium (1.6-2.3) mg/dL Total Bilirubin (0.2-1.3) mg/dL AST (17-59) U/L ALT (4-49) U/L Lactate Dehydrogenase 1071 H (120-246) U/L Total Protein (6.3-8.2) g/dL Albumin (3.5-5.0) g/dL Microbiology - Last 24 Hours (Table) 10/17/23 23:55 Blood Culture - Preliminary Blood 10/17/23 23:40 Blood Culture - Preliminary Blood 10/18/23 21:40 Gram Stain - Preliminary Sputum Assessment and Plan Assessment: Acute non-ST elevation LA, found to have severe ostial stenosis of the OM1, Impella device placed 10/18/2023. He did undergo successful stenting of the left main coronary artery on 10/19/2023 Acute hypotension and shock refractory to fluid resuscitation, currently requiring norepinephrine, likely cardiogenic in nature Acute leukocytosis, procalcitonin 15.2. Currently on ceftriaxone and azithromycin Acute on chronic systolic heart failure, ejection fraction 15% Acute on chronic hypoxemic respiratory failure, secondary to above, currently on 2 L nasal cannula Acute kidney injury, secondary to hypotension and ATN Mild transaminitis, secondary to hypotension and shock History of severe ischemic cardiomyopathy, with a baseline ejection fraction e stimated at less than 15%, with history of V. tach and AICD implantation History of valvular heart disease, with moderate to severe mitral regurgitation along with moderate aortic and tricuspid regurgitation. Moderate chronic obstructive pulmonary disease, does not appear in exacerbation History of multivessel coronary artery disease with previous PCI/stenting of the proximal and mid LAD History of paroxysmal atrial fibrillation History of hyperlipidemia History of hypertension History of CVA/TIA Former tobacco dependence, quitting in January, Plan: The patient was seen and evaluated Chest x-ray, labs and medications reviewed Continue ceftriaxone and azithromycin He had undergone stenting of the left main yesterday Continued on Impella Continued on a heparin drip We will continue to follow I have personally seen and examined the patient, performed the documentation and the assessment and plan as written. Number of minutes spent on the visit: 10.
[2023-10-20 10:59] VITALS: BMI 26.4
[2023-10-20] MEDS ORDERED: LIDOCAINE 1% INJ 10MG/ML (20 ML MDV) ONE (13:00)
--- NOTE | 2023-10-20 13:26 | P.PN ---
Subjective Progress Note Date: 10/20/23 Patient is a 63-year-old male with a history of systolic cardiomyopathy with known ejection fraction less than 20% status post AICD, moderate COPD, A-fib anticoagulated with Eliquis, and history of coronary artery disease status post multiple PCI, and multiple other comorbid conditions who presented to the hospital with complaints of generalized weakness. In the emergency department he underwent extensive evaluation initially his vital signs were within normal limits other than an O2 sat of 89% on room air. However 5 minutes after arrival his pulse went to 112, blood pressure 84/64, and O2 sat of 79% on a nonrebreather. Initial laboratory analysis in the emergency department included CBC, coags, CMP, BNP, and troponin which were remarkable for white blood cell count 20.9, sodium 136, BUN 24, creatinine 1.72 (baseline 0.9), total bilirubin 1.9, AST 82, ALT 97, and troponin 1.570. BNP was elevated at 5780. Repeat troponin went up to 2.09. Started on norepinephrine secondary to hypotension after 1 L fluid bolus. He was taken to the [facility] and underwent diagnostic cardiac catheterization which showed severe disease to the left main coronary artery, and severe disease involving left OM. Successful stenting of left main coronary, Impella in place due to cardiogenic shock. There was some concern with his elevated white blood cell count that there is a possible underlying pneumonia and he was subsequently started on oral phylactic Rocephin and Zithromax. His Impella was slightly displaced and this was repositioned on the morning of 10/18/2023 and he then developed hematuria. Patient seen and examined at bedside. No acute events overnight. Denies any pain at the moment. Vital signs reviewed General: Nontoxic, mild distress, appears at stated age diaphoretic Cardiovascular: S1S2 reg, no murmur Lungs: Coarse breath sounds bilateral, no rhonchi, no rales, no accessory muscle use Abdominal: Soft, nontender to palpation, no guarding Ext: No gross muscle atrophy, no edema b/l lower extremities, no contractures Neuro: CN II-XI grossly intact, no focal neuro deficits Psych: Alert, oriented, appropriate affect Assessment/Plan: Non-ST segment elevated myocardial infarction Cardiogenic shock Decompensated systolic congestive heart failure with ejection fraction less than 20% status post AICD Paroxysmal atrial fibrillation Acute kidney injury likely secondary to hypoperfusion, improving Transaminitis, likely secondary to hypoperfusion -Discussed management with cardiology, likely discontinue Impella today, less likely to intervene on OM lesion On Brilinta 90 twice daily, aspirin 81 mg, atorvastatin 20, amiodarone 100 daily, heparin drip, monitor for bleeding -Coreg, ramipril, Lasix on hold due to need for norepi -Jardiance on hold secondary to acute kidney injury -Repeat CMP in AM -Echocardiogram demonstrates ejection fraction at 15% with severe left ventricular dilatation and reduced global left ventricular systolic function, Impella in place Acute hypoxic respiratory failure, multifactorial Suspected bacterial with elevated procalcitonin -On IV azithromycin 500 daily, IV ceftriaxone 2 g daily -Pulmonary critical care note reviewed: Continue current therapy -Repeat chest x-ray in a.m. Chronic low back pain -On Tylenol as needed, Virgin as needed, IV morphine as needed, monitor for sedation Chronic: Moderate COPD without exacerbation Hypertension Dyslipidemia Memory impairment Seizure disorder History of CVA Imaging: Chest x-ray independently interpreted, shows improved interstitial opacities Hospital course imaging Echocardiogram demonstrates ejection fraction at 15% with severe left ventricular dilatation and reduced global left ventricular systolic function, Impella in place Data Review: WBC 19.7, hemoglobin 11.3, bicarb 26, potassium 3.8, creatinine 1.18, procalcitonin 12.6 DVT prophylaxis: Heparin gtt Anticipated discharge date: Pending Clinical Course Anticipated discharge place: Pending Clinical Course Objective - Vital Signs Vital signs: Vital Signs Temp 98 F 10/20/23 12:00 Pulse 77 10/20/23 13:01 Resp 19 10/20/23 12:00 BP 112/73 10/20/23 12:00 Pulse Ox 95 10/20/23 12:00 FiO2 Intake & Output 10/19/23 10/20/23 10/20/23 18:59 06:59 18:59 Intake Total 850.299 967.301 308 Output Total 1490 1700 575 Balance -639.701 -732.699 -267 Weight 78.8 kg 78.8 kg Intake: IV 590 678 138 0.9 @KVO 140 120 120 Azithromycin 500 mg In 250 Sodium Chloride 0.9% 250 ml @ 250 mls/hr IVPB DAILY@0100 COUNTS INCLUDE 234 BEDS AT THE [facility] Rx#: [id number] Pressure Bag 33 18 Sodium Chloride 0.9% 1, 225 000 ml In Empty Bag 1 bag @ 75 mls/hr IV .[id number] [facility] Rx#:[id number] cefTRIAXone 2 gm In 50 Sodium Chloride 0.9% 50 ml @ 100 mls/hr IVPB ONCE [facility] Rx#:[id number] Intake, IV Titration 260.299 114.301 Amount Heparin Sod,Pork in 0.45% 195.279 39.301 NaCl 25,000 unit In 0.45 % NaCl 1 250ml.bag @ 12 UNITS/KG/HR 9.798 mls/hr IV .Q24H [facility] Rx#: [id number] Norepinephrine 4 mg In 65.02 Sodium Chloride 0.9% 250 ml @ 0.03 MCG/KG/MIN 9. 332 mls/hr IV .Q24H [facility] Rx#:[id number] Sodium Chloride 0.9% 1, 75 000 ml In Empty Bag 1 bag @ 75 mls/hr IV .[id number] [facility] Rx#:[id number] Oral 175 170 Output: Urine 1490 1700 575 Other: Voiding Method Indwelling Catheter Indwelling Catheter Indwelling Catheter ABP, PAP, CO, CI - Last Documented Arterial Blood Pressure 116/70 - Labs CBC & Chem 7: 10/20/23 03:26 10/20/23 11:41 Labs: Abnormal Lab Results - Last 24 Hours (Table) 10/19/23 10/19/23 10/19/23 Range/Units 16:48 16:50 16:50 WBC (3.8-10.6) k/uL RBC (4.30-5.90) m/uL Hgb (13.0-17.5) gm/dL Hct (39.0-53.0) % Neutrophils # (1.3-7.7) k/uL Monocytes # (0-1.0) k/uL APTT 96.7 H (22.0-30.0) sec Fibrinogen 743 H (200-500) mg/dL Chloride (98-107) mmol/L BUN (9-20) mg/dL POC Glucose (mg/dL) 124 H (70-110) mg/dL Calcium (8.4-10.2) mg/dL Magnesium (1.6-2.3) mg/dL Total Bilirubin (0.2-1.3) mg/dL AST (17-59) U/L ALT (4-49) U/L Lactate Dehydrogenase 1363 H (120-246) U/L Total Protein (6.3-8.2) g/dL Albumin (3.5-5.0) g/dL Procalcitonin (0.02-0.09) ng/mL 10/19/23 10/19/23 10/19/23 Range/Units 21:52 21:52 23:32 WBC (3.8-10.6) k/uL RBC (4.30-5.90) m/uL Hgb (13.0-17.5) gm/dL Hct (39.0-53.0) % Neutrophils # (1.3-7.7) k/uL Monocytes # (0-1.0) k/uL APTT 43.0 H (22.0-30.0) sec Fibrinogen 656 H (200-500) mg/dL Chloride (98-107) mmol/L BUN (9-20) mg/dL POC Glucose (mg/dL) (70-110) mg/dL Calcium (8.4-10.2) mg/dL Magnesium (1.6-2.3) mg/dL Total Bilirubin (0.2-1.3) mg/dL AST (17-59) U/L ALT (4-49) U/L Lactate Dehydrogenase 1261 H (120-246) U/L Total Protein (6.3-8.2) g/dL Albumin (3.5-5.0) g/dL Procalcitonin (0.02-0.09) ng/mL 10/20/23 10/20/23 10/20/23 Range/Units 01:54 01:54 03:26 WBC (3.8-10.6) k/uL RBC (4.30-5.90) m/uL Hgb (13.0-17.5) gm/dL Hct (39.0-53.0) % Neutrophils # (1.3-7.7) k/uL Monocytes # (0-1.0) k/uL APTT (22.0-30.0) sec Fibrinogen 725 H (200-500) mg/dL Chloride 110 H (98-107) mmol/L BUN 25 H (9-20) mg/dL POC Glucose (mg/dL) (70-110) mg/dL Calcium 8.2 L (8.4-10.2) mg/dL Magnesium (1.6-2.3) mg/dL Total Bilirubin 1.8 H (0.2-1.3) mg/dL AST 103 H (17-59) U/L ALT 83 H (4-49) U/L Lactate Dehydrogenase 1058 H (120-246) U/L Total Protein 5.3 L (6.3-8.2) g/dL Albumin 2.6 L (3.5-5.0) g/dL Procalcitonin (0.02-0.09) ng/mL 10/20/23 10/20/23 10/20/23 Range/Units 03:26 03:26 03:26 WBC 19.7 H (3.8-10.6) k/uL RBC 3.58 L (4.30-5.90) m/uL Hgb 11.3 L (13.0-17.5) gm/dL Hct 35.2 L (39.0-53.0) % Neutrophils # 16.6 H (1.3-7.7) k/uL Monocytes # 1.1 H (0-1.0) k/uL APTT (22.0-30.0) sec Fibrinogen (200-500) mg/dL Chloride (98-107) mmol/L BUN (9-20) mg/dL POC Glucose (mg/dL) (70-110) mg/dL Calcium (8.4-10.2) mg/dL Magnesium 2.4 H (1.6-2.3) mg/dL Total Bilirubin (0.2-1.3) mg/dL AST (17-59) U/L ALT (4-49) U/L Lactate Dehydrogenase (120-246) U/L Total Protein (6.3-8.2) g/dL Albumin (3.5-5.0) g/dL Procalcitonin 12.60 H (0.02-0.09) ng/mL 10/20/23 10/20/23 10/20/23 Range/Units 05:31 05:31 05:31 WBC (3.8-10.6) k/uL RBC (4.30-5.90) m/uL Hgb (13.0-17.5) gm/dL Hct (39.0-53.0) % Neutrophils # (1.3-7.7) k/uL Monocytes # (0-1.0) k/uL APTT 45.7 H (22.0-30.0) sec Fibrinogen 696 H (200-500) mg/dL Chloride (98-107) mmol/L BUN (9-20) mg/dL POC Glucose (mg/dL) (70-110) mg/dL Calcium (8.4-10.2) mg/dL Magnesium (1.6-2.3) mg/dL Total Bilirubin (0.2-1.3) mg/dL AST (17-59) U/L ALT (4-49) U/L Lactate Dehydrogenase 1071 H (120-246) U/L Total Protein (6.3-8.2) g/dL Albumin (3.5-5.0) g/dL Procalcitonin (0.02-0.09) ng/mL 10/20/23 10/20/23 Range/Units 11:41 11:41 WBC (3.8-10.6) k/uL RBC (4.30-5.90) m/uL Hgb (13.0-17.5) gm/dL Hct (39.0-53.0) % Neutrophils # (1.3-7.7) k/uL Monocytes # (0-1.0) k/uL APTT (22.0-30.0) sec Fibrinogen 768 H (200-500) mg/dL Chloride (98-107) mmol/L BUN (9-20) mg/dL POC Glucose (mg/dL) (70-110) mg/dL Calcium (8.4-10.2) mg/dL Magnesium (1.6-2.3) mg/dL Total Bilirubin (0.2-1.3) mg/dL AST (17-59) U/L ALT (4-49) U/L Lactate Dehydrogenase 995 H (120-246) U/L Total Protein (6.3-8.2) g/dL Albumin (3.5-5.0) g/dL Procalcitonin (0.02-0.09) ng/mL Microbiology - Last 24 Hours (Table) 10/17/23 23:55 Blood Culture - Preliminary Blood 10/17/23 23:40 Blood Culture - Preliminary Blood 10/18/23 21:40 Gram Stain - Preliminary Sputum Sputum Culture - Preliminary Prerna albicans
[2023-10-20] MEDS: MIDAZOLAM 2 MG/2 ML VIAL IVP ONE (13:30)
[2023-10-20] MEDS: SODIUM CHLORIDE 0.9% 1,000 ML IV ONE (13:30)
[2023-10-20] MEDS ORDERED: fentaNYL (PF) 50 MCG/ML 2 ML AMP ONE (13:32)
[2023-10-20] MEDS: LIDOCAINE 1% INJ 10MG/ML (20 ML MDV) SQ ONE (13:33)
[2023-10-20] MEDS: fentaNYL (PF) 50 MCG/ML 2 ML AMP IVP ONE (13:33)
[2023-10-20] MEDS ORDERED: MORPHINE SULFATE 4 MG/ML SYRINGE ONE (13:45)
[2023-10-20] MEDS: MORPHINE SULFATE 4 MG/ML SYRINGE IVP ONE (13:48)
[2023-10-20] MEDS ORDERED: RX INFO: IV CONTRAST WAS GIVEN 1 EACH MISC MISCELLANE PRN (14:20)
[2023-10-20] MEDS: IOPAMIDOL-370 100ML BTL INJ ONE (14:21)
--- NOTE | 2023-10-20 14:32 | PN ---
PROGRESS NOTE SUBJECTIVE: Marc underwent stenting of the left main coronary artery yesterday. He became very unstable initially at the beginning of the procedure, the lesion within the OM branch was left alone and the left main was stented. Following this, his hemodynamics have improved, blood pressure has gotten better, and his need for pressors has come down. This morning, he is free of cardiac symptoms. No longer on pressors and wanted the Impella device out. OBJECTIVE: VITAL SIGNS: Heart rate is 80 beats per minute, blood pressure is 94/72, respiratory rate is 18. NECK: There is no jugular venous distention. Carotid upstroke is normal. There is no bruit. CHEST: Reveals good air entry bilaterally. HEART: Reveals first and second heart sounds. No gallop. EXTREMITIES: Did not reveal any edema. Distal pulses are palpable. LABORATORY DATA: Labs show that the hemoglobin is 7.3, platelet count is 158, potassium is 3.8, creatinine is 1.1. ASSESSMENT: Cardiogenic shock, status post left main stenting. PLAN: The Impella device will be removed today and will continue with rest of the supportive care. Resume the Eliquis and hopefully home over the next 48 hours. MMODL / IJN: [id number] /
[2023-10-20] MEDS: SODIUM CHLORIDE 0.9% 1,000 ML IV SCH (15:30)
[2023-10-20] MEDS: AMIODARONE 100 MG TAB PO SCH (20:05)
[2023-10-20] MEDS: ATORVASTATIN 20 MG TAB PO SCH (20:08)
[2023-10-20] MEDS ORDERED: APIXABAN 5 MG TAB PO SCH (21:00)
[2023-10-21 05:35] LABS: Basophils % (A) 0 %; Eosinophils # (A) 0.2 k/uL (0-0.7); Eosinophils % (A) 2 %; HGB 11.1 gm/dL (13.0-17.5); Lymphocytes # (A) 1.7 k/uL (1.0-4.8); Lymphocytes % (A) 12 %; MCH 31.4 pg (25.0-35.0); MCHC 31.6 g/dL (31.0-37.0); MCV 99.3 fL (80.0-100.0); Macrocytosis Slight; Mean Platelet Volume 9.4; Monocytes # (A) 0.7 k/uL (0-1.0); Monocytes % (A) 5 %; Neutrophils # (A) 10.9 k/uL (1.3-7.7); Neutrophils % (A) 80 %; Platelet Count 154 k/uL (150-450); RBC 3.53 m/uL (4.30-5.90); RDW 15.1 % (11.5-15.5); WBC 13.6 k/uL (3.8-10.6)
[2023-10-21] MEDS ORDERED: guaiFENesin-Coden 100-10MG/5ML 10 ML CUP PO PRN (05:37)
[2023-10-21 05:47] LABS: African American GFR (CKD) 85 (>60 ml/min/1.73 sqM); Anion Gap 1 mmol/L; Blood Urea Nitrogen 20 mg/dL (9-20); Calcium 8.1 mg/dL (8.4-10.2); Carbon Dioxide 28 mmol/L (22-30); Chloride 110 mmol/L (98-107); Glucose 94 mg/dL (74-99); Magnesium 2.1 mg/dL (1.6-2.3); Non-African American GFR(CKD) 74 (>60 ml/min/1.73 sqM); Potassium 4.1 mmol/L (3.5-5.1); Sodium 139 mmol/L (137-145)
[2023-10-21 05:55] LABS: INR 1.1 (<1.2); Prothrombin Time 11.5 sec (10.0-12.5)
--- NOTE | 2023-10-21 07:41 | XR ---
EXAMINATION TYPE: XR chest 1V portable DATE OF EXAM: 10/21/2023 HISTORY: Impella, aortic balloon pump COMPARISON: 10/20/2023 TECHNIQUE: Single view of the chest is submitted. FINDINGS: Demonstrated are scattered senescent parenchymal change. There is no evidence for focal infiltrate. The heart is stable. Continued mild cardiomegaly with pulmonary venous congestion. IACD device is in place. Aortic balloon pump appears to have been removed. Hilar and mediastinal structures are within normal limits. Degenerative changes are seen of the dorsal spine. IMPRESSION: 1. Stable mild features of congestive failure.
--- NOTE | 2023-10-21 07:55 | P.PCN ---
Date of Procedure: 10/21/23 Operative Findings: Removal of Impella CP from the left ventricle Performing physician Alexandre Brantley MD Procedure performed 1. Successful removal of Impella CP from the LV 2. Successful balloon tamponade adding the right common femoral artery with an excellent hemostasis confirmed by angiogram Indication This is a 63-year-old gentleman who was admitted to the hospital with acute coronary syndrome complicated by cardiogenic shock. He underwent PCI of the left main coronary artery. He was stable hemodynamically and not requiring any vasopressors. With that being said he was brought today to undergo removal of Impella CP from the LV Approach Right and left common femoral arteries Complication None Level of sedation Moderate with sedation length about 30 minutes Procedure description After obtaining informed consent the patient was brought to the cardiac [facility]. He was prepped and draped in the usual sterile fashion. He had 2 Perclose devices placed before the Impella CP was inserted but unfortunately the strings of the devices got so much dry and subsequently ripped. For that reason attempting removing the Impella CP along with the sheath with achieving hemostasis through the Perclose device was unsuccessful and for that reason I decided to go ahead and place a 14 Irish sheath to achieve temporary hemostasis till I get up and over. After that I was able to go up and over from the left groin which already has a [address]. I was able to advance a 70 cm 7 Irish sheath [address] the way to the right external iliac artery under fluoroscopy guidance and using a rim catheter with a 035 stiff Glidewire and the sheath was advanced all the way to the right external iliac artery. Subsequently using 7 mm x 40 mm balloon I was able to balloon tamponade the right common femoral artery for about 10 minutes. An angiogram was performed after that and showed a leak from the inferior segment of the right common femoral artery. Balloon tamponading again for another 5 minutes was performed with final angiogram showing excellent hemostasis with no leak and no evidence of any extravasation. The procedure was completed with no complication. After that I was able to exchange the 70 cm sheath into 11 cm sheath using 035 stiff Glidewire and that was a 7 Irish sheath. The procedure was completed with no complication Postprocedure management Remove the 7 Irish sheath from the left groin with manual pressure Continue monitoring the patient in the intensive care unit
[2023-10-21] MEDS: FUROSEMIDE 10 MG/ML 4 ML VIAL IV STA (09:25)
--- NOTE | 2023-10-21 10:18 | P.PN ---
Subjective Progress Note Date: 10/21/23 Patient is a 63-year-old white male with past medical history significant for moderate COPD, multivessel coronary artery disease with previous PCI/stent, severe ischemic cardiomyopathy with an ejection fraction of less than 20%, valvular heart disease, V. tach, AICD, atrial fibrillation, hyperlipidemia, h ypertension, CVA/TIA, and former tobacco smoker. Patient presented to the emergency room late last night complaining of a combination of left-sided chest pain, shortness of breath, and increased generalized weakness for most of the day. He is currently in trauma bay 2. He is lying in bed, on 5 L/min nasal cannula, he is anxious. He is in no acute distress, however, still complaining of some left-sided nonradiating chest pain. It is not reproducible. He was started on the IV heparin protocol per cardiology. Troponins continue to trend up, 1.57 and 2.1 respectively. EKG on arrival demonstrates what appears to be a first-degree AV block along with interventricular conduction delay, and Q waves in the lateral leads. Blood pressure was hypotensive on arrival, and he was aggressively fluid resuscitated with a total of 3 L of normal saline bolus. He was also started on a norepinephrine infusion, which is currently at a rate of 0.1 mcg/kg/min or approximately 8 mcg/min. Chest x-ray done on arrival was read as normal, however, there appears to be cardiomegaly with interstitial edema. No focal infiltrates or evidence of pneumonia. NT proBNP elevated at 5780. Patient denies any fever. He has been coughing, but is mostly nonproductive. CBC on arrival unremarkable other than some leukocytosis. WBC count 20. BMP on arrival: Sodium 136, potassium 4.4, chloride 103, serum bicarb 22, BUN 24, creatinine up to 1.72, glucose 155. LFTs mildly elevated. Patient's condition is currently critical. The [facility] Development Specialist is on their way and, patient will undergo heart catheterization. Afterwards, he will be best monitored in the intensive care unit. The patient is seen today October 19, 2023 in follow-up in the intensive care unit. He is currently awake and alert. He is maintaining O2 saturations in the low 90s on 2 L/min per nasal cannula. Mean arterial pressure of 67. He is afebrile. He is resting fairly comfortably in bed. He is having some complaints of back pain. The Impella device remains in place currently at P-5 with a cardiac output of 2.3. Echocardiogram revealed an ejection fraction of 15%. He remains on a heparin drip. He is on norepinephrine at 0.02 mcg/kg/min. Normal saline at KVO. Cardiac catheterization revealed a patent stent within the proximal and mid LAD and a 95% stenosis involving the ostial portion of the OM branch, chronically occluded right coronary artery. X-ray continues with cardiomegaly and pulmonary venous congestion. LVAD in place. Sputum cultures pending. His procalcitonin was 15.2. He is continued on ceftriaxone and azithromycin. White count 26.6. Hemoglobin 12.9. Platelets 192. Sodium 137. Potassium 4.1. Bicarb 23. BUN 29. Creatinine 1.31. Lactic acid 1.2. The patient is seen today October 20, 2023 in follow-up in the intensive care unit. He is currently resting fairly comfortably in bed. Awake and alert in no acute distress. He is maintaining O2 saturations in the 90s on 3 L nasal cannula, currently afebrile. He has normal staying at 20 MLS per hour. Continued on a heparin drip. He did go to the [facility] yesterday and had stenting to the left main however unable to stent the OM1. Impella remains in place set at P5. Cardiac output 2.6. Chest x-ray is showing improvement in the congestive heart failure. White count 19.7. Hemoglobin 11.3. Sodium 143. Potassium 3.8. Bicarb 26. BUN 25. Creatinine 1.18. AST 103. ALT 83. LDH 1071. Albumin 2.6. He remains on ceftriaxone and azithromycin. Continued on bronchodilators. The patient is seen today October 21, 2023 in follow-up in the intensive care unit. He is awake and alert in no acute distress. Resting fairly comfortably in bed. Maintaining O2 saturations in the 90s on 4 L/min per nasal cannula. Chest x-r ay is showing improvement. The Impella has been removed. He denies any chest pain or palpitations currently. He does have some dyspnea with conversation. Dyspnea with minimal exertion. He remains on DuoNeb ventilations, Pulmicort and Perforomist inhalations, Solu-Medrol. He is on antibiotics in the form of ceftriaxone. Blood cultures revealed no growth. Sputum culture reveals Prerna. White count 13.6. Hemoglobin 11.1. Platelets 154. Sodium 139. Potassium 4.1. Bicarb 28. BUN 20. Creatinine 1.07. Glucose 74. Objective - Vital Signs Vital signs: Vital Signs Temp 97.6 F 10/21/23 08:00 Pulse 77 10/21/23 09:00 Resp 32 H 10/21/23 09:00 BP 105/79 10/21/23 09:00 Pulse Ox 95 10/21/23 09:00 FiO2 Intake & Output 10/20/23 10/21/23 10/21/23 18:59 06:59 18:59 Intake Total 1041 755 80 Output Total 1160 800 400 Balance -119 -45 -320 Weight 78.8 kg 80.3 kg Intake: IV 511 755 80 0.9 @KVO 140 Azithromycin 500 mg In 250 Sodium Chloride 0.9% 250 ml @ 250 mls/hr IVPB DAILY@0100 [facility] Rx#: [id number] Pressure Bag 21 Sodium Chloride 0.9% 1, 180 80 000 ml @ 20 mls/hr IV . Q24H [facility] Rx#:[id number] Sodium Chloride 0.9% 1, 300 225 000 ml @ 75 mls/hr IV . [id number] [facility] Rx#:[id number] cefTRIAXone 2 gm In 100 Sodium Chloride 0.9% 50 ml @ 100 mls/hr IVPB ONCE [facility] Rx#:[id number] Oral 410 Tube Feeding 120 Output: Urine 1160 800 400 Other: Voiding Method Indwelling Catheter Indwelling Catheter # Voids 1 ABP, PAP, CO, CI - Last Documented Arterial Blood Pressure 116/72 - Exam GENERAL EXAM: Alert, 63-year-old male, resting in bed, on 4 L nasal cannula, comfortable in no apparent distress. HEAD: Normocephalic. EYES: Normal reaction of pupils, equal size. NOSE: Clear with pink turbinates. THROAT: No erythema or exudates. NECK: No masses, no JVD. CHEST: No chest wall deformity. AICD in place. LUNGS: Equal air entry with crackles in the bilateral bases and expiratory wheeze, diminished. CVS: S1 and S2 normal with no audible murmur, regular rhythm. ABDOMEN: No hepatosplenomegaly, normal bowel sounds, no guarding or rigidity. SPINE: No scoliosis or deformity SKIN: No rashes CENTRAL NERVOUS SYSTEM: No focal deficits, tone is normal in all 4 extremities. EXTREMITIES: There is no peripheral edema. No clubbing, no cyanosis. Peripheral pulses are intact. - Labs CBC & Chem 7: 10/21/23 05:06 10/21/23 05:06 Labs: Abnormal Lab Results - Last 24 Hours (Table) 10/20/23 10/20/23 10/20/23 Range/Units 03:26 11:41 11:41 WBC (3.8-10.6) k/uL RBC (4.30-5.90) m/uL Hgb (13.0-17.5) gm/dL Hct (39.0-53.0) % Neutrophils # (1.3-7.7) k/uL Fibrinogen 768 H (200-500) mg/dL Chloride (98-107) mmol/L Calcium (8.4-10.2) mg/dL Lactate Dehydrogenase 995 H (120-246) U/L Procalcitonin 12.60 H (0.02-0.09) ng/mL 10/21/23 10/21/23 Range/Units 05:06 05:06 WBC 13.6 H (3.8-10.6) k/uL RBC 3.53 L (4.30-5.90) m/uL Hgb 11.1 L (13.0-17.5) gm/dL Hct 35.0 L (39.0-53.0) % Neutrophils # 10.9 H (1.3-7.7) k/uL Fibrinogen (200-500) mg/dL Chloride 110 H (98-107) mmol/L Calcium 8.1 L (8.4-10.2) mg/dL Lactate Dehydrogenase (120-246) U/L Procalcitonin (0.02-0.09) ng/mL Microbiology - Last 24 Hours (Table) 10/17/23 23:55 Blood Culture - Preliminary Blood 10/17/23 23:40 Blood Culture - Preliminary Blood 10/18/23 21:40 Gram Stain - Preliminary Sputum Sputum Culture - Preliminary Prerna albicans Assessment and Plan Assessment: Acute non-ST elevation IA, found to have severe ostial stenosis of the OM1, Impella device placed 10/18/2023 removed 10/21/2023. He did undergo successful stenting of the left main coronary artery on 10/19/2023 Acute hypotension and shock refractory to fluid resuscitation, currently requiring norepinephrine, likely cardiogenic in nature Acute leukocytosis, procalcitonin 15.2. Currently on ceftriaxone and azithromycin Acute on chronic systolic heart failure, ejection fraction 15% Acute on chronic hypoxemic respiratory failure, secondary to above, currently on 4 L nasal cannula Acute kidney injury, secondary to hypotension and ATN Mild transaminitis, secondary to hypotension and shock History of severe ischemic cardiomyopathy, with a baseline ejection fraction estimated at less than 15%, with history of V. tach and AICD implantation History of valvular heart disease, with moderate to severe mitral regurgitation along with moderate aortic and tricuspid regurgitation. Moderate chronic obstructive pulmonary disease History of multivessel coronary artery disease with previous PCI/stenting of the proximal and mid LAD History of paroxysmal atrial fibrillation History of hyperlipidemia History of hypertension History of CVA/TIA Former tobacco dependence, quitting in January, Plan: The patient was seen and evaluated Chest x-ray, labs and medications reviewed Continue ceftriaxone and azithromycin Continue Solu-Medrol, bronchodilators Titrate the FiO2 as tolerated Impella removed We will continue to follow I have personally seen and examined the patient, performed the documentation and the assessment and plan as written. Number of minutes spent on the visit: 10.
--- NOTE | 2023-10-21 11:23 | P.PN ---
Subjective Progress Note Date: 10/21/23 Patient is a 63-year-old male with a history of systolic cardiomyopathy with known ejection fraction less than 20% status post AICD, moderate COPD, A-fib anticoagulated with Eliquis, and history of coronary artery disease status post multiple PCI, and multiple other comorbid conditions who presented to the hospital with complaints of generalized weakness. In the emergency department he underwent extensive evaluation initially his vital signs were within normal limits other than an O2 sat of 89% on room air. However 5 minutes after arrival his pulse went to 112, blood pressure 84/64, and O2 sat of 79% on a nonrebreather. Initial laboratory analysis in the emergency department included CBC, coags, CMP, BNP, and troponin which were remarkable for white blood cell count 20.9, sodium 136, BUN 24, creatinine 1.72 (baseline 0.9), total bilirubin 1.9, AST 82, ALT 97, and troponin 1.570. BNP was elevated at 5780. Repeat troponin went up to 2.09. Started on norepinephrine secondary to hypotension after 1 L fluid bolus. He was taken to the [facility] and underwent diagnostic cardiac catheterization which showed severe disease to the left main coronary artery, and severe disease involving left OM. Successful stenting of left main coronary, Impella in place due to cardiogenic shock. There was some concern with his elevated white blood cell count that there is a possible underlying pneumonia and he was subsequently started on oral phylactic Rocephin and Zithromax. His Impella was slightly displaced and this was repositioned on the morning of 10/18/2023 and he then developed hematuria. Impella has since been discontinued. Blood pressure is stable. Patient still has significant dyspnea with minimal exertion. Patient seen and examined at bedside. No acute events overnight. Denies any pain at the moment. He had difficulty getting out of bed due to severe shortness of breath. Vital catheter discontinued. Vital signs reviewed General: Nontoxic, no acute distress, appears at stated age Cardiovascular: S1S2 reg, no murmur Lungs: Bilateral fine rales, no accessory muscle use, supplemental oxygen Abdominal: Soft, nontender to palpation, no guarding Ext: No gross muscle atrophy, no edema b/l lower extremities, no contractures Neuro: CN II-XI grossly intact, no focal neuro deficits Psych: Alert, oriented, appropriate affect Assessment/Plan: Non-ST segment elevated myocardial infarction Cardiogenic shock, resolved Decompensated systolic congestive heart failure with ejection fraction less than 20% status post AICD Paroxysmal atrial fibrillation Acute on chronic hypoxic respiratory failure, multifactorial Suspected bacterial with elevated procalcitonin -Procedure note reviewed, Impella removed - Cardiology following, On Brilinta 90 twice daily, aspirin 81 mg, atorvastatin 20, amiodarone increased to 100 twice daily, heparin drip discontinued, started on Eliquis 2.5 twice daily - Discussed management with pulmonology, patient given 1 dose of IV 40 Lasix, also started on Solu-Medrol 60 every 6 hours, also on albuterol as needed, Perforomist twice daily, Pulmicort twice daily, DuoNeb 4 times daily -Status post IV azithromycin, continued on IV ceftriaxone 2 g every 24 hours, completed 5-day course -Jardiance and ramipril restarted - Consider restarting beta-shawn if pressures continue to improve -Repeat CMP in AM Acute kidney injury likely secondary to hypoperfusion, resolved Transaminitis, likely secondary to hypoperfusion, resolving Chronic low back pain -On Tylenol as needed, [place] as needed, IV morphine as needed, monitor for sedation Chronic: Moderate COPD without exacerbation Hypertension Dyslipidemia Memory impairment Seizure disorder History of CVA Imaging: Chest x-ray independently interpreted, shows improved interstitial opacities Hospital course imaging Echocardiogram demonstrates ejection fraction at 15% with severe left ventricular dilatation and reduced global left ventricular systolic function, Impella in place Data Review: WBC 13.6, hemoglobin 11.1, creatinine 1.07, magnesium 2.1 DVT prophylaxis: Eliquis Anticipated discharge date: Pending Clinical Course Anticipated discharge place: Pending Clinical Course Objective - Vital Signs Vital signs: Vital Signs Temp 97.6 F 10/21/23 08:00 Pulse 77 10/21/23 09:00 Resp 32 H 10/21/23 09:00 BP 105/79 10/21/23 09:00 Pulse Ox 95 10/21/23 09:00 FiO2 Intake & Output 10/20/23 10/21/23 10/21/23 18:59 06:59 18:59 Intake Total 1041 755 80 Output Total 1160 800 400 Balance -119 -45 -320 Weight 78.8 kg 80.3 kg Intake: IV 511 755 80 0.9 @KVO 140 Azithromycin 500 mg In 250 Sodium Chloride 0.9% 250 ml @ 250 mls/hr IVPB DAILY@0100 [facility] Rx#: [id number] Pressure Bag 21 Sodium Chloride 0.9% 1, 180 80 000 ml @ 20 mls/hr IV . Q24H [facility] Rx#:[id number] Sodium Chloride 0.9% 1, 300 225 000 ml @ 75 mls/hr IV . [id number] [facility] Rx#:[id number] cefTRIAXone 2 gm In 100 Sodium Chloride 0.9% 50 ml @ 100 mls/hr IVPB ONCE [facility] Rx#:[id number] Oral 410 Tube Feeding 120 Output: Urine 1160 800 400 Other: Voiding Method Indwelling Catheter Indwelling Catheter Urinal # Voids 1 ABP, PAP, CO, CI - Last Documented Arterial Blood Pressure 116/72 - Labs CBC & Chem 7: 10/21/23 05:06 10/21/23 05:06 Labs: Abnormal Lab Results - Last 24 Hours (Table) 10/20/23 10/20/23 10/20/23 Range/Units 03:26 11:41 11:41 WBC (3.8-10.6) k/uL RBC (4.30-5.90) m/uL Hgb (13.0-17.5) gm/dL Hct (39.0-53.0) % Neutrophils # (1.3-7.7) k/uL Fibrinogen 768 H (200-500) mg/dL Chloride (98-107) mmol/L Calcium (8.4-10.2) mg/dL Lactate Dehydrogenase 995 H (120-246) U/L Procalcitonin 12.60 H (0.02-0.09) ng/mL 10/21/23 10/21/23 Range/Units 05:06 05:06 WBC 13.6 H (3.8-10.6) k/uL RBC 3.53 L (4.30-5.90) m/uL Hgb 11.1 L (13.0-17.5) gm/dL Hct 35.0 L (39.0-53.0) % Neutrophils # 10.9 H (1.3-7.7) k/uL Fibrinogen (200-500) mg/dL Chloride 110 H (98-107) mmol/L Calcium 8.1 L (8.4-10.2) mg/dL Lactate Dehydrogenase (120-246) U/L Procalcitonin (0.02-0.09) ng/mL Microbiology - Last 24 Hours (Table) 10/18/23 21:40 Gram Stain - Final Sputum Sputum Culture - Final Prerna albicans 10/17/23 23:55 Blood Culture - Preliminary Blood 10/17/23 23:40 Blood Culture - Preliminary Blood
[2023-10-21] MEDS: IPRATROPIUM-ALBUTEROL 3 ML NEB INHALATION SCH (11:27)
[2023-10-21] MEDS: methylPREDNISolone SOD SUCCI 125 MG/2 ML VIAL IV SCH (12:33)
[2023-10-21] MEDS: lisinopriL 10 MG TAB PO SCH (13:11)
[2023-10-21] MEDS: guaiFENesin-DM 100-10MG/5ML 10 ML CUP PO PRN (16:24)
[2023-10-21] MEDS: APIXABAN 2.5 MG TABLET PO SCH (20:16)
[2023-10-21] MEDS: FORMOTEROL FUMARATE 20 MCG/2 ML NEBU INHALATION SCH (20:48)
[2023-10-21] MEDS: BUDESONIDE 1 MG/2 ML NEBU INHALATION SCH (20:48)
[2023-10-21] MEDS: AMIODARONE 100 MG TAB PO STA (21:10)
[2023-10-21] MEDS: SODIUM CHLORIDE 0.9% 1,000 ML in EMPTY BAG 1 BAG IV SCH (21:10)
[2023-10-21] MEDS: ASPIRIN 325 MG TAB PO STA (21:10)
--- NOTE | 2023-10-21 21:38 | PN ---
PROGRESS NOTE SUBJECTIVE: aMrc is a 63-year-old gentleman, who is admitted to hospital with acute ischemic syndrome, has underlying cardiomyopathy and chronic systolic heart failure, underwent left main stenting and has been doing fairly well since. At the time of my evaluation this morning, he appears in sinus rhythm. Denies any chest pain, difficulty in breathing, palpitations, leg edema. CURRENT MEDICATIONS: Include, 1. Cordarone 100 b.i.d. 2. Eliquis 2.5 b.i.d. 3. Aspirin. 4. Lipitor. 5. Brilinta. The patient will be on triple therapy for a month, after that we can stop the aspirin. OBJECTIVE: GENERAL: Comfortable at rest. VITAL SIGNS: Stable. CHEST: Reveals good air entry bilaterally. HEART: Reveals first and second heart sounds. No gallop. ABDOMEN: Soft. PELVIS: Groin is free of bleeding, bruit, or hematoma. EXTREMITIES: Foot pulses are intact. LABORATORY DATA: Labs show a hemoglobin of 11.1, potassium is 4.1, creatinine is 1. ASSESSMENT: 1. Acute coronary syndrome, status post catheterization and angioplasty of left main coronary artery. 2. Cardiogenic shock, status post Impella device, now resolved. 3. History of atrial fibrillation. PLAN: The patient will continue current medications. Transfer to telemetry floor. MMODL / IJN: [id number] /
[2023-10-21] MEDS: NYSTATIN 100,000 UNIT/ML SUSP 500,000 UNIT/5 ML CUP PO SCH (22:09)
[2023-10-22] MEDS: ALBUTEROL NEBULIZED 2.5 MG/3 ML INHALATION PRN (01:18)
[2023-10-22 02:19] LABS: Basophils % (A) 0 %; Eosinophils # (A) 0.5 k/uL (0-0.7); Eosinophils % (A) 3 %; Lymphocytes # (A) 2.1 k/uL (1.0-4.8); Lymphocytes % (A) 13 %; MCHC 31.6 g/dL (31.0-37.0); MCV 98.1 fL (80.0-100.0); Mean Platelet Volume 10.2; Monocytes % (A) 6 %; Neutrophils # (A) 12.4 k/uL (1.3-7.7); Neutrophils % (A) 76 %; Platelet Count 165 k/uL (150-450); RBC 3.56 m/uL (4.30-5.90); RDW 15.5 % (11.5-15.5); WBC 16.2 k/uL (3.8-10.6)
[2023-10-22 02:37] LABS: ALT 71 U/L (4-49); AST 66 U/L (17-59); African American GFR (CKD) 79 (>60 ml/min/1.73 sqM); Albumin 2.9 g/dL (3.5-5.0); Alkaline Phosphatase 82 U/L (38-126); Anion Gap 4 mmol/L; Blood Urea Nitrogen 15 mg/dL (9-20); Carbon Dioxide 28 mmol/L (22-30); Chloride 108 mmol/L (98-107); Glucose 98 mg/dL (74-99); Non-African American GFR(CKD) 68 (>60 ml/min/1.73 sqM); Potassium 3.3 mmol/L (3.5-5.1); Sodium 140 mmol/L (137-145); Total Bilirubin 1.2 mg/dL (0.2-1.3); Total Protein 5.6 g/dL (6.3-8.2)
[2023-10-22] MEDS: SODIUM CHLORIDE 0.9% 500 ML 500 ML IV ONE (03:32)
[2023-10-22] MEDS: SODIUM CHLORIDE 0.9% 1,000 ML IV ONE (03:32)
[2023-10-22] MEDS: SODIUM CHLORIDE 0.9% 1,000 ML IV SCH (03:46)
[2023-10-22] MEDS: POTASSIUM CHLORIDE ER 20 MEQ TAB.ER PO SCH (04:05)
--- NOTE | 2023-10-22 07:52 | XR ---
EXAMINATION TYPE: XR chest 1V portable DATE OF EXAM: 10/22/2023 HISTORY: Shortness of breath. COMPARISON: 10/21/2023 TECHNIQUE: Single view of the chest is submitted. FINDINGS: Demonstrated are scattered senescent parenchymal change. There is no evidence for focal infiltrate. Continued cardiomegaly with interstitial edema. Infiltrates of other etiology difficult to exclude. Hilar and mediastinal structures are within normal limits. Degenerative changes are seen of the dorsal spine. IMPRESSION: 1. Continued cardiomegaly with interstitial edema. Infiltrates of other etiology difficult to exclud e. Overall stable chest.
[2023-10-22] MEDS: METOPROLOL TARTRATE 12.5 MG TAB PO SCH (09:18)
[2023-10-22] MEDS: DAPAGLIFLOZIN PROPANEDIOL 5 MG TABLET PO SCH (09:19)
--- NOTE | 2023-10-22 12:09 | P.PN ---
Subjective Progress Note Date: 10/22/23 Patient is a 63-year-old white male with past medical history significant for moderate COPD, multivessel coronary artery disease with previous PCI/stent, severe ischemic cardiomyopathy with an ejection fraction of less than 20%, valvular heart disease, V. tach, AICD, atrial fibrillation, hyperlipidemia, h ypertension, CVA/TIA, and former tobacco smoker. Patient presented to the emergency room late last night complaining of a combination of left-sided chest pain, shortness of breath, and increased generalized weakness for most of the day. He is currently in trauma bay 2. He is lying in bed, on 5 L/min nasal cannula, he is anxious. He is in no acute distress, however, still complaining of some left-sided nonradiating chest pain. It is not reproducible. He was started on the IV heparin protocol per cardiology. Troponins continue to trend up, 1.57 and 2.1 respectively. EKG on arrival demonstrates what appears to be a first-degree AV block along with interventricular conduction delay, and Q waves in the lateral leads. Blood pressure was hypotensive on arrival, and he was aggressively fluid resuscitated with a total of 3 L of normal saline bolus. He was also started on a norepinephrine infusion, which is currently at a rate of 0.1 mcg/kg/min or approximately 8 mcg/min. Chest x-ray done on arrival was read as normal, however, there appears to be cardiomegaly with interstitial edema. No focal infiltrates or evidence of pneumonia. NT proBNP elevated at 5780. Patient denies any fever. He has been coughing, but is mostly nonproductive. CBC on arrival unremarkable other than some leukocytosis. WBC count 20. BMP on arrival: Sodium 136, potassium 4.4, chloride 103, serum bicarb 22, BUN 24, creatinine up to 1.72, glucose 155. LFTs mildly elevated. Patient's condition is currently critical. The Sailing Officer is on their way and, patient will undergo heart catheterization. Afterwards, he will be best monitored in the intensive care unit. The patient is seen today October 19, 2023 in follow-up in the intensive care unit. He is currently awake and alert. He is maintaining O2 saturations in the low 90s on 2 L/min per nasal cannula. Mean arterial pressure of 67. He is afebrile. He is resting fairly comfortably in bed. He is having some complaints of back pain. The Impella device remains in place currently at P-5 with a cardiac output of 2.3. Echocardiogram revealed an ejection fraction of 15%. He remains on a heparin drip. He is on norepinephrine at 0.02 mcg/kg/min. Normal saline at KVO. Cardiac catheterization revealed a patent stent within the proximal and mid LAD and a 95% stenosis involving the ostial portion of the OM branch, chronically occluded right coronary artery. X-ray continues with cardiomegaly and pulmonary venous congestion. LVAD in place. Sputum cultures pending. His procalcitonin was 15.2. He is continued on ceftriaxone and azithromycin. White count 26.6. Hemoglobin 12.9. Platelets 192. Sodium 137. Potassium 4.1. Bicarb 23. BUN 29. Creatinine 1.31. Lactic acid 1.2. The patient is seen today October 20, 2023 in follow-up in the intensive care unit. He is currently resting fairly comfortably in bed. Awake and alert in no acute distress. He is maintaining O2 saturations in the 90s on 3 L nasal cannula, currently afebrile. He has normal staying at 20 MLS per hour. Continued on a heparin drip. He did go to the [facility] yesterday and had stenting to the left main however unable to stent the OM1. Impella remains in place set at P5. Cardiac output 2.6. Chest x-ray is showing improvement in the congestive heart failure. White count 19.7. Hemoglobin 11.3. Sodium 143. Potassium 3.8. Bicarb 26. BUN 25. Creatinine 1.18. AST 103. ALT 83. LDH 1071. Albumin 2.6. He remains on ceftriaxone and azithromycin. Continued on bronchodilators. The patient is seen today October 21, 2023 in follow-up in the intensive care unit. He is awake and alert in no acute distress. Resting fairly comfortably in bed. Maintaining O2 saturations in the 90s on 4 L/min per nasal cannula. Chest x-r ay is showing improvement. The Impella has been removed. He denies any chest pain or palpitations currently. He does have some dyspnea with conversation. Dyspnea with minimal exertion. He remains on DuoNeb ventilations, Pulmicort and Perforomist inhalations, Solu-Medrol. He is on antibiotics in the form of ceftriaxone. Blood cultures revealed no growth. Sputum culture reveals Prerna. White count 13.6. Hemoglobin 11.1. Platelets 154. Sodium 139. Potassium 4.1. Bicarb 28. BUN 20. Creatinine 1.07. Glucose 74. The patient is seen today October 22, 2023 in follow-up in the intensive care unit. He is currently resting comfortably in bed. Awake and alert in no acute distress. Maintaining good O2 saturations in the 90s on 3 L/min per nasal cannula. No IV fluids. He is breathing easier today compared to yesterday. Denies any chest pain or palpitations. No cough or congestion. He is continued on DuoNeb ventilations, Pulmicort and perforomist inhalations. Chest x-ray reve als cardiomegaly with interstitial edema. Anticoagulated with Eliquis. White count 16.2. Hemoglobin 11.0. Platelets 165. Sodium 140. Potassium 3.8. Bicarb 28. BUN 15. Creatinine 1.14. AST 66. ALT 71. Procalcitonin 3.19. Objective - Vital Signs Vital signs: Vital Signs Temp 98.2 F 10/22/23 11:44 Pulse 68 10/22/23 11:57 Resp 19 10/22/23 11:44 BP 108/76 10/22/23 11:44 Pulse Ox 98 10/22/23 11:44 FiO2 4 10/21/23 12:00 Intake & Output 10/21/23 10/22/23 10/22/23 18:59 06:59 18:59 Intake Total 240 73 Output Total 3200 800 210 Balance -2960 -727 -210 Weight 76.3 kg Intake: IV 240 73 Pressure Bag 3 Sodium Chloride 0.9% 1, 240 20 000 ml @ 20 mls/hr IV . Q24H [facility] Rx#:[id number] cefTRIAXone 2 gm In 50 Sodium Chloride 0.9% 50 ml @ 100 mls/hr IVPB Q24H [facility] Rx#:[id number] Output: Urine 3200 800 210 Other: Voiding Method Urinal Urinal Urinal # Voids 1 # Bowel Movements 1 0 ABP, PAP, CO, CI - Last Documented Arterial Blood Pressure 116/72 - Exam GENERAL EXAM: Alert, pleasant 63-year-old male, resting in bed, on 3 L nasal cannula, in no apparent distress. HEAD: Normocephalic. EYES: Normal reaction of pupils, equal size. NOSE: Clear with pink turbinates. THROAT: No erythema or exudates. NECK: No masses, no JVD. CHEST: No chest wall deformity. AICD in place. LUNGS: Equal air entry with crackles in the bilateral bases and expiratory wheeze, diminished. CVS: S1 and S2 normal with no audible murmur, regular rhythm. ABDOMEN: No hepatosplenomegaly, normal bowel sounds, no guarding or rigidity. SPINE: No scoliosis or deformity SKIN: No rashes CENTRAL NERVOUS SYSTEM: No focal deficits, tone is normal in all 4 extremities. EXTREMITIES: There is no peripheral edema. No clubbing, no cyanosis. Peripheral pulses are intact. - Labs CBC & Chem 7: 10/22/23 02:01 10/22/23 08:39 Labs: Abnormal Lab Results - Last 24 Hours (Table) 10/22/23 10/22/23 10/22/23 Range/Units 02:01 02:01 04:42 WBC 16.2 H (3.8-10.6) k/uL RBC 3.56 L (4.30-5.90) m/uL Hgb 11.0 L (13.0-17.5) gm/dL Hct 35.0 L (39.0-53.0) % Neutrophils # 12.4 H (1.3-7.7) k/uL Potassium 3.3 L (3.5-5.1) mmol/L Chloride 108 H (98-107) mmol/L Calcium 8.0 L (8.4-10.2) mg/dL AST 66 H (17-59) U/L ALT 71 H (4-49) U/L Total Protein 5.6 L (6.3-8.2) g/dL Albumin 2.9 L (3.5-5.0) g/dL Procalcitonin 3.19 H (0.02-0.09) ng/mL Microbiology - Last 24 Hours (Table) 10/17/23 23:55 Blood Culture - Preliminary Blood 10/17/23 23:40 Blood Culture - Preliminary Blood 10/18/23 21:40 Gram Stain - Final Sputum Sputum Culture - Final Prerna albicans Assessment and Plan Assessment: Acute non-ST elevation AR, found to have severe ostial stenosis of the OM1, Impella device placed 10/18/2023 removed 10/21/2023. He did undergo successful stenting of the left main coronary artery on 10/19/2023 Acute hypotension and shock refractory to fluid resuscitation, requiring norepinephrine, likely cardiogenic in nature. Recovered and off pressors Acute leukocytosis, procalcitonin 15.2 and currently down to 3.19. Currently on ceftriaxone and completed azithromycin Acute on chronic systolic heart failure, ejection fraction 15% Acute on chronic hypoxemic respiratory failure, secondary to above, currently on 3 L nasal cannula Acute kidney injury, secondary to hypotension and ATN Mild transaminitis, secondary to hypotension and shock History of severe ischemic cardiomyopathy, with a baseline ejection fraction es timated at less than 15%, with history of V. tach and AICD implantation History of valvular heart disease, with moderate to severe mitral regurgitation along with moderate aortic and tricuspid regurgitation. Moderate chronic obstructive pulmonary disease History of multivessel coronary artery disease with previous PCI/stenting of the proximal and mid LAD History of paroxysmal atrial fibrillation History of hyperlipidemia History of hypertension History of CVA/TIA Former tobacco dependence, quitting in January, Plan: The patient was seen and evaluated Chest x-ray, labs and medications reviewed Continue ceftriaxone Continue bronchodilators Titrate the FiO2 as tolerated Transfer to cardiac stepdown floor We will continue to follow I have personally seen and examined the patient, performed the documentation and the assessment and plan as written. Number of minutes spent on the visit: 10.
--- NOTE | 2023-10-22 14:34 | P.PN ---
Subjective Progress Note Date: 10/22/23 Patient is a 63-year-old male with a history of systolic cardiomyopathy with known ejection fraction less than 20% status post AICD, moderate COPD, A-fib anticoagulated with Eliquis, and history of coronary artery disease status post multiple PCI, and multiple other comorbid conditions who presented to the hospital with complaints of generalized weakness. In the emergency department he underwent extensive evaluation initially his vital signs were within normal limits other than an O2 sat of 89% on room air. However 5 minutes after arrival his pulse went to 112, blood pressure 84/64, and O2 sat of 79% on a nonrebreather. Initial laboratory analysis in the emergency department included CBC, coags, CMP, BNP, and troponin which were remarkable for white blood cell count 20.9, sodium 136, BUN 24, creatinine 1.72 (baseline 0.9), total bilirubin 1.9, AST 82, ALT 97, and troponin 1.570. BNP was elevated at 5780. Repeat troponin went up to 2.09. Started on norepinephrine secondary to hypotension after 1 L fluid bolus. He was taken to the Atm Technician and underwent diagnostic cardiac catheterization which showed severe disease to the left circumflex however he was also found to have possible cardiogenic shock and therefore Dr. Ng came in and placed an Impella device. There was some concern with his elevated white blood cell count that there is a possible underlying pneumonia an d he was subsequently started on oral phylactic Rocephin and Zithromax. Per the Atm Technician he was transferred to the intensive care unit. His Impella was slightly displaced and this was repositioned on the morning of 10/18/2023 and he then developed hematuria, which slowly improved. On 10/19/2023 he underwent PCI to the left main. His pillow was able to be removed on 10/21/2023. He was able to be weaned off of vasopressors. He was resumed on Eliquis. Patient seen and examined at bedside. He denies any chest pain. He continues to feel like it is difficult to take a deep breath and he has some shortness of breath. He continues to have a low appetite which he had at home. We again discussed the severity of his congestive heart failure and that this is a very serious condition that can be life limiting. D/W patient palliative care at home as will likely continue to have symptoms after discharge and patient is in agreement. Vital signs reviewed General: Nontoxic, mild distress, appears at stated age diaphoretic Cardiovascular: S1S2 reg, no murmur Lungs: Clear to auscultation bilateral, no rhonchi, no rales, no accessory muscle use Abdominal: Soft, nontender to palpation, no guarding Ext: No gross muscle atrophy, no edema b/l lower extremities, no contractures Neuro: CN II-XI grossly intact, no focal neuro deficits Psych: Alert, oriented, appropriate affect Assessment/Plan: Non-ST segment elevated myocardial infarction Severe CAD s/p PCI to the left pain Cardiogenic shock Decompensated systolic congestive heart failure with ejection fraction less than 20% status post AICD Paroxysmal atrial fibrillation Acute kidney injury likely secondary to hypoperfusion, improving Transaminitis, likely secondary to hypoperfusion -Farxiga 5 mg daily, lisinopril 2.5 mg daily, metoprolol 12.5 mg twice daily - Eliquis 2.5 md BID - Brillenta 90 md PO BID -Continue with amiodarone 100 mg twice daily -Echocardiogram demonstrates ejection fraction at 15% with severe left ventricular dilatation and reduced global left ventricular systolic function, Impella in place Acute hypoxic respiratory failure, multifactorial Acute exacerbation of COPD Probable pneumonia with elevated procalcitonin Thrush -Pulmicort 1 mg inhalation twice daily, formoterol 20 mcg inhalation twice daily -DuoNebs 4 times daily -Nystatin 500 units 4 times daily -Zithromax completed, ceftriaxone 2 g IV daily dose #6/7 -Pulmonary critical care note reviewed: Continue current care Chronic low back pain -Continue with [place] 5/325 every 6 hours as needed for pain. Morphine to 2 mg IV every 4 hours for moderate pain and 4 mg IV every 4 hours for severe pain Chronic: Moderate COPD without exacerbation Hypertension Dyslipidemia Memory impairment Seizure disorder History of CVA Imaging: None new. Hospital course imaging Echocardiogram demonstrates ejection fraction at 15% with severe left ventricular dilatation and reduced global left ventricular systolic function, Impella in place Data Review: Labs reviewed include CBC and CMP as well as procalcitonin which are remarkable for white blood cell count 16.2, hemoglobin 11, potassium 3.3, AST 66, ALT 71, procalcitonin 3.19 DVT prophylaxis: Elioquis Anticipated discharge date: in 24-[address]: home with home health and palliative This dictation was prepared using dragon medical voice recognition software. Though every attempt is made to correct errors during dictation some may still exist. Objective - Vital Signs Vital signs: Vital Signs Temp 98.2 F 10/22/23 11:44 Pulse 68 10/22/23 11:57 Resp 19 10/22/23 11:44 BP 108/76 10/22/23 11:44 Pulse Ox 98 10/22/23 11:44 FiO2 4 10/21/23 12:00 Intake & Output 10/21/23 10/22/23 10/22/23 18:59 06:59 18:59 Intake Total 240 73 Output Total 3200 800 210 Balance -2960 -727 -210 Weight 76.3 kg Intake: IV 240 73 Pressure Bag 3 Sodium Chloride 0.9% 1, 240 20 000 ml @ 20 mls/hr IV . Q24H TOO Rx#:[id number] cefTRIAXone 2 gm In 50 Sodium Chloride 0.9% 50 ml @ 100 mls/hr IVPB Q24H TOO Rx#:[id number] Output: Urine 3200 800 210 Other: Voiding Method Urinal Urinal Urinal # Voids 1 # Bowel Movements 1 0 ABP, PAP, CO, CI - Last Documented Arterial Blood Pressure 116/72 - Labs CBC & Chem 7: 10/22/23 02:01 10/22/23 08:39 Labs: Abnormal Lab Results - Last 24 Hours (Table) 10/22/23 10/22/23 10/22/23 Range/Units 02:01 02:01 04:42 WBC 16.2 H (3.8-10.6) k/uL RBC 3.56 L (4.30-5.90) m/uL Hgb 11.0 L (13.0-17.5) gm/dL Hct 35.0 L (39.0-53.0) % Neutrophils # 12.4 H (1.3-7.7) k/uL Potassium 3.3 L (3.5-5.1) mmol/L Chloride 108 H (98-107) mmol/L Calcium 8.0 L (8.4-10.2) mg/dL AST 66 H (17-59) U/L ALT 71 H (4-49) U/L Total Protein 5.6 L (6.3-8.2) g/dL Albumin 2.9 L (3.5-5.0) g/dL Procalcitonin 3.19 H (0.02-0.09) ng/mL Microbiology - Last 24 Hours (Table) 10/17/23 23:55 Blood Culture - Preliminary Blood 10/17/23 23:40 Blood Culture - Preliminary Blood 10/18/23 21:40 Gram Stain - Final Sputum Sputum Culture - Final Prerna albicans
--- NOTE | 2023-10-22 14:57 | PN ---
PROGRESS NOTE SUBJECTIVE: This is a 63-year-old gentleman with coronary artery disease, status post left main stenting, cardiogenic shock, dyslipidemia, and history of paroxysmal atrial fibrillation. This morning, he is comfortable at rest. OBJECTIVE: VITAL SIGNS: Heart rate is 66 beats per minute, blood pressure is 108/76, respiratory rate 18, and O2 saturation is 98% on 3 L. NECK: There is no jugular venous distention. Carotid upstroke is normal. There is no bruit. CHEST: Reveals good air entry bilaterally. HEART: Reveals first and second heart sounds. No gallop. No murmur. EXTREMITIES: Did not reveal any edema. Peripheral pulses are felt. LABORATORY DATA: Hemoglobin of 11, platelet count is 165, and creatinine is 1.1. ASSESSMENT: 1. Coronary artery disease, status post left main stenting. 2. Ischemic cardiomyopathy. 3. Cardiogenic shock. PLAN: I will continue him on his current medications. He will be transferred out of ICU hopefully later today. MMODL / IJN: [id number] /
[2023-10-23 08:29] LABS: HGB 11.9 gm/dL (13.0-17.5); Hypochromasia Slight; MCH 31.2 pg (25.0-35.0); MCHC 31.2 g/dL (31.0-37.0); MCV 99.9 fL (80.0-100.0); Macrocytosis Slight; Mean Platelet Volume 10.2; Platelet Count 239 k/uL (150-450); RBC 3.81 m/uL (4.30-5.90); RDW 15.5 % (11.5-15.5); WBC 16.9 k/uL (3.8-10.6)
[2023-10-23 08:59] LABS: African American GFR (CKD) 88 (>60 ml/min/1.73 sqM); Anion Gap 9 mmol/L; Blood Urea Nitrogen 13 mg/dL (9-20); Calcium 8.8 mg/dL (8.4-10.2); Carbon Dioxide 22 mmol/L (22-30); Chloride 110 mmol/L (98-107); Glucose 185 mg/dL (74-99); Non-African American GFR(CKD) 76 (>60 ml/min/1.73 sqM); Potassium 4.1 mmol/L (3.5-5.1); Sodium 141 mmol/L (137-145)
--- NOTE | 2023-10-23 10:23 | P.PN ---
Subjective HISTORY OF PRESENT ILLNESS: Patient examined this morning. Patient has been transferred out of the intensive care unit. Patient states he does not feel very well this morning. He reports he has been coughing up some blood this morning. He denies chest pain or pressure. He denies shortness of breath. Telemetry reveals sinus mechanism. Blood pressure stable with a recent reading of 98/63. PHYSICAL EXAM: VITAL SIGNS: Reviewed. GENERAL: Well-developed in no acute distress. NECK: Supple. No JVD or thyromegaly LUNGS: Respirations even and unlabored. Lungs essentially clear to auscultation bilaterally. HEART: Regular rate and rhythm. S1 and S2 heard. EXTREMITIES: Normal range of motion. No clubbing or cyanosis. Peripheral pulses intact. No lower extremity edema ASSESSMENT: Non-STEMI with stenting of the left main with Impella support Coronary artery disease Mild hemoptysis Cardiogenic shock Acute heart failure with reduced EF, 15% Ischemic cardiomyopathy History of AICD implantation Paroxysmal atrial fibrillation Acute kidney injury Acute COPD exacerbation Possible pneumonia Hematuria, resolved Transaminitis Pretension Hyperlipidemia History of CVA PLAN: Continue current cardiac medications Hold Eliquis today secondary to mild hemoptysis. May resume tomorrow. Continue telemetry monitoring Further recommendations pending patient course Nurse practitioner note has been reviewed by physician. Signing provider agrees with the documented findings, assessment, and plan of care documented by [employer] as a scribe. Objective - Vital Signs Vital signs: Vital Signs Temp 97.7 F 10/23/23 09:20 Pulse 77 10/23/23 09:20 Resp 20 10/23/23 09:20 BP 98/63 10/23/23 09:20 Pulse Ox 98 10/23/23 09:20 FiO2 4 10/21/23 12:00 Intake & Output 10/22/23 10/23/23 10/23/23 18:59 06:59 18:59 Intake Total 238 Output Total 210 Balance 28 Intake: Oral 238 Output: Urine 210 Other: Voiding Method Urinal Urinal Urinal # Voids 1 1 ABP, PAP, CO, CI - Last Documented Arterial Blood Pressure 116/72 - Labs CBC & Chem 7: 10/23/23 08:18 10/23/23 08:18 Labs: Abnormal Lab Results - Last 24 Hours (Table) 10/23/23 10/23/23 Range/Units 08:18 08:18 WBC 16.9 H (3.8-10.6) k/uL RBC 3.81 L (4.30-5.90) m/uL Hgb 11.9 L (13.0-17.5) gm/dL Hct 38.0 L (39.0-53.0) % Chloride 110 H (98-107) mmol/L Glucose 185 H (74-99) mg/dL
--- NOTE | 2023-10-23 11:28 | P.PN ---
Subjective Progress Note Date: 10/23/23 Principal diagnosis: Hypotension. Patient is a 63-year-old white male with past medical history significant for moderate COPD, multivessel coronary artery disease with previous PCI/stent, severe ischemic cardiomyopathy with an ejection fraction of less than 20%, valvular heart disease, V. tach, AICD, atrial fibrillation, hyperlipidemia, hypertension, CVA/TIA, and former tobacco smoker. Patient presented to the emergency room late last night complaining of a combination of left-sided chest pain, shortness of breath, and increased generalized weakness for most of the day. He is currently in trauma bay 2. He is lying in bed, on 5 L/min nasal cannula, he is anxious. He is in no acute distress, however, still complaining of some left-sided nonradiating chest pain. It is not reproducible. He was started on the IV heparin protocol per cardiology. Troponins continue to trend up, 1.57 and 2.1 respectively. EKG on arrival demonstrates what appears to be a first-degree AV block along with interventricular conduction delay, and Q waves in the lateral leads. Blood pressure was hypotensive on arrival, and he was aggressively fluid resuscitated with a total of 3 L of normal saline bolus. He was also started on a norepinephrine infusion, which is currently at a rate of 0.1 mcg/kg/min or approximately 8 mcg/min. Chest x-ray done on arrival was read as normal, however, there appears to be cardiomegaly with interstitial edema. No focal infiltrates or evidence of pneumonia. NT proBNP elevated at 5780. Patient denies any fever. He has been coughing, but is mostly nonproductive. CBC on arrival unremarkable other than some leukocytosis. WBC count 20. BMP on arrival: Sodium 136, potassium 4.4, chloride 103, serum bicarb 22, BUN 24, creatinine up to 1.72, glucose 155. LFTs mildly elevated. Patient's condition is currently critical. The Correctional Security Officer is on their way and, patient will undergo heart catheterization. Afterwards, he will be best monitored in the intensive care unit. The patient is seen today October 19, 2023 in follow-up in the intensive care unit. He is currently awake and alert. He is maintaining O2 saturations in the low 90s on 2 L/min per nasal cannula. Mean arterial pressure of 67. He is afebrile. He is resting fairly comfortably in bed. He is having some complaints of back pain. The Impella device remains in place currently at P-5 with a cardiac output of 2.3. Echocardiogram revealed an ejection fraction of 15%. He remains on a heparin drip. He is on norepinephrine at 0.02 mcg/kg/min. Normal saline at KVO. Cardiac catheterization revealed a patent stent within the proximal and mid LAD and a 95% stenosis involving the ostial portion of the OM branch, chronically occluded right coronary artery. X-ray continues with cardiomegaly and pulmonary venous congestion. LVAD in place. Sputum cultures pending. His procalcitonin was 15.2. He is continued on ceftriaxone and azithromycin. White count 26.6. Hemoglobin 12.9. Platelets 192. Sodium 137. Potassium 4.1. Bicarb 23. BUN 29. Creatinine 1.31. Lactic acid 1.2. The patient is seen today October 20, 2023 in follow-up in the intensive care unit. He is currently resting fairly comfortably in bed. Awake and alert in no acute distress. He is maintaining O2 saturations in the 90s on 3 L nasal cannula, currently afebrile. He has normal staying at 20 MLS per hour. Continued on a heparin drip. He did go to the Correctional Security Officer yesterday and had stenting to the left main however unable to stent the OM1. Impella remains in place set at P5. Cardiac output 2.6. Chest x-ray is showing improvement in the congestive heart failure. White count 19.7. Hemoglobin 11.3. Sodium 143. Potassium 3.8. Bicarb 26. BUN 25. Creatinine 1.18. AST 103. ALT 83. LDH 1071. Albumin 2.6. He remains on ceftriaxone and azithromycin. Continued on bronchodilators. The patient is seen today October 21, 2023 in follow-up in the intensive care unit. He is awake and alert in no acute distress. Resting fairly comfortably in bed. Maintaining O2 saturations in the 90s on 4 L/min per nasal cannula. Chest x- ray is showing improvement. The Impella has been removed. He denies any chest pain or palpitations currently. He does have some dyspnea with conversation. Dyspnea with minimal exertion. He remains on DuoNeb ventilations, Pulmicort and Perforomist inhalations, Solu-Medrol. He is on antibiotics in the form of ceftriaxone. Blood cultures revealed no growth. Sputum culture reveals Prerna. White count 13.6. Hemoglobin 11.1. Platelets 154. Sodium 139. Potassium 4.1. Bicarb 28. BUN 20. Creatinine 1.07. Glucose 74. The patient is seen today October 22, 2023 in follow-up in the intensive care unit. He is currently resting comfortably in bed. Awake and alert in no acute distress. Maintaining good O2 saturations in the 90s on 3 L/min per nasal cannula. No IV fluids. He is breathing easier today compared to yesterday. Denies any chest pain or palpitations. No cough or congestion. He is continued on DuoNeb ventilations, Pulmicort and perforomist inhalations. Chest x-ray reveals cardiomegaly with interstitial edema. Anticoagulated with Eliquis. White count 16.2. Hemoglobin 11.0. Platelets 165. Sodium 140. Potassium 3.8. Bicarb 28. BUN 15. Creatinine 1.14. AST 66. ALT 71. Procalcitonin 3.19. Progress note dated October 23, 2023. The patient is seen today in room 367. He is resting comfortably. He is on 2 L of oxygen. He is not receiving any IV fluids. He was seen yesterday in the intensive care unit. He denies any shortness of breath, difficulty breathing, coughing, chest pain, pressure, or palpitations. White count of 16.9, hemoglobin 11.9, hematocrit 38, platelet count 239,000. Sodium is 141, potassium 4.1, chlorides 110, CO2 22, BUN 13 and creatinine 1.04. Yesterday's procalcitonin level was 3.19. Cultures are currently pending are negative. No chest x-ray today. Objective - Vital Signs Vital signs: Vital Signs Temp 97.7 F 10/23/23 09:20 Pulse 85 10/23/23 10:55 Resp 20 10/23/23 10:55 BP 119/80 10/23/23 10:55 Pulse Ox 95 10/23/23 10:55 FiO2 4 10/21/23 12:00 Intake & Output 10/22/23 10/23/23 10/23/23 18:59 06:59 18:59 Intake Total 238 240 Output Total 210 Balance 28 240 Intake: Oral 238 240 Output: Urine 210 Other: Voiding Method Urinal Urinal Urinal # Voids 1 1 3 # Bowel Movements 1 ABP, PAP, CO, CI - Last Documented Arterial Blood Pressure 116/72 - Exam No acute distress, oriented 3. Currently on 2 L. No conversational dyspnea or use of accessory muscles. HEENT examination is grossly unremarkable. Mucous membranes are moist. No oral lesions. Neck supple. Full range of motion. No adenopathy thyromegaly or neck vein distention. Cardiovascular examination reveals regular rhythm rate. S1-S2 normal. No S3 or S4. No discernible murmur noted. Heart rate 83 bpm. Lungs reveal mostly clear breath sounds. Scattered basilar crackles. No wheezes or rhonchi. Breath sounds are equal bilaterally. Saturations are 97%. Abdomen soft bowel sounds are heard. No masses or tenderness. Extremities are intact. No cyanosis clubbing or edema. Skin is without rash or lesion. Neurologic examination is brief but nonfocal. - Labs CBC & Chem 7: 10/23/23 08:18 10/23/23 08:18 Labs: Abnormal Lab Results - Last 24 Hours (Table) 10/23/23 10/23/23 Range/Units 08:18 08:18 WBC 16.9 H (3.8-10.6) k/uL RBC 3.81 L (4.30-5.90) m/uL Hgb 11.9 L (13.0-17.5) gm/dL Hct 38.0 L (39.0-53.0) % Chloride 110 H (98-107) mmol/L Glucose 185 H (74-99) mg/dL Assessment and Plan Assessment: Acute non-ST elevation NM, found to have severe ostial stenosis of the OM1, Impella device placed 10/18/2023 removed 10/21/2023. He did undergo successful stenting of the left main coronary artery on 10/19/2023. Acute hypotension and shock refractory to fluid resuscitation, requiring norepinephrine, likely cardiogenic in nature. Recovered and off pressors. Acute leukocytosis, procalcitonin 15.2 and currently down to 3.19. Currently on ceftriaxone and completed azithromycin. Acute on chronic systolic heart failure, ejection fraction 15%. Acute on chronic hypoxemic respiratory failure, secondary to above, currently on 3 L nasal cannula. Acute kidney injury, secondary to hypotension and ATN. Mild transaminitis, secondary to hypotension and shock. History of severe ischemic cardiomyopathy, with a baseline ejection fraction estimated at less than 15%, with history of V. tach and AICD implantation. History of valvular heart disease, with moderate to severe mitral regurgitation along with moderate aortic and tricuspid regurgitation. Moderate chronic obstructive pulmonary disease. History of multivessel coronary artery disease with previous PCI/stenting of the proximal and mid LAD. History of paroxysmal atrial fibrillation. History of hyperlipidemia. History of hypertension. History of CVA/TIA. Former tobacco dependence, quitting in January,. Plan: Plan dated October 23, 2023. The patient was seen yesterday in the intensive care unit. Today he is seen out on the general medical floor, room 367. He continues on oxygen, at 2 L. Labs, x-rays, and medications are reviewed. He is not receiving any IV fluids. He continues on ceftriaxone for suspected infection/pneumonia. We will continue to follow, and make recommendations along the way. The patient's overall prognosis remains very guarded. The patient has an ejection fraction of less than 15%. Time with Patient: Less than 30
--- NOTE | 2023-10-23 13:47 | P.PN ---
Subjective Progress Note Date: 10/23/23 (delayed charting seen at 1030) Patient is a 63-year-old male with a history of systolic cardiomyopathy with known ejection fraction less than 20% status post AICD, moderate COPD, A-fib anticoagulated with Eliquis, and history of coronary artery disease status post multiple PCI, and multiple other comorbid conditions who presented to the hospital with complaints of generalized weakness. In the emergency department he underwent extensive evaluation initially his vital signs were within normal limits other than an O2 sat of 89% on room air. However 5 minutes after arrival his pulse went to 112, blood pressure 84/64, and O2 sat of 79% on a nonrebreather. Initial laboratory analysis in the emergency department included CBC, coags, CMP, BNP, and troponin which were remarkable for white blood cell count 20.9, sodium 136, BUN 24, creatinine 1.72 (baseline 0.9), total bilirubin 1.9, AST 82, ALT 97, and troponin 1.570. BNP was elevated at 5780. Repeat troponin went up to 2.09. Started on norepinephrine secondary to hypotension after 1 L fluid bolus. He was taken to the [facility] and underwent diagnostic cardiac catheterization which showed severe disease to the left circumflex purvis chandler he was also found to have possible cardiogenic shock and therefore Dr. Ng came in and placed an Impella device. There was some concern with his elevated white blood cell count that there is a possible underlying pneumonia and he was subsequently started on oral phylactic Rocephin and Zithromax. Per the [facility] he was transferred to the intensive care unit. His Impella was slightly displ aced and this was repositioned on the morning of 10/18/2023 and he then developed hematuria, which slowly improved. On 10/19/2023 he underwent PCI to the left main. His pillow was able to be removed on 10/21/2023. He was able to be weaned off of vasopressors. He was resumed on Eliquis. He developed some epistaxis Patient seen and examined at bedside. He reports being slightly dizzy today. Denies any chest pain. Continues to be short of breath. No other complaints currently. We again had a discussion about the overall prognosis of his systolic heart failure, he again does not seem to understand and keeps saying he wants to take less medications and that these are too many pills to swallow. I again reiterated the importance of his medications due to his recent stenting of his left main and systolic cardiomyopathy. Vital signs reviewed General: Nontoxic, mild distress, appears at stated age diaphoretic Cardiovascular: S1S2 reg, no murmur Lungs: Clear to auscultation bilateral, no rhonchi, no rales, no accessory muscle use Abdominal: Soft, nontender to palpation, no guarding Ext: No gross muscle atrophy, no edema b/l lower extremities, no contractures Neuro: CN II-XI grossly intact, no focal neuro deficits Psych: Alert, oriented, appropriate affect Assessment/Plan: Non-ST segment elevated myocardial infarction Severe CAD s/p PCI to the left pain Cardiogenic shock Decompensated systolic congestive heart failure with ejection fraction less than 20% status post AICD Paroxysmal atrial fibrillation Acute kidney injury likely secondary to hypoperfusion, improving Transaminitis, likely secondary to hypoperfusion - Cardio note reviewed: possible home tomorrow. - Pulmonary not ereviewed: Proprognosis, continue wtih rocephin -Farxiga 5 mg daily, lisinopril 2.5 mg daily, metoprolol 12.5 mg twice daily - Eliquis 2.5 md BID - Brillenta 90 md PO BID -Continue with amiodarone 100 mg twice daily -Echocardiogram demonstrates ejection fraction at 15% with severe left ventricular dilatation and reduced global left ventricular systolic function, Impella in place Epistasix - now resolved - eliquis to be held today and resumed tommorw still at 2.5 mg PO BID - monitor for recurrence Acute hypoxic respiratory failure, multifactorial Acute exacerbation of COPD Probable pneumonia with elevated procalcitonin Thrush -Pulmicort 1 mg inhalation twice daily, formoterol 20 mcg inhalation twice daily -DuoNebs 4 times daily -Nystatin 500 units 4 times daily -Zithromax completed, ceftriaxone 2 g IV daily dose #01/21... will continue as WBC remain elevated, repeat Pro-mert in AM and if normalized than will discontinue -Pulmonary critical care note reviewed: Continue current care Chronic low back pain -Continue with Firth 5/325 every 6 hours as needed for pain. Morphine to 2 mg IV every 4 hours for moderate pain and 4 mg IV every 4 hours for severe pain Chronic: Moderate COPD without exacerbation Hypertension Dyslipidemia Memory impairment Seizure disorder History of CVA Imaging: None new. Hospital course imaging Echocardiogram demonstrates ejection fraction at 15% with severe left ventricular dilatation and reduced global left ventricular systolic function, Impella in place Data Review: Labs reviewed from today include CBC and basic metabolic profile which are remarkable for white blood cell count 16.9, hemoglobin 11.9. Urine culture-Prerna albicans DVT prophylaxis: Elioquis Anticipated discharge date: in 24-[address]: home with home health and palliative This dictation was prepared using [employer] voice recognition software. Though every attempt is made to correct errors during dictation some may still exist. Objective - Vital Signs Vital signs: Vital Signs Temp 97.7 F 10/23/23 09:20 Pulse 72 10/23/23 11:53 Resp 20 10/23/23 10:55 BP 119/80 10/23/23 10:55 Pulse Ox 98 10/23/23 11:40 FiO2 4 10/21/23 12:00 Intake & Output 10/22/23 10/23/23 10/23/23 18:59 06:59 18:59 Intake Total 238 240 Output Total 210 Balance 28 240 Intake: Oral 238 240 Output: Urine 210 Other: Voiding Method Urinal Urinal Urinal # Voids 1 1 3 # Bowel Movements 1 ABP, PAP, CO, CI - Last Documented Arterial Blood Pressure 116/72 - Labs CBC & Chem 7: 10/23/23 08:18 10/23/23 08:18 Labs: Abnormal Lab Results - Last 24 Hours (Table) 10/23/23 10/23/23 Range/Units 08:18 08:18 WBC 16.9 H (3.8-10.6) k/uL RBC 3.81 L (4.30-5.90) m/uL Hgb 11.9 L (13.0-17.5) gm/dL Hct 38.0 L (39.0-53.0) % Chloride 110 H (98-107) mmol/L Glucose 185 H (74-99) mg/dL Microbiology - Last 24 Hours (Table) 10/22/23 01:50 Blood Culture - Preliminary Blood 10/22/23 02:01 Blood Culture - Preliminary Blood 10/17/23 23:55 Blood Culture - Final Blood 10/17/23 23:40 Blood Culture - Final Blood
[2023-10-23] MEDS ORDERED: SODIUM CHLORIDE 0.9% 500 ML 500 ML IV ONE (23:07)
[2023-10-24] MEDS: ALPRAZolam 0.25 MG TAB PO PRN (00:12)
[2023-10-24 09:05] LABS: HCT 35.9 % (39.0-53.0); HGB 11.3 gm/dL (13.0-17.5); Hypochromasia Slight; MCH 31.3 pg (25.0-35.0); MCHC 31.4 g/dL (31.0-37.0); MCV 99.6 fL (80.0-100.0); Macrocytosis Slight; Mean Platelet Volume 8.9; Platelet Count 287 k/uL (150-450); WBC 17.9 k/uL (3.8-10.6)
[2023-10-24 09:41] LABS: African American GFR (CKD) >90 (>60 ml/min/1.73 sqM); Anion Gap 8 mmol/L; Blood Urea Nitrogen 11 mg/dL (9-20); Calcium 8.5 mg/dL (8.4-10.2); Carbon Dioxide 19 mmol/L (22-30); Chloride 113 mmol/L (98-107); Glucose 122 mg/dL (74-99); Non-African American GFR(CKD) 79 (>60 ml/min/1.73 sqM); Potassium 4.1 mmol/L (3.5-5.1); Sodium 140 mmol/L (137-145)
[2023-10-24] MEDS: APIXABAN 2.5 MG TABLET PO SCH (10:06)
--- NOTE | 2023-10-24 14:29 | P.PN ---
Subjective Progress Note Date: 10/24/23 HISTORY OF PRESENT ILLNESS: Patient examined this morning. Patient has been transferred out of the [facility] care unit. Patient states he does not feel very well this morning. He reports he has been coughing up some blood this morning. He denies chest pain or pressure. He denies shortness of breath. Telemetry reveals sinus mechanism. Blood pressure stable with a recent reading of 98/63. 10/23 Patient's main concern is that he cannot sleep. He needs something to help with this. He complains of a cough with a little bit of blood in it. No clots. Blood pressure 118/84. Heart rate in the 70s, pulse ox 95% on 2 L nasal cannula. Repeat blood work reveals WBC 17.9, hemoglobin 11.3. Sodium 140, potassium 4.1, BUN 11 creatinine 1. CO2 is 19. PHYSICAL EXAM: VITAL SIGNS: Reviewed. GENERAL: Well-developed in no acute distress. NECK: Supple. No JVD or thyromegaly LUNGS: Respirations even and unlabored. Lungs essentially clear to auscultation bilaterally. HEART: Regular rate and rhythm. S1 and S2 heard. EXTREMITIES: Normal range of motion. No clubbing or cyanosis. Peripheral pulse s intact. No lower extremity edema ASSESSMENT: Non-STEMI with stenting of the left main with Impella support Coronary artery disease Mild hemoptysis Cardiogenic shock Acute heart failure with reduced EF, 15% Ischemic cardiomyopathy History of AICD implantation Paroxysmal atrial fibrillation Acute kidney injury Acute COPD exacerbation Possible pneumonia Hematuria, resolved Transaminitis Pretension Hyperlipidemia History of CVA PLAN: Continue current cardiac medications Resume Eliquis Order incentive spirometry Continue telemetry monitoring Further recommendations pending patient course Nurse practitioner note has been reviewed by physician. Signing provider agrees with the documented findings, assessment, and plan of care documented by CLASSIFICATION ANALYST as a scribe. Objective - Vital Signs Vital signs: Vital Signs Temp 97.6 F 10/23/23 23:25 Pulse 88 10/24/23 08:51 Resp 24 10/24/23 03:20 BP 118/84 10/24/23 03:20 Pulse Ox 93 L 10/24/23 03:20 FiO2 4 10/21/23 12:00 Intake & Output 10/23/23 10/24/23 10/24/23 18:59 06:59 18:59 Intake Total 476 0 Output Total 150 Balance 476 -150 Intake: Oral 476 0 Output: Urine 150 Other: Voiding Method Urinal Urinal # Voids 1 2 # Bowel Movements 1 ABP, PAP, CO, CI - Last Documented Arterial Blood Pressure 116/72 - Labs CBC & Chem 7: 10/24/23 08:39 10/24/23 08:39 Labs: Abnormal Lab Results - Last 24 Hours (Table) 10/24/23 Range/Units 08:39 WBC 17.9 H (3.8-10.6) k/uL RBC 3.60 L (4.30-5.90) m/uL Hgb 11.3 L (13.0-17.5) gm/dL Hct 35.9 L (39.0-53.0) % RDW 16.0 H (11.5-15.5) % Microbiology - Last 24 Hours (Table) 10/22/23 01:50 Blood Culture - Preliminary Blood 10/22/23 02:01 Blood Culture - Preliminary Blood 10/17/23 23:55 Blood Culture - Final Blood 10/17/23 23:40 Blood Culture - Final Blood
--- NOTE | 2023-10-24 16:13 | P.PN ---
Subjective Progress Note Date: 10/24/23 Patient is a 63-year-old white male with past medical history significant for moderate COPD, multivessel coronary artery disease with previous PCI/stent, severe ischemic cardiomyopathy with an ejection fraction of less than 20%, valvular heart disease, V. tach, AICD, atrial fibrillation, hyperlipidemia, hypertension, CVA/TIA, and former tobacco smoker. Patient presented to the emergency room late last night complaining of a combination of left-sided chest pain, shortness of breath, and increased generalized weakness for most of the day. He is currently in trauma bay 2. He is lying in bed, on 5 L/min nasal cannula, he is anxious. He is in no acute distress, however, still complaining of some left-sided nonradiating chest pain. It is not reproducible. He was started on the IV heparin protocol per cardiology. Troponins continue to trend up, 1.57 and 2.1 respectively. EKG on arrival demonstrates what appears to be a first-degree AV block along with interventricular conduction delay, and Q waves in the lateral leads. Blood pressure was hypotensive on arrival, and he was aggressively fluid resuscitated with a total of 3 L of normal saline bolus. He was also started on a norepinephrine infusion, which is currently at a rate of 0.1 mcg/kg/min or approximately 8 mcg/min. Chest x-ray done on arrival was read as normal, however, there appears to be cardiomegaly with interstitial edema. No focal infiltrates or evidence of pneumonia. NT proBNP elevated at 5780. Patient denies any fever. He has been coughing, but is mostly nonproductive. CBC on arrival unremarkable other than some leukocytosis. WBC count 20. BMP on arrival: Sodium 136, potassium 4.4, chloride 103, serum bicarb 22, BUN 24, creatinine up to 1.72, glucose 155. LFTs mildly elevated. Patient's condition is currently critical. The [facility] is on their way and, patient will undergo heart catheterization. Afterwards, he will be best monitored in the intensive care unit. The patient is seen today October 19, 2023 in follow-up in the intensive care unit. He is currently awake and alert. He is maintaining O2 saturations in the low 90s on 2 L/min per nasal cannula. Mean arterial pressure of 67. He is afebrile. He is resting fairly comfortably in bed. He is having some complaint s of back pain. The Impella device remains in place currently at P-5 with a cardiac output of 2.3. Echocardiogram revealed an ejection fraction of 15%. He remains on a heparin drip. He is on norepinephrine at 0.02 mcg/kg/min. Normal saline at KVO. Cardiac catheterization revealed a patent stent within the proximal and mid LAD and a 95% stenosis involving the ostial portion of the OM branch, chronically occluded right coronary artery. X-ray continues with cardiomegaly and pulmonary venous congestion. LVAD in place. Sputum cultures pending. His procalcitonin was 15.2. He is continued on ceftriaxone and azithromycin. White count 26.6. Hemoglobin 12.9. Platelets 192. Sodium 137. Potassium 4.1. Bicarb 23. BUN 29. Creatinine 1.31. Lactic acid 1.2. The patient is seen today October 20, 2023 in follow-up in the intensive care unit. He is currently resting fairly comfortably in bed. Awake and alert in no acute distress. He is maintaining O2 saturations in the 90s on 3 L nasal cannula, currently afebrile. He has normal staying at 20 MLS per hour. Continued on a heparin drip. He did go to the [facility] yesterday and had stenting to the left main however unable to stent the OM1. Impella remains in place set at P5. Cardiac output 2.6. Chest x-ray is showing improvement in the congestive heart failure. White count 19.7. Hemoglobin 11.3. Sodium 143. Potassium 3.8. Bicarb 26. BUN 25. Creatinine 1.18. AST 103. ALT 83. LDH 1071. Albumin 2.6. He remains on ceftriaxone and azithromycin. Continued on bronchodilators. The patient is seen today October 21, 2023 in follow-up in the intensive care unit. He is awake and alert in no acute distress. Resting fairly comfortably in bed. Maintaining O2 saturations in the 90s on 4 L/min per nasal cannula. Chest x- ray is showing improvement. The Impella has been removed. He denies any chest pain or palpitations currently. He does have some dyspnea with conversation. Dyspnea with minimal exertion. He remains on DuoNeb ventilations, Pulmicort and Perforomist inhalations, Solu-Medrol. He is on antibiotics in the form of ceftriaxone. Blood cultures revealed no growth. Sputum culture reveals Prerna. White count 13.6. Hemoglobin 11.1. Platelets 154. Sodium 139. Potassium 4.1. Bicarb 28. BUN 20. Creatinine 1.07. Glucose 74. The patient is seen today October 22, 2023 in follow-up in the intensive care unit. He is currently resting comfortably in bed. Awake and alert in no acute distress. Maintaining good O2 saturations in the 90s on 3 L/min per nasal cannula. No IV fluids. He is breathing easier today compared to yesterday. Denies any chest pain or palpitations. No cough or congestion. He is continued on DuoNeb ventilations, Pulmicort and perforomist inhalations. Chest x-ray re veals cardiomegaly with interstitial edema. Anticoagulated with Eliquis. White count 16.2. Hemoglobin 11.0. Platelets 165. Sodium 140. Potassium 3.8. Bicarb 28. BUN 15. Creatinine 1.14. AST 66. ALT 71. Procalcitonin 3.19. Progress note dated October 23, 2023. The patient is seen today in room 367. He is resting comfortably. He is on 2 L of oxygen. He is not receiving any IV fluids. He was seen yesterday in the intensive care unit. He denies any shortness of breath, difficulty breathing, coughing, chest pain, pressure, or palpitations. White count of 16.9, hemoglobin 11.9, hematocrit 38, platelet count 239,000. Sodium is 141, potassium 4.1, chlorides 110, CO2 22, BUN 13 and creatinine 1.04. Yesterday's procalcitonin level was 3.19. Cultures are currently pending are negative. No chest x-ray today. On today's evaluation of 10/24/2023, the patient is being seen for a follow-up. The patient is experiencing some nausea. No emesis. The patient is post acute non-ST segment elevation myocardial infarction and the patient underwent successful stenting of the left main coronary artery on 10/19/2023. The patient also has severe cardiomyopathy with an left ventricular ejection fraction of less than 15%. The patient is currently on 2 L of oxygen by nasal cannula with a pulse ox of 99%. Afebrile. Hemodynamically stable. No significant hypotension. He is having episodes of cough and this is essentially dry cough. This could be related to FERNANDO inhibitor's and I made recommendations to hold lisinopril for now. The patient otherwise is awake and alert and communicating. The white cell count is at 17.9 with a hemoglobin 11.3. Sodium is at 140, potassium is at 4.1 BUN 11 creatinine is 1 and a serum bicarb is at 19. No active hemoptysis at this point in time. The patient is approximately fibrillation and remains on anticoagulation with Eliquis. Objective - Vital Signs Vital signs: Vital Signs Temp 97.9 F 10/24/23 08:00 Pulse 88 10/24/23 08:51 Resp 16 10/24/23 08:00 BP 116/70 10/24/23 08:00 Pulse Ox 96 10/24/23 08:00 FiO2 4 10/21/23 12:00 Intake & Output 10/23/23 10/24/23 10/24/23 18:59 06:59 18:59 Intake Total 476 0 Output Total 150 Balance 476 -150 Intake: Oral 476 0 Output: Urine 150 Other: Voiding Method Urinal Urinal # Voids 1 2 # Bowel Movements 1 ABP, PAP, CO, CI - Last Documented Arterial Blood Pressure 116/72 - Exam No acute distress, oriented 3. Currently on 2 L. No conversational dyspnea or use of accessory muscles. Having episodes of frequent cough. HEENT examination is grossly unremarkable. Mucous membranes are moist. No oral lesions. Neck supple. Full range of motion. No adenopathy thyromegaly or neck vein distention. Cardiovascular examination reveals regular rhythm rate. S1-S2 normal. No S3 or S4. No discernible murmur noted. Lungs reveal mostly clear breath sounds. Scattered basilar crackles. No wheeze s or rhonchi. Breath sounds are equal bilaterally. Abdomen soft bowel sounds are heard. No masses or tenderness. Extremities are intact. No cyanosis clubbing or edema. Skin is without rash or lesion. Neurologic examination is brief but nonfocal. - Labs CBC & Chem 7: 10/24/23 08:39 10/24/23 08:39 Labs: Abnormal Lab Results - Last 24 Hours (Table) 10/24/23 10/24/23 Range/Units 08:39 08:39 WBC 17.9 H (3.8-10.6) k/uL RBC 3.60 L (4.30-5.90) m/uL Hgb 11.3 L (13.0-17.5) gm/dL Hct 35.9 L (39.0-53.0) % RDW 16.0 H (11.5-15.5) % Chloride 113 H (98-107) mmol/L Carbon Dioxide 19 L (22-30) mmol/L Glucose 122 H (74-99) mg/dL Microbiology - Last 24 Hours (Table) 10/22/23 01:50 Blood Culture - Preliminary Blood 10/22/23 02:01 Blood Culture - Preliminary Blood 10/17/23 23:55 Blood Culture - Final Blood 10/17/23 23:40 Blood Culture - Final Blood Assessment and Plan Plan: Acute non-ST elevation NH, found to have severe ostial stenosis of the OM1, Impella device placed 10/18/2023 removed 10/21/2023. He did undergo successful stenting of the left main coronary artery on 10/19/2023. Acute hypotension and shock refractory to fluid resuscitation, requiring norepinephrine, likely cardiogenic in nature. Recovered and off pressors. Acute leukocytosis, procalcitonin 15.2 and currently down to 3.19. Currently on ceftriaxone and completed azithromycin. The procalcitonin level was elevated at time of admission. No clear source of infection at this point in time. Acute on chronic systolic heart failure, ejection fraction 15%. Acute on chronic hypoxemic respiratory failure, secondary to above, currently on 2 L nasal cannula. Acute kidney injury, secondary to hypotension and ATN, recovered and the creatinine is normalized Mild transaminitis, secondary to hypotension and shock. History of severe ischemic cardiomyopathy, with a baseline ejection fraction estimated at less than 15%, with history of V. tach and AICD implantation. History of valvular heart disease, with moderate to severe mitral regurgitation along with moderate aortic and tricuspid regurgitation. Moderate chronic obstructive pulmonary disease. History of multivessel coronary artery disease with previous PCI/stenting of the proximal and mid LAD. History of paroxysmal atrial fibrillation. History of hyperlipidemia. History of hypertension. History of CVA/TIA. Former tobacco dependence, quitting in January,. Episodes of cough, could be related to FERNANDO inhibitor's Episodic nausea. Plan: Made recommendations to hold the FERNANDO inhibitor's based on his underlying cough. Will continue anticoagulation with Eliquis 2.5 mg twice a day Continue metoprolol 12.5 mg p.o. twice a day Continue amiodarone 100 mg p.o. twice a day Continue aspirin 81 mg p.o. daily in combination with Brilinta Add Zofran for nausea Continue bronchodilators and the patient is on DuoNeb updrafts in combination with Perforomist and Pulmicort nebulized treatments twice a day Will repeat the procalcitonin level and if the level is dropped, will discontinue the antibiotics within the next 24 hours.
--- NOTE | 2023-10-24 17:01 | P.PN ---
Subjective Progress Note Date: 10/24/23 (delayed charting seen at 1130) Patient is a 63-year-old male with a history of systolic cardiomyopathy with known ejection fraction less than 20% status post AICD, moderate COPD, A-fib anticoagulated with Eliquis, and history of coronary artery disease status post multiple PCI, and multiple other comorbid conditions who presented to the hospital with complaints of generalized weakness. In the emergency department he underwent extensive evaluation initially his vital signs were within normal limits other than an O2 sat of 89% on room air. However 5 minutes after arrival his pulse went to 112, blood pressure 84/64, and O2 sat of 79% on a nonrebreather. Initial laboratory analysis in the emergency department included CBC, coags, CMP, BNP, and troponin which were remarkable for white blood cell count 20.9, sodium 136, BUN 24, creatinine 1.72 (baseline 0.9), total bilirubin 1.9, AST 82, ALT 97, and troponin 1.570. BNP was elevated at 5780. Repeat troponin went up to 2.09. Started on norepinephrine secondary to hypotension after 1 L fluid bolus. He was taken to the [facility] and underwent diagnostic cardiac catheterization which showed severe disease to the left circumflex purvis chandler he was also found to have possible cardiogenic shock and therefore Dr. Ng came in and placed an Impella device. There was some concern with his elevated white blood cell count that there is a possible underlying pneumonia and he was subsequently started on oral phylactic Rocephin and Zithromax. Per the [facility] he was transferred to the intensive care unit. His Impella was slightly displ aced and this was repositioned on the morning of 10/18/2023 and he then developed hematuria, which slowly improved. On 10/19/2023 he underwent PCI to the left main. His pillow was able to be removed on 10/21/2023. He was able to be weaned off of vasopressors. He was resumed on Eliquis. He developed some epistaxis which resolved and eliquis was restarted. Patient seen and examined at bedside. He states he feels nauseated when he takes all of his meds at once and he would like to separate them out. I said that this is an okay solution and has long as he takes all of his medications. 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 I explained to him that once cardiology lets me know he is cleared I will be happy to discharge him but that his condition is serious. Vital signs reviewed General: Nontoxic, mild distress, appears at stated age diaphoretic Cardiovascular: S1S2 reg, no murmur Lungs: Clear to auscultation bilateral, no rhonchi, no rales, no accessory muscle use Abdominal: Soft, nontender to palpation, no guarding Ext: No gross muscle atrophy, no edema b/l lower extremities, no contractures Neuro: CN II-XI grossly intact, no focal neuro deficits Psych: Alert, oriented, appropriate affect Assessment/Plan: Non-ST segment elevated myocardial infarction Severe CAD s/p PCI to the left pain Cardiogenic shock Decompensated systolic congestive heart failure with ejection fraction less than 20% status post AICD Paroxysmal atrial fibrillation Acute kidney injury likely secondary to hypoperfusion, improving Transaminitis, likely secondary to hypoperfusion -Cardiology note reviewed: Continue current cardiac medications, resume Eliquis, incentive spirometry, further recommendations pending clinical course. -Farxiga 5 mg daily, lisinopril 2.5 mg daily, metoprolol 12.5 mg twice daily - Eliquis 2.5 md BID - Brillenta 90 md PO BID - Continue with amiodarone 100 mg twice daily - Echocardiogram demonstrates ejection fraction at 15% with severe left ventricular dilatation and reduced global left ventricular systolic function, Impella in place Epistasix - now resolved - eliquis resumed 2.5 mg PO BID - monitor for recurrence Acute hypoxic respiratory failure, multifactorial Acute exacerbation of COPD Probable pneumonia with elevated procalcitonin Thrush -Pulmonary note reviewed: Repeat procalcitonin -Pulmicort 1 mg inhalation twice daily, formoterol 20 mcg inhalation twice daily -DuoNebs 4 times daily -Nystatin 500 units 4 times daily -Zithromax completed, ceftriaxone 2 g IV daily dose #8, continue while await pro-mert Chronic low back pain -Continue with Wilson 5/325 every 6 hours as needed for pain. Morphine to 2 mg IV every 4 hours for moderate pain and 4 mg IV every 4 hours for severe pain Chronic: Moderate COPD without exacerbation Hypertension Dyslipidemia Memory impairment Seizure disorder History of CVA Imaging: None new. Hospital course imaging: Echocardiogram demonstrates ejection fraction at 15% with severe left ventricular dilatation and reduced global left ventricular systolic function, Impella in place Data Review: Labs reviewed from today include CBC and basic metabolic profile which are remarkable for white blood cell count 17.9, platelets 11.3, chloride 113, carbon dioxide 19 DVT prophylaxis: Eliquis Anticipated discharge date: in [address]: home with home health and palliative This dictation was prepared using [employer] voice recognition software. Though every attempt is made to correct errors during dictation some may still exist. Objective - Vital Signs Vital signs: Vital Signs Temp 98.1 F 10/24/23 15:50 Pulse 76 10/24/23 15:55 Resp 16 10/24/23 15:50 BP 110/75 10/24/23 15:50 Pulse Ox 99 10/24/23 15:50 FiO2 4 10/21/23 12:00 Intake & Output 10/23/23 10/24/23 10/24/23 18:59 06:59 18:59 Intake Total 476 236 Output Total 150 Balance 476 86 Intake: Oral 476 236 Output: Urine 150 Other: Voiding Method Urinal Urinal Urinal # Voids 1 2 # Bowel Movements 1 ABP, PAP, CO, CI - Last Documented Arterial Blood Pressure 116/72 - Labs CBC & Chem 7: 10/24/23 08:39 10/24/23 08:39 Labs: Abnormal Lab Results - Last 24 Hours (Table) 10/24/23 10/24/23 Range/Units 08:39 08:39 WBC 17.9 H (3.8-10.6) k/uL RBC 3.60 L (4.30-5.90) m/uL Hgb 11.3 L (13.0-17.5) gm/dL Hct 35.9 L (39.0-53.0) % RDW 16.0 H (11.5-15.5) % Chloride 113 H (98-107) mmol/L Carbon Dioxide 19 L (22-30) mmol/L Glucose 122 H (74-99) mg/dL Microbiology - Last 24 Hours (Table) 10/22/23 01:50 Blood Culture - Preliminary Blood 10/22/23 02:01 Blood Culture - Preliminary Blood 10/17/23 23:55 Blood Culture - Final Blood 10/17/23 23:40 Blood Culture - Final Blood
--- NOTE | 2023-10-25 08:25 | XR ---
EXAMINATION TYPE: XR chest 1V DATE OF EXAM: 10/25/2023 HISTORY: Shortness of breath. COMPARISON: 10/22/2023 TECHNIQUE: Single view of the chest is submitted. FINDINGS: Demonstrated are scattered senescent parenchymal change. Small left-sided pleural effusion with basilar infiltrates persisting although improved from prior st udy. Continued progress studies are advised. The heart is stable. No evidence for overt failure at this time. Hilar and mediastinal structures are within normal limits. Degenerative changes are seen of the dorsal spine. IMPRESSION: 1. Small left-sided pleural effusion with basilar infiltrates persisting although improved from prio r study. Continued progress studies are advised.
[2023-10-25] MEDS ORDERED: TEMAZEPAM 15 MG CAP PO PRN (10:07)
[2023-10-25 11:04] LABS: Anisocytosis Slight; HCT 34.9 % (39.0-53.0); HGB 10.9 gm/dL (13.0-17.5); Hypochromasia Slight; MCHC 31.2 g/dL (31.0-37.0); MCV 99.5 fL (80.0-100.0); Macrocytosis Slight; Mean Platelet Volume 8.7; Platelet Count 298 k/uL (150-450); RBC 3.51 m/uL (4.30-5.90); RDW 16.4 % (11.5-15.5); WBC 17.1 k/uL (3.8-10.6)
[2023-10-25 11:30] LABS: ALT 59 U/L (4-49); AST 38 U/L (17-59); African American GFR (CKD) 75 (>60 ml/min/1.73 sqM); Albumin 3.2 g/dL (3.5-5.0); Alkaline Phosphatase 88 U/L (38-126); Anion Gap 10 mmol/L; Blood Urea Nitrogen 15 mg/dL (9-20); Calcium 8.7 mg/dL (8.4-10.2); Carbon Dioxide 22 mmol/L (22-30); Chloride 111 mmol/L (98-107); Glucose 112 mg/dL (74-99); Non-African American GFR(CKD) 65 (>60 ml/min/1.73 sqM); Potassium 4.3 mmol/L (3.5-5.1); Sodium 143 mmol/L (137-145); Total Bilirubin 1.4 mg/dL (0.2-1.3); Total Protein 6.2 g/dL (6.3-8.2)
[2023-10-25] MEDS: LOSARTAN 25 MG TAB PO SCH (12:53)
--- NOTE | 2023-10-25 14:00 | P.PN ---
Subjective Progress Note Date: 10/25/23 Patient is a 63-year-old white male with past medical history significant for moderate COPD, multivessel coronary artery disease with previous PCI/stent, severe ischemic cardiomyopathy with an ejection fraction of less than 20%, valvular heart disease, V. tach, AICD, atrial fibrillation, hyperlipidemia, hypertension, CVA/TIA, and former tobacco smoker. Patient presented to the emergency room late last night complaining of a combination of left-sided chest pain, shortness of breath, and increased generalized weakness for most of the day. He is currently in trauma bay 2. He is lying in bed, on 5 L/min nasal cannula, he is anxious. He is in no acute distress, however, still complaining of some left-sided nonradiating chest pain. It is not reproducible. He was started on the IV heparin protocol per cardiology. Troponins continue to trend up, 1.57 and 2.1 respectively. EKG on arrival demonstrates what appears to be a first-degree AV block along with interventricular conduction delay, and Q waves in the lateral leads. Blood pressure was hypotensive on arrival, and he was aggressively fluid resuscitated with a total of 3 L of normal saline bolus. He was also started on a norepinephrine infusion, which is currently at a rate of 0.1 mcg/kg/min or approximately 8 mcg/min. Chest x-ray done on arrival was read as normal, however, there appears to be cardiomegaly with interstitial edema. No focal infiltrates or evidence of pneumonia. NT proBNP elevated at 5780. Patient denies any fever. He has been coughing, but is mostly nonproductive. CBC on arrival unremarkable other than some leukocytosis. WBC count 20. BMP on arrival: Sodium 136, potassium 4.4, chloride 103, serum bicarb 22, BUN 24, creatinine up to 1.72, glucose 155. LFTs mildly elevated. Patient's condition is currently critical. The [facility] is on their way and, patient will undergo heart catheterization. Afterwards, he will be best monitored in the intensive care unit. The patient is seen today October 19, 2023 in follow-up in the intensive care unit. He is currently awake and alert. He is maintaining O2 saturations in the low 90s on 2 L/min per nasal cannula. Mean arterial pressure of 67. He is afebrile. He is resting fairly comfortably in bed. He is having some complaint s of back pain. The Impella device remains in place currently at P-5 with a cardiac output of 2.3. Echocardiogram revealed an ejection fraction of 15%. He remains on a heparin drip. He is on norepinephrine at 0.02 mcg/kg/min. Normal saline at KVO. Cardiac catheterization revealed a patent stent within the proximal and mid LAD and a 95% stenosis involving the ostial portion of the OM branch, chronically occluded right coronary artery. X-ray continues with cardiomegaly and pulmonary venous congestion. LVAD in place. Sputum cultures pending. His procalcitonin was 15.2. He is continued on ceftriaxone and azithromycin. White count 26.6. Hemoglobin 12.9. Platelets 192. Sodium 137. Potassium 4.1. Bicarb 23. BUN 29. Creatinine 1.31. Lactic acid 1.2. The patient is seen today October 20, 2023 in follow-up in the intensive care unit. He is currently resting fairly comfortably in bed. Awake and alert in no acute distress. He is maintaining O2 saturations in the 90s on 3 L nasal cannula, currently afebrile. He has normal staying at 20 MLS per hour. Continued on a heparin drip. He did go to the [facility] yesterday and had stenting to the left main however unable to stent the OM1. Impella remains in place set at P5. Cardiac output 2.6. Chest x-ray is showing improvement in the congestive heart failure. White count 19.7. Hemoglobin 11.3. Sodium 143. Potassium 3.8. Bicarb 26. BUN 25. Creatinine 1.18. AST 103. ALT 83. LDH 1071. Albumin 2.6. He remains on ceftriaxone and azithromycin. Continued on bronchodilators. The patient is seen today October 21, 2023 in follow-up in the intensive care unit. He is awake and alert in no acute distress. Resting fairly comfortably in bed. Maintaining O2 saturations in the 90s on 4 L/min per nasal cannula. Chest x- ray is showing improvement. The Impella has been removed. He denies any chest pain or palpitations currently. He does have some dyspnea with conversation. Dyspnea with minimal exertion. He remains on DuoNeb ventilations, Pulmicort and Perforomist inhalations, Solu-Medrol. He is on antibiotics in the form of ceftriaxone. Blood cultures revealed no growth. Sputum culture reveals Prerna. White count 13.6. Hemoglobin 11.1. Platelets 154. Sodium 139. Potassium 4.1. Bicarb 28. BUN 20. Creatinine 1.07. Glucose 74. The patient is seen today October 22, 2023 in follow-up in the intensive care unit. He is currently resting comfortably in bed. Awake and alert in no acute distress. Maintaining good O2 saturations in the 90s on 3 L/min per nasal cannula. No IV fluids. He is breathing easier today compared to yesterday. Denies any chest pain or palpitations. No cough or congestion. He is continued on DuoNeb ventilations, Pulmicort and perforomist inhalations. Chest x-ray re veals cardiomegaly with interstitial edema. Anticoagulated with Eliquis. White count 16.2. Hemoglobin 11.0. Platelets 165. Sodium 140. Potassium 3.8. Bicarb 28. BUN 15. Creatinine 1.14. AST 66. ALT 71. Procalcitonin 3.19. Progress note dated October 23, 2023. The patient is seen today in room 367. He is resting comfortably. He is on 2 L of oxygen. He is not receiving any IV fluids. He was seen yesterday in the intensive care unit. He denies any shortness of breath, difficulty breathing, coughing, chest pain, pressure, or palpitations. White count of 16.9, hemoglobin 11.9, hematocrit 38, platelet count 239,000. Sodium is 141, potassium 4.1, chlorides 110, CO2 22, BUN 13 and creatinine 1.04. Yesterday's procalcitonin level was 3.19. Cultures are currently pending are negative. No chest x-ray today. On today's evaluation of 10/24/2023, the patient is being seen for a follow-up. The patient is experiencing some nausea. No emesis. The patient is post acute non-ST segment elevation myocardial infarction and the patient underwent successful stenting of the left main coronary artery on 10/19/2023. The patient also has severe cardiomyopathy with an left ventricular ejection fraction of less than 15%. The patient is currently on 2 L of oxygen by nasal cannula with a pulse ox of 99%. Afebrile. Hemodynamically stable. No significant hypotension. He is having episodes of cough and this is essentially dry cough. This could be related to FERNANDO inhibitor's and I made recommendations to hold lisinopril for now. The patient otherwise is awake and alert and communicating. The white cell count is at 17.9 with a hemoglobin 11.3. Sodium is at 140, potassium is at 4.1 BUN 11 creatinine is 1 and a serum bicarb is at 19. No active hemoptysis at this point in time. The patient is approximately fibrillation and remains on anticoagulation with Eliquis. On 10/25/2023, I am seeing the patient for a follow-up. The patient is still having episodes of cough which is essentially unexplained. He believes that this cough is related to various pills that he has been taking. On yesterday's evaluation, we remove the FERNANDO inhibitor and the patient was replaced with Coza ar. He is taken Cozaar 12.5 mg p.o. daily. He is also on a combination of aspirin and Brilinta. He remains on metoprolol 25 mg p.o. twice a day. He is on Lipitor 20 mg p.o. daily. His procalcitonin level has dropped considerably and is currently down to 0.9. I think is reasonable also to discontinue the IV Rocephin. The white cell count remains mildly elevated. The chest x-ray shows small left-sided pleural effusion with some basilar infiltrates that improved compared to the earlier evaluations. The patient is currently on room air oxygen with a pulse ox of 92%. WBC count at 17 with a hemoglobin 10.9 and platelet count of 298. BUN is at 15 with a creatinine of 1.1 and sodium levels at 143. Objective - Vital Signs Vital signs: Vital Signs Temp 97.8 F 10/25/23 08:35 Pulse 77 10/25/23 08:35 Resp 20 10/25/23 08:35 BP 118/77 10/25/23 08:35 Pulse Ox 96 10/25/23 08:35 FiO2 4 10/21/23 12:00 Intake & Output 10/24/23 10/25/23 10/25/23 18:59 06:59 18:59 Intake Total 536 236 Output Total 150 Balance 386 236 Intake: Oral 536 236 Output: Urine 150 Other: Voiding Method Urinal Urinal # Voids 1 2 ABP, PAP, CO, CI - Last Documented Arterial Blood Pressure 116/72 - Exam No acute distress, oriented 3. Currently on 2 L. No conversational dyspnea or use of accessory muscles. Having episodes of frequent cough. HEENT examination is grossly unremarkable. Mucous membranes are moist. No oral lesions. Neck supple. Full range of motion. No adenopathy thyromegaly or neck vein distention. Cardiovascular examination reveals regular rhythm rate. S1-S2 normal. No S3 or S4. No discernible murmur noted. Lungs reveal mostly clear breath sounds. Scattered basilar crackles. No wheezes or rhonchi. Breath sounds are equal bilaterally. Abdomen soft bowel sounds are heard. No masses or tenderness. Extremities are intact. No cyanosis clubbing or edema. Skin is without rash or lesion. Neurologic examination is brief but nonfocal. - Labs CBC & Chem 7: 10/25/23 09:46 10/25/23 09:46 Labs: Abnormal Lab Results - Last 24 Hours (Table) 10/24/23 Range/Units 08:38 Procalcitonin 0.90 H (0.02-0.09) ng/mL Microbiology - Last 24 Hours (Table) 10/22/23 01:50 Blood Culture - Preliminary Blood 10/22/23 02:01 Blood Culture - Preliminary Blood Assessment and Plan Plan: Acute non-ST elevation IL, found to have severe ostial stenosis of the OM1, Impella device placed 10/18/2023 removed 10/21/2023. He did undergo successful stenting of the left main coronary artery on 10/19/2023. Acute hypotension and shock refractory to fluid resuscitation, requiring norepinephrine, likely cardiogenic in nature. Recovered and off pressors. Acute leukocytosis, procalcitonin 15.2 and currently down to 0.9 and the patient is on IV Rocephin. Chest x-ray shows limited atelectatic change in the left lung base. No evidence of any infection or pneumonia. Acute on chronic systolic heart failure, ejection fraction 15%. Acute on chronic hypoxemic respiratory failure, secondary to above, currently on room air oxygen Acute kidney injury, secondary to hypotension and ATN, recovered and the creatinine is normalized Mild transaminitis, secondary to hypotension and shock. History of severe ischemic cardiomyopathy, with a baseline ejection fraction estimated at less than 15%, with history of V. tach and AICD implantation. History of valvular heart disease, with moderate to severe mitral regurgitation along with moderate aortic and tricuspid regurgitation. Moderate chronic obstructive pulmonary disease. History of multivessel coronary artery disease with previous PCI/stenting of the proximal and mid LAD. History of paroxysmal atrial fibrillation. History of hyperlipidemia. History of hypertension. History of CVA/TIA. Former tobacco dependence, quitting in January,. Episodes of cough, could be related to FERNANDO inhibitor's Episodic nausea. Plan: Made recommendations to hold the FERNANDO inhibitor's based on his underlying cough. The patient is currently on Cozaar. Despite that he still having some episodes of cough. Recommend a swallow evaluation. Will continue anticoagulation with Eliquis 2.5 mg twice a day Continue metoprolol 12.5 mg p.o. twice a day Continue amiodarone 100 mg p.o. twice a day Continue aspirin 81 mg p.o. daily in combination with Brilinta May discontinue the IV Rocephin as the patient's procalcitonin level is dropped and the chest x-ray essentially clear Continue bronchodilators and the patient is on DuoNeb updrafts in combination with Perforomist and Pulmicort nebulized treatments twice a day Will continue to follow. Case was discussed with the medical team..
[2023-10-25] MEDS: PANTOPRAZOLE 40 MG/10 ML VIAL IVP ONE (14:14)
--- NOTE | 2023-10-25 14:50 | P.PN ---
Subjective Progress Note Date: 10/25/23 HISTORY OF PRESENT ILLNESS: Patient examined this morning. Patient has [facility]. Patient states he does not feel very well this morning. He reports he has been coughing up some blood this morning. He denies chest pain or pressure. He denies shortness of breath. Telemetry reveals sinus mechanism. Blood pressure stable with a recent reading of 98/63. 4/8 Patient's main concern is that he cannot sleep. He needs something to help with this. He complains of a cough with a little bit of blood in it. No clots. Blood pressure 118/84. Heart rate in the 70s, pulse ox 95% on 2 L nasal cannula. Repeat blood work reveals WBC 17.9, hemoglobin 11.3. Sodium 140, potassium 4.1, BUN 11 creatinine 1. CO2 is 19. 4/9 Yesterday, Dr. Norton recommended holding lisinopril due to cough. We will l transition lisinopril to losartan today. Heart rate is in the 80s, blood pressure 106/71, pulse ox 92% on room air. Repeat blood work reveals WBC 17, hemoglobin 10.9, sodium 143, potassium 4.3, BUN 15 creatinine 1.18. Repeat chest x-ray reveals small left-sided pleural effusion with basilar infiltrates persisting although improved. Patient's main concern is that he has not been able to sleep. Restoril will be added for him. PHYSICAL EXAM: VITAL SIGNS: Reviewed. GENERAL: Well-developed in no acute distress. NECK: Supple. No JVD or thyromegaly LUNGS: Respirations even and unlabored. Lungs essentially clear to auscultation bilaterally. HEART: Regular rate and rhythm. S1 and S2 heard. EXTREMITIES: Normal range of motion. No clubbing or cyanosis. Peripheral pulses intact. No lower extremity edema ASSESSMENT: Non-STEMI with stenting of the left main with Impella support Coronary artery disease Mild hemoptysis Cardiogenic shock Acute heart failure with reduced EF, 15% Ischemic cardiomyopathy History of AICD implantation Paroxysmal atrial fibrillation Acute kidney injury Acute COPD exacerbation Possible pneumonia Hematuria, resolved Transaminitis Pretension Hyperlipidemia History of CVA PLAN: Continue current cardiac medications Transition lisinopril to losartan Continue Eliquis Continue incentive spirometry Add Restoril for insomnia Further recommendations pending patient course Nurse practitioner note has been reviewed by physician. Signing provider agrees with the documented findings, assessment, and plan of care documented by [employer]CHIT[employer] as a scribe. Objective - Vital Signs Vital signs: Vital Signs Temp 97.8 F 10/25/23 08:35 Pulse 77 10/25/23 08:35 Resp 20 10/25/23 08:35 BP 118/77 10/25/23 08:35 Pulse Ox 96 10/25/23 08:35 FiO2 4 10/21/23 12:00 Intake & Output 10/24/23 10/25/23 10/25/23 18:59 06:59 18:59 Intake Total 536 236 Output Total 150 Balance 386 236 Intake: Oral 536 236 Output: Urine 150 Other: Voiding Method Urinal Urinal # Voids 1 2 ABP, PAP, CO, CI - Last Documented Arterial Blood Pressure 116/72 - Labs CBC & Chem 7: 10/25/23 09:46 10/25/23 09:46 Labs: Abnormal Lab Results - Last 24 Hours (Table) 10/24/23 Range/Units 08:38 Procalcitonin 0.90 H (0.02-0.09) ng/mL Microbiology - Last 24 Hours (Table) 10/22/23 01:50 Blood Culture - Preliminary Blood 10/22/23 02:01 Blood Culture - Preliminary Blood
[2023-10-25] MEDS: diphenhydrAMINE 50 MG/ML 1 ML VIAL IVP PRN (15:50)
--- NOTE | 2023-10-25 15:53 | P.PN ---
Subjective Progress Note Date: 10/25/23 (delayed charting seen at 1045) Patient is a 63-year-old male with a history of systolic cardiomyopathy with known ejection fraction less than 20% status post AICD, moderate COPD, A-fib anticoagulated with Eliquis, and history of coronary artery disease status post multiple PCI, and multiple other comorbid conditions who presented to the hospital with complaints of generalized weakness. In the emergency department he underwent extensive evaluation initially his vital signs were within normal limits other than an O2 sat of 89% on room air. However 5 minutes after arrival his pulse went to 112, blood pressure 84/64, and O2 sat of 79% on a nonrebreather. Initial laboratory analysis in the emergency department included CBC, coags, CMP, BNP, and troponin which were remarkable for white blood cell count 20.9, sodium 136, BUN 24, creatinine 1.72 (baseline 0.9), total bilirubin 1.9, AST 82, ALT 97, and troponin 1.570. BNP was elevated at 5780. Repeat troponin went up to 2.09. Started on norepinephrine secondary to hypotension after 1 L fluid bolus. He was taken to the [facility] and underwent diagnostic cardiac catheterization which showed severe disease to the left circumflex purvis chandler he was also found to have possible cardiogenic shock and therefore Dr. Ng came in and placed an Impella device. There was some concern with his elevated white blood cell count that there is a possible underlying pneumonia and he was subsequently started on oral phylactic Rocephin and Zithromax. Per the Systems Software Developer he was transferred to the intensive care unit. His Impella was slightly displ aced and this was repositioned on the morning of 10/18/2023 and he then developed hematuria, which slowly improved. On 10/19/2023 he underwent PCI to the left main. His pillow was able to be removed on 10/21/2023. He was able to be weaned off of vasopressors. He was resumed on Eliquis. He developed some epistaxis which resolved and eliquis was restarted. Patient seen and examined at bedside. He continues to complain today of difficulty swallowing and choking on his pills as well as not feeling right. He complains that he cannot sleep after his night pills because he continues to gag. However he does not want to take any additional medications to help with this because he thinks the pills are making him sick. I again reinforced the importance of his pills as he just received a stent this hospital stay and to be on his Brilinta. We reviewed the remainder of his pills which are relatively unchanged from at home. Yesterday they did switch him from an FERNANDO inhibitor to an ARB to try to help with the cough he was complaining of. I suggested to him that we have a speech therapy evaluation. Vital signs reviewed General: Nontoxic, mild distress, appears at stated age diaphoretic Cardiovascular: S1S2 reg, no murmur Lungs: Clear to auscultation bilateral, no rhonchi, no rales, no accessory muscle use Abdominal: Soft, nontender to palpation, no guarding Ext: No gross muscle atrophy, no edema b/l lower extremities, no contractures Neuro: CN II-XI grossly intact, no focal neuro deficits Psych: Alert, oriented, appropriate affect Assessment/Plan: Non-ST segment elevated myocardial infarction Severe CAD s/p PCI to the left pain Cardiogenic shock, resolved Decompensated systolic congestive heart failure with ejection fraction less than 20% status post AICD Paroxysmal atrial fibrillation Acute kidney injury likely secondary to hypoperfusion, improving Transaminitis, likely secondary to hypoperfusion, improved - Case discussed with cardio SYSTEM TECHNOLOGIST and patient was cleared for discharge -Farxiga 5 mg daily, lisinopril 2.5 mg daily, metoprolol 25 mg twice daily - Eliquis 2.5 md BID - Brillenta 90 md PO BID - Continue with amiodarone 100 mg twice daily - Echocardiogram demonstrates ejection fraction at 15% with severe left ventricular dilatation and reduced global left ventricular systolic function, Impella in place Epistasix - now resolved - eliquis resumed 2.5 mg PO BID - monitor for recurrence Acute hypoxic respiratory failure, multifactorial Acute exacerbation of COPD Probable pneumonia with elevated procalcitonin, resolved Thrush -Case discussed with pulmonary. Patient's chest x-ray is improved. His procalcitonin has fallen by greater than 80% and therefore we will discontinue Rocephin. -Pulmicort 1 mg inhalation twice daily, formoterol 20 mcg inhalation twice daily -DuoNebs 4 times daily -Nystatin 500 units 4 times daily -Zithromax and ceftriaxone completed Chronic low back pain -Continue with [place] 5/325 every 6 hours as needed for pain. Morphine to 2 mg IV every 4 hours for moderate pain and 4 mg IV every 4 hours for severe pain Pill induced dysphagia -Speech therapy note reviewed: normal swallow Chronic: Moderate COPD without exacerbation Hypertension Dyslipidemia Memory impairment Seizure disorder History of CVA In the afternoon he was feeling shaky and had a 6 beat run of V-tach. He will be monitored again overnight and cardio increased his BB. Imaging: Chest x-ray: Small left pleural effusion Hospital course imaging: Echocardiogram demonstrates ejection fraction at 15% with severe left ventricular dilatation and reduced global left ventricular systolic function, Impella in place Data Review: Labs reviewed from today include CBC and basic metabolic profile which are remarkable for white blood cell count 17.1, hemoglobin 10.9, chloride 111, glucose 112, bilirubin 1.4. Procalcitonin 0.9. DVT prophylaxis: Eliquis Anticipated discharge date: in [address]: home with home health and palliative This dictation was prepared using [employer] voice recognition software. Though every attempt is made to correct errors during dictation some may still exist. Objective - Vital Signs Vital signs: Vital Signs Temp 97.8 F 10/25/23 08:35 Pulse 76 10/25/23 15:40 Resp 20 10/25/23 11:43 BP 106/71 10/25/23 11:43 Pulse Ox 92 L 10/25/23 11:43 FiO2 4 10/21/23 12:00 Intake & Output 10/24/23 10/25/23 10/25/23 18:59 06:59 18:59 Intake Total 536 236 Output Total 150 Balance 386 236 Intake: Oral 536 236 Output: Urine 150 Other: Voiding Method Urinal Urinal # Voids 1 2 ABP, PAP, CO, CI - Last Documented Arterial Blood Pressure 116/72 - Labs CBC & Chem 7: 10/25/23 09:46 10/25/23 09:46 Labs: Abnormal Lab Results - Last 24 Hours (Table) 10/24/23 10/25/23 10/25/23 Range/Units 08:38 09:46 09:46 WBC 17.1 H (3.8-10.6) k/uL RBC 3.51 L (4.30-5.90) m/uL Hgb 10.9 L (13.0-17.5) gm/dL Hct 34.9 L (39.0-53.0) % RDW 16.4 H (11.5-15.5) % Chloride 111 H (98-107) mmol/L Glucose 112 H (74-99) mg/dL Total Bilirubin 1.4 H (0.2-1.3) mg/dL ALT 59 H (4-49) U/L Total Protein 6.2 L (6.3-8.2) g/dL Albumin 3.2 L (3.5-5.0) g/dL Procalcitonin 0.90 H (0.02-0.09) ng/mL Microbiology - Last 24 Hours (Table) 10/22/23 01:50 Blood Culture - Preliminary Blood 10/22/23 02:01 Blood Culture - Preliminary Blood
[2023-10-25] MEDS: PANTOPRAZOLE 40 MG/10 ML VIAL IVP SCH (21:31)
[2023-10-25] MEDS: METOPROLOL TARTRATE 25 MG TAB PO SCH (21:31)
[2023-10-25] MEDS: ZOLPIDEM 5 MG TAB PO PRN (21:34)
[2023-10-26 09:20] LABS: Anisocytosis Slight; HCT 36.4 % (39.0-53.0); HGB 11.1 gm/dL (13.0-17.5); Hypochromasia Slight; MCH 30.5 pg (25.0-35.0); MCHC 30.4 g/dL (31.0-37.0); MCV 100.1 fL (80.0-100.0); Macrocytosis Slight; Mean Platelet Volume 9.2; Platelet Count 363 k/uL (150-450); RBC 3.63 m/uL (4.30-5.90); RDW 16.9 % (11.5-15.5)
[2023-10-26 09:29] LABS: African American GFR (CKD) 69 (>60 ml/min/1.73 sqM); Anion Gap 11 mmol/L; Blood Urea Nitrogen 17 mg/dL (9-20); Calcium 8.8 mg/dL (8.4-10.2); Carbon Dioxide 20 mmol/L (22-30); Chloride 111 mmol/L (98-107); Glucose 119 mg/dL (74-99); Non-African American GFR(CKD) 60 (>60 ml/min/1.73 sqM); Potassium 4.5 mmol/L (3.5-5.1); Sodium 142 mmol/L (137-145)
--- NOTE | 2023-10-26 10:58 | XR ---
EXAMINATION TYPE: XR chest 2V DATE OF EXAM: 10/26/2023 COMPARISON: 10/25/2023 HISTORY: Shortness of breath TECHNIQUE: Frontal and lateral views of the chest are obtained. FINDINGS: Scattered senescent parenchymal changes noted. Hyperinflation compatible with COPD. Pulmonary venous congestion with mild interstitial edema and small left-sided effusion. Correlate for mild congestive failure. IACD device is in place. Heart size is stable. Mediastinal structures are stable and grossly unremarkable. No evidence for hilar prominence. Degenerative changes dorsal spine. IMPRESSION: 1. Pulmonary venous congestion with mild interstitial edema and small left-sided effusion. Correlate for mild congestive failure.
--- NOTE | 2023-10-26 11:17 | P.PN ---
Subjective Progress Note Date: 10/26/23 Patient is a 63-year-old white male with past medical history significant for moderate COPD, multivessel coronary artery disease with previous PCI/stent, severe ischemic cardiomyopathy with an ejection fraction of less than 20%, valvular heart disease, V. tach, AICD, atrial fibrillation, hyperlipidemia, hypertension, CVA/TIA, and former tobacco smoker. Patient presented to the emergency room late last night complaining of a combination of left-sided chest pain, shortness of breath, and increased generalized weakness for most of the day. He is currently in trauma bay 2. He is lying in bed, on 5 L/min nasal cannula, he is anxious. He is in no acute distress, however, still complaining of some left-sided nonradiating chest pain. It is not reproducible. He was started on the IV heparin protocol per cardiology. Troponins continue to trend up, 1.57 and 2.1 respectively. EKG on arrival demonstrates what appears to be a first-degree AV block along with interventricular conduction delay, and Q waves in the lateral leads. Blood pressure was hypotensive on arrival, and he was aggressively fluid resuscitated with a total of 3 L of normal saline bolus. He was also started on a norepinephrine infusion, which is currently at a rate of 0.1 mcg/kg/min or approximately 8 mcg/min. Chest x-ray done on arrival was read as normal, however, there appears to be cardiomegaly with interstitial edema. No focal infiltrates or evidence of pneumonia. NT proBNP elevated at 5780. Patient denies any fever. He has been coughing, but is mostly nonproductive. CBC on arrival unremarkable other than some leukocytosis. WBC count 20. BMP on arrival: Sodium 136, potassium 4.4, chloride 103, serum bicarb 22, BUN 24, creatinine up to 1.72, glucose 155. LFTs mildly elevated. Patient's condition is currently critical. The Clicking Machine Operator is on their way and, patient will undergo heart catheterization. Afterwards, he will be best monitored in the intensive care unit. The patient is seen today October 19, 2023 in follow-up in the intensive care unit. He is currently awake and alert. He is maintaining O2 saturations in the low 90s on 2 L/min per nasal cannula. Mean arterial pressure of 67. He is afebrile. He is resting fairly comfortably in bed. He is having some complaint s of back pain. The Impella device remains in place currently at P-5 with a cardiac output of 2.3. Echocardiogram revealed an ejection fraction of 15%. He remains on a heparin drip. He is on norepinephrine at 0.02 mcg/kg/min. Normal saline at KVO. Cardiac catheterization revealed a patent stent within the proximal and mid LAD and a 95% stenosis involving the ostial portion of the OM branch, chronically occluded right coronary artery. X-ray continues with cardiomegaly and pulmonary venous congestion. LVAD in place. Sputum cultures pending. His procalcitonin was 15.2. He is continued on ceftriaxone and azithromycin. White count 26.6. Hemoglobin 12.9. Platelets 192. Sodium 137. Potassium 4.1. Bicarb 23. BUN 29. Creatinine 1.31. Lactic acid 1.2. The patient is seen today October 20, 2023 in follow-up in the intensive care unit. He is currently resting fairly comfortably in bed. Awake and alert in no acute distress. He is maintaining O2 saturations in the 90s on 3 L nasal cannula, currently afebrile. He has normal staying at 20 MLS per hour. Continued on a heparin drip. He did go to the Clicking Machine Operator yesterday and had stenting to the left main however unable to stent the OM1. Impella remains in place set at P5. Cardiac output 2.6. Chest x-ray is showing improvement in the congestive heart failure. White count 19.7. Hemoglobin 11.3. Sodium 143. Potassium 3.8. Bicarb 26. BUN 25. Creatinine 1.18. AST 103. ALT 83. LDH 1071. Albumin 2.6. He remains on ceftriaxone and azithromycin. Continued on bronchodilators. The patient is seen today October 21, 2023 in follow-up in the intensive care unit. He is awake and alert in no acute distress. Resting fairly comfortably in bed. Maintaining O2 saturations in the 90s on 4 L/min per nasal cannula. Chest x- ray is showing improvement. The Impella has been removed. He denies any chest pain or palpitations currently. He does have some dyspnea with conversation. Dyspnea with minimal exertion. He remains on DuoNeb ventilations, Pulmicort and Perforomist inhalations, Solu-Medrol. He is on antibiotics in the form of ceftriaxone. Blood cultures revealed no growth. Sputum culture reveals Prerna. White count 13.6. Hemoglobin 11.1. Platelets 154. Sodium 139. Potassium 4.1. Bicarb 28. BUN 20. Creatinine 1.07. Glucose 74. The patient is seen today October 22, 2023 in follow-up in the intensive care unit. He is currently resting comfortably in bed. Awake and alert in no acute distress. Maintaining good O2 saturations in the 90s on 3 L/min per nasal cannula. No IV fluids. He is breathing easier today compared to yesterday. Denies any chest pain or palpitations. No cough or congestion. He is continued on DuoNeb ventilations, Pulmicort and perforomist inhalations. Chest x-ray re veals cardiomegaly with interstitial edema. Anticoagulated with Eliquis. White count 16.2. Hemoglobin 11.0. Platelets 165. Sodium 140. Potassium 3.8. Bicarb 28. BUN 15. Creatinine 1.14. AST 66. ALT 71. Procalcitonin 3.19. Progress note dated October 23, 2023. The patient is seen today in room 367. He is resting comfortably. He is on 2 L of oxygen. He is not receiving any IV fluids. He was seen yesterday in the intensive care unit. He denies any shortness of breath, difficulty breathing, coughing, chest pain, pressure, or palpitations. White count of 16.9, hemoglobin 11.9, hematocrit 38, platelet count 239,000. Sodium is 141, potassium 4.1, chlorides 110, CO2 22, BUN 13 and creatinine 1.04. Yesterday's procalcitonin level was 3.19. Cultures are currently pending are negative. No chest x-ray today. On today's evaluation of 10/24/2023, the patient is being seen for a follow-up. The patient is experiencing some nausea. No emesis. The patient is post acute non-ST segment elevation myocardial infarction and the patient underwent successful stenting of the left main coronary artery on 10/19/2023. The patient also has severe cardiomyopathy with an left ventricular ejection fraction of less than 15%. The patient is currently on 2 L of oxygen by nasal cannula with a pulse ox of 99%. Afebrile. Hemodynamically stable. No significant hypotension. He is having episodes of cough and this is essentially dry cough. This could be related to FERNANDO inhibitor's and I made recommendations to hold lisinopril for now. The patient otherwise is awake and alert and communicating. The white cell count is at 17.9 with a hemoglobin 11.3. Sodium is at 140, potassium is at 4.1 BUN 11 creatinine is 1 and a serum bicarb is at 19. No active hemoptysis at this point in time. The patient is approximately fibrillation and remains on anticoagulation with Eliquis. On 10/25/2023, I am seeing the patient for a follow-up. The patient is still having episodes of cough which is essentially unexplained. He believes that this cough is related to various pills that he has been taking. On yesterday's evaluation, we remove the FERNANDO inhibitor and the patient was replaced with Coza ar. He is taken Cozaar 12.5 mg p.o. daily. He is also on a combination of aspirin and Brilinta. He remains on metoprolol 25 mg p.o. twice a day. He is on Lipitor 20 mg p.o. daily. His procalcitonin level has dropped considerably and is currently down to 0.9. I think is reasonable also to discontinue the IV Rocephin. The white cell count remains mildly elevated. The chest x-ray shows small left-sided pleural effusion with some basilar infiltrates that improved compared to the earlier evaluations. The patient is currently on room air oxygen with a pulse ox of 92%. WBC count at 17 with a hemoglobin 10.9 and platelet count of 298. BUN is at 15 with a creatinine of 1.1 and sodium levels at 143. On today's evaluation of 10/26/2023, the patient is being seen for a follow-up. The patient is still having some residual cough. The swallow evaluation was done and the patient has a normal swallow. No reported aspiration. No chest pain. Some mild baseline shortness reported by the patient. Otherwise, the patient has been hemodynamically stable. Remains on the same cardiac medication including aspirin and Brilinta. The patient remains on metoprolol 50 mg p.o. twice a day. Losartan 12.5 mg p.o. daily. Patient is on Zetia and Lipitor. The patient is also on amiodarone 100 mg p.o. twice a day and long-term anticoagulation with Eliquis 2.5 mg twice a day. Labs from today show a white cell count of 16 with a hemoglobin 11 and a platelet count of 363. BUN is at 17 with a creatinine of 1.2 and a sodium levels at 142. A repeat chest x-ray was done today and it shows some mild pulm vascular congestion and small left-sided pleural effusion consistent with some mild CHF changes. The patient is currently on 2 L of O2 nasal cannula with a pulse ox of 95%. No other signif icant events overnight. No chest pain. No swelling in the lower extremities. Objective - Vital Signs Vital signs: Vital Signs Temp 97.1 F L 10/25/23 20:00 Pulse 84 10/26/23 08:33 Resp 14 10/26/23 08:00 BP 110/79 10/26/23 08:00 Pulse Ox 95 10/26/23 08:01 FiO2 4 10/21/23 12:00 Intake & Output 10/25/23 10/26/23 10/26/23 18:59 06:59 18:59 Intake Total 236 240 Balance 236 240 Intake: Oral 236 240 Other: Voiding Method Urinal # Voids 2 ABP, PAP, CO, CI - Last Documented Arterial Blood Pressure 116/72 - Exam No acute distress, oriented 3. Currently on 2 L. No conversational dyspnea or use of accessory muscles. Having episodes of frequent cough. HEENT examination is grossly unremarkable. Mucous membranes are moist. No oral lesions. Neck supple. Full range of motion. No adenopathy thyromegaly or neck vein distention. Cardiovascular examination reveals regular rhythm rate. S1-S2 normal. No S3 or S4. No discernible murmur noted. Lungs reveal mostly clear breath sounds. Scattered basilar crackles. No wheezes or rhonchi. Breath sounds are equal bilaterally. Abdomen soft bowel sounds are heard. No masses or tenderness. Extremities are intact. No cyanosis clubbing or edema. Skin is without rash or lesion. Neurologic examination is brief but nonfocal. - Labs CBC & Chem 7: 10/26/23 08:33 10/26/23 08:33 Labs: Abnormal Lab Results - Last 24 Hours (Table) 10/25/23 10/25/23 10/26/23 Range/Units 09:46 09:46 08:33 WBC 17.1 H 16.0 H (3.8-10.6) k/uL RBC 3.51 L 3.63 L (4.30-5.90) m/uL Hgb 10.9 L 11.1 L (13.0-17.5) gm/dL Hct 34.9 L 36.4 L (39.0-53.0) % MCV 100.1 H (80.0-100.0) fL MCHC 30.4 L (31.0-37.0) g/dL RDW 16.4 H 16.9 H (11.5-15.5) % Chloride 111 H (98-107) mmol/L Carbon Dioxide (22-30) mmol/L Creatinine (0.66-1.25) mg/dL Glucose 112 H (74-99) mg/dL Total Bilirubin 1.4 H (0.2-1.3) mg/dL ALT 59 H (4-49) U/L Total Protein 6.2 L (6.3-8.2) g/dL Albumin 3.2 L (3.5-5.0) g/dL 10/26/23 Range/Units 08:33 WBC (3.8-10.6) k/uL RBC (4.30-5.90) m/uL Hgb (13.0-17.5) gm/dL Hct (39.0-53.0) % MCV (80.0-100.0) fL MCHC (31.0-37.0) g/dL RDW (11.5-15.5) % Chloride 111 H (98-107) mmol/L Carbon Dioxide 20 L (22-30) mmol/L Creatinine 1.26 H (0.66-1.25) mg/dL Glucose 119 H (74-99) mg/dL Total Bilirubin (0.2-1.3) mg/dL ALT (4-49) U/L Total Protein (6.3-8.2) g/dL Albumin (3.5-5.0) g/dL Microbiology - Last 24 Hours (Table) 10/22/23 01:50 Blood Culture - Preliminary Blood 10/22/23 02:01 Blood Culture - Preliminary Blood Assessment and Plan Plan: Acute non-ST elevation [place], found to have severe ostial stenosis of the OM1, Impella device placed 10/18/2023 removed 10/21/2023. He did undergo successful stenting of the left main coronary artery on 10/19/2023. Acute hypotension and shock refractory to fluid resuscitation, requiring norepinephrine, likely cardiogenic in nature. Recovered and off pressors. Acute leukocytosis, procalcitonin 15.2 and currently down to 0.9 and the patient was on IV Rocephin. Chest x-ray shows limited atelectatic change in the left lung base. No evidence of any infection or pneumonia. White cell count remains slightly elevated. The patient is afebrile. The patient is currently off antibiotics. Acute on chronic systolic heart failure, ejection fraction 15%. Acute on chronic hypoxemic respiratory failure, secondary to above, currently on room air oxygen Acute kidney injury, secondary to hypotension and ATN, recovered and the creatinine is normalized Mild transaminitis, secondary to hypotension and shock. History of severe ischemic cardiomyopathy, with a baseline ejection fraction estimated at less than 15%, with history of V. tach and AICD implantation. History of valvular heart disease, with moderate to severe mitral regurgitation along with moderate aortic and tricuspid regurgitation. Moderate chronic obstructive pulmonary disease. History of multivessel coronary artery disease with previous PCI/stenting of the proximal and mid LAD. History of paroxysmal atrial fibrillation. History of hyperlipidemia. History of hypertension. History of CVA/TIA. Former tobacco dependence, quitting in January,. Episodes of cough, could be related to FERNANDO inhibitor's and this was switched to losartan. The patient also underwent a swallow evaluation that was essentially within normal limits. Episodic nausea. Plan: Chest x-ray findings are stable and consistent with CHF Will continue anticoagulation with Eliquis 2.5 mg twice a day in combination with amiodarone Continue metoprolol 12.5 mg p.o. twice a day Continue Cozaar. Continue aspirin 81 mg p.o. daily in combination with Brilinta May discontinue the IV Rocephin as the patient's procalcitonin level is dropped and the chest x-ray essentially clear Continue bronchodilators and the patient is on DuoNeb updrafts in combination with Perforomist and Pulmicort nebulized treatments twice a day, and those updrafts can be discontinued and the patient can be switched to Symbicort at time of discharge and use albuterol updrafts on an as-needed basis. Will continue to follow. Case was discussed with the medical team..
[2023-10-26] MEDS: METOPROLOL TARTRATE 25 MG TAB PO STA (11:35)
--- NOTE | 2023-10-26 12:09 | P.PN ---
Subjective Progress Note Date: 10/26/23 HISTORY OF PRESENT ILLNESS: Patient examined this morning. [facility]. Patient states he does not feel very well this morning. He reports he has been coughing up some blood this morning. He denies chest pain or pressure. He denies shortness of breath. Telemetry reveals sinus mechanism. Blood pressure stable with a recent reading of 98/63. 10/23 Patient's main concern is that he cannot sleep. He needs something to help with this. He complains of a cough with a little bit of blood in it. No clots. Blood pressure 118/84. Heart rate in the 70s, pulse ox 95% on 2 L nasal cannula. Repeat blood work reveals WBC 17.9, hemoglobin 11.3. Sodium 140, potassium 4.1, BUN 11 creatinine 1. CO2 is 19. 4/9 Yesterday, Dr. Norton recommended holding lisinopril due to cough. We will l transition lisinopril to losartan today. Heart rate is in the 80s, blood pressure 106/71, pulse ox 92% on room air. Repeat blood work reveals WBC 17, hemoglobin 10.9, sodium 143, potassium 4.3, BUN 15 creatinine 1.18. Repeat chest x-ray reveals small left-sided pleural effusion with basilar infiltrates persisting although improved. Patient's main concern is that he has not been able to sleep. Restoril will be added for him. 10/25 Patient has no new concerns today. There has been issue with anxiety for the patient. He did have a run of V. tach 6 beats yesterday and beta-shawn will be increased. Heart rate is in the 80s, blood pressure 95/63, pulse ox 95% on 2 L nasal cannula. Repeat blood work: WBC 16, hemoglobin 11.1. BUN 17, creatinine 1.26, potassium 4.5. Patient apparently has had less coughing since lisinopril was transition to losartan. PHYSICAL EXAM: VITAL SIGNS: Reviewed. GENERAL: Well-developed in no acute distress. NECK: Supple. No JVD or thyromegaly LUNGS: Respirations even and unlabored. Lungs essentially clear to auscultation bilaterally. HEART: Regular rate and rhythm. S1 and S2 heard. EXTREMITIES: Normal range of motion. No clubbing or cyanosis. Peripheral pulses intact. No lower extremity edema ASSESSMENT: Non-STEMI with stenting of the left main with Impella support Coronary artery disease Mild hemoptysis Cardiogenic shock Acute heart failure with reduced EF, 15% Ischemic cardiomyopathy History of AICD implantation Paroxysmal atrial fibrillation Acute kidney injury Acute COPD exacerbation Possible pneumonia Hematuria, resolved Transaminitis Pretension Hyperlipidemia History of CVA Run of nonsustained ventricular tachycardia X1, 6 beats PLAN: Continue current cardiac medications Patient is cleared for discharge from cardiology and may follow-up in the office with Dr. Barrientos in 1 to 2 weeks. Nurse practitioner note has been reviewed by physician. Signing provider agrees with the documented findings, assessment, and plan of care documented by [employer] as a scribe. Objective - Vital Signs Vital signs: Vital Signs Temp 97.1 F L 10/25/23 20:00 Pulse 84 10/26/23 08:33 Resp 14 10/26/23 08:00 BP 110/79 10/26/23 08:00 Pulse Ox 95 10/26/23 08:01 FiO2 4 10/21/23 12:00 Intake & Output 10/25/23 10/26/23 10/26/23 18:59 06:59 18:59 Intake Total 236 240 Balance 236 240 Intake: Oral 236 240 Other: Voiding Method Urinal # Voids 2 ABP, PAP, CO, CI - Last Documented Arterial Blood Pressure 116/72 - Labs CBC & Chem 7: 10/26/23 08:33 10/26/23 08:33 Labs: Abnormal Lab Results - Last 24 Hours (Table) 10/25/23 10/25/23 10/26/23 Range/Units 09:46 09:46 08:33 WBC 17.1 H 16.0 H (3.8-10.6) k/uL RBC 3.51 L 3.63 L (4.30-5.90) m/uL Hgb 10.9 L 11.1 L (13.0-17.5) gm/dL Hct 34.9 L 36.4 L (39.0-53.0) % MCV 100.1 H (80.0-100.0) fL MCHC 30.4 L (31.0-37.0) g/dL RDW 16.4 H 16.9 H (11.5-15.5) % Chloride 111 H (98-107) mmol/L Carbon Dioxide (22-30) mmol/L Creatinine (0.66-1.25) mg/dL Glucose 112 H (74-99) mg/dL Total Bilirubin 1.4 H (0.2-1.3) mg/dL ALT 59 H (4-49) U/L Total Protein 6.2 L (6.3-8.2) g/dL Albumin 3.2 L (3.5-5.0) g/dL 10/26/23 Range/Units 08:33 WBC (3.8-10.6) k/uL RBC (4.30-5.90) m/uL Hgb (13.0-17.5) gm/dL Hct (39.0-53.0) % MCV (80.0-100.0) fL MCHC (31.0-37.0) g/dL RDW (11.5-15.5) % Chloride 111 H (98-107) mmol/L Carbon Dioxide 20 L (22-30) mmol/L Creatinine 1.26 H (0.66-1.25) mg/dL Glucose 119 H (74-99) mg/dL Total Bilirubin (0.2-1.3) mg/dL ALT (4-49) U/L Total Protein (6.3-8.2) g/dL Albumin (3.5-5.0) g/dL Microbiology - Last 24 Hours (Table) 10/22/23 01:50 Blood Culture - Preliminary Blood 10/22/23 02:01 Blood Culture - Preliminary Blood
--- NOTE | 2023-10-26 15:15 | P.DS ---
Providers Date of admission: 10/18/23 00:29 Expected date of discharge: 10/26/23 Attending physician: Daphney Paulson MD Consults: 10/18/23 00:27 Consult Physician Routine Consulting Provider: Elvis Elias Consult Reason/Comments: copdhypoxia Do you want consulting provider notified?: Yes Consult Physician Urgent Consulting Provider: Kasie Barrientos Consult Reason/Comments: NSTEMI Do you want consulting provider notified?: Yes 10/19/23 15:56 Consult Physician Routine Consulting Provider: [facility] Consult Reason/Comments: Post Interventional Patient Do you want consulting provider notified?: Already Contacted Primary care physician: Kasie [facility] Course: Discharge Diagnosis: Non-ST segment elevated myocardial infarction Severe CAD s/p PCI to the left pain Cardiogenic shock, resolved Decompensated systolic congestive heart failure with ejection fraction less than 20% status post AICD Chronic hypoxic respiratory failure Paroxysmal atrial fibrillation Acute kidney injury likely secondary to hypoperfusion, improving Transaminitis, likely secondary to hypoperfusion, improved Epistasix Acute hypoxic respiratory failure, multifactorial-- now chronic Acute exacerbation of COPD Probable pneumonia with elevated procalcitonin, resolved Thrush Chronic low back pain Pill induced dysphagia-Speech therapy evaluated the patient and found normal swallow Moderate COPD without exacerbation Hypertension Dyslipidemia Memory impairment Seizure disorder History of CVA Hospital Course: Patient is a 63-year-old male with a history of systolic cardiomyopathy with known ejection fraction less than 20% status post AICD, moderate COPD, A-fib anticoagulated with Eliquis, and history of coronary artery disease status post multiple PCI, and multiple other comorbid conditions who presented to the hospital with complaints of generalized weakness. In the emergency department he underwent extensive evaluation initially his vital signs were within normal limits other than an O2 sat of 89% on room air. However 5 minutes after arrival his pulse went to 112, blood pressure 84/64, and O2 sat of 79% on a nonrebreather. Initial laboratory analysis in the emergency department included CBC, coags, CMP, BNP, and troponin which were remarkable for white blood cell count 20.9, sodium 136, BUN 24, creatinine 1.72 (baseline 0.9), total bilirubin 1.9, AST 82, ALT 97, and troponin 1.570. BNP was elevated at 5780. Repeat troponin went up to 2.09. Started on norepinephrine secondary to hypotension after 1 L fluid bolus. He was taken to the [facility] and underwent diagnostic cardiac catheterization which showed severe disease to the left circumflex however he was also found to have possible cardiogenic shock and therefore Dr. Ng came in and placed an Impella device. There was some concern with his elevated white blood cell count that there is a possible underlying pneumonia and he was subsequently started on oral phylactic Rocephin and Zithromax. Per the [facility] he was transferred to the intensive care unit. His Impella was slightly displaced and this was repositioned on the morning of 10/18/2023 and he then developed hematuria, which slowly improved. On 10/19/2023 he underwent PCI to the left main. His Impella was able to be removed on 10/21/2023. He was able to be weaned off of vasopressors. He was resumed on Eliquis. He developed some epistaxis which resolved and eliquis was restarted. His blood pressures remained stable. His procalcitonin improved by greater than 80% and his antibiotics were discontinued. He did have some pill induced esophagitis and was seen by speech therapy and found to have a normal swallow study. He continued to improve throughout his hospital stay. He was determined stable for discharge home. Nurse did home o2 evaluation which demonstrated O2 sat of 95% at rest on room air and 85 % with activity on room and patient will require home O2 with ambulation due to his heart failure. Follow-up: Dr. Barrientos in [address] Del Toro for PCP today. Residential home care. New medications include aspirin 81 mg daily, Brilinta 90 mg twice daily, Cozaar 12 mg daily, amiodarone was decreased to 100 mg twice daily, Eliquis decreased to 2.5 mg twice daily, he was taken off of Coreg and established on metoprolol 50 mg twice daily, he was taken off ramipril 2.5 mg daily. He was given instructions to establish with a primary care physician and to take his medications as prescribed. He is given strict instructions to monitor for signs of bleeding given his triple therapy. Patient seen and examined at bedside. He states he is feeling better today but is slightly lethargic from his Ambien. But overall is doing better no additional choking episodes. Vital signs reviewed and stable. General: Nontoxic, no distress, appears at stated age Cardiovascular: S1S2 reg, no murmur, positive posterior tibial pulse bilateral, Lungs: CTA bilateral, no rhonchi, no rales, no accessory muscle use Abdominal: Soft, nontender to palpation, no guarding, no appreciable organomegaly Ext: No gross muscle atrophy, no edema b/l lower extremities, no contractures Neuro: CN II-XI grossly intact, no focal neuro deficits Psych: Alert, oriented, appropriate affect A total of 45 minutes of time were spent preparing this complex discharge summary. Patient was discharged on 10/26/2023. This dictation was prepared using [employer] voice recognition software. Though every attempt is made to correct errors during dictation some may still exist. Patient Condition at Discharge: Stable Plan - Discharge Summary New Discharge Prescriptions: New Aspirin 81 mg PO DAILY tab Ticagrelor [Brilinta] 90 mg PO BID #60 tab Losartan [Cozaar] 12.5 mg PO DAILY #30 tab Nystatin 100,000 Unit/ml Susp [Mycostatin Oral Susp] 500,000 unit PO QID 5 Days #100 ml Amiodarone [Cordarone] 100 mg PO BID #60 tab Apixaban [Eliquis] 2.5 mg PO BID #60 tab Metoprolol Tartrate [Lopressor] 50 mg PO BID #60 tab Continue Ezetimibe [Zetia] 10 mg PO DAILY Rosuvastatin [Crestor] 20 mg PO HS Albuterol Sulfate [Ventolin HFA] 2 puff INHALATION RT-QID PRN PRN Reason: Shortness Of Breath Albuterol Nebulized [Ventolin Nebulized] 2.5 mg INHALATION RT-TID Budesonide-Formot 160-4.5 Mcg [Symbicort 160-4.5 Mcg Inhaler] 2 puff INHALATION RT-BID Furosemide [Lasix] 40 mg PO DAILY #90 tab levETIRAcetam [Keppra] 500 mg PO BID Empagliflozin [Jardiance] 10 mg PO DAILY Discontinued Amiodarone [Cordarone] 200 mg PO DAILY ramipriL [Altace] 2.5 mg PO DAILY Apixaban [Eliquis] 5 mg PO BID carvediloL [Coreg] 6.25 mg PO BID Discharge Medication List Ezetimibe [Zetia] 10 mg PO DAILY 09/10/15 [History] Rosuvastatin [Crestor] 20 mg PO HS 02/24/16 [History] Albuterol Sulfate [Ventolin HFA] 2 puff INHALATION RT-QID PRN 08/20/21 [History] Albuterol Nebulized [Ventolin Nebulized] 2.5 mg INHALATION RT-TID 04/07/23 [History] Budesonide-Formot 160-4.5 Mcg [Symbicort 160-4.5 Mcg Inhaler] 2 puff INHALATION RT-BID 04/15/23 [History] Furosemide [Lasix] 40 mg PO DAILY #90 tab 04/17/23 [Rx] Empagliflozin [Jardiance] 10 mg PO DAILY 06/28/23 [History] levETIRAcetam [Keppra] 500 mg PO BID 06/28/23 [History] Amiodarone [Cordarone] 100 mg PO BID #60 tab 10/26/23 [Rx] Apixaban [Eliquis] 2.5 mg PO BID #60 tab 10/26/23 [Rx] Aspirin 81 mg PO DAILY tab 10/26/23 [Rx] Losartan [Cozaar] 12.5 mg PO DAILY #30 tab 10/26/23 [Rx] Metoprolol Tartrate [Lopressor] 50 mg PO BID #60 tab 10/26/23 [Rx] Nystatin 100,000 Unit/ml Susp [Mycostatin Oral Susp] 500,000 unit PO QID 5 Days #100 ml 10/26/23 [Rx] Ticagrelor [Brilinta] 90 mg PO BID #60 tab 10/26/23 [Rx] Follow up Appointment(s)/Referral(s): Kasie Barrientos MD [Primary Care Provider] - 11/07/23 11:00 am Jona Del Toro MD [REFERRING] - 1 Week (to establish for PCP) [facility] [NON-STAFF] - 1 Week Patient Instructions/Handouts: *Surgery [facility] - After Heart Catheterization - [employer] Instructions, Heart Attack (DC) Activity/Diet/Wound Care/Special Instructions: Activity: As tolerated Diet: Heart Healthy Special Instructions: Please discuss with Dr. Barrientos as you can likely come off Aspirin after 30 days given your need for eliquis and brillenta Monitor your urine and stool for signs of bleeding. Monitoring for coughing up blood and bloody nose. If you have a head impact please come back to the emergency department to be seen. Discharge Disposition: HOME WITH HOME HEALTH SERVICES
[2023-10-26] MEDS ORDERED: ZOLPIDEM 5 MG TAB PO PRN (17:15)
--- NOTE | 2023-10-26 18:12 | CT ---
EXAMINATION TYPE: CT brain wo con CT DLP: 1109.7 mGycm, Automated exposure control for dose reduction was used. DATE OF EXAM: 10/26/2023 5:53 PM COMPARISON: 07/06/2023. CLINICAL INDICATION:Male, 63 years old with history of dizziness and weakness, cva TECHNIQUE: Brain: Axial CT images of the brain were obtained with coronal and sagittal reformats created and rev iewed. Contrast used: None. Oral contrast used: None. FINDINGS: Brain: Extra-axial spaces: No abnormal extra-axial fluid collections. Ventricular system: Within normal limits Cerebral parenchyma: Encephalomalacia of the left frontal lobe and left parietal region from prior in juries similar prior. No acute intraparenchymal hemorrhage or mass effect. The sheffield-white junction i s well differentiated. Cerebellum: Unremarkable. Mass effect: No evidence of midline shift. Intracranial vasculature: Atherosclerotic calcifications of the intracranial vessels. Soft tissues: Normal. Calvarium/osseous structures: No depressed skull fracture. Paranasal sinuses and mastoid air cells: Mild scattered paranasal sinus disease. Visualized orbits: Orbital contents are intact. IMPRESSION: 1. No acute intracranial process. 2. Remote injury to the left frontal and left parietal lobes.
--- NOTE | 2023-10-26 18:39 | CT ---
EXAMINATION TYPE: CT angio head neck CT DLP: 999.1 mGycm, Automated exposure control for dose reduction was used. DATE OF EXAM: 10/26/2023 6:17 PM COMPARISON: 02/14/2023 10/26/2023. CLINICAL INDICATION:Male, 63 years old with history of confusion, concern for stroke, cva TECHNIQUE: Axially acquired helical CT angiogram of the head and neck was obtained with contrast. Axi al images are supplemented with 3D reconstructions and MIP images which were post-processed at an in dependent workstation. NASCET criteria used. Contrast used:130cc mL of Isovue 370 with IV Contrast, Oral contrast used: None. FINDINGS: CTA HEAD: No evidence of acute intracranial hemorrhage, mass effect, or midline shift. The ventricles, sulci, a nd cisterns are unremarkable. Left aphakia. The visualized portions of the internal carotid arteries, middle cerebral arteries, anterior cerebral arteries, and posterior cerebral arteries are patent. Previously occluded right M1 segment on 023 is no longer visualized. Atherosclerosis of the intracranial internal carotid arteries. jeff gin of left posterior cerebral artery. The intracranial basilar and vertebral arteries are patent. CTA NECK: Right Carotid System: The common carotid and external carotid arteries are patent. There is less than 25% stenosis at the c arotid bifurcation secondary to calcified/noncalcified plaque. The rest of the internal carotid arter y is patent. Left Carotid System: The common carotid and external carotid arteries are patent. There is less than 25% stenosis at the c arotid bifurcation secondary to calcified/noncalcified plaque. The rest of the internal carotid arter y is patent. Diminutive appearance of the left vertebral artery extending from its origin to the vertebral transve rse foramen's. Dense calcifications along its course and small caliber limited evaluation of this ves rachel. The proximal portion may be occluded with backfilling from the [place]. The right verte bral artery origin and course appear patent. There is a three-vessel aortic arch. The origins of the great vessels are patent. No evidence of hemodynamically significant stenosis. Upper thorax: Moderate to severe emphysema changes with superimposed pulmonary vascular congestion wi th thickening of interlobular septa. Lymphadenopathy in the AP window partially visualized measuring up to 12 mm in short axis and along the trachea and the higher portion of the trachea in the mediasti num measuring up to 11 mm. Moderate atherosclerosis of the arterial vascular. Cardiac conduction mary ce is present. There is left pleural effusion. IMPRESSION: 1. Poor evaluation of the left vertebral artery due to multiple dense calcifications near its origin and its inferior portions. Its felt that this vessel is likely occluded with retrograde flow from th e [place]. Right vertebral artery is patent. 2. No evidence of dissection of the cervical internal carotid arteries or any evidence of significan t stenosis at the carotid bifurcations. 3. No evidence of intracranial high-grade stenosis or intracranial aneurysm. 4. Moderate to severe emphysema changes with superimposed pulmonary vascular congestion. Trace left pleural effusion also present. Correlate for congestive heart failure serum BNP.
[2023-10-26] MEDS: ONDANSETRON 4 MG/2 ML VIAL IVP PRN (19:57)
[2023-10-26] MEDS: METOPROLOL TARTRATE 50 MG TAB PO SCH (21:48)
[2023-10-27 05:22] VITALS: RESP 18
--- NOTE | 2023-10-27 09:43 | P.DS ---
Providers Date of admission: 10/18/23 00:29 Expected date of discharge: 10/27/23 Attending physician: Daphney Paulson MD Consults: 10/18/23 00:27 Consult Physician Routine Consulting Provider: Elvis Elias Consult Reason/Comments: copdhypoxia Do you want consulting provider notified?: Yes Consult Physician Urgent Consulting Provider: Kasie Barrientos Consult Reason/Comments: NSTEMI Do you want consulting provider notified?: Yes 10/19/23 15:56 Consult Physician Routine Consulting Provider: [facility] Consult Reason/Comments: Post Interventional Patient Do you want consulting provider notified?: Already Contacted Primary care physician: Kasie [facility] Hospital Course: Discharge Diagnosis: Non-ST segment elevated myocardial infarction Severe CAD s/p PCI to the left pain Cardiogenic shock, resolved Decompensated systolic congestive heart failure with ejection fraction less than 20% status post AICD Chronic hypoxic respiratory failure Paroxysmal atrial fibrillation Acute kidney injury likely secondary to hypoperfusion, improving Transaminitis, likely secondary to hypoperfusion, improved Epistasix Acute hypoxic respiratory failure, multifactorial-- now chronic Acute exacerbation of COPD Probable pneumonia with elevated procalcitonin, resolved Thrush Chronic low back pain Pill induced dysphagia-Speech therapy evaluated the patient and found normal swallow Moderate COPD without exacerbation Hypertension Dyslipidemia Memory impairment Seizure disorder History of CVA Hospital Course: Patient is a 63-year-old male with a history of systolic cardiomyopathy with known ejection fraction less than 20% status post AICD, moderate COPD, A-fib anticoagulated with Eliquis, and history of coronary artery disease status post multiple PCI, and multiple other comorbid conditions who presented to the hospital with complaints of generalized weakness. In the emergency department he underwent extensive evaluation initially his vital signs were within normal limits other than an O2 sat of 89% on room air. However 5 minutes after arrival his pulse went to 112, blood pressure 84/64, and O2 sat of 79% on a nonrebreather. Initial laboratory analysis in the emergency department included CBC, coags, CMP, BNP, and troponin which were remarkable for white blood cell count 20.9, sodium 136, BUN 24, creatinine 1.72 (baseline 0.9), total bilirubin 1.9, AST 82, ALT 97, and troponin 1.570. BNP was elevated at 5780. Repeat troponin went up to 2.09. Started on norepinephrine secondary to hypotension after 1 L fluid bolus. He was taken to the [facility] and underwent diagnostic cardiac catheterization which showed severe disease to the left circumflex however he was also found to have possible cardiogenic shock and therefore Dr. Ng came in and placed an Impella device. There was some concern with his elevated white blood cell count that there is a possible underlying pneumonia and he was subsequently started on oral phylactic Rocephin and Zithromax. Per the [facility] he was transferred to the intensive care unit. His Impella was slightly displaced and this was repositioned on the morning of 10/18/2023 and he then developed hematuria, which slowly improved. On 10/19/2023 he underwent PCI to the left main. His Impella was able to be removed on 10/21/2023. He was able to be weaned off of vasopressors. He was resumed on Eliquis. He developed some epistaxis which resolved and eliquis was restarted. His blood pressures remained stable. His procalcitonin improved by greater than 80% and his antibiotics were discontinued. He did have some pill induced esophagitis and was seen by speech therapy and found to have a normal swallow study. He continued to improve throughout his hospital stay. He was determined stable for discharge home. Nurse did home o2 evaluation which demonstrated O2 sat of 95% at rest on room air and 85 % with activity on room and patient will require home O2 with ambulation due to his heart failure. Follow-up: Dr. Barrientos in [address] Del Toro for PCP today. Residential home care. New medications include aspirin 81 mg daily, Brilinta 90 mg twice daily, Cozaar 12 mg daily, amiodarone was decreased to 100 mg twice daily, Eliquis decreased to 2.5 mg twice daily, he was taken off of Coreg and established on metoprolol 50 mg twice daily, he was taken off ramipril 2.5 mg daily. He was given instructions to establish with a primary care physician and to take his medications as prescribed. He is given strict instructions to monitor for signs of bleeding given his triple therapy. Of note, patient was discharged on 10/26/2023, however discharge held due to patient feeling dizziness with standing. CT head and CTA did not show any acute process. Likely contributed by Xanax and Ambien, which were held. Patient now feeling better with ambulation. Being discharged home with home care. Patient seen and examined at bedside. He states he is feeling better today but is slightly lethargic from his Ambien. But overall is doing better no additional choking episodes. Vital signs reviewed and stable. General: Nontoxic, no distress, appears at stated age Cardiovascular: S1S2 reg, no murmur, positive posterior tibial pulse bilateral, Lungs: CTA bilateral, no rhonchi, no rales, no accessory muscle use Abdominal: Soft, nontender to palpation, no guarding, no appreciable organomegaly Ext: No gross muscle atrophy, no edema b/l lower extremities, no contractures Neuro: CN II-XI grossly intact, no focal neuro deficits Psych: Alert, oriented, appropriate affect A total of 45 minutes of time were spent preparing this complex discharge summary. Patient was discharged on 10/27/2023 at 941. Patient Condition at Discharge: Stable Plan - Discharge Summary New Discharge Prescriptions: New Aspirin 81 mg PO DAILY tab Ticagrelor [Brilinta] 90 mg PO BID #60 tab Losartan [Cozaar] 12.5 mg PO DAILY #30 tab Nystatin 100,000 Unit/ml Susp [Mycostatin Oral Susp] 500,000 unit PO QID 5 Days #100 ml Amiodarone [Cordarone] 100 mg PO BID #60 tab Apixaban [Eliquis] 2.5 mg PO BID #60 tab Metoprolol Tartrate [Lopressor] 50 mg PO BID #60 tab Continue Ezetimibe [Zetia] 10 mg PO DAILY Rosuvastatin [Crestor] 20 mg PO HS Albuterol Sulfate [Ventolin HFA] 2 puff INHALATION RT-QID PRN PRN Reason: Shortness Of Breath Albuterol Nebulized [Ventolin Nebulized] 2.5 mg INHALATION RT-TID Budesonide-Formot 160-4.5 Mcg [Symbicort 160-4.5 Mcg Inhaler] 2 puff INHALATION RT-BID Furosemide [Lasix] 40 mg PO DAILY #90 tab levETIRAcetam [Keppra] 500 mg PO BID Empagliflozin [Jardiance] 10 mg PO DAILY Discontinued Amiodarone [Cordarone] 200 mg PO DAILY ramipriL [Altace] 2.5 mg PO DAILY Apixaban [Eliquis] 5 mg PO BID carvediloL [Coreg] 6.25 mg PO BID Discharge Medication List Ezetimibe [Zetia] 10 mg PO DAILY 09/10/15 [History] Rosuvastatin [Crestor] 20 mg PO HS 09/10/15 [History] Albuterol Sulfate [Ventolin HFA] 2 puff INHALATION RT-QID PRN 08/20/21 [History] Albuterol Nebulized [Ventolin Nebulized] 2.5 mg INHALATION RT-TID 04/07/23 [History] Budesonide-Formot 160-4.5 Mcg [Symbicort 160-4.5 Mcg Inhaler] 2 puff INHALATION RT-BID 04/15/23 [History] Furosemide [Lasix] 40 mg PO DAILY #90 tab 04/17/23 [Rx] Empagliflozin [Jardiance] 10 mg PO DAILY 06/28/23 [History] levETIRAcetam [Keppra] 500 mg PO BID 06/28/23 [History] Amiodarone [Cordarone] 100 mg PO BID #60 tab 10/26/23 [Rx] Apixaban [Eliquis] 2.5 mg PO BID #60 tab 10/26/23 [Rx] Aspirin 81 mg PO DAILY tab 10/26/23 [Rx] Losartan [Cozaar] 12.5 mg PO DAILY #30 tab 10/26/23 [Rx] Metoprolol Tartrate [Lopressor] 50 mg PO BID #60 tab 10/26/23 [Rx] Nystatin 100,000 Unit/ml Susp [Mycostatin Oral Susp] 500,000 unit PO QID 5 Days #100 ml 10/26/23 [Rx] Ticagrelor [Brilinta] 90 mg PO BID #60 tab 10/26/23 [Rx] Follow up Appointment(s)/Referral(s): Kasie Barrientos MD [Primary Care Provider] - 11/07/23 11:00 am Jona Del Toro MD [REFERRING] - 1 Week (to establish for PCP) [facility]idential [facility] [NON-STAFF] - 1 Week Patient Instructions/Handouts: *Surgery [facility] - After Heart Catheterization - [employer] Secrecy Act Officer Instructions, Heart Attack (DC), Using Oxygen at Home (ED) Activity/Diet/Wound Care/Special Instructions: Activity: As tolerated Diet: Heart Healthy Special Instructions: Please discuss with Dr. Barrientos as you can likely come off Aspirin after 30 days given your need for eliquis and brillenta Monitor your urine and stool for signs of bleeding. Monitoring for coughing up blood and bloody nose. If you have a head impact please come back to the emergency department to be seen. Discharge Disposition: HOME WITH HOME HEALTH SERVICES
[2023-10-27 11:26] LABS: Anisocytosis Slight; HCT 39.7 % (39.0-53.0); HGB 12.2 gm/dL (13.0-17.5); Hypochromasia Marked; MCH 31.8 pg (25.0-35.0); MCHC 30.6 g/dL (31.0-37.0); MCV 103.7 fL (80.0-100.0); Macrocytosis Moderate; Mean Platelet Volume 8.4; Platelet Count 384 k/uL (150-450); RBC 3.83 m/uL (4.30-5.90); RDW 17.4 % (11.5-15.5); WBC 17.7 k/uL (3.8-10.6)
[2023-10-27 11:41] LABS: African American GFR (CKD) 58 (>60 ml/min/1.73 sqM); Anion Gap 12 mmol/L; Blood Urea Nitrogen 23 mg/dL (9-20); Calcium 8.8 mg/dL (8.4-10.2); Carbon Dioxide 19 mmol/L (22-30); Chloride 111 mmol/L (98-107); Glucose 112 mg/dL (74-99); Magnesium 2.4 mg/dL (1.6-2.3); Non-African American GFR(CKD) 50 (>60 ml/min/1.73 sqM); Potassium 5.3 mmol/L (3.5-5.1); Sodium 142 mmol/L (137-145)
[2023-10-27 12:16] VITALS: BP 101/68; PULSE 60; TEMP 97.2
--- NOTE | 2023-10-27 14:11 | P.PN ---
Subjective Progress Note Date: 10/27/23 Patient is a 63-year-old white male with past medical history significant for moderate COPD, multivessel coronary artery disease with previous PCI/stent, severe ischemic cardiomyopathy with an ejection fraction of less than 20%, valvular heart disease, V. tach, AICD, atrial fibrillation, hyperlipidemia, hypertension, CVA/TIA, and former tobacco smoker. Patient presented to the emergency room late last night complaining of a combination of left-sided chest pain, shortness of breath, and increased generalized weakness for most of the day. He is currently in trauma bay 2. He is lying in bed, on 5 L/min nasal cannula, he is anxious. He is in no acute distress, however, still complaining of some left-sided nonradiating chest pain. It is not reproducible. He was started on the IV heparin protocol per cardiology. Troponins continue to trend up, 1.57 and 2.1 respectively. EKG on arrival demonstrates what appears to be a first-degree AV block along with interventricular conduction delay, and Q waves in the lateral leads. Blood pressure was hypotensive on arrival, and he was aggressively fluid resuscitated with a total of 3 L of normal saline bolus. He was also started on a norepinephrine infusion, which is currently at a rate of 0.1 mcg/kg/min or approximately 8 mcg/min. Chest x-ray done on arrival was read as normal, however, there appears to be cardiomegaly with interstitial edema. No focal infiltrates or evidence of pneumonia. NT proBNP elevated at 5780. Patient denies any fever. He has been coughing, but is mostly nonproductive. CBC on arrival unremarkable other than some leukocytosis. WBC count 20. BMP on arrival: Sodium 136, potassium 4.4, chloride 103, serum bicarb 22, BUN 24, creatinine up to 1.72, glucose 155. LFTs mildly elevated. Patient's condition is currently critical. The [facility] is on their way and, patient will undergo heart catheterization. Afterwards, he will be best monitored in the intensive care unit. The patient is seen today October 19, 2023 in follow-up in the intensive care unit. He is currently awake and alert. He is maintaining O2 saturations in the low 90s on 2 L/min per nasal cannula. Mean arterial pressure of 67. He is afebrile. He is resting fairly comfortably in bed. He is having some complaint s of back pain. The Impella device remains in place currently at P-5 with a cardiac output of 2.3. Echocardiogram revealed an ejection fraction of 15%. He remains on a heparin drip. He is on norepinephrine at 0.02 mcg/kg/min. Normal saline at KVO. Cardiac catheterization revealed a patent stent within the proximal and mid LAD and a 95% stenosis involving the ostial portion of the OM branch, chronically occluded right coronary artery. X-ray continues with cardiomegaly and pulmonary venous congestion. LVAD in place. Sputum cultures pending. His procalcitonin was 15.2. He is continued on ceftriaxone and azithromycin. White count 26.6. Hemoglobin 12.9. Platelets 192. Sodium 137. Potassium 4.1. Bicarb 23. BUN 29. Creatinine 1.31. Lactic acid 1.2. The patient is seen today October 20, 2023 in follow-up in the intensive care unit. He is currently resting fairly comfortably in bed. Awake and alert in no acute distress. He is maintaining O2 saturations in the 90s on 3 L nasal cannula, currently afebrile. He has normal staying at 20 MLS per hour. Continued on a heparin drip. He did go to the [facility] yesterday and had stenting to the left main however unable to stent the OM1. Impella remains in place set at P5. Cardiac output 2.6. Chest x-ray is showing improvement in the congestive heart failure. White count 19.7. Hemoglobin 11.3. Sodium 143. Potassium 3.8. Bicarb 26. BUN 25. Creatinine 1.18. AST 103. ALT 83. LDH 1071. Albumin 2.6. He remains on ceftriaxone and azithromycin. Continued on bronchodilators. The patient is seen today October 21, 2023 in follow-up in the intensive care unit. He is awake and alert in no acute distress. Resting fairly comfortably in bed. Maintaining O2 saturations in the 90s on 4 L/min per nasal cannula. Chest x- ray is showing improvement. The Impella has been removed. He denies any chest pain or palpitations currently. He does have some dyspnea with conversation. Dyspnea with minimal exertion. He remains on DuoNeb ventilations, Pulmicort and Perforomist inhalations, Solu-Medrol. He is on antibiotics in the form of ceftriaxone. Blood cultures revealed no growth. Sputum culture reveals Prerna. White count 13.6. Hemoglobin 11.1. Platelets 154. Sodium 139. Potassium 4.1. Bicarb 28. BUN 20. Creatinine 1.07. Glucose 74. The patient is seen today October 22, 2023 in follow-up in the intensive care unit. He is currently resting comfortably in bed. Awake and alert in no acute distress. Maintaining good O2 saturations in the 90s on 3 L/min per nasal cannula. No IV fluids. He is breathing easier today compared to yesterday. Denies any chest pain or palpitations. No cough or congestion. He is continued on DuoNeb ventilations, Pulmicort and perforomist inhalations. Chest x-ray re veals cardiomegaly with interstitial edema. Anticoagulated with Eliquis. White count 16.2. Hemoglobin 11.0. Platelets 165. Sodium 140. Potassium 3.8. Bicarb 28. BUN 15. Creatinine 1.14. AST 66. ALT 71. Procalcitonin 3.19. Progress note dated October 23, 2023. The patient is seen today in room 367. He is resting comfortably. He is on 2 L of oxygen. He is not receiving any IV fluids. He was seen yesterday in the intensive care unit. He denies any shortness of breath, difficulty breathing, coughing, chest pain, pressure, or palpitations. White count of 16.9, hemoglobin 11.9, hematocrit 38, platelet count 239,000. Sodium is 141, potassium 4.1, chlorides 110, CO2 22, BUN 13 and creatinine 1.04. Yesterday's procalcitonin level was 3.19. Cultures are currently pending are negative. No chest x-ray today. On today's evaluation of 10/24/2023, the patient is being seen for a follow-up. The patient is experiencing some nausea. No emesis. The patient is post acute non-ST segment elevation myocardial infarction and the patient underwent successful stenting of the left main coronary artery on 10/19/2023. The patient also has severe cardiomyopathy with an left ventricular ejection fraction of less than 15%. The patient is currently on 2 L of oxygen by nasal cannula with a pulse ox of 99%. Afebrile. Hemodynamically stable. No significant hypotension. He is having episodes of cough and this is essentially dry cough. This could be related to FERNANDO inhibitor's and I made recommendations to hold lisinopril for now. The patient otherwise is awake and alert and communicating. The white cell count is at 17.9 with a hemoglobin 11.3. Sodium is at 140, potassium is at 4.1 BUN 11 creatinine is 1 and a serum bicarb is at 19. No active hemoptysis at this point in time. The patient is approximately fibrillation and remains on anticoagulation with Eliquis. On 10/25/2023, I am seeing the patient for a follow-up. The patient is still having episodes of cough which is essentially unexplained. He believes that this cough is related to various pills that he has been taking. On yesterday's evaluation, we remove the FERNANDO inhibitor and the patient was replaced with Coza ar. He is taken Cozaar 12.5 mg p.o. daily. He is also on a combination of aspirin and Brilinta. He remains on metoprolol 25 mg p.o. twice a day. He is on Lipitor 20 mg p.o. daily. His procalcitonin level has dropped considerably and is currently down to 0.9. I think is reasonable also to discontinue the IV Rocephin. The white cell count remains mildly elevated. The chest x-ray shows small left-sided pleural effusion with some basilar infiltrates that improved compared to the earlier evaluations. The patient is currently on room air oxygen with a pulse ox of 92%. WBC count at 17 with a hemoglobin 10.9 and platelet count of 298. BUN is at 15 with a creatinine of 1.1 and sodium levels at 143. On today's evaluation of 10/26/2023, the patient is being seen for a follow-up. The patient is still having some residual cough. The swallow evaluation was done and the patient has a normal swallow. No reported aspiration. No chest pain. Some mild baseline shortness reported by the patient. Otherwise, the patient has been hemodynamically stable. Remains on the same cardiac medication including aspirin and Brilinta. The patient remains on metoprolol 50 mg p.o. twice a day. Losartan 12.5 mg p.o. daily. Patient is on Zetia and Lipitor. The patient is also on amiodarone 100 mg p.o. twice a day and long-term anticoagulation with Eliquis 2.5 mg twice a day. Labs from today show a white cell count of 16 with a hemoglobin 11 and a platelet count of 363. BUN is at 17 with a creatinine of 1.2 and a sodium levels at 142. A repeat chest x-ray was done today and it shows some mild pulm vascular congestion and small left-sided pleural effusion consistent with some mild CHF changes. The patient is currently on 2 L of O2 nasal cannula with a pulse ox of 95%. No other signif icant events overnight. No chest pain. No swelling in the lower extremities. On today's evaluation of 10/27/2023, the patient is being seen for a follow-up. The patient was supposed to get discharged yesterday. However, the patient became dizzy while standing. Further neurowork-up was done and the patient underwent a CTA of the chest and a CT scan of the brain that showed no acute abnormalities. Currently the patient is stable. WBC count 17, hemoglobin 12.2 and a platelet count of 384. BUN is 23 with a creatinine 1.46 and a sodium level is 142 with a potassium level of 5.3. Current blood pressure is 101/68. He is on 2 L of oxygen by nasal cannula with a pulse ox of 96%. No chest pain. No angina. No shortness of breath at rest. Activity is limited at this point in time. Objective - Vital Signs Vital signs: Vital Signs Temp 97.8 F 10/27/23 00:00 Pulse 63 10/27/23 08:23 Resp 18 10/27/23 04:00 BP 104/65 10/27/23 04:00 Pulse Ox 89 L 10/27/23 07:56 FiO2 4 10/21/23 12:00 Intake & Output 10/26/23 10/27/23 10/27/23 18:59 06:59 18:59 Intake Total 640 240 Output Total 200 500 Balance 640 -200 -260 Intake: Oral 640 240 Output: Urine 200 500 Other: Voiding Method Urinal Urinal # Voids 3 ABP, PAP, CO, CI - Last Documented Arterial Blood Pressure 116/72 - Exam No acute distress, oriented 3. Currently on 2 L. No conversational dyspnea or use of accessory muscles. Calm and comfortable, no coughing episodes on today's evaluation. HEENT examination is grossly unremarkable. Mucous membranes are moist. No oral lesions. Neck supple. Full range of motion. No adenopathy thyromegaly or neck vein distention. Cardiovascular examination reveals regular rhythm rate. S1-S2 normal. No S3 or S4. No discernible murmur noted. Lungs reveal mostly clear breath sounds. Scattered basilar crackles. No wheezes or rhonchi. Breath sounds are equal bilaterally. Abdomen soft bowel sounds are heard. No masses or tenderness. Extremities are intact. No cyanosis clubbing or edema. Skin is without rash or lesion. Neurologic examination is brief but nonfocal. - Labs CBC & Chem 7: 10/27/23 10:44 10/27/23 10:44 Assessment and Plan Plan: Acute non-ST elevation FL, found to have severe ostial stenosis of the OM1, Impella device placed 10/18/2023 removed 10/21/2023. He did undergo successful sten ting of the left main coronary artery on 10/19/2023. Acute hypotension and shock refractory to fluid resuscitation, requiring norepinephrine, likely cardiogenic in nature. Recovered and off pressors. Blood pressure is stable. The patient is hemodynamically stable at this point in time. Acute leukocytosis, procalcitonin 15.2 and currently down to 0.9 and the patient was on IV Rocephin. Chest x-ray shows limited atelectatic change in the left lung base. No evidence of any infection or pneumonia. White cell count remains slightly elevated. The patient is afebrile. The patient is currently off antibiotics. Acute on chronic systolic heart failure, ejection fraction 15%. Acute on chronic hypoxemic respiratory failure, secondary to above, currently on room air oxygen Acute kidney injury, secondary to hypotension and ATN, recovered and the creatinine is normalized Mild transaminitis, secondary to hypotension and shock. History of severe ischemic cardiomyopathy, with a baseline ejection fraction estimated at less than 15%, with history of V. tach and AICD implantation. History of valvular heart disease, with moderate to severe mitral regurgitation along with moderate aortic and tricuspid regurgitation. Moderate chronic obstructive pulmonary disease. History of multivessel coronary artery disease with previous PCI/stenting of the proximal and mid LAD. History of paroxysmal atrial fibrillation. History of hyperlipidemia. History of hypertension. History of CVA/TIA. Former tobacco dependence, quitting in January,. Episodes of cough, improved Plan: Chest x-ray findings are stable and consistent with CHF, the patient is on 2 L of oxygen by nasal cannula. The patient may need home O2. Will continue anticoagulation with Eliquis 2.5 mg twice a day in combination with amiodarone 100 mg p.o. twice a day Continue metoprolol 50 mg p.o. twice a day Continue Cozaar 12.5 mg p.o. daily Continue aspirin 81 mg p.o. daily in combination with Brilinta May discontinue the IV Rocephin as the patient's procalcitonin level is dropped and the chest x-ray essentially clear Continue bronchodilators and the patient is on DuoNeb updrafts in combination with Perforomist and Pulmicort nebulized treatments twice a day, and those updrafts can be discontinued and the patient can be switched to Symbicort at time of discharge and use albuterol updrafts on an as-needed basis. Will continue to follow. Case was discussed with the medical team..
== END 2023-10-27 14:20 | disposition home health service (06) | DRG 215 ==
LOC: EC 22:26 → 3SCARD 10-18 00:29 → 2SICU 10-18 02:02 → 3SCARD 10-22 14:45
PROVIDERS: ADMIT Internal Medicine; ATTEND Internal Medicine
PROC: 4A023N7 Measurement of Cardiac Sampling and Pressure, Left Heart, Percutaneous Approach (ICD-10-PCS; 2023-10-18)
PROC: 3E043XZ Introduction of Vasopressor into Central Vein, Percutaneous Approach (ICD-10-PCS; 2023-10-18)
PROC: B240ZZ3 Ultrasonography of Single Coronary Artery, Intravascular (ICD-10-PCS; 2023-10-18)
PROC: 027034Z Dilation of Coronary Artery, One Artery with Drug-eluting Intraluminal Device, Percutaneous Approach (ICD-10-PCS; principal; 2023-10-18 04:24)
PROC: 02HA3RZ Insertion of Short-term External Heart Assist System into Heart, Percutaneous Approach (ICD-10-PCS; 2023-10-21)
PROC: 5A0221D Assistance with Cardiac Output using Impeller Pump, Continuous (ICD-10-PCS; 2023-10-21)
PROC: B2111ZZ Fluoroscopy of Multiple Coronary Arteries using Low Osmolar Contrast (ICD-10-PCS; 2023-10-21)
PROC: B41F1ZZ Fluoroscopy of Right Lower Extremity Arteries using Low Osmolar Contrast (ICD-10-PCS; 2023-10-21)
PROC: B41G1ZZ Fluoroscopy of Left Lower Extremity Arteries using Low Osmolar Contrast (ICD-10-PCS; 2023-10-21)
DX: I21.4 Non-ST elevation (NSTEMI) myocardial infarction (principal); I50.23 Acute on chronic systolic (congestive) heart failure; J96.21 Acute and chronic respiratory failure with hypoxia; N17.0 Acute kidney failure with tubular necrosis; R57.0 Cardiogenic shock; J18.9 Pneumonia, unspecified organism; R04.2 Hemoptysis; I47.20 Ventricular tachycardia, unspecified; B37.0 Candidal stomatitis; I42.8 Other cardiomyopathies; J44.0 Chronic obstructive pulmonary disease with (acute) lower respiratory infection; J44.1 Chronic obstructive pulmonary disease with (acute) exacerbation; E83.42 Hypomagnesemia; I11.0 Hypertensive heart disease with heart failure; I25.10 Atherosclerotic heart disease of native coronary artery without angina pectoris; I25.2 Old myocardial infarction; I25.5 Ischemic cardiomyopathy; I45.9 Conduction disorder, unspecified; I48.0 Paroxysmal atrial fibrillation; Z79.01 Long term (current) use of anticoagulants; R13.10 Dysphagia, unspecified; Z91.030 Bee allergy status; E78.5 Hyperlipidemia, unspecified; I08.1 Rheumatic disorders of both mitral and tricuspid valves; G40.909 Epilepsy, unspecified, not intractable, without status epilepticus; G89.29 Other chronic pain; R04.0 Epistaxis; Z79.51 Long term (current) use of inhaled steroids; Z79.82 Long term (current) use of aspirin; Z79.84 Long term (current) use of oral hypoglycemic drugs; Z79.899 Other long term (current) drug therapy; Z82.49 Family history of ischemic heart disease and other diseases of the circulatory system; Z86.73 Personal history of transient ischemic attack (TIA), and cerebral infarction without residual deficits; Z87.891 Personal history of nicotine dependence; Z95.810 Presence of automatic (implantable) cardiac defibrillator; F40.240 Claustrophobia; F41.0 Panic disorder [episodic paroxysmal anxiety]; X58.XXXA Exposure to other specified factors, initial encounter; T50.905A Adverse effect of unspecified drugs, medicaments and biological substances, initial encounter; R74.01 Elevation of levels of liver transaminase levels; R31.9 Hematuria, unspecified; I08.3 Combined rheumatic disorders of mitral, aortic and tricuspid valves
CPT/HCPCS: 33990; 33992; 36415; 36600; 70450; 70496; 70498; 71045; 71046; 80048; 80053; 80061; 80177; 82805; 83605; 83615; 83690; 83735; 83880; 84132; 84145; 84484; 85025; 85027; 85347; 85384; 85610; 85730; 87040; 87070; 87205; 87636; 92972; 92978; 93005; 93308; 93458; 94640; 94760; 96361; 96365; 96366; 96367; 96368; 96375; 99291

== ENCOUNTER → 2023-12-15 | Outpatient (CLI) | payer MEDICARE, OTHER ==
[2023-12-15 15:44] LABS: ALT 96 U/L (10-49); AST 71 U/L (14-35); Albumin 4.6 g/dL (3.8-4.9); Albumin/Globulin Ratio 1.35 Ratio (1.60-3.17); Alkaline Phosphatase 73 U/L (41-126); BUN/Creat Ratio 12.83 Ratio (12.00-20.00); Blood Urea Nitrogen 23.1 mg/dL (9.0-27.0); Calcium 9.7 mg/dL (8.7-10.3); Carbon Dioxide 23.9 mmol/L (21.6-31.8); Chloride 101 mmol/L (96-109); Chol/HDL Ratio 1.96 Ratio; Globulin 3.4 g/dL (1.6-3.3); Glucose 117 mg/dL (70-110); LDL Cholesterol,Calculated 44.1 mg/dL (0.0-131.0); Potassium 3.7 mmol/L (3.5-5.5); Sodium 139 mmol/L (135-145); Total Bilirubin 1.7 mg/dL (0.3-1.2)
[2023-12-16 16:09] LABS: NT-Pro-B-Type Natriuretic Pept 7103 pg/mL (0-125)
== END | disposition home or self-care (01) ==
LOC: LABWHC1 08:09
PROVIDERS: ATTEND Psychiatry & Neurology Neurology
DX: I25.5 Ischemic cardiomyopathy (principal); E78.2 Mixed hyperlipidemia; R56.9 Unspecified convulsions
CPT/HCPCS: 36415; 80053; 80061; 80177; 83880

== ENCOUNTER → 2024-02-23 | Outpatient (CLI) | payer MEDICARE, OTHER | END | disposition home or self-care (01) | LOC: LABPRL 11:25 | PROVIDERS: ATTEND Nurse Practitioner Adult Health | DX: I50.22 Chronic systolic (congestive) heart failure | CPT/HCPCS: 80048; 83880 ==

== ENCOUNTER → 2024-04-04 | Outpatient (CLI) | payer MEDICARE, OTHER ==
--- NOTE | 2024-04-17 07:15 | CT ---
EXAMINATION TYPE: CT brain wo con DATE OF EXAM: 04/04/2024 COMPARISON: 10/26/2023 INDICATION: head injury DLP: 1159 mGycm, Automated exposure control for dose reduction was used. CONTRAST: None CT of the brain is performed utilizing 3 mm thick sections through the posterior fossa and 3 mm thick sections through the remaining calvarium. Study is performed within 24 hours of arrival to the hosp [facility]. No abnormal hyperdensity is present to suggest an acute intracranial hemorrhage. No mass lesion is evident. No acute infarcts are evident. There is hypodensity within the left temporal lobe. Some additional arriola bcortical hypodensity within the left frontal and watershed regions. Findings are similar to the comp arison Ventricles and sulci are prominent for the patient age. Paranasal sinuses and mastoid air cells within the [id number] are clear. IMPRESSION: 1. Old ischemic change or post traumatic encephalomalacia left proximal temporal lobe, left watersh ed region and left frontal. 2. No acute intracranial process. Follow up MRI can be performed as clinically indicated. [facility], , 04/17/2024 7:13 AM
== END | disposition home or self-care (01) ==
LOC: RADCTMAIN 16:57
PROVIDERS: ATTEND Family Medicine
DX: S09.90XA Unspecified injury of head, initial encounter
CPT/HCPCS: 70450

== ENCOUNTER → 2024-05-23 | Outpatient (CLI) | payer MEDICARE, OTHER ==
[2024-05-23 17:08] LABS: ALT 73 U/L (10-49); AST 63 U/L (14-35); Albumin 4.3 g/dL (3.8-4.9); Albumin/Globulin Ratio 1.72 Ratio (1.60-3.17); Alkaline Phosphatase 60 U/L (41-126); BUN/Creat Ratio 9.16 Ratio (12.00-20.00); Blood Urea Nitrogen 17.4 mg/dL (9.0-27.0); Calcium 9.4 mg/dL (8.7-10.3); Carbon Dioxide 27.3 mmol/L (21.6-31.8); Chloride 104 mmol/L (96-109); Chol/HDL Ratio 2.15 Ratio; Globulin 2.5 g/dL (1.6-3.3); Glucose 99 mg/dL (70-110); LDL Cholesterol,Calculated 36.1 mg/dL (0.0-131.0); Potassium 4.1 mmol/L (3.5-5.5); Sodium 143 mmol/L (135-145); Total Bilirubin 1.5 mg/dL (0.3-1.2); Total Protein 6.8 g/dL (6.2-8.2); VLDL Calculation 15.68 mg/dL (5.00-40.00)
[2024-05-23 21:50] LABS: NT-Pro-B-Type Natriuretic Pept 3796 pg/mL (0-125)
== END | disposition home or self-care (01) ==
LOC: LABWHC1 07:48
PROVIDERS: ATTEND Internal Medicine Interventional Cardiology
DX: E78.2 Mixed hyperlipidemia (principal)
CPT/HCPCS: 36415; 80053; 80061; 83880

== ENCOUNTER → 2024-09-10 | Outpatient (CLI) | payer MEDICARE, OTHER ==
[2024-09-10 15:18] LABS: BUN/Creat Ratio 11.23 Ratio (12.00-20.00); Blood Urea Nitrogen 24.7 mg/dL (9.0-27.0); Calcium 9.3 mg/dL (8.7-10.3); Carbon Dioxide 25.9 mmol/L (21.6-31.8); Chloride 105 mmol/L (96-109); Glucose 98 mg/dL (70-110); Sodium 142 mmol/L (135-145)
[2024-09-10 15:42] LABS: NT-Pro-B-Type Natriuretic Pept 3291 pg/mL (0-125)
== END | disposition home or self-care (01) ==
LOC: LABWHC1 08:02
PROVIDERS: ATTEND Nurse Practitioner Adult Health
DX: I25.5 Ischemic cardiomyopathy (principal); I50.22 Chronic systolic (congestive) heart failure
CPT/HCPCS: 36415; 80048; 83880

== ENCOUNTER → 2024-11-23 | Outpatient (CLI) | payer MEDICARE, OTHER ==
[2024-11-23 12:04] LABS: ALT 94 U/L (10-49); AST 48 U/L (14-35); Albumin 4.3 g/dL (3.8-4.9); Albumin/Globulin Ratio 1.26 Ratio (1.60-3.17); Alkaline Phosphatase 83 U/L (41-126); BUN/Creat Ratio 15.84 Ratio (12.00-20.00); Blood Urea Nitrogen 30.1 mg/dL (9.0-27.0); Calcium 9.3 mg/dL (8.7-10.3); Carbon Dioxide 23.7 mmol/L (21.6-31.8); Chloride 103 mmol/L (96-109); Chol/HDL Ratio 2.12 Ratio; Globulin 3.4 g/dL (1.6-3.3); Glucose 104 mg/dL (70-110); LDL Cholesterol,Calculated 53.2 mg/dL (0.0-131.0); Potassium 4.2 mmol/L (3.5-5.5); Sodium 140 mmol/L (135-145); Total Bilirubin 1.9 mg/dL (0.3-1.2); Total Protein 7.7 g/dL (6.2-8.2); VLDL Calculation 13.28 mg/dL (5.00-40.00)
[2024-11-23 14:09] LABS: NT-Pro-B-Type Natriuretic Pept 4394 pg/mL (0-125)
== END | disposition home or self-care (01) ==
LOC: LABWHC1 07:40
PROVIDERS: ATTEND Internal Medicine Interventional Cardiology
DX: I50.22 Chronic systolic (congestive) heart failure (principal); I48.11 Longstanding persistent atrial fibrillation; E78.2 Mixed hyperlipidemia
CPT/HCPCS: 36415; 80053; 80061; 83880; 84443